=== PATIENT | female | born 1950 | race Caucasian/White ===

== ENCOUNTER → 2017-06-22 09:21 | Outpatient (CLI) | payer BC, SELFPAY ==
--- NOTE | 2017-06-22 09:32 | MRI_ITS ---
STUDY: MRI BRAIN WITH AND WITHOUT CONTRAST REASON FOR EXAM: Female, 66 years old. Paresthesia. Left arm and leg numbness and weakness. Unsteady gait. Loss of strength in left side. Family history of MS. TECHNIQUE: Standardized multiplanar fat and water weighted pulse sequences were obtained. 6 ml of Gadavist contrast material was administered intravenously for the contrast portion of the examination. COMPARISON: 01/01/2016. FINDINGS: Normal size of the ventricles and extra-axial spaces for the patient's age. Left periatrial white matter T2 FLAIR hyperintensity foci are unchanged. Normal bilateral basal ganglia. Normal thalami. There is no extra-axial fluid accumulation. Normal flow voids within the major intracranial circulation suggesting patency by spin echo criteria. Normal venous enhancement. There is no enhancing intra-axial or extra-axial abnormality. Normal sella turcica, pituitary gland, infundibular stalk, optic chiasm and hypothalamus. Normal tectal plate and pineal gland. Normal midbrain, gillian and medulla. Normal cerebellum. Normal basal cisterns. Normal bilateral temporal bones. Normal bilateral internal auditory canals. No demonstrated orbital abnormality, within the constraints of a routine brain study. Normal visualized paranasal sinuses. Normal calvarium and skull base. Normal visualized soft tissue structures. Normal visualized upper cervical spine. MRI/Brain W/WO Contrast IMPRESSION: 1. Left periatrial white matter T2 FLAIR hyperintensity foci are nonenhancing and unchanged. They may be secondary to microvascular disease rather than MS plaque. 2. No interval changes or new findings when compared to 01/01/2016. Electronically Signed: Alf Quevedo MD at 13:42 EDT , Service support ,
--- NOTE | 2017-06-22 09:32 | MRI_ITS ---
STUDY: MRI CERVICAL SPINE WITH AND WITHOUT CONTRAST REASON FOR EXAM: Female, 66 years old. Left sided arm numbness and weakness. Patient has unsteady gait. TECHNIQUE: Standardized fat and water weighted pulse sequences were obtained in the sagittal and axial following I.V. administration of 6 ml of Gadavist contrast material. Sagittal and axial T1 and T2 MR images of the cervical spine were obtained prior to intravenous administration of contrast. COMPARISON: None FINDINGS: Normal foramen magnum and brainstem-cervical cord junction. Normal craniovertebral junction. There are degenerative changes of the anterior atlantoaxial articulation. There is abnormal signal within the odontoid. This may be the result of bone contusion and/or erosive change. This is new since the previous MRI. There is reversal of the normal cervical lordosis. The patient has had discectomy and surgical fusion at C6-7. C2-3: Normal endplates. Normal disc height, signal and morphology. Normal central canal. There is narrowing of bilateral intervertebral neural foramina. There is moderate osteoarthropathy of facet joints and uncovertebral joints. C3-4: There is narrowing of this disc. There is severe bilateral neural foraminal narrowing with potential nerve impingement. There is severe degenerative arthropathy of the left-sided facet joint and moderate degenerative arthropathy of uncovertebral and right-sided facet joint. C4-5: There is narrowing of this disc. There is a disc bulge and osteophyte complex. There is severe right-sided neural foraminal narrowing with potential nerve impingement. There is no significant central acquired canal stenosis. There is moderately severe uncovertebral facet joint arthropathy. C5-6: There is severe narrowing of this disc space with a large endplate osteophytes. There is severe left-sided neural foraminal narrowing with probable nerve impingement. The right neural foramen is mildly narrowed. There is mild central acquired canal stenosis. There is uncovertebral joint appear to be. C6-7: Patient has had discectomy at this level with surgical fusion. There is a posteriorly directed osteophyte causing moderate acquired canal stenosis and potential impingement of the spinal cord at this level. There is severe bilateral neural foraminal narrowing with probable nerve impingement. There is uncovertebral and facet joint arthropathy. C7-T1: There is a disc bulge and osteophyte complex. There is severe bilateral neural foraminal narrowing with potential nerve impingement. There is mild central acquired canal stenosis. There is persistent abnormal signal within the spinal cord at C2-3 and C3, similar to previous study. The spinal cord otherwise has normal morphology and signal characteristics. There is no demonstrated cervical cord syrinx cavity. There is multilevel degenerative disc disease of the upper thoracic spine. There is abnormal signal within the gillian probably related to sequela of microvascular disease. Normal visualized soft tissue structures. MRI/Spine Cervical W/WO Contrast IMPRESSION: 1. Unchanged appearance to abnormal signal within the proximal cervical spinal cord since previous study. 2. Moderately severe multilevel degenerative disc disease and degenerative arthropathy of cervical spine with acquired canal stenosis, neural foraminal narrowing and potential nerve impingement as described. 3. Status post discectomy at C6-7 with surgical fusion. Electronically Signed: Becca Anderson MD at 7:42 EDT , Service support ,
[2017-06-22 11:01] LABS: CREATININE FINGERSTICK 0.9 mg/dL (0.55-1.02); EGFR FINGERSTICK > 60.0000 mL/min (>60)
== END ==
PROVIDERS: Family Provider Internal Medicine; PCP Internal Medicine; Visit Provider Internal Medicine
DX: R20.2 Paresthesia of skin (principal); R27.0 Ataxia, unspecified; R93.7 Abnormal findings on diagnostic imaging of other parts of musculoskeletal system
CPT/HCPCS: 70553; 72156; A9585

== ENCOUNTER → 2018-02-09 08:52 | Outpatient (CLI) | payer BC, SELFPAY ==
--- NOTE | 2018-02-09 09:05 | RAD_ITS ---
STUDY: X-RAY - LUMBAR SPINE REASON FOR EXAM: Female, 67 years old. Pain TECHNIQUE: 5 view(s) of the lumbar spine were obtained. COMPARISON: None FINDINGS: There is no evidence of fracture or dislocation in the lumbar spine. There are moderate multilevel degenerative changes with disc space narrowing and osteophyte formation. There are atherosclerotic ossifications noted in the aorta. RAD/L/S Spine Min 4 Views IMPRESSION: No fracture or dislocation in the lumbar spine. Moderate degenerative changes. Electronically Signed: Alex Yadav, at 16:42 EST Tel , Service support ,
== END ==
PROVIDERS: Family Provider Internal Medicine; PCP Internal Medicine
DX: M54.5 Low back pain (principal)
CPT/HCPCS: 72110

== ENCOUNTER → 2018-05-19 13:39 | Outpatient (CLI) | payer MEDICARE, OTHER, SELFPAY ==
--- NOTE | 2018-05-19 13:44 | CT_ITS ---
STUDY: CT ABDOMEN WITH CONTRAST REASON FOR EXAM: Female, 67 years old. Loss of appetite. Pain while eating. RADIATION DOSAGE (If Supplied By Facility): CTDIvol = ( 10.03 ) mGy, DLP = ( 341.51 ) mGycm TECHNIQUE: Transaxial images were obtained post I.V. administration of 100 IV Isovue 250, and without oral contrast. Sagittal and coronal images were reconstructed. Individualized dose optimization techniques were used for this CT. COMPARISON: Chest second 2016. FINDINGS: Again noted bilateral focal eventration of the hemidiaphragms. Atelectasis/scarring within the lungs. Emphysematous changes. The visualized portions of the heart are within normal limits. There is decreased attenuation of the liver consistent with steatosis. Borderline enlarged liver. Normal gallbladder and extrahepatic biliary system. Normal spleen. Normal pancreas. Normal bilateral adrenal glands. There is mild perinephric fatty stranding noted bilaterally. There is mild left hydronephrosis present. There is no significant hydroureter present. No definite stones identified. Subcentimeter low-attenuation structures within the right kidney too small to characterize by CT criteria however statistically likely represent cysts. Mild gastric wall thickening likely related to underdistention. Limited evaluation of bowel by the lack of oral contrast. No dilated bowel within the visualized abdomen. There is diverticulosis, with thickening of the colon wall, and pericolonic inflammation changes consistent with acute diverticulitis. The appendix is visualized and appears normal. There is diffuse atherosclerotic calcification of the abdominal aorta with elongation and tortuosity, but without a demonstrated aneurysm. Normal inferior vena cava. Normal retroperitoneum. Normal abdominal wall. There are diffuse degenerative changes of the visualized lumbar spine. Extensive degenerative changes at the T12-L1 region. There is vacuum disc phenomenon with gas posterior to the disc space within the region of the canal. Relatively similar to prior CT scan of the chest. CT/Abdomen WITH IV Contrast IMPRESSION: There is moderate left hydronephrosis. There is no significant hydroureter. This may represent a stricture at the left UPJ. Underlying mass cannot be totally excluded however no enhancing lesion is identified. Correlate with prior studies for stability recommended. Hepatic steatosis. Diverticulosis. No CT evidence for diverticulitis within the visualized colon. Other findings as discussed above. Electronically Signed: Brayan Sood, at 7:06 EDT Tel , Service support ,
== END ==
PROVIDERS: Family Provider Internal Medicine; PCP Internal Medicine; Referring Provider Internal Medicine; Visit Provider Internal Medicine
DX: R94.5 Abnormal results of liver function studies (principal)
CPT/HCPCS: 74160; Q9967

== ENCOUNTER → 2018-07-21 12:16 | Outpatient (CLI) | payer MEDICARE, OTHER, SELFPAY ==
--- NOTE | 2018-07-21 12:20 | BI_ITS ---
MAMMOGRAPHY - BILATERAL SCREENING REASON FOR EXAM: Female, 67 years old. Routine annual screening examination. PERTINENT HISTORY: Non-contributory. Remote bilateral stereotactic breast biopsies. TECHNIQUE: Digital bilateral breast darinel (3D mammographic acquisition) in the CC and MLO projections. 2-D mediolateral oblique (MLO) and craniocaudad (CC) views of both breasts were obtained. CAD: Full Field Digital Mammography with Computer Added Detection was performed. COMPARISON: Comparison is made with prior study dated January 07, 2016 and December 17, 2014. FINDINGS: Breast Composition: There are scattered areas of fibroglandular density. There are no dominant masses or suspicious calcifications. A fissure clip marker is once again seen in the medial retroareolar region of the left breast. A tissue clip marker is also seen in the slightly upper medial aspect of the right breast. This is unchanged. No other significant abnormalities are identified. There has been no significant change since the prior study. BI/SCREEN MAMM (CAD) W/DARINEL BILAT IMPRESSION: Stable bilateral screening mammogram. Yearly follow-up mammogram recommended. (A) ASSESSMENT CATEGORY: BIRADS Category 2: Benign. A letter regarding these results will be sent to the patient by the facility within 30 days. Approximately 10% of breast cancers are not detected by mammography. A normal mammogram should not delay biopsy of a clinically suspicious abnormality. [id number] Electronically Signed: Adalberto Dumas, at 13:39 EDT , Service support ,
== END ==
PROVIDERS: Family Provider Internal Medicine; PCP Internal Medicine; Referring Provider Internal Medicine; Visit Provider Internal Medicine
DX: Z12.31 Encounter for screening mammogram for malignant neoplasm of breast (principal)
CPT/HCPCS: 77063; 77067

== ENCOUNTER → 2018-11-28 14:39 | Outpatient (CLI) | payer MEDICARE, OTHER, SELFPAY ==
--- NOTE | 2018-11-28 14:42 | CT_ITS ---
STUDY: LOW DOSE CT LUNG CANCER SCREENING REASON FOR EXAM: Female, 68 years old. 15 pack-year history. RADIATION DOSAGE (If Supplied By Facility): CTDIvol = ( 2.01 ) mGy, DLP = ( 69.47 ) mGycm TECHNIQUE: No contrast was administered. Low dose technique was utilized (average mAS-38 and kVp 120). 1.25 mm axial source images with a slice interval of 1.25-mm were reconstructed in lung windows. 2.5 mm axial source images with a slice interval of 2.5-mm were reconstructed in lung windows. 5.0 mm axial source images with a slice interval of 5.0-mm were reconstructed in soft tissue windows. Nodule measured using lung windows on PACS and/or independent workstation with automated measurement of minimum and maximum diameter. Nodule measurement reported as average diameter rounded to the nearest whole number. Growth is defined as an increase ins size of greater than 1.5 mm. COMPARISON: February 04, 2017. NODULES: Nodule #: 1 Density: Solid Lung location: Left upper lobe: Pleural-based Location in series: Series Number: 2 Image: 45 Size - D1 x D2 mm: 2 x 2 mm: 2 mm average diameter Margin: Smooth Shape: Rounded Calcification: No Fat: No Temporal comparison: Stable Nodule #: 2 Density: Solid Lung location: Left upper lobe: Pleural-based Location in series: Series Number: 2 Image: 48 Size - D1 x D2 mm: 2 x 2 mm: 2 mm average diameter Margin: Smooth Shape: Round Calcification: No Fat: No Temporal comparison: Stable Nodule #: 3 Density: Solid Lung location: Left upper lobe: 0.2 cm from pleura Location in series: Series Number: 2 Image: 55 Size - D1 x D2 mm: 2 x 2 mm: 2 mm average diameter Margin: Smooth Shape: Round Calcification: No Fat: No Temporal comparison: Stable Nodule #: 4 Density: Solid Lung location: Left upper lobe: Pleural based Location in series: Series Number: 2 Image: 62 Size - D1 x D2 mm: 1 x 1 mm: 1 mm average diameter Margin: Smooth Shape: Round Calcification: No Fat: No Temporal comparison: Stable Total lung nodules (excluding granulomas): 4 Emphysema: Mild stable changes. Endobronchial lesion: None Aorta: Atherosclerotic changes without aneurysm. Coronary arteries: Stable coronary artery calcifications. Heart: Normal Pulmonary artery: Normal Mediastinal nodes: None Other chest and abdominal findings: Degenerative changes of the thoracic spine. CT/Low Dose CT Lung Screening IMPRESSION: Lung-RADS category 2 - Continue annual screening with LDCT in 12 months. IMPORTANT NOTES FOR USE: ACR Lung-RADS Version 1.0 Assessment Categories Release Date: June 11, 2013 Category: Coded 0-4 bases on nodule(s) with highest degree of suspicion. Negative screen is defined as categories 1 and 2; a positive screen is defined as categories 3 and 4. Category 3 and 4A nodules that are unchanged on interval CT should be coded as category 2, and individuals returned to screening in 12 months. Category 4X: Category 3 or 4 nodules with additional imaging findings that increase the suspicion of lung cancer, such as spiculation, GGN that doubles in size in 1 year, enlarged lymph notes, etc. Category Modifiers: S (significant finding unrelated to lung cancer) and C (prior history of treated lung cancer) may be added to the 0-4 Lung-RADS Electronically Signed: Pratik Carreno DO at 19:37 EDT Tel [phone], Service support ,
== END ==
PROVIDERS: Family Provider Internal Medicine; PCP Internal Medicine; Referring Provider Internal Medicine; Visit Provider Internal Medicine
DX: Z12.2 Encounter for screening for malignant neoplasm of respiratory organs (principal); M81.0 Age-related osteoporosis without current pathological fracture; Z87.891 Personal history of nicotine dependence
CPT/HCPCS: G0297

== ENCOUNTER 2019-07-24 09:30 | Outpatient (RCR) | payer MEDICARE, OTHER, SELFPAY ==
--- NOTE | 2019-07-05 11:14 | HP.PTEVAL ---
Patient's Visit Information IRINA ROSE is a 68 year old F referred to Physical Therapy by Dr. Zarina Schwab MD with a diagnosis of dizzinesss, giddiness.. Date of Evaluation: 07/05/19 Physical Therapist: Tristian Mckay, JOSET, OCS, CSCS - Visit Plan Frequency: 2x /Week Duration: 4-6 Weeks Plan: 2x.week for 3-6 week for. 1. Balance and gait with foam and VOR and progress to HEP as safety allows. Practice narrow GEOFF. 2. core strength emphasizing hips and abdominals. 3. Progress home VOR(let EG know if HEP is not symptomatic.) Consider Neurocom balance as needed) - Subjective I am dizzy described as wobbly on feet but no spinning, only when on feet. Was sick a month ago and that is when it started. Stomach and pancreas werre all messed up. Now on pills and those are OK. On meclizine for 6 weeks and it helps daily as needed 3x/week. Denies CULP, neck pain, nausea. Just dizzy/wobbly. Has fallen 2x in last month. Both time going down steps and looking down was needed but did not. Has to be careful on steps. Does not need AD. Fatigue makes it worse. Holding cart is fine at grocery store. No previous oroblems with this. Sleep is OK. No pain but then describes sitting too much gives back pain. Not employed. Activities are normal, fairly sedentary. Planting gan took 3 days instead of four hours as she needed to get off feet. Bending to do this made her worse. - Objective Pt uses hands to get out of chair and takes a minute to steady herself then walks safe and secure on firm flat surface but wide GEOFF. Weakness evident in core at hips 3+ and knees 4, and ankles 4+. reflexes 2/3 patella and achilles. Sensation LE WNL to gross light touch. Coordination shows slight deificts in reciprocal tapping and moderate in heel to ndiaye B. Has trouble keeping head moving while VOR walking. - B hallpike mimi and roll test, no nystagmus. Oculomotor:- skew eye deviation, - ocular tilt. Pursuit adn saccades are normal. convergence is normal. no nystagmus with gaze or head shake. 6/10 dizzyness with horiz VOR after 20 seconds sitting descirbed as goofiness. None with vertical VOR. - head thrust. - Balance Scores Functional Gait Assessment Score: 22 % Disability: 26.6700 CATSIB Score (Max score 120 seconds): 110 - Goals Goal 1:: Pt feel 75% better in gait and walk with Narrow GEOFF at normal speed. Goal Time Frame: 4-6 Weeks Goal 2:: Pt ascend and descend stairs reciprocally withotu rail Goal Time Frame: 4-6 Weeks Goal 3:: I approp HEp to minize future problems Goal Time Frame: 4-6 Weeks Goal 4:: DHI <10 Goal Time Frame: 4-6 Weeks - Rehabilitation Potential Physical Therapy Diagnosis: unsteadiness, dizzyness with VOR leading to mobiliity deficits and safety concerns. Rehabilitation Potential: Fair - Anticipated Interventions Patient/Client Instruction: Educate patient on: Condition, Plan of Care For the Purpose of:: To improve muscle performance and motor function, To increase tolerance to activity/condition/position, To improve gait and locomotor functions Therapeutic Exercise to Include: Strength training, Balance training, Gait and locomotor training, Neuromotor development Comment: vestibular ex. For the Purpose of:: To improve muscle performance and motor function, To increase tolerance to activity/condition/position, To improve gait and locomotor functions Thank you for the opportunity to evaluate your patient. For Medicare and Medicare HMO plans, please review the plan of care and approve it. It will need to be FAXED BACK to us at [phone] for Medicare purposes. For Medicare only, by signing this I certify the plan of care. Please let me know if there are questions or concerns regarding this plan of care. Physician Signature: Date:
--- NOTE | 2019-10-16 16:28 | HP.PT.NRP ---
IRINA ROSE was seen in my office for initial evaluation on 07/05/19. The following Plan of Care was established for this patient: Initial Frequency: 2x /Week Initial Duration: 4-6 Weeks Patient/Client Instruction: Educate patient on: Condition, Plan of Care For the Purpose of:: To improve muscle performance and motor function, To increase tolerance to activity/condition/position, To improve gait and locomotor functions Therapeutic Exercise to Include: Strength training, Balance training, Gait and locomotor training, Neuromotor development For the Purpose of:: To improve muscle performance and motor function, To increase tolerance to activity/condition/position, To improve gait and locomotor functions This patient was last seen in our office 07/24/19. Pertinent comments regarding their Physical therapy will appear below: Ptseen 6 visits of POC and cancelled last two visits stating she would reschedule but not doing so. at this point, it has been over two months adn I will discontinue due to nonattendance. At this point I will be discontinuing this patient from physical therapy. I would be happy to see this patient again in the future if found appropriate by the physician. Thank you! Tristian Mckay, DPT, OCS, CSCS
== END 2019-07-24 19:00 | disposition home or self-care (01) ==
LOC: PT 09:30
PROVIDERS: PCP Internal Medicine; Referring Provider Internal Medicine; Visit Provider Internal Medicine
DX: R42 Dizziness and giddiness (principal)
CPT/HCPCS: 97110; 97162

== ENCOUNTER → 2019-08-22 07:42 | Outpatient (CLI) | payer MEDICARE, OTHER, SELFPAY ==
--- NOTE | 2019-08-22 07:49 | RAD_ITS ---
STUDY: X-RAY - LEFT KNEE REASON FOR EXAM: Female, 69 years old. FALL. SWELLING LEFT KNEE TECHNIQUE: 4 view(s) of the knee. COMPARISON: None. FINDINGS: Normal visualized distal femur. Normal visualized proximal tibia and fibula. Normal proximal tibiofibular articulation. Normal medial femorotibial compartment. Normal lateral femorotibial compartment. Normal patellofemoral articulation. The soft tissue structures are unremarkable. RAD/Knee 4 or More Views IMPRESSION: Normal x-ray examination of the knee. Electronically Signed: Adalberto Dumas, at 15:29 EDT , Service support ,
== END ==
PROVIDERS: PCP Internal Medicine; Referring Provider Internal Medicine; Visit Provider Internal Medicine
DX: M25.562 Pain in left knee (principal)
CPT/HCPCS: 73564

== ENCOUNTER → 2019-08-22 13:53 | Outpatient (CLI) | payer MEDICARE, OTHER, SELFPAY ==
--- NOTE | 2019-08-22 13:59 | VDLE_ITS ---
Reason For Study: PAIN RIGHT LEFT CFV is compressible, spontaneous, phasic, GSV is normal. competent and demonstrates normal CFV is compressible, spontaneous, phasic, augmentation. competent, and demonstrates normal Procedure augmentation. Exam performed in department. FV is compressible, spontaneous, phasic, The exam was diagnostic. competent and demonstrates normal A preliminary report was called and/or faxed augmentation. to Dr. Schwab @ 2:40 pm. POP V is compressible, spontaneous, phasic, competent and demonstrates normal augmentation. T/P Trunk is compressible. PTV is compressible. LT PerV is compressible. Interpretation Summary Deep veins of the left lower extremity are patent and compressible segmentally. There is no evidence of left lower extremity deep vein thrombosis. Valvular competence appears intact within the proximal deep venous system on the left . The left great saphenous vein appears patent and compressible segmentally. Ordering Physician: Zarina Schwab Referring Physician: Zarina Schwab Performed By: Silva Jackson RVT, RDCS and Student
[2019-08-22 15:55] LABS: Absolute Lymphocyte Count 2.29 X10^3/uL (0.83-4.51); Basophil# 0.03 X10^3/uL; Basophil% 0.4 % (0-1); Eosinophil# 0.12 X10^3/uL; Eosinophils% 1.7 % (0-5); Hematocrit 37.7 % (37-47); Hemoglobin 12.4 g/dL (12.0-15.0); Lymphocyte # 2.29 X10^3/ul (4.0); Lymphocyte % 32.9 % (19-41); Mean Corp Hgb Conc 32.9 g/dL (32-36); Mean Corpuscular Hgb 35.6 pg (27.0-32.0); Mean Corpuscular Volume 108.3 fL (81-99); Mean Platelet Vol. 9.3 fl (6.2-12.0); Monocyte# 0.55 X10^3/uL; Monocyte% 7.9 % (0-10); NRBC Flagged by Analyzer 0 % (0-5); Neutrophil # 3.95 X10^3/uL (2.7-7.7); Neutrophil % 56.8 % (47-70); Platelet Count 397 K/mm3 (150-450); RBC Distribution Width CV 15.1 % (11.6-14.6); Red Blood Count 3.48 M/mm3 (4.2-5.4)
[2019-08-22 16:16] LABS: Erythrocyte Sedimentation Rate 9 mm/hr (0-30)
[2019-08-22 19:18] LABS: D-Dimer Quantitative (DVT/PE) 2.84 FEU/ug/m (0.27-0.49)
== END ==
PROVIDERS: PCP Internal Medicine; Referring Provider Internal Medicine; Visit Provider Internal Medicine
DX: R60.0 Localized edema (principal); M25.562 Pain in left knee
CPT/HCPCS: 36415; 73564; 85025; 85379; 85652; 86140; 87040; 93971

== ENCOUNTER → 2019-08-24 | Outpatient (CLI) | payer MEDICARE, OTHER, SELFPAY ==
[2019-08-24 08:17] VITALS: BMI 20.8
[2019-08-24 10:28] LABS: Bacteria 0 SEEN /hpf (None Seen); Mucous, Urine 0 SEEN /hpf (<or=2+)
[2019-08-24 10:59] LABS: Color, Urine Yellow (Yellow); Glucose, Dipstick Normal (Normal); Ketone-Dipstick Negative (Negative); Leukocyte Esterase-Dipstick 500 /ul (Negative); Nitrite-Dipstick Negative (Negative); Occult Blood-Urine 25 /ul (Negative); Protein-Dipstick Negative (Negative); Specific Gravity, Urine 1.025 (1.002-1.030); Urine Bilirubin Dipstick Negative (Negative); Urine Clarity Sl. Cloudy (Clear); Urine Urobilinogen Normal (Normal)
[2019-08-24 11:07] LABS: Red Blood Cells-Urine 0-5 SEEN /hpf (0-5); Squamous Epithelial Cells - UA 0-5 SEEN /hpf (5-10); White Blood Cells 25-50 SEEN /hpf (0-5)
[2019-08-24 11:08] LABS: Calcium Oxalate Crystals Ur 2+ /hpf (<or=2+)
== END | disposition home or self-care (01) ==
LOC: LAB.FUTURE 09:47 → LABSPEC 09:49
PROVIDERS: PCP Internal Medicine; Referring Provider Internal Medicine; Visit Provider Internal Medicine
DX: R31.9 Hematuria, unspecified (principal); R50.9 Fever, unspecified
CPT/HCPCS: 81001; 87086; 87088

== ENCOUNTER → 2019-08-30 07:27 | Outpatient (CLI) | payer MEDICARE, OTHER, SELFPAY ==
[2019-08-24 08:17] VITALS: BMI 20.8
--- NOTE | 2019-08-30 07:43 | MRI_ITS ---
STUDY: MRI LEFT KNEE REASON FOR EXAM: Medial pain, instability, injury 2 weeks ago. TECHNIQUE: Standardized fat and water weighted pulse sequences were obtained in all 3 orthogonal planes. COMPARISON: Radiographs 08/22/2019. FINDINGS: Normal medial meniscus. Normal hyaline cartilage of the medial femorotibial compartment. Normal medial femoral condyle and tibial plateau. There is a mild sprain of the medial collateral ligament (T2 coronal image 16). Normal distal semimembranosus, gracilis and semitendinosus tendons. There is a small complex tear of the inferior articular surface of the anterior horn of the lateral meniscus (proton-density sagittal images 30-33). Normal hyaline cartilage of the lateral femorotibial compartment. There is a small subchondral stress fracture of the posterior weightbearing lateral femoral condyle with bone edema (T2 sagittal images 18, 19; T2 coronal images 9, 10). Normal proximal tibiofibular articulation. There is a mild sprain of the proximal fibular collateral ligament (T2 coronal image 10). Normal popliteus tendon. Normal biceps femoris tendon. Normal anterior cruciate ligament (ACL). Normal posterior cruciate ligament (PCL). Normal congruent patellofemoral articulation. There is low-grade chondromalacia patellae (T2 sagittal image 13). Normal medial and lateral patellar retinaculum. Normal quadriceps tendon. Normal patellar tendon. Normal Hoffa''s fat pad. There is a moderate sized joint effusion. There is mild edema in the anterior subcutis adipose space. There is a very small enchondroma in the medial aspect of the distal femoral metaphysis (T2 coronal image 15) measuring 0.25 cm in transverse dimension, and a very small intraosseous lipoma in the lateral femoral condyle (proton-density coronal image 15) measuring 0.3 cm in length. MRI/Lower Ext Joint Only (Routine) IMPRESSION: Small subchondral stress fracture of the lateral femoral condyle. Small lateral meniscal tear. Mild sprains of the medial collateral and fibular collateral ligaments. Low-grade chondromalacia patellae. Joint effusion. Electronically Signed: Desmond Jaimes MD at 9:02 EDT Tel , Service support ,
== END ==
PROVIDERS: PCP Internal Medicine; Referring Provider Orthopaedic Surgery; Visit Provider Orthopaedic Surgery
DX: T14.8XXA Other injury of unspecified body region, initial encounter (principal); X58.XXXA Exposure to other specified factors, initial encounter; Y93.9 Activity, unspecified; Y92.9 Unspecified place or not applicable; Y99.9 Unspecified external cause status
CPT/HCPCS: 73721

== ENCOUNTER → 2019-10-11 09:02 | Outpatient (CLI) | payer MEDICARE, OTHER, SELFPAY ==
[2019-10-11 08:50] VITALS: BMI 20.8
--- NOTE | 2019-10-11 09:03 | RAD_ITS ---
STUDY: X-RAY - LEFT KNEE REASON FOR EXAM: Left knee pain, injury. TECHNIQUE: 4 view(s) of the knee. COMPARISON: Radiographs 08/22/2019. FINDINGS: Normal visualized distal femur. Normal visualized proximal tibia and fibula. Normal proximal tibiofibular articulation. Normal medial femorotibial compartment. Normal lateral femorotibial compartment. Normal patellofemoral articulation. There is a small joint effusion. RAD/Knee 4 or More Views IMPRESSION: Small joint effusion. Otherwise, unremarkable x-ray examination of the left knee. Electronically Signed: Desmond Jaimes MD at 11:26 EDT Tel , Service support ,
== END ==
PROVIDERS: PCP Internal Medicine; Referring Provider Orthopaedic Surgery; Visit Provider Orthopaedic Surgery
DX: T14.8XXA Other injury of unspecified body region, initial encounter (principal); X58.XXXA Exposure to other specified factors, initial encounter; Y93.9 Activity, unspecified; Y92.9 Unspecified place or not applicable; Y99.9 Unspecified external cause status
CPT/HCPCS: 73564

== ENCOUNTER 2019-10-11 09:46 | Outpatient (RCR) | payer MEDICARE, OTHER, SELFPAY ==
[2019-08-24 08:17] VITALS: BMI 20.8
[2019-10-11 08:50] VITALS: BMI 20.8
--- NOTE | 2019-10-11 10:33 | HP.PTEVAL ---
Patient's Visit Information IRINA ROSE is a 69 year old F referred to Physical Therapy by Dr. Jennifer De La O DO with a diagnosis of L knee contusion. Date of Evaluation: 10/11/19 Physical Therapist: Jonatan Harding, PT, ATC - Visit Plan Plan: Skilled PT is not necessary at this time. Pt is discharged. - Subjective Pt reports on August 14, she was carrying a clothes basket up stairs when she tripped and injured her L knee. Pt reports she had xrays taken where it was revealed she fractured her L knee. Pt reports she is doing much better now. Pt reports she isnt really sure why she is here because she is independent and can perform all her IADL's. Pt reports she doesnt feel weak, and thinks her balance is fine. Pt reports she has no functional limitations at this time. No tingling or numbness in L knee. No difficulty with sleep. No difficulty with stair negotiation at this time. Pt reports she is not in any pain on this date. - Pain L knee Pain Intensity (Out of 10): 0 Pain Intensity Range: 0 - Objective Neuro: B LE sensation is WNL to light touch. B achilles reflex= 2/3. Palpation: No pain with palpation. Girth at joint line: B knees are 30.5 cm. MMT: B LE's 5/5 throughout. ROM: R knee 0-2-140, L knee 0-3-137 degrees. Gait: Pt is able to ambulate greater than 1000 feet without difficulty - Goals Goal 1:: N/A - Rehabilitation Potential Physical Therapy Diagnosis: Pt had pain prior to this visit secondary to L knee contusion Rehabilitation Potential: Good - Anticipated Interventions Patient/Client Instruction: Educate patient on: Condition, Plan of Care For the Purpose of:: To reduce risk of recurrence Thank you for the opportunity to evaluate your patient. For Medicare and Medicare HMO plans, please review the plan of care and approve it. It will need to be FAXED BACK to us at [phone] for Medicare purposes. For Medicare only, by signing this I certify the plan of care. Please let me know if there are questions or concerns regarding this plan of care. Physician Signature: Date:
== END 2019-10-11 10:47 | disposition home or self-care (01) ==
LOC: PT 09:46
PROVIDERS: PCP Internal Medicine; Referring Provider Orthopaedic Surgery; Visit Provider Orthopaedic Surgery
DX: S80.02XD Contusion of left knee, subsequent encounter (principal)
CPT/HCPCS: 97161

== ENCOUNTER → 2020-06-16 10:25 | Outpatient (CLI) | payer MEDICARE, SELFPAY ==
--- NOTE | 2020-06-16 10:30 | VDLE_ITS ---
Reason For Study: RLE swelling RIGHT LEFT GSV is normal. CFV is compressible, spontaneous, phasic, CFV is compressible, spontaneous, phasic, competent, and demonstrates normal competent and demonstrates normal augmentation. augmentation. FV is compressible, spontaneous, phasic, competent and demonstrates normal augmentation. POP V is compressible, spontaneous, phasic, competent and demonstrates normal augmentation. RT T/P Trunk, Per V, PTV are noncompressible and dilated with hyperechoic echoes noted in vessel lumen. Procedure This is a venous duplex using B-mode, color flow and spectral Doppler. Exam performed in department. A preliminary report was called and/or faxed to Dr. Schwab @ 11:15 am &will call patient with instructions. VL/Venous Duplex US, Unilateral Interpretation Summary Acute deep vein thrombosis is noted in the right tibio-peroneal trunk. Acute de ep vein thrombosis is noted in the right peroneal vein. Acute deep vein thrombosis is noted in the ri ght posterior tibial vein. The remainder of the right lower extremity deep venous system is patent a nd compressible. Valvular competence appears intact within the proximal deep venous system on th e right . The right great saphenous vein appears patent and compressible segmentally. Ordering Physician: Zarina Schwab Referring Physician: Zarina Schwab Performed By: Silva Jackson, RDCS, RVT
== END ==
PROVIDERS: PCP Internal Medicine; Referring Provider Internal Medicine; Visit Provider Internal Medicine
DX: M79.89 Other specified soft tissue disorders (principal)
CPT/HCPCS: 93971

== ENCOUNTER → 2020-10-23 08:02 | Outpatient (CLI) | payer MEDICARE, SELFPAY ==
--- NOTE | 2020-10-23 08:23 | VDLE_ITS ---
Reason For Study: Leg pain RIGHT LEFT GSV is normal. CFV is compressible, spontaneous, phasic, CFV is compressible, spontaneous, phasic, competent, and demonstrates normal competent and demonstrates normal augmentation. augmentation. FV is compressible, spontaneous, phasic, competent and demonstrates normal augmentation. POP V is compressible, spontaneous, phasic, competent and demonstrates normal augmentation. T/P Trunk is compressible. RT PerV is compressible. PTV is partially compressible with bright intraluminal echoes consistent with Chronic DVT. Procedure This is a venous duplex using B-mode, color flow and spectral Doppler. Exam performed in department. A preliminary report was called and/or faxed to [facility]. VL/Venous Duplex US, Unilateral Interpretation Summary Chronic venous changes are noted in the right posterior tibial vein, which is p artially compressible and demonstrates bright intraluminal echogenicity. The remainder of the right l ower extremity deep venous system is patent and compressible. Valvular competence appears intact wi thin the proximal deep venous system on the right . The right great saphenous vein appears patent and compressible segmentally. Ordering Physician: Swapna London Referring Physician: Zarina Schwab Performed By: Cyndy Carrera RVT
== END ==
PROVIDERS: PCP Internal Medicine; Referring Provider Internal Medicine; Visit Provider Internal Medicine
DX: M79.604 Pain in right leg (principal); M79.89 Other specified soft tissue disorders
CPT/HCPCS: 93971

== ENCOUNTER → 2020-12-17 08:56 | Outpatient (CLI) | payer MEDICARE, SELFPAY ==
--- NOTE | 2020-12-17 09:00 | BD_ITS ---
STUDY: DUAL ENERGY X-RAY ABSORPTIOMETRY / DXA REASON FOR EXAM: Female, 70 years old. [id number]. Patient is postmenopausal. TECHNIQUE: Bone Mineral Density (BMD) measurements of lumbar spine and bilateral hips were obtained. COMPARISON: Comparison is made with prior study dated 02/01/2017. FINDINGS: Lumbar Spine (L1-L4): g/cm2 (1.057) / T-score (0.0) / Z-score (2.2) Findings are suggestive of normal bone density with a low fracture risk. Left Femur Total: g/cm2 (0.702) / T-score (-2.0) / Z-score (-0.4) Left Femoral Neck: g/cm2 (0.623) / T-score (-2.0) / Z-score (-0.2) Right Femur Total: g/cm2 (0.700) / T-score (-2.0) / Z-score (-0.5) Right Femoral Neck: g/cm2 (0.549) / T-score (-2.7) / Z-score (-0.9) The T-Scores on the most recent prior examination were: Lumbar Spine (L1-L4): There has been worsening of bone density since the previous examination. Left Femur Total: which represents a worsening of 8.2%. Right Femur Total: which represents a worsening of 7.5%. BD/Dexa Bone Density Study IMPRESSION: The patient is considered osteoporotic as outlined below according to World Daniel Organization (WHO) criteria with a high fracture risk. There has been worsening of bone density since the previous examination. Reference Information: The T-score is the number of standard deviations above or below the standard which is normal for young adults at their peak bone mineral density. The World Health Organization (WHO) interprets the T-scores as follows: Above -1 Normal bone density Between -1 and -2.5 Osteopenia Equal to / or below -2.5 Osteoporosis As a practical clinical guideline, osteopenia may be graded as follows: Mild -1 through -1.5 Moderate -1.6 through -2.0 Severe -2.1 through -2.4 The Z-score is the number of standard deviations above or below age-matched controls. A Z-score of less than -1.5 would be considered abnormal. References: 1. NIH Osteoporosis and Related Bone Diseases www osteo.org 2. International Society for Clinical Densitometry www iscd.org 3. National Osteoporosis Foundation www nof.org Electronically Signed: Adalberto Dumas MD at 12:27 EDT , Service support ,
== END ==
PROVIDERS: PCP Internal Medicine; Referring Provider Nurse Practitioner; Visit Provider Nurse Practitioner
DX: Z78.0 Asymptomatic menopausal state (principal); M81.0 Age-related osteoporosis without current pathological fracture
CPT/HCPCS: 77080

== ENCOUNTER → 2021-11-20 | Outpatient (CLI) | payer MEDICARE, SELFPAY ==
[2021-11-20 12:31] LABS: Vitamin B12 352 pg/mL (211-911)
[2021-11-20 13:04] LABS: T4 Free Direct 0.87 ng/dL (0.76-1.46)
[2021-11-20 13:14] LABS: Homocysteine 61.3 umol/L (3.2-10.7)
== END | disposition home or self-care (01) ==
LOC: MTLAB 09:10
PROVIDERS: PCP Internal Medicine; Referring Provider Internal Medicine; Visit Provider Internal Medicine
DX: E53.8 Deficiency of other specified B group vitamins (principal); R53.83 Other fatigue
CPT/HCPCS: 36415; 82607; 82746; 83090; 84439

== ENCOUNTER 2021-12-17 13:59 | Observation (INO) | payer MEDICARE, SELFPAY ==
[2021-12-17] VITALS (8 sets, daily range): BP systolic 126–141; BP diastolic 33–86; PULSE 87–97; RESP 16–18; TEMP 36.2–37.4; O2SAT 93–100; BMI 18.4
[2021-12-17 14:42] LABS: Amphetamine Urine VISTA NEGATIVE (<1000 ng/mL); Barbiturate Urine VISTA NEGATIVE (< 200 ng/mL); Benzodiazepine Urine VISTA NEGATIVE (< 200 ng/mL); Cocaine Urine VISTA NEGATIVE (< 300 ng/mL); Ecstacy Urine VISTA NEGATIVE (< 500 ng/mL); Methadone Urine VISTA NEGATIVE (< 300 ng/mL); PCP Urine VISTA NEGATIVE (< 25 ng/mL); THC Urine VISTA NEGATIVE (< 50 ng/mL); Vista UDS pH Range 5
--- NOTE | 2021-12-17 15:31 | EDS_ITS ---
HPI History of Present Illness Chief Complaint: Substance Abuse Informant: patient Onset/Context/Timing Onset: Today Context: Gradual Onset Timing: Continuous Worsened by: Nothing Relieved by: Nothing Associated Symptoms Associated Symptoms: Positive for no; Negative for vomiting*, diarrhea*, fever*, rash*, seizure, tremor, palpatations, change in mental status, trauma, suicidal ideation or homicidal ideation Narrative Narrative: Patient presents for alcohol detox. Patient states that she drinks approximately 2 drinks of vodka per day. Patient states she has been drinking for several years. Patient states her last drink was just prior to arrival. P atient denies any nausea or vomiting. Patient denies any fevers or chills. Patient denies any seizures or tremors. Patient denies any palpitations. Patient denies any suicidal ideations. Patient states she has never been through alcohol detox in the past. 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 CPAP (continuous positive airway pressure) dependence Dyspnea Endocarditis Hyperlipidemia Long-term use of high-risk medication Nicotine dependence in remission Obstructive sleep apnea Smoker Tachycardia Home Medications multivitamin with folic acid 400 mcg tablet 1 tab PO DAILY 10/05/13 [History Last Taken Unknown] solifenacin 10 mg tablet 10 mg PO DAILY 10/05/13 [History Last Taken Unknown] buspirone 5 mg tablet mg PO 08/24/19 [History Last Taken Unknown] [id number] 36,000-114,000-180,000 unit capsule,delay rel ea PO 08/24/19 [History Last Taken Unknown] meclizine 25 mg tablet mg PO 08/24/19 [History Last Taken Unknown] omeprazole 40 mg capsule,delayed release 40 mg PO DAILY gerd 08/24/19 [History Last Taken Unknown] prednisolone acetate 1 % eye drops,suspension ml ophthalmic (eye) 08/24/19 [History Last Taken Unknown] Allergy/AdvReac Type Severity Reaction Status Date / Time No Known Allergies Allergy Verified 12/17/21 14:02 Family History Father CAD (coronary artery disease) Surgical History (Updated 12/17/21 @ 16:16 by Rhea Vinson) History of hysterectomy Hx of tonsillectomy Social History Smoking Status: Current every day smoker tobacco type: cigarettes Tobacco: How many years used: 41 Smokeless tobacco user: other second hand exposure: No alcohol intake: current alcohol intake frequency: holidays/special occasions only Alcohol type: hard liquor substance use type: does not use caffeine: Yes (4+ drinks/day) ROS ROS ED Constitutional Constitutional ED: Denies chills or fever(s) Eyes Eyes: Denies blurry vision or change in vision ENT ENT ED: Denies rhinorrhea or sore throat Cardiovascular Cardiovascular: Denies chest pain or palpitations Respiratory/Chest Respiratory/Chest: Denies cough or dyspnea Gastrointestinal Gastrointestinal: Denies nausea or vomiting Genitourinary Genitourinary ED: Denies dysuria or hematuria Musculoskeletal Musculoskeletal: Denies back pain or neck pain Integumentary Reports abscess; Denies rash Neurologic Neurologic: Denies headache(s) or weakness Allergic/Immunologic Allergic/Immunologic ED: Denies mouth swelling or urticaria EXAM Physical Exam Const Vital Signs: 12/17/21 14:00 12/17/21 14:14 12/17/21 14:58 Temperature 97.2 F L 97.9 F Temperature Source Temporal Temporal Pulse Rate 97 97 97 Respiratory Rate 16 16 16 Blood Pressure 141/33 H 136/84 H Blood Pressure Mean 69 101 Pulse Ox 100 99 98 Oxygen Delivery Method Room Air Room Air 12/17/21 15:00 Temperature Temperature Source Pulse Rate Respiratory Rate 18 Blood Pressure 136/83 H Blood Pressure Mean 100 Pulse Ox Oxygen Delivery Method Room Air Positive well nourished and well developed General Appearance ED: well developed HEENT Reports moist mucous membranes Neck supple and no JVD Resp normal respiratory effort and clear to auscultation bilaterally Cardio regular rate, regular rhythm and no murmurs GI normal to inspection, nondistended, normoactive bowel sounds and non-tender Palpation: soft Extremity normal to inspection General Extremety ED: Negative for edema or tenderness General Extremity: Negative for edema Neuro oriented x3, CN's II-XII intact bilaterally and no sensory deficits noted Sensorium / Orientation: alert Motor Exam: strength 5/5 throughout Psych mental status grossly normal MDM MDM MDM Narrative Medical decision making narrative: Basic labs were obtained. Potassium was slightly low at 2.8. Urine tox screen was negative. Serum alcohol level was less than 3. CBC was within normal limits. Lipase was normal at 130. The area was cleaned with chlorhexidine prep. The area was anesthetized with 1% plain lidocaine locally. A small cruciate incision was made using an 11 blade scalpel. A small amount of purulent drainage was expressed. The wound was left open. Bacitracin dressing was applied. Patient tolerated the procedure well. Patient was given a dose of Keflex here. Case was discussed with the hospitalist. She will admit the patient to the hospital for alcohol detox. Patient understood and was agreeable with the plan. All questions were answered. Lab Data Attestation: I reviewed the patient's lab results. Labs: Laboratory Results - last 24 hr 12/17/21 12/17/21 12/17/21 14:25 14:45 14:45 WBC RBC Hgb Hct MCV MCH MCHC RDW Std Deviation RDW Coeff of Marc Plt Count MPV Immature Gran % (Auto) Neut % (Auto) Lymph % (Auto) [place] % (Auto) Eos % (Auto) Baso % (Auto) Absolute Neuts (auto) Absolute Lymphs (auto) Nucleated RBC % Sodium 139 Potassium 2.8 L Chloride 100 Carbon Dioxide 31.0 Anion Gap 8 BUN 11 Creatinine 0.99 Estim Creat Clear Calc 44.79 Est GFR (MDRD) Af Amer 71 Est GFR (MDRD) Non-Af 59 L BUN/Creatinine Ratio 11.1 Glucose 104 Calcium 9.0 Phosphorus Magnesium Total Bilirubin 0.70 AST 107 H ALT 46 Alkaline Phosphatase 104 Total Protein 7.1 Albumin 3.4 Globulin 3.7 Albumin/Globulin Ratio 0.9 Lipase Urine Opiates Screen NEGATIVE Urine Methadone Screen NEGATIVE Ur Barbiturates Screen NEGATIVE Ur Phencyclidine Scrn NEGATIVE Ur Amphetamines Screen NEGATIVE MDMA (Ecstasy) Screen NEGATIVE U Benzodiazepines Scrn NEGATIVE Urine Cocaine Screen NEGATIVE U Cannabinoids Screen NEGATIVE Ur Drug Screen Comment Ethyl Alcohol < 3.0 12/17/21 12/17/21 12/17/21 14:45 14:45 14:45 WBC 9.0 RBC 3.06 L Hgb 12.2 Hct 34.5 L MCV 112.7 H MCH 39.9 H MCHC 35.4 RDW Std Deviation 62.6 H RDW Coeff of Marc 15.0 H Plt Count 245 MPV 10.2 Immature Gran % (Auto) 0.600 Neut % (Auto) 74.4 H Lymph % (Auto) 17.2 L [place] % (Auto) 6.2 Eos % (Auto) 1.3 Baso % (Auto) 0.3 Absolute Neuts (auto) 6.7 Absolute Lymphs (auto) 1.55 Nucleated RBC % 0 Sodium Potassium Chloride Carbon Dioxide Anion Gap BUN Creatinine Estim Creat Clear Calc Est GFR (MDRD) Af Amer Est GFR (MDRD) Non-Af BUN/Creatinine Ratio Glucose Calcium Phosphorus 4.2 Magnesium 1.2 L Total Bilirubin AST ALT Alkaline Phosphatase Total Protein Albumin Globulin Albumin/Globulin Ratio Lipase 130 Urine Opiates Screen Urine Methadone Screen Ur Barbiturates Screen Ur Phencyclidine Scrn Ur Amphetamines Screen MDMA (Ecstasy) Screen U Benzodiazepines Scrn Urine Cocaine Screen U Cannabinoids Screen Ur Drug Screen Comment Ethyl Alcohol Procedures Other Procedures Procedure(s): The area was cleaned with chlorhexidine prep. The area was anesthetized with 1% plain lidocaine locally. A small cruciate incision was made using an 11 blade scalpel. A minimal amount of purulent drainage was expressed. The wound was left open. Bacitracin dressing was applied. Patient tolerated the procedure well. Discharge Plan Dx/Rx/DC Orders Clinical Impression: Alcohol withdrawal, Abscess of left thigh Disposition Disposition: Acute Care Hospital [facility]
[2021-12-17 15:32] LABS: ALB/GLOB Ratio 0.9 RATIO (0.9-2.4); AST(SGOT) 107 U/L (15-37); Alanine Aminotransfer ALT/SGPT 46 U/L (13-56); Albumin, Serum 3.4 g/dL (3.2-5.0); Alkaline Phosphatase 104 U/L (45-117); Anion Gap 8 (5-15); BUN 11 mg/dL (7-18); BUN/Creat Ratio 11.1 RATIO (10-20); Chloride 100 mmol/L (98-107); Creatinine, Serum 0.99 mg/dL (0.55-1.02); EST Glomerular Filtration Rate 59 mL/min (>60); Est Glom Filt Rate - Afr Amer 71 mL/min (>60); Estimated Creatinine Clearance 44.79 ml/min; Globulin 3.7 g/dL (2.2-4.2); Glucose 104 mg/dL (74-106); Potassium 2.8 mmol/L (3.5-5.1); Protein, Total 7.1 g/dL (6.4-8.2); Sodium Level 139 mmol/L (136-145)
[2021-12-17 15:37] LABS: Absolute Lymphocyte Count 1.55 X10^3/uL (0.83-4.51); Absolute Neutrophil Count 6.7 X10^3/uL (2.0-7.7); Basophil# 0.03 X10^3/uL; Basophil% 0.3 % (0-1); Eosinophil# 0.12 X10^3/uL; Eosinophils% 1.3 % (0-5); Hematocrit 34.5 % (37-47); Hemoglobin 12.2 g/dL (12.0-15.0); Lymphocyte # 1.55 X10^3/ul (0.83-4.51); Lymphocyte % 17.2 % (19-41); Mean Corp Hgb Conc 35.4 g/dL (32-36); Mean Corpuscular Hgb 39.9 pg (27.0-32.0); Mean Corpuscular Volume 112.7 fL (81-99); Mean Platelet Vol. 10.2 fl (6.2-12.0); Monocyte# 0.56 X10^3/uL; Monocyte% 6.2 % (0-10); NRBC Flagged by Analyzer 0 % (0-5); Neutrophil # 6.68 X10^3/uL (2.7-7.7); Neutrophil % 74.4 % (47-70); Platelet Count 245 K/mm3 (150-450); RBC Distribution Width SD 62.6 fl (35.1-43.9); Red Blood Count 3.06 M/mm3 (4.2-5.4)
--- NOTE | 2021-12-17 15:38 | PCM.HP.STD ---
HPI - General General Date of Admission: 12/17/21 Date of Service: 12/17/21 Chief Complaint: EtOH Detoxification request, L upper inner thigh abscess/cellulitis HPI Narrative The patient is a 71 y/o F w/ PMHx: CAD, HLD, Tobacco use, KELSEY, GERD, Anxiety and Depression, EtOH abuse (02/15 vodka 90% proof daily) who presents to the [facility] ED on 12/17/21 with history of ongoing significant alcohol abuse with decreased over the last 24 hours with last drink prior to presentation but her consumption recently is decreased secondary to desire to achieve sobriety with mild nausea and tremors upon initial presentation in addition to an incidental history of recently noticing a left upper inner thigh erythematous region that had a small abscess which did drain some however it still been mildly red and tender and she is unsure exactly when it started but only noticed it on day of presentation. She denies any recent fevers or chills. Work-up in the ED included T99.3, heart rate 87, BP 126/73, respiratory rate 16, 98% on room air, CBC with WC 9.0, hemoglobin 12.2, platelet 245 without marked shift, CMP with potassium 2.8, AST/LT 107/46, lipase 130 otherwise hepatic profile not marked appearing, UDS negative, ethyl alcohol less than 3, I&D performed per ED physician without marked output however enough discharge to obtain wound culture and wound MRSA PCR. In the ED patient was administered Keflex 500 mg p.o. x1. 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 CPAP (continuous positive airway pressure) dependence Endocarditis Hyperlipidemia Nicotine dependence in remission Obstructive sleep apnea Smoker Home Medications multivitamin with folic acid 400 mcg tablet 1 tab PO DAILY SUPPLEMENT 10/05/13 [History Last Taken 12/16/21] solifenacin 10 mg tablet 10 mg PO DAILY BLADDER 10/05/13 [History Last Taken 12/16/21] buspirone 5 mg tablet 5 mg PO DAILY ANXIETY 08/24/19 [History Last Taken Unknown] [id number] 36,000-114,000-180,000 unit capsule,delay rel 1 ea PO DAILY gi HEALTH 08/24/19 [History Last Taken 12/16/21] meclizine 25 mg tablet 25 mg PO DAILY MOTION SICKNESS 08/24/19 [History Last Taken Unknown] omeprazole 40 mg capsule,delayed release 40 mg PO DAILY gerd 08/24/19 [History Last Taken Unknown] Allergy/AdvReac Type Severity Reaction Status Date / Time No Known Allergies Allergy Verified 12/17/21 14:02 Family History (Updated 12/17/21 @ 17:[address] Mariann Chacko MD) Father CAD (coronary artery disease) Mother Liver cancer Surgical History History of hysterectomy Hx of tonsillectomy Social History (Updated 12/17/21 @ 17:[address] Mariann Chacko MD) household members: spouse Smoking Status: Current every day smoker tobacco type: cigarettes Smoking packs per day: 1 Smoking cigarettes per day: 20.0 Tobacco: How many years used: 41 Smokeless tobacco user: other second hand exposure: No alcohol intake: current alcohol intake frequency: 3 or more drinks per day Alcohol type: hard liquor details: Drinks 1/2 of 5th 90% proof vodka daily. substance use type: does not use caffeine: Yes (4+ drinks/day) ROS ROS Narrative Admission Review of Systems: CONSTITUTIONAL: No weight loss, fever, chills, + weakness or fatigue. HEENT: Eyes: No visual loss, blurred vision, double vision or yellow sclerae. Ears, Nose, Throat: No hearing loss, sneezing, congestion, runny nose or sore throat. SKIN: No rash or itching, lesions, wounds. CARDIOVASCULAR: No chest pain, chest pressure or chest discomfort, palpitations, edema, orthopnea, syncopal events. RESPIRATORY: No shortness of breath, cough or sputum, wheezing, hemoptysis. GASTROINTESTINAL: + anorexia, nausea, No vomiting or diarrhea, abdominal pain, melena, BRBPR. GENITOURINARY: No dysuria, frequency, urgency or retention. NEUROLOGICAL: + Tremors, mild tactile disturbances, No headache, dizziness, syncope, paralysis, ataxia, numbness or tingling in the extremities, focal weakness, change in bowel or bladder control, seizure. MUSCULOSKELETAL: + muscle, back pain, joint pain or stiffness. HEMATOLOGIC:+ anemia, bleeding or bruising. LYMPHATICS: No enlarged nodes. No history of splenectomy. PSYCHIATRIC:+ history of depression or anxiety. ENDOCRINOLOGIC: No reports of sweating, cold or heat intolerance. No polyuria or polydipsia. ALLERGIES: No history of asthma, hives, eczema or rhinitis. Vital Signs Vital Signs Vital Signs: 12/17/21 14:00 12/17/21 14:14 12/17/21 14:58 Temperature 97.2 F L 97.9 F Temperature Source Temporal Temporal Pulse Rate 97 97 97 Respiratory Rate 16 16 16 Blood Pressure 141/33 H 136/84 H Blood Pressure Mean 69 101 Pulse Ox 100 99 98 Oxygen Delivery Method Room Air Room Air 12/17/21 15:00 Temperature Temperature Source Pulse Rate Respiratory Rate 18 Blood Pressure 136/83 H Blood Pressure Mean 100 Pulse Ox Oxygen Delivery Method Room Air Weight Weight: 120 lb Body Mass Index (BMI) 20.0 Physical Exam Narrative Physical Examination: General: Awake, alert, oriented x 3 and cooperative, seated upright in the ED bed, restless, mildly tremulous. Skin: Normal color, normal turgor, no icterus, no cyanosis except for occasional staged ecchymoses as well as left upper inner thigh with mild erythematous region and a small firm region, not significantly ballotable with potentially some still residual purulent material, clear region where the abscess had previously spontaneously ruptured. HEENT: AT/NC, EOMI, PERRLA, mildly dry MM, no carotid bruits or JVD noted. Lungs: Diminished, greater bases, appropriate effort, no rales, ronchi or wheezing. Heart: Tachycardic with regular rhythm; no gallop, rub audible. Abdomen: Soft, thin habitus, NTTP, ND, distant normal BS, mild HM. Extremities: No cyanosis, clubbing, or edema, see skin. Neurological: Patient awake, alert, oriented as noted, cognitive function intact; pupils equally reactive to light and accommodation, cranial nerves II-XII grossly normal, moving all 4 extremities, no focal deficits, strength mildly to moderately global decreased, mildly tremulous, complaining of some tactile disturbances Psychiatric: Affect appears restless, mildly anxious, no acute evidence of depressive feelings. Results Lab / Micro Data Result Diagrams: 12/17/21 14:45 12/17/21 14:45 Labs: Laboratory Results - last 24 hr 12/17/21 14:25: Urine Opiates Screen NEGATIVE, Urine Methadone Screen NEGATIVE, Ur Barbiturates Screen NEGATIVE, Ur Phencyclidine Scrn NEGATIVE, Ur Amphetamines Screen NEGATIVE, MDMA (Ecstasy) Screen NEGATIVE, U Benzodiazepines Scrn NEGATIVE, Urine Cocaine Screen NEGATIVE, U Cannabinoids Screen NEGATIVE, Ur Drug Screen Comment 12/17/21 14:45: Sodium 139, Potassium 2.8 L, Chloride 100, Carbon Dioxide 31.0, Anion Gap 8, BUN 11, Creatinine 0.99, Estim Creat Clear Calc 44.79, Est GFR (MDRD) Af Amer 71, Est GFR (MDRD) Non-Af 59 L, BUN/Creatinine Ratio 11.1, Glucose 104, Calcium 9.0, Total Bilirubin 0.70, AST 107 H, ALT 46, Alkaline Phosphatase 104, Total Protein 7.1, Albumin 3.4, Globulin 3.7, Albumin/Globulin Ratio 0.9 Assessment & Plan Assessment/Plan (1) Alcohol withdrawal: (2) Abscess of left thigh: PLAN: Plan The patient is a 71 y/o F w/ PMHx: CAD, HLD, Tobacco use, KELSEY, GERD, Anxiety and Depression, EtOH abuse (02/15 vodka 90% proof daily) who presents to the [facility] ED on 12/17/21 with history of ongoing significant alcohol abuse with decreased over the last 24 hours with last drink prior to presentation but her consumption recently is decreased secondary to desire to achieve sobriety with mild nausea and tremors upon initial presentation in addition to an incidental history of recently noticing a left upper inner thigh erythematous region that had a small abscess which did drain some however it still been mildly red and tender and she is unsure exactly when it started but only noticed it on day of presentation. #1. Acute EtOH Withdrawal: Will admit to [facility], routine labs obtained in the ED upon presentation and pending upon requested evaluation of patient. Given interest in sobriety, will initiate and continue on protocol with taper course of Phenobarbital, scheduled gabapentin for seizure prophylaxis, as needed Catapres, Bentyl, Vistaril, IV fluids, IV antiemetics, Tylenol as needed for pain. Will consult Case management for assistance for transition to next level of rehabilitation care. Mag, phos pending. Maintain on CIWA protocol concurrently. #2. Left Upper Inner Thigh Abscess and Cellulitis: Awaiting ED I+D with planned Wound Cx/Wound MRSA, in the interim will maintain on IV rocephin, plan repeat CBC in AM, continue affected extremity elevation above heart when seated and in bed, monitor erythema outline with VS checks, Wound RN consultation, dressings/wick. #3. Hypokalemia: Admission K+ 2.8, magnesium level requested as noted, supplementation given, repeat level in AM. #4. Elevated BP without hypertensive diagnosis: Patient with minimally elevated BP upon presentation above goal, likely secondary to acute presentation, continue to monitor, as needed IV hydralazine interim. #5. Nonobstructive CAD: Noted in history, will maintain on aspirin, not on statin nor hypertensive regimen as no prior history of hypertension although current presentation with mildly elevated BP above goal however potentially related to acute presentation, add if appropriate. #6. Anxiety and depression: We will continue patient home buspirone regimen. #7. Hyperlipidemia: Not on statin therapy, defer to outpatient #8. Tobacco Abuse: Encouraged cessation, inpatient consultation per RT, NR if desired. #9. GERD: We will continue patient home omeprazole regimen. #10. KELSEY: CPAP nightly. #11. DVT prophylaxis: Given presentation low risk, encourage ambulation. Charges/Coding Visit Charges Inpatient E&M: 52569 Init Hosp L3
[2021-12-17 15:49] LABS: Lipase 130 U/L (73-393)
[2021-12-17] MEDS: Cephalexin 500 MG Capsule PO (15:56)
[2021-12-17] MEDS: Lidocaine 1% (20 ml mdv) 20 ML Vial INFILT (15:56)
[2021-12-17 16:02] LABS: Alcohol, Blood (Medical)-Serum < 3.0 mg/dL
[2021-12-17 16:09] LABS: Magnesium 1.2 mg/dL (1.6-2.6); Phosphorus 4.2 mg/dL (2.5-4.9)
[2021-12-17] MEDS: Ceftriaxone 1 GM/50 ML BAG IV (17:40)
[2021-12-17] MEDS: Phenobarbital 32.4 MG Tablet 97.2 MG PO ×2 (17:40→22:34)
[2021-12-17] MEDS: Creon 12,000 unit DR CapSULE 3 CAP PO (17:40)
[2021-12-17] MEDS: Potassium Chloride Oral Tablet 20 MEQ 40 MEQ PO (18:05)
[2021-12-17] MEDS: Magnesium Sulfate 4gm/100mL 4 GM/100 ML IV.SOLN. IV (18:12)
[2021-12-17] MEDS: Lactated Ringers 1,000 ML 125 ML IV (18:12)
[2021-12-17 18:13] LABS: M R Staph aureus DNA By PCR Negative (Negative); Probe Check PASS; Specimen Processing Control PASS; Staph aureus DNA By PCR NEGATIVE (Negative)
[2021-12-17] MEDS: busPIRone 5 MG Tablet PO (22:34)
[2021-12-17] MEDS: 0.9% Saline Lock 10 ML Syringe IV (22:35)
[2021-12-18] VITALS (11 sets, daily range): BP systolic 122–148; BP diastolic 80–99; PULSE 77–102; RESP 16–18; TEMP 36.2–37.9; O2SAT 93–95
[2021-12-18] MEDS: Phenobarbital 32.4 MG Tablet 97.2 MG PO ×2 (03:00→06:13)
[2021-12-18] MEDS: 0.9% Saline Lock 10 ML Syringe IV (06:11)
[2021-12-18] MEDS: busPIRone 5 MG Tablet PO ×3 (06:13→20:47)
[2021-12-18 07:16] LABS: Absolute Lymphocyte Count 2.03 X10^3/uL (0.83-4.51); Absolute Neutrophil Count 4.8 X10^3/uL (2.0-7.7); Basophil# 0.03 X10^3/uL; Basophil% 0.4 % (0-1); Eosinophils% 2.6 % (0-5); Hematocrit 32.7 % (37-47); Hemoglobin 11.6 g/dL (12.0-15.0); Lymphocyte # 2.03 X10^3/ul (0.83-4.51); Mean Corp Hgb Conc 35.5 g/dL (32-36); Mean Corpuscular Hgb 39.7 pg (27.0-32.0); Mean Platelet Vol. 10.1 fl (6.2-12.0); NRBC Flagged by Analyzer 0 % (0-5); Neutrophil # 4.82 X10^3/uL (2.7-7.7); Neutrophil % 61.6 % (47-70); Platelet Count 217 K/mm3 (150-450); RBC Distribution Width CV 14.7 % (11.6-14.6); RBC Distribution Width SD 61.5 fl (35.1-43.9); Red Blood Count 2.92 M/mm3 (4.2-5.4); White Blood Count 7.8 K/mm3 (4.4-11.0)
[2021-12-18] MEDS: Folic Acid 1 MG Tablet PO (07:43)
[2021-12-18] MEDS: Creon 12,000 unit DR CapSULE 3 CAP PO ×3 (07:43→17:10)
[2021-12-18] MEDS: Thiamine Hydrochloride 100 MG Tablet PO (07:44)
[2021-12-18] MEDS: Multivitamins,Therapeutic Tablet 1 TABLET PO (07:44)
[2021-12-18 07:45] LABS: ALB/GLOB Ratio 0.8 RATIO (0.9-2.4); AST(SGOT) 86 U/L (15-37); Alanine Aminotransfer ALT/SGPT 40 U/L (13-56); Albumin, Serum 2.7 g/dL (3.2-5.0); Alkaline Phosphatase 89 U/L (45-117); Anion Gap 6 (5-15); BUN 8 mg/dL (7-18); BUN/Creat Ratio 9.7 RATIO (10-20); Calcium,Total 8.2 mg/dL (8.5-10.1); Chloride 106 mmol/L (98-107); Creatinine, Serum 0.82 mg/dL (0.55-1.02); EST Glomerular Filtration Rate 73 mL/min (>60); Est Glom Filt Rate - Afr Amer 88 mL/min (>60); Estimated Creatinine Clearance 49.93 ml/min; Globulin 3.2 g/dL (2.2-4.2); Glucose 62 mg/dL (74-106); Magnesium 2.2 mg/dL (1.6-2.6); Potassium 3.4 mmol/L (3.5-5.1); Protein, Total 5.9 g/dL (6.4-8.2); Sodium Level 141 mmol/L (136-145)
--- NOTE | 2021-12-18 07:55 | PN.HOSP_ITS ---
Subjective Subjective Follow-up for chronic alcohol use disorder in the left upper thigh abscess. Patient constantly drinks 2 shots of vodka for long time. She is not having any alcohol withdrawal symptoms. She has left upper thigh abscess status post drain. Objective Data Objective Data Vital Signs: Vital Signs Temp Pulse Resp BP Pulse Ox O2 Del Method 98.8 F 89 18 131/81 H 94 Room Air 12/18/21 06:07 12/18/21 06:07 12/18/21 06:07 12/18/21 06:07 12/18/21 06:07 12/18/21 06:07 Oxygen Delivery Method Room Air Weight: 110 lb 12.8 oz Body Mass Index (BMI) 18.4 Intake & Output: Intake and Output for Last 24 Hours 12/16/21 12/17/21 12/18/21 23:59 23:59 23:59 Intake Total 350 / 350 1400 / 1400 Balance 350 / 350 1400 / 1400 Lab / Micro Data Result Diagrams: 12/18/21 06:25 12/18/21 06:20 Labs: Laboratory Results - last 24 hr 12/17/21 14:25: Urine Opiates Screen NEGATIVE, Urine Methadone Screen NEGATIVE, Ur Barbiturates Screen NEGATIVE, Ur Phencyclidine Scrn NEGATIVE, Ur Amphetamines Screen NEGATIVE, MDMA (Ecstasy) Screen NEGATIVE, U Benzodiazepines Scrn NEGATIVE, Urine Cocaine Screen NEGATIVE, U Cannabinoids Screen NEGATIVE, Ur Drug Screen Comment 12/17/21 14:45: Sodium 139, Potassium 2.8 L, Chloride 100, Carbon Dioxide 31.0, Anion Gap 8, BUN 11, Creatinine 0.99, Estim Creat Clear Calc 44.79, Est GFR (MDRD) Af Amer 71, Est GFR (MDRD) Non-Af 59 L, BUN/Creatinine Ratio 11.1, Glucose 104, Calcium 9.0, Total Bilirubin 0.70, AST 107 H, ALT 46, Alkaline Phosphatase 104, Total Protein 7.1, Albumin 3.4, Globulin 3.7, Albumin/Globulin Ratio 0.9 12/17/21 14:45: Ethyl Alcohol < 3.0 12/17/21 14:45: WBC 9.0, RBC 3.06 L, Hgb 12.2, Hct 34.5 L, MCV 112.7 H, MCH 39.9 H, MCHC 35.4, RDW Std Deviation 62.6 H, RDW Coeff of Marc 15.0 H, Plt Count 245, MPV 10.2, Immature Gran % (Auto) 0.600, Neut % (Auto) 74.4 H, Lymph % (Auto) 17.2 L, Wilkinson % (Auto) 6.2, Eos % (Auto) 1.3, Baso % (Auto) 0.3, Absolute Neuts (auto) 6.7, Absolute Lymphs (auto) 1.55, Nucleated RBC % 0 12/17/21 14:45: Lipase 130 12/17/21 14:45: Phosphorus 4.2, Magnesium 1.2 L 12/17/21 16:19: S.aureus Protein A PCR NEGATIVE, MRSA (PCR) Negative 12/18/21 06:20: Sodium 141, Potassium 3.4 L, Chloride 106, Carbon Dioxide 29.0, Anion Gap 6, BUN 8, Creatinine 0.82, Estim Creat Clear Calc 49.93, Est GFR (MDRD) Af Amer 88, Est GFR (MDRD) Non-Af 73, BUN/Creatinine Ratio 9.7 L, Glucose 62 L, Calcium 8.2 L, Magnesium 2.2, Total Bilirubin 0.40, AST 86 H, ALT 40, Alkaline Phosphatase 89, Total Protein 5.9 L, Albumin 2.7 L, Globulin 3.2, Albumin/Globulin Ratio 0.8 L 12/18/21 06:25: WBC 7.8, RBC 2.92 L, Hgb 11.6 L, Hct 32.7 L, MCV 112.0 H, MCH 39.7 H, MCHC 35.5, RDW Std Deviation 61.5 H, RDW Coeff of Marc 14.7 H, Plt Count 217, MPV 10.1, Immature Gran % (Auto) 0.400, Neut % (Auto) 61.6, Lymph % (Auto) 26.0, Wilkinson % (Auto) 9.0, Eos % (Auto) 2.6, Baso % (Auto) 0.4, Absolute Neuts (auto) 4.8, Absolute Lymphs (auto) 2.03, Nucleated RBC % 0 Physical Exam Narrative Physical exam General: Alert, Oriented x3, Cooperative HEENT: Atraumatic, PERRLA, EOMI, Normocephalic Oral: No Gingival or Mucosal Lesions/ Ulcerations Neck: Supple, No JVD, Negative Carotid Bruits Lungs: Air entry diminished in bilateral lung bases. No crepitation/rhonchi Cardiovascular: Regular rate, Regular Rhythm, Normal S1, Normal S2, No murmurs Abdomen: Bowel Sounds Present, Soft, Non Tender, Non-Distended : No renal angle tenderness. No suprapubic tenderness. Extremities: No edema, Capillary Refill Less than 3 Seconds Skin: Left upper anterior medial thigh abscess status post drain with surrounding cellulitis. Seen and examined in previous of wound nurseCyn Musculoskeletal: No Tenderness to Palpation of Joints or Extremities Neurological: Cranial nerves II-XII grossly intact, DTR 2+/4 and Symmetrical, Neuro grossly intact Psych/Mental Status: Normal Affect, Appropriate. No acute withdrawal alcohol s ymptoms Assessment & Plan Assessment/Plan (1) Alcohol withdrawal: (2) Abscess of left thigh: PLAN: Plan The patient is a 71 y/o F for acute alcohol withdrawal syndrome and left anterior medial thigh abscess with surrounding cellulitis #1. Mild acute withdrawal syndrome with history of chronic alcohol use disorder: Since patient might have alcoholic withdrawal yesterday but it has resolved now. Patient got more drowsy lethargic with phenobarbital therefore discontinued. Endostatin put on CIWA protocol with Ativan as needed per CIWA score. Continue adjunctive medications as needed for control of symptoms. 180 manager access consult for #2. Left superior anterior medial thigh abscess and surrounding contiguous cellulitis: Patient had incision and drainage in ED. Continue ceftriaxone. Preliminary wound culture shows Streptococcus agalactiae 2+. Wound seen and examined in wound dressing changed by wound nurseCyn. Nasal screen MRSA PCR negative. #3. Hypokalemia: Admission K+ 2.8, magnesium level requested as noted, supplementation given, repeat level in AM. #4. Elevated BP without hypertensive diagnosis: Patient with minimally elevated BP upon presentation above goal, likely secondary to acute presentation, continue to monitor, as needed IV hydralazine interim. #5. Nonobstructive CAD: Noted in history, will maintain on aspirin, not on statin nor hypertensive regimen as no prior history of hypertension although current presentation with mildly elevated BP above goal however potentially related to acute presentation, add if appropriate. #6. Anxiety and depression: We will continue patient home buspirone regimen. #7. Hyperlipidemia: Not on statin therapy, defer to outpatient #8. Tobacco Abuse: Encouraged cessation, inpatient consultation per RT, NR if desired. #9. GERD: We will continue patient home omeprazole regimen. #10. KELSEY: CPAP nightly. #11. DVT prophylaxis: Given presentation low risk, encourage ambulation. Microbiology Past 72 Hours 12/17/21 16:19 Aspirate - Leg Gram Stain - Final 12/17/21 16:19 Aspirate - Leg Wound Culture - Preliminary Streptococcus agalactiae (B) Laboratory Results 12/17/21 14:25: Urine Opiates Screen NEGATIVE, Urine Methadone Screen NEGATIVE, Ur Barbiturates Screen NEGATIVE, Ur Phencyclidine Scrn NEGATIVE, Ur Amphetamines Screen NEGATIVE, MDMA (Ecstasy) Screen NEGATIVE, U Benzodiazepines Scrn NEGATIVE, Urine Cocaine Screen NEGATIVE, U Cannabinoids Screen NEGATIVE, Ur Drug Screen Comment 12/17/21 14:45: Sodium 139, Potassium 2.8 L, Chloride 100, Carbon Dioxide 31.0, Anion Gap 8, BUN 11, Creatinine 0.99, Estim Creat Clear Calc 44.79, Est GFR (MDRD) Af Amer 71, Est GFR (MDRD) Non-Af 59 L, BUN/Creatinine Ratio 11.1, Glucose 104, Calcium 9.0, Total Bilirubin 0.70, AST 107 H, ALT 46, Alkaline Phosphatase 104, Total Protein 7.1, Albumin 3.4, Globulin 3.7, Albumin/Globulin Ratio 0.9 12/17/21 14:45: Ethyl Alcohol < 3.0 12/17/21 14:45: WBC 9.0, RBC 3.06 L, Hgb 12.2, Hct 34.5 L, MCV 112.7 H, MCH 39.9 H, MCHC 35.4, RDW Std Deviation 62.6 H, RDW Coeff of Marc 15.0 H, Plt Count 245, MPV 10.2, Immature Gran % (Auto) 0.600, Neut % (Auto) 74.4 H, Lymph % (Auto) 17.2 L, Wilkinson % (Auto) 6.2, Eos % (Auto) 1.3, Baso % (Auto) 0.3, Absolute Neuts (auto) 6.7, Absolute Lymphs (auto) 1.55, Nucleated RBC % 0 12/17/21 14:45: Lipase 130 12/17/21 14:45: Phosphorus 4.2, Magnesium 1.2 L 12/17/21 16:19: S.aureus Protein A PCR NEGATIVE, MRSA (PCR) Negative 12/18/21 06:20: Sodium 141, Potassium 3.4 L, Chloride 106, Carbon Dioxide 29.0, Anion Gap 6, BUN 8, Creatinine 0.82, Estim Creat Clear Calc 49.93, Est GFR (MDRD) Af Amer 88, Est GFR (MDRD) Non-Af 73, BUN/Creatinine Ratio 9.7 L, Glucose 62 L, Calcium 8.2 L, Magnesium 2.2, Total Bilirubin 0.40, AST 86 H, ALT 40, Alkaline Phosphatase 89, Total Protein 5.9 L, Albumin 2.7 L, Globulin 3.2, Albumin/Globulin Ratio 0.8 L 12/18/21 06:25: WBC 7.8, RBC 2.92 L, Hgb 11.6 L, Hct 32.7 L, MCV 112.0 H, MCH 39.7 H, MCHC 35.5, RDW Std Deviation 61.5 H, RDW Coeff of Marc 14.7 H, Plt Count 217, MPV 10.1, Immature Gran % (Auto) 0.400, Neut % (Auto) 61.6, Lymph % (Auto) 26.0, Wilkinson % (Auto) 9.0, Eos % (Auto) 2.6, Baso % (Auto) 0.4, Absolute Neuts (auto) 4.8, Absolute Lymphs (auto) 2.03, Nucleated RBC % 0 Charges/Coding Visit Charges Inpatient E&M: 72323 Subs Hosp L2
--- NOTE | 2021-12-18 08:43 | WOUNDNOTE ---
wound photo: left medial upper thigh
[2021-12-18] MEDS: Ceftriaxone 1 GM/50 ML BAG IV (11:07)
[2021-12-18] MEDS: Pantoprazole Sodium 40 MG Tablet PO (11:11)
[2021-12-18] MEDS: Tolterodine Tartrate 4 MG CAP.SA 10 MG PO (11:11)
--- NOTE | 2021-12-18 11:23 | ADDICTION ---
This technical proposal writer met with PT to conduct ASAM, MSE, AUDIT, DUDIT, DUDIT assessments and to plan for d/c. PT A+Ox4 and participated actively. All assessments completed and placed in PT's chart. PT plans to f/u with outpatient treatment services, however she wanted to do some research on places near where she lives. This worker offered resources based on her requests. PT did not indicate a need for transportation post d/c from [facility].
[2021-12-18 13:57] LABS: Magnesium 1.9 mg/dL (1.6-2.6)
[2021-12-18] MEDS: hydrOXYzine PAM 25 MG Capsule 50 MG PO (20:47)
[2021-12-18] MEDS: Acetaminophen 325 MG Tablet 650 MG PO (20:47)
[2021-12-19 05:30] VITALS: BP 131/85; PULSE 87; RESP 16; TEMP 37.4; O2SAT 93
[2021-12-19] MEDS: busPIRone 5 MG Tablet PO (05:46)
[2021-12-19 05:51] VITALS: BP 131/85; PULSE 87; RESP 16; TEMP 37.4; O2SAT 93
--- NOTE | 2021-12-19 08:23 | DCINST_ITS ---
Discharge Instructions Diet Discharge Diet: No restrictions Dressing / Incision Call your doctor if you observe: Fever of 101 or Higher, Coldness, Increased Pain, Numbness or Tingling, Change in Color, Inability to urinate, Using more than 1 pad per hour, Shortness of breath, Dizziness, Fainting spells, Swelling in the ankles, Chest pain, Prolonged hiccupping, Increased palpitations (irregular heartbeat) and Calf discomfort Follow Up Care Test Results: Test results from this visit will be discussed in further detail at your follow- up appointment, if applicable. Discharge Plan Admission Admit Date/Time: 12/17/21 15:39 Attending Provider: Orlando Quintero Primary Care Provider: Zarina Schwab Consulting Providers: Mariann Chacko Instructions Additional Instructions / Restrictions: Patient has follow-up for 180 for outpatient alcohol rehab Discharge Orders/Prescriptions Prescriptions: New thiamine HCl (vitamin B1) 100 mg Tablet 100 mg PO BREAKFAST Qty: 30 2RF folic acid 1 mg Tablet 1 mg PO BREAKFAST Qty: 30 2RF cephalexin 500 mg tablet 500 mg PO TID Qty: 20 0RF sulfamethoxazole-trimethoprim [Bactrim DS] 800-160 mg tablet 1 tab PO BID Qty: 14 0RF Lactobacillus acidophilus 1 billion cell tablet 25 mmu cells PO BID Qty: 14 0RF Rx Instructions: OVER THE COUNTER Continued buspirone 5 mg tablet 5 mg PO DAILY meclizine 25 mg tablet 25 mg PO DAILY [id number] 36,000-114,000- 180,000 unit capsule,delayed release(DR/EC) 1 ea PO DAILY Label Comments: TAKE 2 CAPSULES BY MOUTH WITH MEALS AND 1 CAP WITH SNACKS omeprazole 40 mg capsule,delayed release(DR/EC) 40 mg PO DAILY Label Comments: take 1 capsule by mouth every morning solifenacin 10 MG tablet 10 mg PO DAILY multivitamin with folic acid 1 TABLET tablet 1 tab PO DAILY Referrals / Follow Up: Zarina Schwab MD [Primary Care Provider] - Within 2 Weeks (FOR Thigh abscess) Disposition Disposition (needs filled in before D/C Order can be placed): Home, Self Care
[2021-12-19 09:00] VITALS: BP 137/77; PULSE 94; RESP 14; TEMP 36.4; O2SAT 100
[2021-12-19] MEDS: Pantoprazole Sodium 40 MG Tablet PO (09:09)
[2021-12-19] MEDS: Multivitamins,Therapeutic Tablet 1 TABLET PO (09:09)
[2021-12-19] MEDS: Thiamine Hydrochloride 100 MG Tablet PO (09:09)
[2021-12-19] MEDS: Creon 12,000 unit DR CapSULE 3 CAP PO ×2 (09:09→12:35)
[2021-12-19] MEDS: Folic Acid 1 MG Tablet PO (09:09)
[2021-12-19] MEDS: Potassium Chloride Oral Tablet 20 MEQ 40 MEQ PO (09:17)
[2021-12-19] MEDS: Tolterodine Tartrate 4 MG CAP.SA PO (09:21)
[2021-12-19] MEDS: Ceftriaxone 1 GM/50 ML BAG IV (09:32)
[2021-12-19] MEDS: 0.9% Saline Lock 10 ML Syringe IV (09:32)
--- NOTE | 2021-12-19 09:40 | PCM.DC.SUM ---
Providers Date of Admission: 12/17/21 Date of Discharge: 12/19/21 Primary Care Physician: Dr. Zarina Schwab MD Consultations 12/17/21 16:44 Consult: Onc/Wound/brand manager Routine Comment: Reason for Consult:: Left thigh abscess Reason For Visit: ETOH DETOX, CELLULITIS/ABSCESS Diagnosis Discharge Diagnosis (1) Alcohol withdrawal: Status: Acute Code(s): F10.939 - Alcohol use, unspecified with withdrawal, unspecified (2) Abscess of left thigh: Status: Acute Code(s): L02.416 - Cutaneous abscess of left lower limb Medications at Discharge Home Medications multivitamin with folic acid 400 mcg tablet 1 tab PO DAILY SUPPLEMENT 10/05/13 solifenacin 10 mg tablet 10 mg PO DAILY BLADDER 10/05/13 buspirone 5 mg tablet 5 mg PO DAILY ANXIETY 08/24/19 [id number] 36,000-114,000-180,000 unit capsule,delay rel 1 ea PO DAILY gi HEALTH 08/24/19 meclizine 25 mg tablet 25 mg PO DAILY MOTION SICKNESS 08/24/19 omeprazole 40 mg capsule,delayed release 40 mg PO DAILY gerd 08/24/19 Lactobacillus acidophilus 1 billion cell tablet 25 mmu cells PO BID #14 tabs 12/19/21 cephalexin 500 mg tablet 500 mg PO TID #20 tabs 12/19/21 folic acid 1 mg tablet 1 mg PO BREAKFAST #30 tabs 12/19/21 sulfamethoxazole 800 mg-trimethoprim 160 mg tablet (Bactrim DS) 1 tab PO BID #14 tabs 12/19/21 thiamine HCl (vitamin B1) 100 mg tablet 100 mg PO BREAKFAST #30 tabs 12/19/21 Hospital Course Summary of Care Provided Hospital Course: The patient is a 71 y/o F for acute alcohol withdrawal syndrome and left anterior medial thigh abscess with surrounding cellulitis #1. Mild acute withdrawal syndrome with history of chronic alcohol use disorder: Since patient might have alcoholic withdrawal yesterday but it has resolved now. Patient got more drowsy lethargic with phenobarbital therefore discontinued. Endostatin put on CIWA protocol with Ativan as needed per CIWA score. Continue adjunctive medications as needed for control of symptoms. 180 incident manager consult for 12/19: Patient does not have acute symptoms of alcohol withdrawal. Patient is being discharged on folic acid and thiamine. Patient was evaluated by 180 incident manager and has resources for outpatient follow-up for alcohol rehab #2. Left superior anterior medial thigh abscess and surrounding contiguous cellulitis: Patient had incision and drainage in ED. Continue ceftriaxone. Preliminary wound culture shows Streptococcus agalactiae 2+. Wound seen and examined in wound dressing changed by wound nurse, Cyn. Nasal screen MRSA PCR negative. 12/19: Wound culture shows Streptococcus agalactiae sensitive to benzylpenicillin. Patient was treated with IV ceftriaxone. Patient has low-grade temperature 99.3 ?F. Patient is discharged on Bactrim DS and Keflex for 7 more days. Advised to follow with PCP. Patient was given dressing changes. #3. Hypokalemia: Admission K+ 2.8, magnesium level requested as noted, supplementation given, repeat level in AM. 12/19: Serum magnesium and phosphorus level normal. Potassium was replaced. #4. Elevated BP without hypertensive diagnosis: Patient with minimally elevated BP upon presentation above goal, likely secondary to acute presentation, continue to monitor, as needed IV hydralazine interim. 12/19: Follow-up with PCP for ABPM or home BP monitoring to either diagnose or rule out hypertension #5. Nonobstructive CAD: Noted in history, will maintain on aspirin, not on statin nor hypertensive regimen as no prior history of hypertension although current presentation with mildly elevated BP above goal however potentially related to acute presentation, add if appropriate. #6. Anxiety and depression: We will continue patient home buspirone regimen. #7. Hyperlipidemia: Not on statin therapy, defer to outpatient #8. Tobacco Abuse: Encouraged cessation, inpatient consultation per RT, NR if desired. #9. GERD: We will continue patient home omeprazole regimen. #10. KELSEY: CPAP nightly. #11. DVT prophylaxis: Given presentation low risk, encourage ambulation. Discharge medication reconciliation done. Discharge follow-up instructions completed. Discharge process discussed with the patient and all questions were answered to patient's satisfaction. Total time spent, exact 35 minutes on discharge meds reconciliation, examination, coordination of care with nurses and ancillary staff, review of imaging and blood test and discussion with the patient on follow-up instructions. Microbiology Past 72 Hours 12/17/21 16:19 Aspirate - Leg Gram Stain - Final 12/17/21 16:19 Aspirate - Leg Wound Culture - Final Streptococcus agalactiae (B) Coag Negative Staph Laboratory Results 12/18/21 13:22: Magnesium 1.9 Physical Exam Narrative Physical exam General: Alert, Oriented x3, Cooperative HEENT: Atraumatic, PERRLA, EOMI, Normocephalic Oral: No Gingival or Mucosal Lesions/ Ulcerations Neck: Supple, No JVD, Negative Carotid Bruits Lungs: Air entry diminished in bilateral lung bases. No crepitation/rhonchi Cardiovascular: Regular rate, Regular Rhythm, Normal S1, Normal S2, No murmurs Abdomen: Bowel Sounds Present, Soft, Non Tender, Non-Distended : No renal angle tenderness. No suprapubic tenderness. Extremities: No edema, Capillary Refill Less than 3 Seconds Skin: Left upper anterior medial thigh abscess status post I and D with surrounding cellulitis. Wick is removed. Musculoskeletal: No Tenderness to Palpation of Joints or Extremities Neurological: Cranial nerves II-XII grossly intact, DTR 2+/4 and Symmetrical, Neuro grossly intact Psych/Mental Status: Normal Affect, Appropriate. No acute withdrawal alcohol symptoms Medical Records Data Medical Nutrition Assessment Dietitian: Malnutrition Criteria Met Start: 12/18/21 11:19 Freq: Status: Active Protocol: Document 12/18/21 11:20 [facility] (Rec: 12/18/21 11:20 [facility] [id number]) Nutrition Malnutrition Evidence of Malnutrition Exists Yes Malnutrition (moderate): Social/Behavioral/ Environmental Evidenced By Weight Loss (Severe),Physical Changes (Moderate) Clinical Problem Chronic Disease or Condition Related Malnutrition Etiology suspected related to etoh detox Signs/Symptoms as evidenced by 7.7% wt loss if within past 6 mo and fat loss in face (buccal, temporal , orbital). BMI <19 Status Active Problem Recommendation Dietitian Recommendations/Changes Will continue regular diet w/ snacks tid Will d/c ensure at medpass and give 8 oz CIB w/ meals instead per pt preference. Weight / BMI Weight Weight: 110 lb 12.8 oz Body Mass Index (BMI) 18.4 ABG / Lab / Microbiology Data Result Diagrams: 12/18/21 06:25 12/18/21 06:20 Laboratory: Laboratory Results - last 24 hr 12/18/21 13:22: Magnesium 1.9 Microbiology: Microbiology 12/17/21 16:19 Aspirate - Leg Gram Stain - Final 11/03/22 16:19 Aspirate - Leg Wound Culture - Final Streptococcus agalactiae (B) Coag Negative Staph D/C Instructions Discharge Diet: No restrictions Call your doctor if you observe: Fever of 101 or Higher, Coldness, Increased Pain, Numbness or Tingling, Change in Color, Inability to urinate, Using more than 1 pad per hour, Shortness of breath, Dizziness, Fainting spells, Swelling in the ankles, Chest pain, Prolonged hiccupping, Increased palpitations (irregular heartbeat) and Calf discomfort Meaningful Use Info Meaningful Use Diagnoses (Choose all that apply): None applicable Discharge Plan Admission Admit Date/Time: 12/17/21 15:39 Attending Provider: Orlando Quintero Primary Care Provider: Zraina Schwab Consulting Providers: Mariann Chacko Instructions Additional Instructions / Restrictions: Patient has follow-up for 180 for outpatient alcohol rehab Discharge Orders/Prescriptions Prescriptions: New thiamine HCl (vitamin B1) 100 mg Tablet 100 mg PO BREAKFAST Qty: 30 2RF folic acid 1 mg Tablet 1 mg PO BREAKFAST Qty: 30 2RF cephalexin 500 mg tablet 500 mg PO TID Qty: 20 0RF sulfamethoxazole-trimethoprim [Bactrim DS] 800-160 mg tablet 1 tab PO BID Qty: 14 0RF Lactobacillus acidophilus 1 billion cell tablet 25 mmu cells PO BID Qty: 14 0RF Rx Instructions: OVER THE COUNTER Continued buspirone 5 mg tablet 5 mg PO DAILY meclizine 25 mg tablet 25 mg PO DAILY [id number] 36,000-114,000- 180,000 unit capsule,delayed release(DR/EC) 1 ea PO DAILY Label Comments: TAKE 2 CAPSULES BY MOUTH WITH MEALS AND 1 CAP WITH SNACKS omeprazole 40 mg capsule,delayed release(DR/EC) 40 mg PO DAILY Label Comments: take 1 capsule by mouth every morning solifenacin 10 MG tablet 10 mg PO DAILY multivitamin with folic acid 1 TABLET tablet 1 tab PO DAILY Referrals / Follow Up: Zarina Schwab MD [Primary Care Provider] - Within 2 Weeks (FOR Thigh abscess) Disposition Disposition (needs filled in before D/C Order can be placed): Home, Self Care Charges/Coding Visit Charges Inpatient E&M: 34162 Disch Hosp
[2021-12-19 11:38] VITALS: O2SAT 99
== END 2021-12-19 14:00 | disposition home or self-care (01) | DRG 603 ==
LOC: ED 15:39 → MS3 12-18 07:11
PROVIDERS: Emergency Medicine; Admitting Provider Family Medicine; Emergency Provider Emergency Medicine; PCP Internal Medicine; Visit Provider Internal Medicine
DX: F10.239 Alcohol dependence with withdrawal, unspecified (principal); L02.416 Cutaneous abscess of left lower limb; E78.5 Hyperlipidemia, unspecified; F17.210 Nicotine dependence, cigarettes, uncomplicated; K21.9 Gastro-esophageal reflux disease without esophagitis; G47.33 Obstructive sleep apnea (adult) (pediatric); E87.6 Hypokalemia; F41.9 Anxiety disorder, unspecified; I25.10 Atherosclerotic heart disease of native coronary artery without angina pectoris; L03.116 Cellulitis of left lower limb; Y90.0 Blood alcohol level of less than 20 mg/100 ml; R03.0 Elevated blood-pressure reading, without diagnosis of hypertension; F32.A Depression, unspecified; Z79.899 Other long term (current) drug therapy
CPT/HCPCS: 10060; 36415; 80053; 80307; 82077; 83690; 83735; 84100; 85025; 87070; 87186; 87205; 87640; 96361; 96365; 96366; 97802; 99218; 99284; 99406; J7120; A4216; G0378

== ENCOUNTER → 2022-01-21 | Outpatient (CLI) | payer MEDICARE, SELFPAY ==
--- NOTE | 2022-01-21 14:27 | BI_ITS ---
MAMMOGRAPHY - BILATERAL SCREENING REASON FOR EXAM: Female, 71 years old. Routine annual screening examination. PERTINENT HISTORY: Non-contributory. History of prior bilateral stereotactic breast biopsy. TECHNIQUE: Digital bilateral breast darinel (3D mammographic acquisition) in the CC and MLO projections. 2-D mediolateral oblique (MLO) and craniocaudad (CC) views of both breasts were obtained. CAD: Full Field Digital Mammography with Computer Added Detection was performed. COMPARISON: Comparison is made with prior study dated 07/21/2018 and 01/07/2016. FINDINGS: Breast Composition: There are scattered areas of fibroglandular density. There are no dominant masses or suspicious calcifications. Patient markers once again seen in the medial retroareolar region of the left breast. A tissue clip marker is also seen in the slightly upper medial aspect of the right breast. No other significant abnormalities are identified. There has been no significant change since the prior study. BI/SCRN MAMM (CAD)W/DARINEL BILAT IMPRESSION: Stable bilateral screening mammogram. Yearly follow-up mammogram recommended. (A) ASSESSMENT CATEGORY: BIRADS Category 2: Benign. A letter regarding these results will be sent to the patient by the facility within 30 days. Approximately 10% of breast cancers are not detected by mammography. A normal mammogram should not delay biopsy of a clinically suspicious abnormality. [id number] Electronically Signed: Adalberto Dumas MD at 15:29 EST ,
== END | disposition home or self-care (01) ==
LOC: OPBD 14:24
PROVIDERS: PCP Internal Medicine; Referring Provider Internal Medicine; Visit Provider Internal Medicine
DX: Z12.31 Encounter for screening mammogram for malignant neoplasm of breast (principal); Z78.0 Asymptomatic menopausal state
CPT/HCPCS: 77063; 77067

== ENCOUNTER 2023-04-22 08:04 | Outpatient (RCR) | payer MEDICARE, SELFPAY ==
--- NOTE | 2023-04-22 09:06 | HP.PTEVAL_ITS ---
Patient's Visit Information Visit Information Visit Information: IRINA ROSE is a 72 year old F referred to Physical Therapy by MYKE Sarah with a diagnosis of BPPV. Date of Evaluation: 04/22/23 Physical Therapist: DANNA Lal Visit Plan Frequency: 2x /Week Duration: 2 Weeks Plan: 2X/ week for 2 weeks for Canalith repositioning (L Hallpike was +), balance, neck ROM with HEP Subjective Subjective: Pt reports that she is dizzy all the time. If she is sitting she is fine. If she stands up she gets dizzy (room spins and lasts about 1 minute). She can not lay flat (she does not know if it stop because she gets up). Rolling to her L is worse. It almost makes her sick. This started about 1 month ago and not getting better. She saw Dr Parson at [facility] and does not have a PCP at this time. She had no balance issues prior to this dizzy spell. Still drives. She is . Pt has had this in the past and some diana in [place] did somethings with her and she got better but he is no longer there. She is leaving for [place] on Tuesday morning Objective Objective: Pt has diminished neck ROM in all directions especially into extension due to a previous neck surgery Pt is unsteady walking back to the treatment room. L Hallpike + for torsional nystagmus that lasted about 40 seconds and treated L EPLY (pt not able to get head into extension due to prior neck surgery) Re did L Hallpike and again had torsional nystagmus for 30 seconds and treated L EPLY (attempted with 2 pillows under shoulders but did not get more extension). Re did L Hallpike and had torsional nystagmus that lasted 20 seconds and treated L EPLY 4th L Hallpike very slow torsional nystagmus lasting about 15 seconds treated with L Eply again Pt stood up and still felt off but felt better overall. Balance/Special Test Scores Dizziness Score: 52 Goals Goal 1:: I HEP Goal Time Frame: 2-4 Weeks Goal 2:: Abolish dizziness with standing and rolling to her L in bed Goal Time Frame: 2-4 Weeks Goal 3:: Be able to walk straight without feeling like she is veering Goal Time Frame: 2-4 Weeks Rehabilitation Potential Rehabilitation Potential: Fair Anticipated Interventions Patient/Client Instruction: Educate patient on: Condition and Plan of Care For the Purpose of:: To improve muscle performance and motor function, To improve ability to perform ADL's, To increase tolerance to activity/condition/position, To improve performance and independence with ADL's, To decrease level of supervision to perform tasks, To improve ability of physical actions for home/community/work/leisure, To improve health of tissue, To decrease soft tissue restriction, To increase flexibility/ROM, To improve balance and To improve safety with gait Therapeutic Exercise to Include: Strength training, Balance training, Postural training, Flexibilty training, Gait and locomotor training, Neuromotor development, Passive ROM and Active ROM For the Purpose of:: To improve muscle performance and motor function, To improve ability to perform ADL's, To increase tolerance to activity/condition/position, To improve performance and independence with ADL's, To decrease level of supervision to perform tasks, To improve ability of physical actions for home/community/work/leisure, To improve gait and locomotor functions, To improve health of tissue, To decrease soft tissue restriction and To increase flexibility/ROM Functional Training to Include: Gait training For the Purpose of:: To improve gait and locomotor functions and To improve safety with gait Manual Therapy Techniques to Include: Mobilization and Passive ROM For the Purpose of:: To increase ROM, To improve nutrient delivery to tissue, To improve muscle performance and motor function, To improve ability to perform ADL's and To increase tolerance to activity/condition/position Text: Thank you for the opportunity to evaluate your patient. For Medicare and Medicare HMO plans, please review the plan of care and approve it. It will need to be FAXED BACK to us at [phone] for Medicare purposes. For Medicare only, by signing this I certify the plan of care. Please let me know if there are questions or concerns regarding this plan of care. Physician Signature: Date:
== END 2023-04-22 19:00 | disposition home or self-care (01) ==
LOC: PT 08:04
PROVIDERS: PCP Internal Medicine; Referring Provider Physician Assistant; Visit Provider Physician Assistant
DX: H81.10 Benign paroxysmal vertigo, unspecified ear (principal)
CPT/HCPCS: 97161

== ENCOUNTER 2024-01-03 20:13 | Inpatient (IN) | payer MEDICARE, SELFPAY ==
[2024-01-03 20:15] VITALS: BP 151/94; PULSE 94; RESP 18; TEMP 36.8; O2SAT 94; BMI 21.2
--- NOTE | 2024-01-03 21:02 | EX.ED.DYSGE1 ---
HPI History of Present Illness Chief Complaint: Abn Labs Informant: patient Narrative Narrative: 73-year-old female history of CAD. Currently that she belongs to a care facility. Reportedly a week ago had left shoulder replacement surgery Hospital in [place]. They checked blood counts on her baby were low they repeated and sent her here due to a low blood count. Patient states she is having black stool. She denies being on iron. No history of GI bleed does not believe she has ever had a blood transfusion. She believes she has had a prior colonoscopy that was okay. Prior similar symptoms: No Recent Illness/Hospitalization: Yes PFSH PFS Medical History BPPV (benign paroxysmal positional vertigo) Smoker CPAP (continuous positive airway pressure) dependence Abscess of left thigh Alcohol abuse with alcohol-induced disorder Hyperlipidemia Atherosclerotic heart disease of [place] coronary artery without angina pectoris Endocarditis Obstructive sleep apnea Nicotine dependence in remission Home Medications ?Medication ?Instructions ?Recorded ?Last Taken ?Type multivitamin with folic acid 400 1 tab PO DAILY SUPPLEMENT 10/05/13 12/16/21 History mcg tablet cholecalciferol (vitamin D3) 50 50 mcg PO DAILY 04/19/23 Unknown History mcg (2,000 unit) capsule meclizine 25 mg tablet 25 mg PO DAILY PRN MOTION SICKNESS 04/19/23 Unknown History acetaminophen 500 mg capsule 1,000 mg PO TID pain 01/03/24 Unknown History aspirin 325 mg capsule 325 mg PO BID 01/03/24 Unknown History buspirone 5 mg tablet 5 mg PO BID anxiety 01/03/24 Unknown History folic acid 1 mg tablet 1 mg PO DAILY 01/03/24 Unknown History magnesium 200 mg tablet 400 mg PO BID 01/03/24 Unknown History tetracycline 500 mg capsule 500 mg PO Q12H uti 01/03/24 Unknown History thiamine HCl (vitamin B1) 100 mg 100 mg PO DAILY 01/03/24 Unknown History tablet Allergy/AdvReac Type Severity Reaction Status Date / Time No Known Allergies Allergy Verified 01/03/24 20:21 Family History Father CAD (coronary artery disease) Mother Liver cancer Surgical History Hx of tonsillectomy History of hysterectomy Social History household members: spouse Smoking Status: Unknown if ever smoked Tobacco: How many years used: 41 Smokeless tobacco user: other second hand exposure: No alcohol intake: current alcohol intake frequency: 3 or more drinks per day Alcohol type: hard liquor details: Drinks 1/2 of 5th 90% proof vodka daily. substance use type: does not use caffeine: Yes (4+ drinks/day) ROS ROS ED ROS Narrative Denies recent illness. Reported black stool. Constitutional Constitutional ED: Denies chills or fever(s) Eyes Eyes: Denies blurry vision ENT ENT ED: Denies ear pain Cardiovascular Cardiovascular: Denies chest pain Respiratory/Chest Respiratory/Chest: Denies cough or dyspnea Gastrointestinal Gastrointestinal: Reports melena; Denies abdominal pain, constipation, diarrhea, nausea or vomiting Genitourinary Genitourinary ED: Denies dysuria or hematuria Musculoskeletal Musculoskeletal: Denies arthralgias Integumentary Denies abscess Neurologic Neurologic: Denies headache(s) Psychiatric Psychiatric: Denies anxiety or depression Endocrine Endocrinology: Denies cold intolerance Hematologic/Lymphatic Hematologic/Lymphatic: Reports none Allergic/Immunologic Allergic/Immunologic ED: Denies mouth swelling, tongue swelling or urticaria EXAM Physical Exam Narrative Exam Narrative: 73-year-old female vital signs are stable afebrile. She does not look septic toxic or in acute distress. H EENT exam unremarkable. Moist with membranes. Neck nontender. Lungs clear to auscultation bilaterally. Heart regular rate and rhythm rate about 90 no murmur. Chest wall ribs nontender. Abdomen soft nontender. No peritoneal signs. Moving all 4 extremities. Left shoulder has an anterior surgical incision is dry and clean it is new. She has normal welt sole layer strength. Normal dorsi plantarflexion. She is awake and alert. Answers questions follows commands. She does know she is at [facility]. Const Vital Signs: 01/03/24 20:15 01/03/24 22:03 01/03/24 22:14 Temperature 98.3 F Temperature Source Oral Pulse Rate 94 88 Respiratory Rate 18 13 Respiratory Pattern Normal Blood Pressure 151/94 H 143/88 H Blood Pressure Mean 113 106 Pulse Ox 94 96 Oxygen Delivery Method Room Air Room Air Positive well nourished and well developed; Negative for obese, cachectic, contractures or unkempt General Appearance ED: well developed and NAD; Negative for unkempt, cachectic, contractures, cyanotic, diaphoretic or pallor Nutritional Appearance: Negative for cachectic or obese HEENT Reports moist mucous membranes Negative for trauma or tenderness Eyes PERRL and EOMs intact bilaterally General Eye ED: Negative for pale conjunctiva or scleral icterus Neck no lymphadenopathy, supple and no JVD General: Negative for tenderness Chest Wall inspection of chest normal and palpation of chest normal Resp normal respiratory effort and clear to auscultation bilaterally Cardio regular rate, regular rhythm, S1 normal heart sound, S2 normal heart sound and no murmurs GI normal to inspection, nondistended, normoactive bowel sounds, non-tender, non-distended and no masses Back/Spine no CVA tenderness Extremity normal to inspection Extremity Narrative: Well-healing left shoulder anterior incision. Dry and clean. No cellulitis. No signs of infection. Limited range of motion to be expected due to recent surgery. General Extremety ED: Negative for edema or tenderness General Extremity: Negative for edema Neuro CN's II-XII intact bilaterally Neuro Narrative: Patient knows her name and where she is currently. She is answering questions and following commands. Sensorium / Orientation: alert Motor Exam: strength 5/5 throughout Psych mental status grossly normal Appearance: Negative for unkempt Mood & Affect: Negative for depressed, anxious or tearful Skin no rashes or lesions noted and no wounds General Skin Exam: Negative for jaundice or pallor Lesions: No lesion noted Rashes: No rashes noted Trauma: Negative for abrasion MDM MDM MDM Narrative Medical decision making narrative: 73-year-old female status post recent left shoulder surgery currently at extended-care facility. With acute anemia. Screening labs type and screen. Repeat exam unchanged at 10:30 PM. Rectal exam there is no stool or blood in her rectal vault. I do not know if this is a chronic anemia. Patient denies ever needing a blood transfusion. There is no obvious signs of acute bleeding. We called the extended-care facility they only have recent hemoglobins because she has not been there that long. I will speak to my hospitalist about admitting her for anemia possible transfusion and possible workup for GI bleed. History & Record Review Discussion w/independent historian: Patient Additional record(s) reviewed:: Prior inpatient record, Prior outpatient record and Prior ED visit Lab Data Attestation: I reviewed the patient's lab results. Lab results narrative: CBC shows a white count 1.6. H&H of 7 and 21.7. MCV is 108 platelet count 722. PT/INR of 14 and 1.1. Electrolytes show sodium 135. Gap 7. Normal BUN of 14 and creatinine 0.5. Liver enzymes normal. Blood type a positive. Most recent hemogram globin we have is from 2 years ago in 2021 and 11.6 much higher than today. Labs: Laboratory Results - last 24 hr 01/03/24 01/03/24 20:25 21:05 WBC 11.6 H RBC 2.01 L Hgb 7.0 L Hct 21.7 L MCV 108.0 H MCH 34.8 H MCHC 32.3 RDW Std Deviation 74.9 H RDW Coeff of Marc 19.0 H Plt Count 722 H MPV 10.5 Immature Gran % (Auto) 0.900 Neut % (Auto) 73.0 H Lymph % (Auto) 16.4 L [place] % (Auto) 8.7 Eos % (Auto) 0.6 Baso % (Auto) 0.4 Absolute Neuts (auto) 8.5 H Absolute Lymphs (auto) 1.90 Nucleated RBC % 0 Differential Comment Platelet Estimate MKD INC Plt Morphology Comment CLUMPED Hypochromasia 2+ Anisocytosis 2+ PT 14.1 INR 1.1 Sodium 135 L Potassium 4.6 Chloride 103 Carbon Dioxide 25.0 Anion Gap 7 BUN 14 Creatinine 0.57 Estim Creat Clear Calc 51.81 Est GFR (MDRD) Af Amer 133 Est GFR (MDRD) Non-Af 110 BUN/Creatinine Ratio 24.4 H Glucose 67 L Calcium 8.6 Total Bilirubin 0.50 AST 22 ALT 7 L Alkaline Phosphatase 156 H Total Protein 6.1 L Albumin 1.9 L Globulin 4.2 Albumin/Globulin Ratio 0.5 L Blood Type A POSITIVE Antibody Screen NEGATIVE Discharge Plan Dx/Rx/DC Orders Clinical Impression: Anemia, History of CAD (coronary artery disease), History of shoulder surgery Disposition Disposition: Acute Care Hospital [facility]
[2024-01-03 21:09] LABS: Absolute Neutrophil Count 8.5 X10^3/uL (2.0-7.7); Basophil# 0.05 X10^3/uL; Basophil% 0.4 % (0-1); Eosinophil# 0.07 X10^3/uL; Eosinophils% 0.6 % (0-5); Hematocrit 21.7 % (37-47); Lymphocyte % 16.4 % (19-41); Mean Corp Hgb Conc 32.3 g/dL (32-36); Mean Corpuscular Hgb 34.8 pg (27.0-32.0); Mean Platelet Vol. 10.5 fl (6.2-12.0); Monocyte# 1.01 X10^3/uL; Monocyte% 8.7 % (0-10); NRBC Flagged by Analyzer 0 % (0-5); Neutrophil # 8.47 X10^3/uL (2.7-7.7); POSITIVE COUNT YES; POSITIVE MORPHOLOGY YES; Platelet Count 722 K/mm3 (150-450); RBC Distribution Width SD 74.9 fl (35.1-43.9); Red Blood Count 2.01 M/mm3 (4.2-5.4); White Blood Count 11.6 K/mm3 (4.4-11.0)
[2024-01-03 21:14] LABS: International Normalized Ratio 1.1; Prothrombin Time (Protime)PT. 14.1 SECONDS (11.7-14.9)
[2024-01-03 21:19] LABS: Differential Indicated SCAN CRITERIA MET
[2024-01-03 21:31] LABS: ALB/GLOB Ratio 0.5 RATIO (0.9-2.4); AST(SGOT) 22 U/L (15-37); Alanine Aminotransfer ALT/SGPT 7 U/L (13-56); Albumin, Serum 1.9 g/dL (3.2-5.0); Alkaline Phosphatase 156 U/L (45-117); Anion Gap 7 (5-15); BUN 14 mg/dL (7-18); BUN/Creat Ratio 24.4 RATIO (10-20); Calcium,Total 8.6 mg/dL (8.5-10.1); Chloride 103 mmol/L (98-107); Creatinine, Serum 0.57 mg/dL (0.55-1.02); EST Glomerular Filtration Rate 110 mL/min (>60); Est Glom Filt Rate - Afr Amer 133 mL/min (>60); Estimated Creatinine Clearance 51.81 ml/min; Globulin 4.2 g/dL (2.2-4.2); Glucose 67 mg/dL (74-106); Potassium 4.6 mmol/L (3.5-5.1); Protein, Total 6.1 g/dL (6.4-8.2); Sodium Level 135 mmol/L (136-145)
--- NOTE | 2024-01-03 21:35 | ED.RN ---
Spoke with daughter Fozia at patients request. Gave an update on patient. Fozia requests to be notified when there is a plan for patients care.
[2024-01-03 21:45] LABS: Platelet Estimate MKD INC (ADEQ); Platelet Morphology CLUMPED
[2024-01-03 21:46] LABS: Anisocytosis 2+; Hypochromasia 2+
[2024-01-03 22:14] VITALS: BP 143/88; PULSE 88; RESP 13; O2SAT 96
--- NOTE | 2024-01-03 23:02 | HP.PCM.HOS_ITS ---
[facility] - General General Date of Admission: 01/03/24 Date of Service: 01/03/24 Chief Complaint: Abnormal Labs with Dark Stools. HPI Narrative IRINA ROSE, is a 73 F with a past medical history of hyperlipidemia, ongoing tobacco abuse, former history of alcohol abuse; with 1/2 fifth of 90 proof vodka daily, history of CAD, history of endocarditis, KELSEY; on CPAP, history of BPPV; on as needed meclizine, overactive bladder; on solifenacin, depression with anxiety; on buspirone, history of hysterectomy, recent admission here from December 18, 2023 to December 20, 2023 for requested treatment of alcohol detoxification and Left thigh abscess with cellulitis and hypokalemia of 2.8 mmol/L present on admission in addition to a very recent admission to a hospital in [place], [place] last week for Left total shoulder replacement; on unopposed dose aspirin twice daily who presents to [facility] ER after the staff at her F noted severe anemia with hemoglobin of 6.8 g/dL at their facility. Ms. Saavedra is not a fully-reliable historian but she does admit to having black stools and she denies being on iron supplementation or related abdominal pain. She denies any known history of GI bleed or similar previous episode and she doubts if she has ever had a blood transfusion in the past. She believes she has had a prior colonoscopy that was unremarkable for acute pathologic changes. She denies associated recent illness, fever, chills, nausea, vomiting, chest pain, shortness of breath, dysuria, headache or focal neurologic deficits. In the ER she was confirmed to have a low hemoglobin of 7 g/dL with MCV of 108.2 fL present on admission with ER physician ordering blood transfusion for suspected GI bleed with melanotic stools suspected to be due to an adverse drug reaction to unopposed full-dose aspirin twice daily after recent Left shoulder replacement with hypoglycemia of 67 mg/dL and severe hypoalbuminemia of 1.9 g/dL present on admission suspicious for severe protein calorie malnutrition and leukocytosis of 11.6 K present on admission with no obvious source of infection and thrombocytosis of 722K present on admission suspected to be due to acute phase reactant and she was then admitted to the PCU for ongoing care for stay that is expected to extend beyond 2 midnights. COUNTS INCLUDE 234 BEDS AT THE [facility] Medical History BPPV (benign paroxysmal positional vertigo) Smoker CPAP (continuous positive airway pressure) dependence Abscess of left thigh Alcohol abuse with alcohol-induced disorder Hyperlipidemia Atherosclerotic heart disease of [place] coronary artery without angina pectoris Endocarditis Obstructive sleep apnea Nicotine dependence in remission Home Medications ?Medication ?Instructions ?Recorded ?Last Taken ?Type cholecalciferol (vitamin D3) 50 50 mcg PO DAILY 04/19/23 Unknown History mcg (2,000 unit) capsule acetaminophen 500 mg capsule 1,000 mg PO TID pain 01/03/24 Unknown History aspirin 325 mg capsule 325 mg PO BID 01/03/24 Unknown History buspirone 5 mg tablet 5 mg PO BID anxiety 01/03/24 Unknown History folic acid 1 mg tablet 1 mg PO DAILY 01/03/24 Unknown History magnesium 200 mg tablet 400 mg PO BID 01/03/24 Unknown History tetracycline 500 mg capsule 500 mg PO Q12H uti 01/03/24 Unknown History thiamine HCl (vitamin B1) 100 mg 100 mg PO DAILY 01/03/24 Unknown History tablet Allergy/AdvReac Type Severity Reaction Status Date / Time No Known Allergies Allergy Verified 01/03/24 20:21 Family History Father CAD (coronary artery disease) Mother Liver cancer Surgical History Hx of tonsillectomy History of hysterectomy Social History household members: spouse Smoking Status: Current every day smoker tobacco type: cigarettes Tobacco: How many years used: 41 Smokeless tobacco user: other second hand exposure: No alcohol intake: current alcohol intake frequency: 3 or more drinks per day Alcohol type: hard liquor details: Drinks 1/2 of 5th 90% proof vodka daily. substance use type: does not use caffeine: Yes (4+ drinks/day) ROS ROS Narrative Review of Systems: Constitutional: Patient denies fever or chills. Eyes: Patient denies changes in vision or discharge from eyes. ENT: Patient denies runny nose, sore throat or ear pain. Resp: Patient denies shortness of breath or cough. CV: Patient denies chest pain, palpitations or heart racing. GI: Patient admits to melanotic stools but she denies abdominal pain, constipation, diarrhea, nausea or vomiting. patient denies dysuria or hematuria. MSK: Patient denies arthralgias or myalgias. Skin: Patient denies rash, abscess or jaundice. Psych: Patient denies symptoms of uncontrolled depression or anxiety. Neuro: Patient denies headache, paresthesias or focal neurologic deficits. Allergy: Patient denies lip swelling, tongue swelling or urticaria. Hematology: Patient admits to melanotic stools. Endocrinology: Patient denies polyuria, polydipsia or polyphagia. 14 point review of systems otherwise negative except for positives noted above in HPI. Vital Signs Vital Signs Vital Signs: 01/03/24 20:15 01/03/24 22:03 01/03/24 22:14 Temperature 98.3 F Temperature Source Oral Pulse Rate 94 88 Respiratory Rate 18 13 Respiratory Pattern Normal Blood Pressure 151/94 H 143/88 H Blood Pressure Mean 113 106 Pulse Ox 94 96 Oxygen Delivery Method Room Air Room Air Weight Weight: 119 lb 7.849 oz Body Mass Index (BMI) 21.2 Results Lab / Micro Data 01/03/24 20:25 01/03/24 20:25 Labs: Laboratory Results - last 24 hr 01/03/24 20:25: WBC 11.6 H, RBC 2.01 L, Hgb 7.0 L, Hct 21.7 L, MCV 108.0 H, MCH 34.8 H, MCHC 32.3, RDW Std Deviation 74.9 H, RDW Coeff of Marc 19.0 H, Plt Count 722 H, MPV 10.5, Immature Gran % (Auto) 0.900, Neut % (Auto) 73.0 H, Lymph % (Auto) 16.4 L, [place] % (Auto) 8.7, Eos % (Auto) 0.6, Baso % (Auto) 0.4, Absolute Neuts (auto) 8.5 H, Absolute Lymphs (auto) 1.90, Nucleated RBC % 0, Differential Comment , Platelet Estimate MKD INC, Plt Morphology Comment CLUMPED, Hypochromasia 2+, Anisocytosis 2+, PT 14.1, INR 1.1, Sodium 135 L, Potassium 4.6, Chloride 103, Carbon Dioxide 25.0, Anion Gap 7, BUN 14, Creatinine 0.57, Estim Creat Clear Calc 51.81, Est GFR (MDRD) Af Amer 133, Est GFR (MDRD) Non-Af 110, BUN/Creatinine Ratio 24.4 H, Glucose 67 L, Calcium 8.6, Total Bilirubin 0.50, AST 22, ALT 7 L, Alkaline Phosphatase 156 H, Total Protein 6.1 L, Albumin 1.9 L, Globulin 4.2, Albumin/Globulin Ratio 0.5 L 01/03/24 21:05: Blood Type A POSITIVE, Antibody Screen NEGATIVE, Crossmatch See Detail Assessment & Plan Assessment/Plan (1) Melena: (2) ABLA (acute blood loss anemia): (3) Adverse drug reaction: QUALIFIERS: Encounter type: initial encounter Qualified Code(s): T50.905A - Adverse effect of unspecified drugs, medicaments and biological substances, initial encounter (4) History of shoulder surgery: (5) Hypoglycemia: (6) Leukocytosis, unspecified: QUALIFIERS: Leukocytosis type: unspecified Qualified Code(s): D 72.829 - Elevated white blood cell count, unspecified (7) Tobacco abuse: (8) History of alcohol abuse: (9) History of CAD (coronary artery disease): (10) BPPV (benign paroxysmal positional vertigo): QUALIFIERS: Laterality: unspecified laterality Qualified Code(s): H81.10 - Benign paroxysmal vertigo, unspecified ear (11) Obstructive sleep apnea: PLAN: Plan 1. Suspected GI bleed with melanotic stools and ABLA with hemoglobin of 7g/dL and MCV of 108.2 fL present on admission - Admit to PCU. Keep NPO and start Protonix 40 mg IV BID. Type & Screen blood and transfuse for hemoglobin <7 g/dL. Check iron studies, B12, Folate and Hemoccult stools to more fully work up potential underlying factors with severe anemia. Finally, we will consult gastroenterology to see this patient on-rounds in the AM for further recommendations regarding endoscopy this admission with help appreciated in advance. 2. Adverse Drug Reaction to unopposed ECASA BID after recent Left Shoulder Replacement last week likely causing #1 - Hold ECASA. 3. Hypoglycemia of 67 mg/dL with severe hypoalbuminemia of 1.9 g/dL present on admission suspicious for severe protein-calorie malnutrition in the setting of known previous EtOH abuse complicating #1 & #2 - Give D5 NS to prevent recurrence. Check HgbA1c. Finally, we will consult clinical dietitian to see this patient on-rounds in the AM for formal malnutrition evaluation with help appreciated in advance. 4. Leukocytosis of 11.6 K present on admission with no obvious source of infection and thrombocytosis of 722K present on admission suspected to be due to acute phase reactant compounding #1 - #3 - Noted. Check UA C&S. Check daily CBC to follow trend. 5. Ongoing Tobacco Abuse adding to the pathologic burden of #1 - #4 - Tobacco Cessation was strongly encouraged with Nicotine patch offered to control cravings. 6. Recent admission here from December 18, 2023 to December 20, 2023 for requested treatment of alcohol detoxification and Left thigh abscess with cellulitis and hypokalemia of 2.8 mmol/L present on admission complicating #1 - #5 - Noted. 7. History of CAD - Stable. 8. History of BPPV; on as needed meclizine - Resume meclizine as previous. 9. Former history of alcohol abuse; with 1/2 fifth of 90 proof vodka daily - Patient vehemently denies current or recent EtOH use. We will watch closely for any potential signs of withdrawal. Check [place] UDS to evaluate for other potential drugs of abuse with relatively poor memory and recall for detailed information. Finally, we will check hepatitis profile with abnormal LFT's. 10. KELSEY; on CPAP - Continue nocturnal CPAP as before. 11. Hyperlipidemia - Restart statin when patient resumes oral intake. 12. History of endocarditis - Noted. 13. Overactive bladder; on solifenacin - Stable. Reinitiate solifenacin once GI workup is completed. 14. Depression with anxiety; on buspirone - Noted. Buspirone to be restarted when she is cleared by GI. 15. History of hysterectomy - Noted for the sake of completeness. 16. DVT prophylaxis - SCD's only in light of #1. Total time: Approximately (but not less than) 75 minutes. Charges/Coding Visit Charges Inpatient E&M: 61217 Init Hosp L3
[2024-01-03 23:20] VITALS: BP 139/87; PULSE 86; RESP 16; TEMP 36.8; O2SAT 97
--- NOTE | 2024-01-03 23:42 | ED.RN ---
Spoke to daughter Fozia over the phone to provide pt update. Questions/concerns answered
[2024-01-03 23:58] VITALS: BMI 16.0
[2024-01-04] VITALS (14 sets, daily range): BP systolic 132–152; BP diastolic 79–105; PULSE 86–101; RESP 15–18; TEMP 36.6–37.7; O2SAT 92–96; BMI 17.2
[2024-01-04] MEDS: Dextrose 5%/0.9% NaCl 1,000 ML 50 ML IV (00:29)
[2024-01-04] MEDS: Pantoprazole Sodium 40 MG in 0.9% Normal Saline (100mL MB+) 100 ML 330 MG IV ×2 (00:29→09:02)
[2024-01-04 00:41] LABS: Ferritin 424 ng/mL (8-252); Iron 20 ug/dL (50-170); Iron Binding Capacity,Total 181 ug/dL (250-450)
[2024-01-04] MEDS: Morphine 2 MG/ML Syringe IV (00:50)
--- NOTE | 2024-01-04 03:36 | CPS ---
Patient refused PAP therapy for night time use
[2024-01-04 05:38] LABS: Bacteria 0 SEEN /hpf (None Seen); Mucous, Urine 0 SEEN /hpf (<or=2+); Red Blood Cells-Urine 0 SEEN /hpf (0-5); Squamous Epithelial Cells - UA 0 SEEN /hpf (5-10)
[2024-01-04 05:43] LABS: Color, Urine Yellow (Yellow); Glucose, Dipstick Normal (Normal); Ketone-Dipstick 50 mg/dl (Negative); Leukocyte Esterase-Dipstick 25 /ul (Negative); Nitrite-Dipstick Negative (Negative); Occult Blood-Urine Negative /ul (Negative); Protein-Dipstick 15 mg/dl (Negative); Urine Bilirubin Dipstick Negative (Negative); Urine Clarity Clear (Clear); Urine Urobilinogen Normal (Normal)
--- NOTE | 2024-01-04 05:55 | EKG12_ITS ---
Test Reason : AM EKG Blood Pressure : */* mmHG Vent. Rate : 95 BPM Atrial Rate : 95 BPM P-R Int : 142 ms QRS Dur : 76 ms QT Int : 364 ms P-R-T Axes : 63 -52 59 degrees QTcB Int : 457 ms Normal sinus rhythm Left axis deviation Abnormal ECG When compared with ECG of 15-Apr-2008 19:21, T wave amplitude has decreased in Anterior leads Confirmed by SHIRLEY CHIN, JERRY ([id number]), legal editor DARVIN GOLDSTEIN ([id number]) on 01/05/2024 6:35:44 AM Referred By: REESE Confirmed By: JERRY WATSON MD
[2024-01-04 05:59] LABS: Amphetamine Urine VISTA NEGATIVE (<1000 ng/mL); Barbiturate Urine VISTA NEGATIVE (< 200 ng/mL); Benzodiazepine Urine VISTA NEGATIVE (< 200 ng/mL); Cocaine Urine VISTA NEGATIVE (< 300 ng/mL); Ecstacy Urine VISTA NEGATIVE (< 500 ng/mL); Methadone Urine VISTA NEGATIVE (< 300 ng/mL); PCP Urine VISTA NEGATIVE (< 25 ng/mL); THC Urine VISTA NEGATIVE (< 50 ng/mL); Vista UDS pH Range 5
[2024-01-04 06:11] LABS: White Blood Cells 0-5 SEEN /hpf (0-5)
[2024-01-04 06:19] LABS: Absolute Lymphocyte Count 1.65 X10^3/uL (0.83-4.51); Absolute Neutrophil Count 7.1 X10^3/uL (2.0-7.7); Basophil# 0.06 X10^3/uL; Basophil% 0.6 % (0-1); Eosinophil# 0.11 X10^3/uL; Eosinophils% 1.1 % (0-5); Hematocrit 20.2 % (37-47); Hemoglobin 6.5 g/dL (12.0-15.0); Lymphocyte # 1.65 X10^3/ul (0.83-4.51); Lymphocyte % 16.3 % (19-41); Mean Corp Hgb Conc 32.2 g/dL (32-36); Mean Corpuscular Hgb 34.6 pg (27.0-32.0); Mean Corpuscular Volume 107.4 fL (81-99); Mean Platelet Vol. 8.8 fl (6.2-12.0); Monocyte# 1.13 X10^3/uL; Monocyte% 11.2 % (0-10); NRBC Flagged by Analyzer 0 % (0-5); Neutrophil # 7.13 X10^3/uL (2.7-7.7); Neutrophil % 70.3 % (47-70); POSITIVE COUNT YES; POSITIVE MORPHOLOGY YES; RBC Distribution Width CV 18.7 % (11.6-14.6); RBC Distribution Width SD 75.1 fl (35.1-43.9); Red Blood Count 1.88 M/mm3 (4.2-5.4); White Blood Count 10.1 K/mm3 (4.4-11.0)
[2024-01-04 06:27] LABS: Differential Indicated SCAN CRITERIA MET; Platelet Count 861 K/mm3 (150-450)
[2024-01-04 06:59] LABS: Alcohol, Blood (Medical)-Serum < 3.0 mg/dL
[2024-01-04 07:13] LABS: ALB/GLOB Ratio 0.5 RATIO (0.9-2.4); AST(SGOT) 19 U/L (15-37); Alanine Aminotransfer ALT/SGPT 7 U/L (13-56); Albumin, Serum 1.8 g/dL (3.2-5.0); Alkaline Phosphatase 143 U/L (45-117); Anion Gap 7 (5-15); Anisocytosis 2+; BUN 13 mg/dL (7-18); BUN/Creat Ratio 22.2 RATIO (10-20); Bilirubin, Direct 0.21 mg/dL (0.00-0.30); Chloride 104 mmol/L (98-107); Creatinine, Serum 0.58 mg/dL (0.55-1.02); EST Glomerular Filtration Rate 107 mL/min (>60); Est Glom Filt Rate - Afr Amer 130 mL/min (>60); Estimated Creatinine Clearance 45.98 ml/min; Globulin 3.9 g/dL (2.2-4.2); Glucose 78 mg/dL (74-106); Magnesium 1.6 mg/dL (1.6-2.6); Phosphorus 3.4 mg/dL (2.5-4.9); Platelet Estimate MKD INC (ADEQ); Potassium 3.8 mmol/L (3.5-5.1); Protein, Total 5.7 g/dL (6.4-8.2); Sodium Level 135 mmol/L (136-145); Stomatocyte 2+
--- NOTE | 2024-01-04 07:30 | PN.HOSP_ITS ---
Reason for Visit Reason for Visit: Diagnoses Acute posthemorrhagic anemia (01/03/24) Elevated white blood cell count, unspecified (01/03/24) Hypoglycemia, unspecified (01/03/24) Alcohol abuse, in remission (01/03/24) Obstructive sleep apnea (adult) (pediatric) (01/03/24) Benign paroxysmal vertigo, unspecified ear (01/03/24) Melena (01/03/24) Adverse effect of unspecified drugs, medicaments and biological substances, initial encounter (01/03/24) Tobacco use (01/03/24) Personal history of other diseases of the circulatory system (01/03/24) Other specified postprocedural states (01/03/24) Objective Data Objective Data Vital Signs: Vital Signs Temp Pulse Resp BP Pulse Ox O2 Del Method 98.0 F 97 18 138/86 H 93 Room Air 01/04/24 04:30 01/04/24 04:30 01/04/24 04:30 01/04/24 04:30 01/04/24 04:30 01/04/24 04:30 Oxygen Delivery Method Room Air Weight: 102 lb 8.239 oz Body Mass Index (BMI) 16.0 Intake & Output: Intake and Output for Last 24 Hours 01/02/24 01/03/24 01/04/24 23:59 23:59 23:59 Intake Total 0 / 0 110 / 110 Output Total 150 / 150 Balance 0 / 0 -40 / -40 Lab / Micro Data 01/04/24 10:46 01/04/24 05:51 Labs: Laboratory Results - last 24 hr 01/03/24 20:25: WBC 11.6 H, RBC 2.01 L, Hgb 7.0 L, Hct 21.7 L, MCV 108.0 H, MCH 34.8 H, MCHC 32.3, RDW Std Deviation 74.9 H, RDW Coeff of Marc 19.0 H, Plt Count 722 H, MPV 10.5, Immature Gran % (Auto) 0.900, Neut % (Auto) 73.0 H, Lymph % (Auto) 16.4 L, [place] % (Auto) 8.7, Eos % (Auto) 0.6, Baso % (Auto) 0.4, Absolute Neuts (auto) 8.5 H, Absolute Lymphs (auto) 1.90, Nucleated RBC % 0, Differential Comment , Platelet Estimate MKD INC, Plt Morphology Comment CLUMPED, Hypochromasia 2+, Anisocytosis 2+, PT 14.1, INR 1.1, Sodium 135 L, Potassium 4.6, Chloride 103, Carbon Dioxide 25.0, Anion Gap 7, BUN 14, Creatinine 0.57, Estim Creat Clear Calc 51.81, Est GFR (MDRD) Af Amer 133, Est GFR (MDRD) Non-Af 110, BUN/Creatinine Ratio 24.4 H, Glucose 67 L, Calcium 8.6, Iron 20 L, TIBC 181 L, Iron Saturation 11.0 L, Ferritin 424 H, Total Bilirubin 0.50, AST 22, ALT 7 L , Alkaline Phosphatase 156 H, Total Protein 6.1 L, Albumin 1.9 L, Globulin 4.2, Albumin/Globulin Ratio 0.5 L, Folate 13.50 01/03/24 21:05: Blood Type A POSITIVE, Antibody Screen NEGATIVE, Crossmatch See Detail 01/04/24 05:30: Urine Color Yellow, Urine Clarity Clear, Urine pH 6.0, Ur Specific [place] 1.020, Urine Protein 15 H, Urine Glucose (UA) Normal, Urine Ketones 50 H, Urine Occult Blood Negative, Urine Nitrite Negative, Urine Bilirubin Negative, Urine Urobilinogen Normal, Ur Leukocyte Esterase 25 H, Urine RBC 0 SEEN, Urine WBC 0-5 SEEN, Ur Squamous Epith Cells 0 SEEN, Urine Bacteria 0 SEEN, Urine Mucus 0 SEEN, Urine Opiates Screen POSITIVE H, Urine Methadone Screen NEGATIVE, Ur Barbiturates Screen NEGATIVE, Ur Phencyclidine Scrn NEGATIVE, Ur Amphetamines Screen NEGATIVE, MDMA (Ecstasy) Screen NEGATIVE, U Benzodiazepines Scrn NEGATIVE, Urine Cocaine Screen NEGATIVE, U Cannabinoids Screen NEGATIVE, Ur Drug Screen Comment 01/04/24 05:51: WBC 10.1, RBC 1.88 L, Hgb 6.5 L, Hct 20.2 L, MCV 107.4 H, MCH 34.6 H, MCHC 32.2, RDW Std Deviation 75.1 H, RDW Coeff of Marc 18.7 H, Plt Count 861 H*, MPV 8.8, Immature Gran % (Auto) 0.500, Neut % (Auto) 70.3 H, Lymph % (Auto) 16.3 L, [place] % (Auto) 11.2 H, Eos % (Auto) 1.1, Baso % (Auto) 0.6, Absolute Neuts (auto) 7.1, Absolute Lymphs (auto) 1.65, Nucleated RBC % 0, Diff Path Review May foll, Platelet Estimate MKD INC, Anisocytosis 2+, Stomatocytes 2+, Sodium 135 L, Potassium 3.8, Chloride 104, Carbon Dioxide 24.0, Anion Gap 7, BUN 13, Creatinine 0.58, Estim Creat Clear Calc 45.98, Est GFR (MDRD) Af Amer 130, Est GFR (MDRD) Non-Af 107, BUN/Creatinine Ratio 22.2 H, Glucose 78, Calcium 8.0 L, Phosphorus 3.4, Magnesium 1.6, Total Bilirubin 0.60, Direct Bilirubin 0.21, AST 19, ALT 7 L, Alkaline Phosphatase 143 H, Total Protein 5.7 L, Albumin 1.8 L, Globulin 3.9, Albumin/Globulin Ratio 0.5 L, TSH 1.540, Ethyl Alcohol < 3.0 Physical Exam Narrative Seen and examined. Patient does not remember the reason for admission but she states he is in the hospital. She has dementia. Admitted for melena and severe anemia. Hemoglobin was 6.5 g%. No abdominal pain. Going for EGD Physical exam General: Alert, Oriented to time, place and person but not to situation, Cooperative HEENT: Atraumatic, PERRLA, EOMI, Normocephalic Oral: Oral mucosa moist. No Gingival or Mucosal Lesions/ Ulcerations Neck: Supple, No JVD, Negative Carotid Bruits Chest wall/Lungs: Air entry diminished in bilateral lung bases. No crepitation/rhonchi Cardiovascular: Regular rate, Regular Rhythm, Normal S1, Normal S2, No M/G/R Abdomen: Bowel Sounds Present, Soft, Non Tender, Non-Distended : No dysuria. No renal angle tenderness. No suprapubic tenderness. Extremities: No edema, Capillary Refill Less than 3 Seconds Skin: No rashes, No breakdown Musculoskeletal: No Tenderness to Palpation of Joints or Extremities Neurological: Cranial nerves II-XII grossly intact, DTR 2+/4. No acute focal neurological deficit. Psych/Mental Status: Flat affect. Amnesia. Dementia Assessment & Plan Assessment/Plan (1) Melena: (2) ABLA (acute blood loss anemia): (3) Hypoglycemia: PLAN: Plan 73-year-old female was admitted with blackish stool and found to have severe anemia from ECF. She had left shoulder replacement outside a week ago. 1. Suspected GI bleed with melanotic stools and ABLA with hemoglobin of 7g/dL and MCV of 108.2 fL present on admission - Admit to PCU. Her hemoglobin further dropped to 6.5 g and had PRBC transfusion which improved to 8.2 g%. Platelet count high, thrombocythemia 722K, 861K. Thrombocytosis is acute probably due to acute blood loss anemia. Was started on pantoprazole 40 IV twice daily, changed to 40 mg daily. GI was consulted and patient had EGD. 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 Biopsied. - No gross lesions in the stomach. - Chronic duodenitis. Biopsied. Recommendation: - Repeat upper endoscopy in 1 year for surveillance. - Use Protonix (pantoprazole) 40 mg PO daily 2. Adverse Drug Reaction to unopposed ECASA BID after recent Left Shoulder Replacement last week - Hold ECASA. 3. Hypoglycemia of 67 mg/dL with severe hypoalbuminemia of 1.9 g/dL present on admission suspicious for severe protein-calorie malnutrition in the setting of known previous EtOH abuse: Give D5 NS to prevent recurrence. Last glucose 78 in [facility] monitor glucose every 4 hours. Hypoglycemia protocol ordered. Nutrition is consulted. Check HgbA1c. 5. Ongoing Tobacco Abuse/cigarette smoke - Tobacco Cessation was strongly encouraged with Nicotine patch offered to control cravings. 6. Recent admission here from December 18, 2023 to December 20, 2023 for requested treatment of alcohol detoxification and Left thigh abscess with cellulitis and hypokalemia of 2.8 mmol/L present on admission. Patient used to drink 1/2 fifth of 90 proof vodka daily but currently denies alcohol use.- 7. Chronic CAD, history of endocarditis, dyslipidemia: No acute issues. Home medications continued 8. KELSEY; on CPAP - Continue nocturnal CPAP as before. 9. Overactive bladder; on solifenacin - Stable. Reinitiate solifenacin once GI workup is completed. 10. Anxiety and depression: On buspirone. DVT prophylaxis - SCD's only. Pharmacological prophylaxis contraindicated Laboratory Results 01/03/24 20:25: WBC 11.6 H, RBC 2.01 L, Hgb 7.0 L, Hct 21.7 L, MCV 108.0 H, MCH 34.8 H, MCHC 32.3, RDW Std Deviation 74.9 H, RDW Coeff of Marc 19.0 H, Plt Count 722 H, MPV 10.5, Immature Gran % (Auto) 0.900, Neut % (Auto) 73.0 H, Lymph % (Auto) 16.4 L, [place] % (Auto) 8.7, Eos % (Auto) 0.6, Baso % (Auto) 0.4, Absolute Neuts (auto) 8.5 H, Absolute Lymphs (auto) 1.90, Nucleated RBC % 0, Differential Comment , Platelet Estimate MKD INC, Plt Morphology Comment CLUMPED, Hypochromasia 2+, Anisocytosis 2+, PT 14.1, INR 1.1, Sodium 135 L, Potassium 4.6, Chloride 103, Carbon Dioxide 25.0, Anion Gap 7, BUN 14, Creatinine 0.57, Estim Creat Clear Calc 51.81, Est GFR (MDRD) Af Amer 133, Est GFR (MDRD) Non-Af 110, BUN/Creatinine Ratio 24.4 H, Glucose 67 L, Hemoglobin A1c Cancelled, Calcium 8.6, Iron 20 L, TIBC 181 L, Iron Saturation 11.0 L, Ferritin 424 H, Total Bilirubin 0.50, AST 22, ALT 7 L, Alkaline Phosphatase 156 H, Total Protein 6.1 L, Albumin 1.9 L, Globulin 4.2, Albumin/Globulin Ratio 0.5 L, Folate 13.50, Miscellaneous Test Pending 01/03/24 21:05: Blood Type A POSITIVE, Antibody Screen NEGATIVE, Crossmatch See Detail 01/04/24 05:30: Urine Color Yellow, Urine Clarity Clear, Urine pH 6.0, Ur Specific [place] 1.020, Urine Protein 15 H, Urine Glucose (UA) Normal, Urine Ketones 50 H, Urine Occult Blood Negative, Urine Nitrite Negative, Urine Bilirubin Negative, Urine Urobilinogen Normal, Ur Leukocyte Esterase 25 H, Urine RBC 0 SEEN, Urine WBC 0-5 SEEN, Ur Squamous Epith Cells 0 SEEN, Urine Bacteria 0 SEEN, Urine Mucus 0 SEEN, Urine Opiates Screen POSITIVE H, Urine Methadone Screen NEGATIVE, Ur Barbiturates Screen NEGATIVE, Ur Phencyclidine Scrn NEGATIVE, Ur Amphetamines Screen NEGATIVE, MDMA (Ecstasy) Screen NEGATIVE, U Benzodiazepines Scrn NEGATIVE, Urine Cocaine Screen NEGATIVE, U Cannabinoids Screen NEGATIVE, Ur Drug Screen Comment 01/04/24 05:51: WBC 10.1, RBC 1.88 L, Hgb 6.5 L, Hct 20.2 L, MCV 107.4 H, MCH 34.6 H, MCHC 32.2, RDW Std Deviation 75.1 H, RDW Coeff of Marc 18.7 H, Plt Count 861 H*, MPV 8.8, Immature Gran % (Auto) 0.500, Neut % (Auto) 70.3 H, Lymph % (Auto) 16.3 L, [place] % (Auto) 11.2 H, Eos % (Auto) 1.1, Baso % (Auto) 0.6, Absolute Neuts (auto) 7.1, Absolute Lymphs (auto) 1.65, Nucleated RBC % 0, Diff Path Review Reviewed, Platelet Estimate MKD INC, Anisocytosis 2+, Stomatocytes 2+, Sodium 135 L, Potassium 3.8, Chloride 104, Carbon Dioxide 24.0, Anion Gap 7, BUN 13, Creatinine 0.58, Estim Creat Clear Calc 45.98, Est GFR (MDRD) Af Amer 130, Est GFR (MDRD) Non-Af 107, BUN/Creatinine Ratio 22.2 H, Glucose 78, Calcium 8.0 L, Phosphorus 3.4, Magnesium 1.6, Total Bilirubin 0.60, Direct Bilirubin 0.21, AST 19, ALT 7 L, Alkaline Phosphatase 143 H, Total Protein 5.7 L, Albumin 1.8 L, Globulin 3.9, Albumin/Globulin Ratio 0.5 L, Vitamin B12 653, TSH 1.540, Ethyl Alcohol < 3.0, Hepatitis A IgM Ab Pending, Hep Bs Antigen Pending, Hep B Core IgM Ab Pending, Hepatitis C Ab (EIA) Pending 01/04/24 10:46: WBC 10.7, RBC 2.47 L, Hgb 8.2 L, Hct 25.0 L, MCV 101.2 H D, MCH 33.2 H, MCHC 32.8, RDW Std Deviation 74.6 H, RDW Coeff of Marc 20.2 H, Plt Count 799 H*, MPV 8.9, Immature Gran % (Auto) 0.800, Neut % (Auto) 73.3 H, Lymph % (Auto) 13.7 L, [place] % (Auto) 10.8 H, Eos % (Auto) 0.7, Baso % (Auto) 0.7, A bsolute Neuts (auto) 7.9 H, Absolute Lymphs (auto) 1.47, Nucleated RBC % 0, Diff Path Review May fco, Platelet Estimate MKD INC, Anisocytosis 1+ Charges/Coding Visit Charges Inpatient E&M: 59639 Subs Hosp L2
[2024-01-04] MEDS: 0.9% Saline Lock 10 ML Syringe IV (08:00)
[2024-01-04 08:41] LABS: Vitamin B12 653 pg/mL (211-911)
[2024-01-04] MEDS: Menthol/Lanolin/Calamine/Znox 113 GM Tube 1 APPLIC TOPICAL ×2 (09:02→21:53)
--- NOTE | 2024-01-04 10:54 | CASEMGMT ---
Discharge Planning Per pts daughter (Fozia), pt will return to [facility] upon discharge. SW updated. Zara Arreola DC Planning Asst.
[2024-01-04 11:09] LABS: Absolute Lymphocyte Count 1.47 X10^3/uL (0.83-4.51); Absolute Neutrophil Count 7.9 X10^3/uL (2.0-7.7); Basophil# 0.07 X10^3/uL; Basophil% 0.7 % (0-1); Eosinophil# 0.07 X10^3/uL; Eosinophils% 0.7 % (0-5); Hemoglobin 8.2 g/dL (12.0-15.0); Lymphocyte # 1.47 X10^3/ul (0.83-4.51); Lymphocyte % 13.7 % (19-41); Mean Corp Hgb Conc 32.8 g/dL (32-36); Mean Corpuscular Hgb 33.2 pg (27.0-32.0); Mean Corpuscular Volume 101.2 fL (81-99); Mean Platelet Vol. 8.9 fl (6.2-12.0); Monocyte# 1.16 X10^3/uL; Monocyte% 10.8 % (0-10); NRBC Flagged by Analyzer 0 % (0-5); Neutrophil # 7.85 X10^3/uL (2.7-7.7); Neutrophil % 73.3 % (47-70); POSITIVE COUNT YES; POSITIVE MORPHOLOGY YES; RBC Distribution Width CV 20.2 % (11.6-14.6); RBC Distribution Width SD 74.6 fl (35.1-43.9); Red Blood Count 2.47 M/mm3 (4.2-5.4); White Blood Count 10.7 K/mm3 (4.4-11.0)
[2024-01-04 11:12] LABS: Differential Indicated SCAN CRITERIA MET; Platelet Count 799 K/mm3 (150-450)
--- NOTE | 2024-01-04 11:17 | CASEMGMT ---
Addendum entered by Zara Arreola 01/04/24 11:45: Pt will need new precert if not discharged on or before 01/04. SW updated. Zara Arreola DC Planning Asst. Original Note: Discharge Planning Updates sent to [facility]. Asked if precert will be needed. Awaiting response. Zara Arreola DC Planning Asst.
--- NOTE | 2024-01-04 11:42 | CON.PCM.GI_ITS ---
HPI Consult Data Date of Consult: 01/04/24 HPI Narrative Reason for Consultation: GI bleed HPI Narrative: IRINA ROSE, is a 73 F with a history of alcohol abuse; with 1/2 fifth of 90 proof vodka daily, history of CAD, history of endocarditis, KELSEY; on CPAP, history of BPPV; on as needed meclizine, overactive bladder; on solifenacin, depression with anxiety; on buspirone, history of hysterectomy, recent admission here from December 18, 2023 to December 20, 2023 for requested treatment of alcohol detoxification and Left thigh abscess with cellulitis and hypokalemia of 2.8 mmol/L present on admission in addition to a very recent admission to a hospital in [place], [place] last week for Left total shoulder replacement. She is also on unopposed dose aspirin twice daily who presents to [facility] ER after the staff at her ECF noted severe anemia with hemoglobin of 6.8 g/dL at their facility. She denies any known history of GI bleed or similar previous episode and she doubts if she has ever had a blood transfusion in the past. She believes she has had a prior colonoscopy that was unremarkable for acute pathologic changes. She denies associated recent illness, fever, chills, nausea, vomiting, chest pain, shortness of breath, dysuria, headache or focal neurologic deficits. In the ER she was confirmed to have a low hemoglobin of 7 g/dL with MCV of 108.2 fL present on admission with ER physician ordering blood transfusion for suspected GI bleed with melanotic stools suspected to be due to an adverse drug reaction to unopposed full-dose aspirin twice daily after recent Left shoulder replacement with hypoglycemia of 67 mg/dL and severe hypoalbuminemia of 1.9 g/dL present on admission suspicious for severe protein calorie malnutrition and leukocytosis of 11.6 K present on admission with no obvious source of infection and thrombocytosis of 722K present on admission suspected to be due to acute phase reactant [facility] Medical History BPPV (benign paroxysmal positional vertigo) Smoker CPAP (continuous positive airway pressure) dependence Abscess of left thigh Alcohol abuse with alcohol-induced disorder Hyperlipidemia Atherosclerotic heart disease of [place] coronary artery without angina pectoris Endocarditis Obstructive sleep apnea Nicotine dependence in remission Home Medications ?Medication ?Instructions ?Recorded ?Last Taken ?Type cholecalciferol (vitamin D3) 50 50 mcg PO DAILY 04/19/23 Unknown History mcg (2,000 unit) capsule acetaminophen 500 mg capsule 1,000 mg PO TID pain 01/03/24 Unknown History aspirin 325 mg capsule 325 mg PO BID 01/03/24 Unknown History buspirone 5 mg tablet 5 mg PO BID anxiety 01/03/24 Unknown History folic acid 1 mg tablet 1 mg PO DAILY 01/03/24 Unknown History magnesium 200 mg tablet 400 mg PO BID 01/03/24 Unknown History tetracycline 500 mg capsule 500 mg PO Q12H uti 01/03/24 Unknown History thiamine HCl (vitamin B1) 100 mg 100 mg PO DAILY 01/03/24 Unknown History tablet Allergy/AdvReac Type Severity Reaction Status Date / Time No Known Allergies Allergy Verified 01/03/24 20:21 Family History Father CAD (coronary artery disease) Mother Liver cancer Surgical History Hx of tonsillectomy History of hysterectomy Social History household members: spouse Smoking Status: Current every day smoker tobacco type: cigarettes Tobacco: How many years used: 41 Smokeless tobacco user: other second hand exposure: No alcohol intake: current alcohol intake frequency: 3 or more drinks per day Alcohol type: hard liquor details: Drinks 1/2 of 5th 90% proof vodka daily. substance use type: does not use caffeine: Yes (4+ drinks/day) ROS ROS Narrative Review of Systems: Constitutional: Patient denies fever or chills. Eyes: Patient denies changes in vision or discharge from eyes. ENT: Patient denies runny nose, sore throat or ear pain. Resp: Patient denies shortness of breath or cough. CV: Patient denies chest pain, palpitations or heart racing. GI: Patient admits to melanotic stools but she denies abdominal pain, constipation, diarrhea, nausea or vomiting. patient denies dysuria or hematuria. MSK: Patient denies arthralgias or myalgias. Skin: Patient denies rash, abscess or jaundice. Psych: Patient denies symptoms of uncontrolled depression or anxiety. Neuro: Patient denies headache, paresthesias or focal neurologic deficits. Allergy: Patient denies lip swelling, tongue swelling or urticaria. Hematology: Patient admits to melanotic stools. Endocrinology: Patient denies polyuria, polydipsia or polyphagia. 14 point review of systems otherwise negative except for positives noted above in HPI. Physical Exam Narrative Physical exam General: Alert, Oriented x3, Cooperative HEENT: Atraumatic, PERRLA, EOMI, Normocephalic Oral: No Gingival or Mucosal Lesions/ Ulcerations Neck: Supple, No JVD, Negative Carotid Bruits Lungs: Air entry diminished in bilateral lung bases. No crepitation/rhonchi Cardiovascular: Regular rate, Regular Rhythm, Normal S1, Normal S2, No murmurs Abdomen: Bowel Sounds Present, Soft, Non Tender, Non-Distended : No renal angle tenderness. No suprapubic tenderness. Extremities: No edema, Capillary Refill Less than 3 Seconds Skin: Left upper anterior medial thigh abscess status post I and D with surrounding cellulitis. Wick is removed. Musculoskeletal: No Tenderness to Palpation of Joints or Extremities Neurological: Cranial nerves II-XII grossly intact, DTR 2+/4 and Symmetrical, Neuro grossly intact Psych/Mental Status: Normal Affect, Appropriate. No acute withdrawal alcohol symptoms Lab / Micro Data 01/04/24 10:46 01/04/24 05:51 Labs: Laboratory Results - last 24 hr 01/03/24 20:25: WBC 11.6 H, RBC 2.01 L, Hgb 7.0 L, Hct 21.7 L, MCV 108.0 H, MCH 34.8 H, MCHC 32.3, RDW Std Deviation 74.9 H, RDW Coeff of Marc 19.0 H, Plt Count 722 H, MPV 10.5, Immature Gran % (Auto) 0.900, Neut % (Auto) 73.0 H, Lymph % (Auto) 16.4 L, [place] % (Auto) 8.7, Eos % (Auto) 0.6, Baso % (Auto) 0.4, Absolute Neuts (auto) 8.5 H, Absolute Lymphs (auto) 1.90, Nucleated RBC % 0, Differential Comment , Platelet Estimate MKD INC, Plt Morphology Comment CLUMPED, Hypochromasia 2+, Anisocytosis 2+, PT 14.1, INR 1.1, Sodium 135 L, Potassium 4.6, Chloride 103, Carbon Dioxide 25.0, Anion Gap 7, BUN 14, Creatinine 0.57, Estim Creat Clear Calc 51.81, Est GFR (MDRD) Af Amer 133, Est GFR (MDRD) Non-Af 110, BUN/Creatinine Ratio 24.4 H, Glucose 67 L, Hemoglobin A1c Cancelled, Calcium 8.6, Iron 20 L, TIBC 181 L, Iron Saturation 11.0 L, Ferritin 424 H, Total Bilirubin 0.50, AST 22, ALT 7 L, Alkaline Phosphatase 156 H, Total Protein 6.1 L, Albumin 1.9 L, Globulin 4.2, Albumin/Globulin Ratio 0.5 L, Folate 13.50 01/03/24 21:05: Blood Type A POSITIVE, Antibody Screen NEGATIVE, Crossmatch See Detail 01/04/24 05:30: Urine Color Yellow, Urine Clarity Clear, Urine pH 6.0, Ur Specific [place] 1.020, Urine Protein 15 H, Urine Glucose (UA) Normal, Urine Ketones 50 H, Urine Occult Blood Negative, Urine Nitrite Negative, Urine Bilirubin Negative, Urine Urobilinogen Normal, Ur Leukocyte Esterase 25 H, Urine RBC 0 SEEN, Urine WBC 0-5 SEEN, Ur Squamous Epith Cells 0 SEEN, Urine Bacteria 0 SEEN, Urine Mucus 0 SEEN, Urine Opiates Screen POSITIVE H, Urine Methadone Screen NEGATIVE, Ur Barbiturates Screen NEGATIVE, Ur Phencyclidine Scrn NEGATIVE, Ur Amphetamines Screen NEGATIVE, MDMA (Ecstasy) Screen NEGATIVE, U Benzodiazepines Scrn NEGATIVE, Urine Cocaine Screen NEGATIVE, U Cannabinoids Screen NEGATIVE, Ur Drug Screen Comment 01/04/24 05:51: WBC 10.1, RBC 1.88 L, Hgb 6.5 L, Hct 20.2 L, MCV 107.4 H, MCH 34.6 H, MCHC 32.2, RDW Std Deviation 75.1 H, RDW Coeff of Marc 18.7 H, Plt Count 861 H*, MPV 8.8, Immature Gran % (Auto) 0.500, Neut % (Auto) 70.3 H, Lymph % (Auto) 16.3 L, [place] % (Auto) 11.2 H, Eos % (Auto) 1.1, Baso % (Auto) 0.6, Absolute Neuts (auto) 7.1, Absolute Lymphs (auto) 1.65, Nucleated RBC % 0, Diff Path Review June foll, Platelet Estimate MKD INC, Anisocytosis 2+, Stomatocytes 2+, Sodium 135 L, Potassium 3.8, Chloride 104, Carbon Dioxide 24.0, Anion Gap 7, BUN 13, Creatinine 0.58, Estim Creat Clear Calc 45.98, Est GFR (MDRD) Af Amer 130, Est GFR (MDRD) Non-Af 107, BUN/Creatinine Ratio 22.2 H, Glucose 78, Calcium 8.0 L, Phosphorus 3.4, Magnesium 1.6, Total Bilirubin 0.60, Direct Bilirubin 0.21, AST 19, ALT 7 L, Alkaline Phosphatase 143 H, Total Protein 5.7 L, Albumin 1.8 L, Globulin 3.9, Albumin/Globulin Ratio 0.5 L, Vitamin B12 653, TSH 1.540, Ethyl Alcohol < 3.0 01/04/24 10:46: WBC 10.7, RBC 2.47 L, Hgb 8.2 L, Hct 25.0 L, MCV 101.2 H D, MCH 33.2 H, MCHC 32.8, RDW Std Deviation 74.6 H, RDW Coeff of Marc 20.2 H, Plt Count 799 H*, MPV 8.9, Immature Gran % (Auto) 0.800, Neut % (Auto) 73.3 H, Lymph % (Auto) 13.7 L, [place] % (Auto) 10.8 H, Eos % (Auto) 0.7, Baso % (Auto) 0.7, A bsolute Neuts (auto) 7.9 H, Absolute Lymphs (auto) 1.47, Nucleated RBC % 0 Assessment & Plan Assessment/Plan (1) Melena: (2) ABLA (acute blood loss anemia): (3) Adverse drug reaction: QUALIFIERS: Encounter type: initial encounter Qualified Code(s): T50.905A - Adverse effect of unspecified drugs, medicaments and biological substances, initial encounter (4) History of shoulder surgery: (5) Hypoglycemia: (6) Leukocytosis, unspecified: QUALIFIERS: Leukocytosis type: unspecified Qualified Code(s): D 72.829 - Elevated white blood cell count, unspecified (7) Tobacco abuse: (8) History of alcohol abuse: (9) History of CAD (coronary artery disease): (10) BPPV (benign paroxysmal positional vertigo): QUALIFIERS: Laterality: unspecified laterality Qualified Code(s): H81.10 - Benign paroxysmal vertigo, unspecified ear (11) Obstructive sleep apnea: PLAN: Plan 73yo with h/o alcohol abuse with melanotic stools and ABLA with hemoglobin of 7g/dL and MCV of 108.2 fL present on admission. Keep NPO and start Protonix 40 mg IV BID. Type & Screen blood and transfuse for hemoglobin <7 g/dL. She will need to undergo an upper endoscopy. She was explained alternatives, risk and benefits include not withstanding bleeding, infection, sepsis, perforation, need emergent urgent . She will have an ASA of 3. Charges/Coding Visit Charges Inpatient E&M: 43402 Init Hosp L3
--- NOTE | 2024-01-04 11:43 | PCM.PRE.AN2 ---
ASA Classification* ASA Classification ASA Classification: 3 Assessment & Plan Anesthesia* Anesthesia Assessment Anesthesia Assessment: Discussed sedation and/or anesthesia options, risks, benefits, and alternatives with patient/parents/legal guardian/POA. Questions invited. The patient/parents/legal guardian/POA seems to understand and agrees to proceed with anesthesia plan. Reviewed the physical assessment, medical history, allergy history and patient home medications list prior to surgery/procedure/anesthetic and documented any changes. Performed airway and anesthesia risk assessments. Anesthesia Type Anesthesia Type: MAC Anesthesia Focused Assessment* Temperature: 98.4 F Pulse Rate: 91 Blood Pressure: 138/85 Respiratory Rate: 18 Pulse Ox: 92 Airway Assessment Mouth opens: >3 cm Mallampati Score: II Focused Labs Anesthesia Preop lab: CBC WBC 10.7 K/mm3 (4.4-11.0) 01/04/24 10:46 RBC 2.47 M/mm3 (4.2-5.4) L 01/04/24 10:46 Hgb 8.2 g/dL (12.0-15.0) L 01/04/24 10:46 Hct 25.0 % (37-47) L 01/04/24 10:46 Plt Count 799 K/mm3 (150-450) H* 01/04/24 10:46 CHEMISTRY Potassium 3.8 mmol/L (3.5-5.1) 01/04/24 05:51 Sodium 135 mmol/L (136-145) L 01/04/24 05:51 Magnesium 1.6 mg/dL (1.6-2.6) 01/04/24 05:51 Phosphorus 3.4 mg/dL (2.5-4.9) 01/04/24 05:51 BUN 13 mg/dL (7-18) 01/04/24 05:51 Creatinine 0.58 mg/dL (0.55-1.02) 01/04/24 05:51 Glucose 78 mg/dL (74-106) 01/04/24 05:51 TSH 1.540 uIU/mL (0.358-3.740) 01/04/24 05:51 COAG PT 14.1 SECONDS (11.7-14.9) 01/03/24 20:25 Pre-Assessment Diagnosis/Proposed Procedure Planned Operative Procedure(s): EGD Anesthesia History 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 When Was Last Pacemaker Check QUESTION #4 FULL TEXT: You/Your Family Experience fever (hyperthermia) with Anesthesia Last Oral Intake Last Oral intake: Last Oral Intake NPO since 00:00 01/04/24 09:07 Meds taken in AM with sips of No 01/04/24 09:07 water? Meds patient instructed to take am of surgery PONV PONV - relay dispatcher: PONV - relay dispatcher Female HX of Motion Sickness HX of N/V After Surgery Non-Smoker Duration of Surgery greater than 60 minutes Number of Risk Factors PONV Score Height & Weight Height & Weight: Anesthesia: Height & Weight Height 5 ft 7 in 01/04/24 10:30 Weight: 49.895 kg 01/04/24 10:30 Body Mass Index (BMI) 17.2 01/04/24 09:07 Respiratory Assessment Respiratory Assessment - relay dispatcher: Respiratory Tract Infection Hx - relay dispatcher Hx Respiratory Tract Infection No 01/04/24 09:06 STOP Sleep Apnea STOP Sleep Apnea - relay dispatcher: STOP Sleep Apnea - relay dispatcher Hx Hypertension No 01/03/24 23:58 Hx Sleep Apnea No 01/03/24 23:58 CPAP Yes: NOT CURRENTLY USING 12/17/21 16:12 BIPAP No 12/17/21 16:12 Do you snore loudly (louder No 01/03/24 23:58 than talking or can be heard Do you often feel tired/ No 01/03/24 23:58 fatigued/ sleepy during daytime? Has anyone observed you stop No 01/03/24 23:58 breathing during sleep? STOP Results Negative 01/03/24 23:58 QUESTION #5 FULL TEXT : Do you snore loudly (louder than talking or can be heard through closed doors)? Tobacco Use History Tobacco Use History - relay dispatcher: Tobacco Use History - relay dispatcher Tobacco Use Smoking Status Current every day smoker 01/04/24 08:13 Hx Tobacco Use Yes 01/03/24 23:58 Years Smoking 0.5 01/03/24 23:58 Packs Smoked per Day Smoking Cessation Date was within the last 15 years Hx Smoking Cessation Date Hx Smoking Cessation Counseling Hematologic Medial History Hematologic Hx - relay dispatcher: Hematologic Medical Hx - stationary engineer Hx of Blood Transfusion No 01/03/24 23:58 Hx of Transfusion in last 3 No 01/03/24 23:58 Months Date of Last Transfusion (if within last 3 months) Ever experience any problems No 01/03/24 23:58 with transfusion(s)? Specify any problems Hx of Preganancy in last 3 No 01/03/24 23:58 Months Nurse Filling Out Transfusion [id number] 01/03/24 23:58 & Questions: Date: 01/04/24 01/03/24 23:58 Time: 00:00 01/03/24 23:58 Patient unable to answer at this time (ie. confused, unrespo /Reproduction History /Reproductive History - relay dispatcher: /Reproductive Hx- relay dispatcher Hx Now No 01/04/24 09:06 Gestational Age (in weeks): EDC: Hx Hx Para Hx Section SAB Active Medications Active Medications: Current Medications Generic Name Dose Route Start Last Admin Trade Name Freq PRN Reason Stop Dose Admin Calamine/Phenol 1 applic 01/04/24 10:00 01/04/24 09:02 Menthol/Lanolin/Calamine/Znox 113 Gm Tube TOPICAL 1 applic BID YULISA Administration Protocol Hydralazine HCl 5 mg 01/03/24 23:58 Hydralazine 20 Mg/Ml Vial IV Q8H PRN PRN SBP GREATER THAN 160 Protocol Pantoprazole Sodium 40 mg/ 110 mls @ 330 mls/hr 01/03/24 23:58 01/04/24 09:23 Sodium Chloride IV Infused Q12 YULISA Infusion Dextrose/Sodium Chloride 1,000 mls @ 50 mls/hr 01/03/24 23:58 01/04/24 00:29 Dextrose 5%/0.9% Nacl IV 01/04/24 19:57 50 mls/hr .Q20H YULISA Administration Protocol Sodium Chloride 500 mls @ 15 mls/hr 01/04/24 00:03 IV .[id number] PRN Saline Flush Sodium Chloride 500 mls @ 15 mls/hr 01/04/24 00:03 IV .[id number] PRN Additional IVPB Infusion Morphine Sulfate 2 mg 01/03/24 23:58 01/04/24 00:50 Morphine 2 Mg/Ml Syringe IV 2 mg Q4H PRN PRN Administration Pain Score 6-10 Nicotine 14 mg 01/04/24 10:00 01/04/24 09:03 Nicotine 14 Mg Patch TD Not Given DAILY YULISA Nutritional Formula (Lactose Free) 120 ml 01/04/24 08:00 01/04/24 10:50 Ensure Plus High Protein 120 Ml Liquid PO Not Given TIDCM YULISA Ondansetron HCl 4 mg 01/03/24 23:58 Ondansetron 4 Mg/2 Ml Vial IV Q6H PRN PRN NAUSEA/VOMITING Sodium Chloride 10 - 40 ml 01/04/24 00:03 01/04/24 08:00 0.9% Saline Lock 10 Ml Syringe IV 10 ml UD PRN Administration SALINE FLUSH PFSH Medical History BPPV (benign paroxysmal positional vertigo) Smoker CPAP (continuous positive airway pressure) dependence Abscess of left thigh Alcohol abuse with alcohol-induced disorder Hyperlipidemia Atherosclerotic heart disease of [place] coronary artery without angina pectoris Endocarditis Obstructive sleep apnea Nicotine dependence in remission Home Medications ?Medication ?Instructions ?Recorded ?Last Taken ?Type cholecalciferol (vitamin D3) 50 50 mcg PO DAILY 04/19/23 Unknown History mcg (2,000 unit) capsule acetaminophen 500 mg capsule 1,000 mg PO TID pain 01/03/24 Unknown History aspirin 325 mg capsule 325 mg PO BID 01/03/24 Unknown History buspirone 5 mg tablet 5 mg PO BID anxiety 01/03/24 Unknown History folic acid 1 mg tablet 1 mg PO DAILY 01/03/24 Unknown History magnesium 200 mg tablet 400 mg PO BID 01/03/24 Unknown History tetracycline 500 mg capsule 500 mg PO Q12H uti 01/03/24 Unknown History thiamine HCl (vitamin B1) 100 mg 100 mg PO DAILY 01/03/24 Unknown History tablet Allergy/AdvReac Type Severity Reaction Status Date / Time No Known Allergies Allergy Verified 01/03/24 20:21 Family History Father CAD (coronary artery disease) Mother Liver cancer Surgical History Hx of tonsillectomy History of hysterectomy Social History household members: spouse Smoking Status: Current every day smoker tobacco type: cigarettes Tobacco: How many years used: 41 Smokeless tobacco user: other second hand exposure: No alcohol intake: current alcohol intake frequency: 3 or more drinks per day Alcohol type: hard liquor details: Drinks 1/2 of 5th 90% proof vodka daily. substance use type: does not use caffeine: Yes (4+ drinks/day) Review of Systems (Anesthesia) ROS Narrative System reviewed and no additional complaints, except as documented.
[2024-01-04 12:02] LABS: Platelet Estimate MKD INC (ADEQ)
[2024-01-04 12:04] LABS: Anisocytosis 1+
--- NOTE | 2024-01-04 12:52 | OP.EGD_ITS ---
Patient Name: Basilia Enrique Procedure Date: 01/04/2024 12:19 PM Date of : 1950 Age: 73 Procedure: Upper GI endoscopy Indications: Acute post hemorrhagic anemia Providers: Jacoby Hicks DO Medicines: Monitored Anesthesia Care Patient Profile: This is a 73 year old female. Refer to note in patient chart for documentation of history and physical. Patient has symptoms of acute right upper quadrant abdominal pain and acute dyspepsia. Complications: No immediate complications. Procedure: Pre-Anesthesia Assessment: - Prior to the procedure, a History and Physical was performed, and patient medications and allergies were reviewed. The patient is competent. The risks and benefits of the procedure and the sedation options and risks were discussed with the patient. All questions were answered and informed consent was obtained. Patient identification and proposed procedure were verified by the physician in the pre-procedure area. Mental Status Examination: alert and oriented. Airway Examination: normal oropharyngeal airway and neck mobility. Respiratory Examination: clear to auscultation. CV Examination: normal. Prophylactic Antibiotics: The patient does not require prophylactic antibiotics. Prior Anticoagulants: The patient has taken no anticoagulant or antiplatelet agents except for NSAID medication. ASA Grade Assessment: III - A patient with severe systemic disease. After reviewing the risks and benefits, the patient was deemed in satisfactory condition to undergo the procedure. The anesthesia plan was to use monitored anesthesia care (MAC). Immediately prior to administration of medications, the patient was re-assessed for adequacy to receive sedatives. The heart rate, respiratory rate, oxygen saturations, blood pressure, adequacy of pulmonary ventilation, and response to care were monitored throughout the procedure. The physical status of the patient was re-assessed after the procedure. After obtaining informed consent, the endoscope was passed under direct vision. Throughout the procedure, the patient's blood pressure, pulse, and oxygen saturations were monitored continuously. The Endoscope was introduced through the mouth, and advanced to the second part of duodenum. The upper GI endoscopy was accomplished without difficulty. The patient tolerated the procedure well. 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 The maximum longitudinal extent of these mucosal changes was 4 cm in length. Mucosa was biopsied with a cold forceps for histology in a targeted manner at intervals of 1 cm in the lower third of the esophagus. One specimen bottle was sent to pathology. Verification of patient identification for the specimen was done. Estimated blood loss was minimal. No gross lesions were noted in the stomach. Localized mild inflammation characterized by congestion (edema), erythema and granularity was found in the duodenal bulb. Biopsies were taken with a cold forceps for histology. Verification of patient identification for the specimen was done. Estimated blood loss was minimal. 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 Biopsied. - No gross lesions in the stomach. - Chronic duodenitis. Biopsied. Recommendation: - [facility]. - Clear liquid diet. - Continue present medications. - Await pathology results. - Repeat upper endoscopy in 1 year for surveillance. - Use Protonix (pantoprazole) 40 mg PO daily. Procedure Code(s): --- Professional --- 27662, Esophagogastroduodenoscopy, flexible, transoral; with biopsy, single or multiple CPT copyright 2021 [employer]. All rights reserved. The codes documented in this report are preliminary and upon block cableman review may be revised to meet current compliance requirements. Jacoby Hicks DO 01/04/2024 12:52:07 PM This report has been signed electronically. Number of Addenda: 0 Note Initiated On: 01/04/2024 12:19 PM
--- NOTE | 2024-01-04 12:52 | OP.CCLET_ITS ---
01/04/2024 Zarina Schwab Re : Upper GI endoscopy procedure for Basilia Tuckerr Josselin This procedure was performed on Thursday, January 04, 2024. 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 Biopsied. - No gross lesions in the stomach. - Chronic duodenitis. Biopsied. Recommendations : - [facility] care. - Clear liquid diet. - Continue present medications. - Await pathology results. - Repeat upper endoscopy in 1 year for surveillance. - Use Protonix (pantoprazole) 40 mg PO daily. My findings are described in the full procedure note, which is enclosed. If I can be of further assistance, please feel free to contact me at . Sincerely, Jacoby Hicks, 01/04/2024 12:52:07 PM This report has been signed electronically.
--- NOTE | 2024-01-04 12:54 | PCM.POST.ANE ---
Anesthesia: Postop Eval I Current Vital Signs Temperature: 99.9 F Pulse Rate: 99 Blood Pressure: 138/92 Respiratory Rate: 18 Pulse Ox: 96 Oxygen Delivery Method: Room Air Assessment Airway patent: Yes Spontaneous unlabored respirations: Yes Mental status: Awake and Calm nausea: No Vomiting: No Anesthesia Complication: No Fluid Hydration Crystalloid volume administer (ml): 30 Total IV fluid infused: 30 Progress Note Anesthesia document: Postop Eval 1 completed: Yes
--- NOTE | 2024-01-04 13:42 | PCM.POSTANE2 ---
Anesthesia Postop Eval I Sum Postop Eval Completion status Anesthesia document: Postop Eval 1 completed: Yes Anesthesia Postop Eval I Summary Anesthesia Postop Eval I Summary: Anesthesia Postop Eval I: Assessment Summary Airway patent Yes 01/04/24 12:55 [email or web address] Spontaneous unlabored Yes 01/04/24 12:55 [email or web address] respirations Mental status Awake,Calm 01/04/24 12:55 [email or web address] nausea No 01/04/24 12:55 [email or web address] Vomiting No 01/04/24 12:55 [email or web address] Anesthesia Postop Eval I: Fluid Summary Crystalloid volume administer 30 01/04/24 12:55 [email or web address] (ml) Colloids volume administered ( ml) Blood Product volume administered (ml) Total IV fluid infused 30 01/04/24 12:55 [email or web address] Anesthesia Postop Eval I: Summary Notes Anesthesia Complication No 01/04/24 12:55 [email or web address] Anesthesia Complication Comment: Post-operative progress note Anesthesia: Postop Eval II Evaluation Mental status: Awake Pain Level: 0 nausea: No Vomiting: No
[2024-01-04 14:20] LABS: Pathologist Review Reviewed
[2024-01-04] MEDS: Ensure Clear 120 ML Liquid PO (17:02)
[2024-01-04] MEDS: Magnesium Chloride 64 MG Delay Rel.Tablet 128 MG PO (17:02)
[2024-01-04 17:22] LABS: Bedside Glucose 116 mg/dL (74-106)
[2024-01-04] MEDS: Bisacodyl 5 MG Tablet 20 MG PO (17:59)
[2024-01-04] MEDS: Polyethylene Glycol 3350 BOWEL PREP 1 BOTTLE PO (20:10)
[2024-01-04] MEDS: busPIRone 5 MG Tablet PO (21:53)
[2024-01-04 22:19] LABS: Bedside Glucose 102 mg/dL (74-106)
[2024-01-05] VITALS (12 sets, daily range): BP systolic 106–158; BP diastolic 70–94; PULSE 79–108; RESP 14–18; TEMP 36.1–37.5; O2SAT 91–100; BMI 17.2; BMI 16.8
--- NOTE | 2024-01-05 | IMM_PTH ---
PATHOLOGY RESULTS PATIENT: IRINA ROSE LOC: [facility] U#:[id number] AGE/SX: 73/F ROOM: [facility] RE01/03/[address]: Dr. Anjali Herrera MD : 1950 BED: 1 DIS: 01/09/2024 SPEC #: [id number] RECD: 01/06/24 11:21 STATUS: LIZ REQ #: [id number] JANEY: 01/05/24 00:[address]: Jacoby Hicks DEPT: IMMUNOHISTOCHEMISTRY RECD BY: Rancho Simon ENTERED: 01/06/24 11:22 SP TYPE: IMMUNO OTHR DR: MD Dr. Zarina Redding MD Dr. David de Lorenzo, DO Dr. Prakash Chand, MD Dr. Robert Leininger, MD Dr. Robert Siska, MD Tissues: Esophagus, NOS Procedures: P53 (initial) KI-67 (add) PHYSICIAN & [address] [address] SPECIMEN INFORMATION: Tissue Source: B- Distal esophagus biopsy Clinical Info: Melena, acute blood loss anemia, adverse drug reaction, history of shoulder surgery, hypoglycemia, leukocytosis, unspecified, tobacco abuse, history of alcohol abuse, history of coronary artery disease, benign paroxysmal positional vertigo, obstructive sleep apnea Specimen Number: [id number] CPT code: 44121,84772 METHODOLOGY: Deparaffinized sections of prefer/formalin-fixed tissue or PAP/DQ stained slides are incubated with monoclonal/polyclonal antibodies/oligonucleotide probes. Localization is made via biotin free immunoperoxidase method. Appropriate controls are performed and reacted as expected. Results on target cell population are indicated in the following table: RESULTS: ANTIBODY / CLONE RESULT Block B P53 (DO-7) positive, indeterminate type Ki-67 (30-9) positive, moderate These tests were developed and their performance characteristics determined by [facility]. They may not have been cleared or approved by the U.S. Food and Drug Administration. The FDA has determined that such clearance or approval is not necessary. The above immunohistochemical/dualISH markers are ordered and reviewed by the Pathologist. INTERPRETATION: B. Distal esophagus, biopsy: Low grade dysplasia cannot be ruled out. 01/10/2024
--- NOTE | 2024-01-05 | ESO_PTH ---
PATHOLOGY RESULTS PATIENT: IRINA ROSE LOC: [facility] U#:[id number] AGE/SX: 73/F ROOM: [facility] RE01/03/[address]: Dr. Anjali Herrera MD : 1950 BED: 1 DIS: 01/09/2024 SPEC #: [id number] RECD: 01/05/24 10:06 STATUS: LIZ OLIVER #: [id number] JANEY: 01/05/24 00:[address]: Orlando Quintero DEPT: SURGICAL PATHOLOGY RECD BY: Joseph Otto ENTERED: 01/05/24 10:07 SP TYPE: ROE [place] DR: MD Dr. Jacob Pruett DO Tissues: Duodenum, NOS Esophagus, NOS Procedures: Special Stain Group I Surgery Specimen Level IV Alcian Blue/PAS (control) HEADER OPERATION: EGD with biopsy PRE-OP DIAGNOSIS: Melena, acute blood loss anemia, adverse drug reaction, history of shoulder surgery, hypoglycemia, leukocytosis, unspecified, tobacco abuse, history of alcohol abuse, history of coronary artery disease, benign paroxysmal positional vertigo, obstructive sleep apnea TISSUE SUBMITTED: A- Duodenal bulb biopsy, B- Distal esophagus biopsy MICROSCOPIC DIAGNOSIS A. Duodenal bulb, biopsy: Fragments of duodenal mucosa with mild Leida's gland hyperplasia. B. Distal esophagus, biopsy: Fragments of gastroesophageal mucosa with focal intestinal metaplasia (goblet cell metaplasia), consistent with Flowers's esophagus. Chronic inflammation. Indefinite for low grade dysplasia. See comment. 01/06/2024 COMMENT B. Alcian blue/PAS stain with matched control is used in the evaluation of the specimen. Immunohistochemistry ([id number]) for P53 and Ki-67 will be performed and results will be reported separately. An indeterminate p53 staining pattern is noted in area of intestinal metaplasia. Clinical correlation is suggested. Case has been reviewed in consultation with Dr. Beatty who concurs with the above diagnosis. IDC:[id number] MICROSCOPIC DESCRIPTION Slides are reviewed. GROSS DESCRIPTION A. Received in fixative is one container labeled with the patient's name and designated Duodenum bulb biopsy. The specimen consists of two irregular fragments of light bustamante soft tissue that in aggregate measure 0.8 x 0.3 x 0.1 cm. The specimen is totally submitted in one cassette. B. Received in fixative is one container labeled with the patient's name and designated Distal esophagus biopsy. The specimen consists of multiple irregular fragments of light bustamante soft tissue that in aggregate measure 1.0 x 0.3 x 0.1 cm. The specimen is totally submitted in one cassette. SJ.mr 01/05/2024 TC:5 CPT:63371z1,25468
[2024-01-05 02:40] LABS: Bedside Glucose 94 mg/dL (74-106)
[2024-01-05 06:10] LABS: HEPATITIS B SURFACE AG Negative (Negative); Hep C Antibodies Non Reactive (Non Reactive); Hepatitis A IgM Antibody Negative (Negative); Hepatitis B Core AB IgM Negative (Negative)
[2024-01-05 06:15] LABS: Absolute Lymphocyte Count 1.69 X10^3/uL (0.83-4.51); Absolute Neutrophil Count 8.7 X10^3/uL (2.0-7.7); Basophil# 0.06 X10^3/uL; Basophil% 0.5 % (0-1); Eosinophil# 0.07 X10^3/uL; Eosinophils% 0.6 % (0-5); Hematocrit 25.1 % (37-47); Lymphocyte # 1.69 X10^3/ul (0.83-4.51); Lymphocyte % 14.3 % (19-41); Mean Corp Hgb Conc 31.9 g/dL (32-36); Mean Corpuscular Hgb 32.9 pg (27.0-32.0); Mean Corpuscular Volume 103.3 fL (81-99); Mean Platelet Vol. 9.3 fl (6.2-12.0); Monocyte# 1.16 X10^3/uL; Monocyte% 9.8 % (0-10); NRBC Flagged by Analyzer 0 % (0-5); Neutrophil # 8.71 X10^3/uL (2.7-7.7); POSITIVE MORPHOLOGY YES; Platelet Count 664 K/mm3 (150-450); RBC Distribution Width CV 20.9 % (11.6-14.6); RBC Distribution Width SD 78.7 fl (35.1-43.9); Red Blood Count 2.43 M/mm3 (4.2-5.4); White Blood Count 11.8 K/mm3 (4.4-11.0)
[2024-01-05 06:48] LABS: Magnesium 1.8 mg/dL (1.6-2.6); Phosphorus 3.2 mg/dL (2.5-4.9)
[2024-01-05 06:52] LABS: AST(SGOT) 23 U/L (15-37); Alanine Aminotransfer ALT/SGPT 8 U/L (13-56); Anion Gap 8 (5-15); BUN 11 mg/dL (7-18); BUN/Creat Ratio 16.8 RATIO (10-20); Calcium,Total 8.3 mg/dL (8.5-10.1); Chloride 106 mmol/L (98-107); Creatinine, Serum 0.65 mg/dL (0.55-1.02); EST Glomerular Filtration Rate 94 mL/min (>60); Est Glom Filt Rate - Afr Amer 114 mL/min (>60); Estimated Creatinine Clearance 49.33 ml/min; Glucose 92 mg/dL (74-106); Potassium 3.9 mmol/L (3.5-5.1); Sodium Level 138 mmol/L (136-145)
[2024-01-05 07:12] LABS: Bedside Glucose 97 mg/dL (74-106)
[2024-01-05 07:20] LABS: Differential Indicated SCAN CRITERIA MET
[2024-01-05 08:01] LABS: International Normalized Ratio 1.1; Prothrombin Time (Protime)PT. 14.3 SECONDS (11.7-14.9)
[2024-01-05 08:02] LABS: Partial Thromboplast Time 32.3 Seconds (24.1-36.2)
[2024-01-05 09:00] LABS: Ovalocyte 1+; Polychromasia 1+
[2024-01-05 09:01] LABS: Tear Drop Cell 1+
--- NOTE | 2024-01-05 09:35 | PCM.DC.SUM ---
Providers Date of Admission: 01/03/24 Primary Care Physician: Dr. Zarina Schwab MD Consultations 01/03/24 23:58 Consult: Gastroenterology Routine Consulting Provider: [facility] Reason for Consult: Melanotic stools requiring transfusion. EMERGENT Consult: No MD Notified: Yes Date Notified: 01/03/24 Time Notified: 06:26 Method of Notification: Text Reason For Visit: MELANOTIC STOOLS WITH SEVERE ANEMIA REQUIRING Diagnosis Discharge Diagnosis (1) Melena: Status: Acute Code(s): K92.1 - Melena (2) ABLA (acute blood loss anemia): Status: Acute Code(s): D62 - Acute posthemorrhagic anemia (3) Hypoglycemia: Status: Acute Code(s): E16.2 - Hypoglycemia, unspecified Plan 73-year-old female was admitted with blackish stool and found to have severe anemia from ECF. She had left shoulder replacement outside a week ago. 1. Suspected GI bleed with melanotic stools and ABLA with hemoglobin of 7g/dL and MCV of 108.2 fL present on admission - Admit to PCU. Her hemoglobin further dropped to 6.5 g and had PRBC transfusion which improved to 8.2 g%. Platelet count high, thrombocythemia 722K, 861K. Thrombocytosis is acute probably due to acute blood loss anemia. Was started on pantoprazole 40 IV twice daily, changed to 40 mg daily. GI was consulted and patient had EGD. 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 Biopsied. - No gross lesions in the stomach. - Chronic duodenitis. Biopsied. Recommendation: - Repeat upper endoscopy in 1 year for surveillance. - Use Protonix (pantoprazole) 40 mg PO daily 2. Adverse Drug Reaction to unopposed ECASA BID after recent Left Shoulder Replacement last week - Hold ECASA. 3. Hypoglycemia of 67 mg/dL with severe hypoalbuminemia of 1.9 g/dL present on admission suspicious for severe protein-calorie malnutrition in the setting of known previous EtOH abuse: Give D5 NS to prevent recurrence. Last glucose 78 in [facility] monitor glucose every 4 hours. Hypoglycemia protocol ordered. Nutrition is consulted. Check HgbA1c. 5. Ongoing Tobacco Abuse/cigarette smoke - Tobacco Cessation was strongly encouraged with Nicotine patch offered to control cravings. 6. Recent admission here from December 18, 2023 to December 20, 2023 for requested treatment of alcohol detoxification and Left thigh abscess with cellulitis and hypokalemia of 2.8 mmol/L present on admission. Patient used to drink 1/2 fifth of 90 proof vodka daily but currently denies alcohol use.- 7. Chronic CAD, history of endocarditis, dyslipidemia: No acute issues. Home medications continued 8. KELSEY; on CPAP - Continue nocturnal CPAP as before. 9. Overactive bladder; on solifenacin - Stable. Reinitiate solifenacin once GI workup is completed. 10. Anxiety and depression: On buspirone. DVT prophylaxis - SCD's only. Pharmacological prophylaxis contraindicated Laboratory Results 01/03/24 20:25: WBC 11.6 H, RBC 2.01 L, Hgb 7.0 L, Hct 21.7 L, MCV 108.0 H, MCH 34.8 H, MCHC 32.3, RDW Std Deviation 74.9 H, RDW Coeff of Marc 19.0 H, Plt Count 722 H, MPV 10.5, Immature Gran % (Auto) 0.900, Neut % (Auto) 73.0 H, Lymph % (Auto) 16.4 L, [place] % (Auto) 8.7, Eos % (Auto) 0.6, Baso % (Auto) 0.4, Absolute Neuts (auto) 8.5 H, Absolute Lymphs (auto) 1.90, Nucleated RBC % 0, Differential Comment , Platelet Estimate MKD INC, Plt Morphology Comment CLUMPED, Hypochromasia 2+, Anisocytosis 2+, PT 14.1, INR 1.1, Sodium 135 L, Potassium 4.6, Chloride 103, Carbon Dioxide 25.0, Anion Gap 7, BUN 14, Creatinine 0.57, Estim Creat Clear Calc 51.81, Est GFR (MDRD) Af Amer 133, Est GFR (MDRD) Non-Af 110, BUN/Creatinine Ratio 24.4 H, Glucose 67 L, Hemoglobin A1c Cancelled, Calcium 8.6, Iron 20 L, TIBC 181 L, Iron Saturation 11.0 L, Ferritin 424 H, Total Bilirubin 0.50, AST 22, ALT 7 L, Alkaline Phosphatase 156 H, Total Protein 6.1 L, Albumin 1.9 L, Globulin 4.2, Albumin/Globulin Ratio 0.5 L, Folate 13.50, Miscellaneous Test Pending 01/03/24 21:05: Blood Type A POSITIVE, Antibody Screen NEGATIVE, Crossmatch See Detail 01/04/24 05:30: Urine Color Yellow, Urine Clarity Clear, Urine pH 6.0, Ur Specific [place] 1.020, Urine Protein 15 H, Urine Glucose (UA) Normal, Urine Ketones 50 H, Urine Occult Blood Negative, Urine Nitrite Negative, Urine Bilirubin Negative, Urine Urobilinogen Normal, Ur Leukocyte Esterase 25 H, Urine RBC 0 SEEN, Urine WBC 0-5 SEEN, Ur Squamous Epith Cells 0 SEEN, Urine Bacteria 0 SEEN, Urine Mucus 0 SEEN, Urine Opiates Screen POSITIVE H, Urine Methadone Screen NEGATIVE, Ur Barbiturates Screen NEGATIVE, Ur Phencyclidine Scrn NEGATIVE, Ur Amphetamines Screen NEGATIVE, MDMA (Ecstasy) Screen NEGATIVE, U Benzodiazepines Scrn NEGATIVE, Urine Cocaine Screen NEGATIVE, U Cannabinoids Screen NEGATIVE, Ur Drug Screen Comment 01/04/24 05:51: WBC 10.1, RBC 1.88 L, Hgb 6.5 L, Hct 20.2 L, MCV 107.4 H, MCH 34.6 H, MCHC 32.2, RDW Std Deviation 75.1 H, RDW Coeff of Marc 18.7 H, Plt Count 861 H*, MPV 8.8, Immature Gran % (Auto) 0.500, Neut % (Auto) 70.3 H, Lymph % (Auto) 16.3 L, [place] % (Auto) 11.2 H, Eos % (Auto) 1.1, Baso % (Auto) 0.6, Absolute Neuts (auto) 7.1, Absolute Lymphs (auto) 1.65, Nucleated RBC % 0, Diff Path Review Reviewed, Platelet Estimate MKD INC, Anisocytosis 2+, Stomatocytes 2+, Sodium 135 L, Potassium 3.8, Chloride 104, Carbon Dioxide 24.0, Anion Gap 7, BUN 13, Creatinine 0.58, Estim Creat Clear Calc 45.98, Est GFR (MDRD) Af Amer 130, Est GFR (MDRD) Non-Af 107, BUN/Creatinine Ratio 22.2 H, Glucose 78, Calcium 8.0 L, Phosphorus 3.4, Magnesium 1.6, Total Bilirubin 0.60, Direct Bilirubin 0.21, AST 19, ALT 7 L, Alkaline Phosphatase 143 H, Total Protein 5.7 L, Albumin 1.8 L, Globulin 3.9, Albumin/Globulin Ratio 0.5 L, Vitamin B12 653, TSH 1.540, Ethyl Alcohol < 3.0, Hepatitis A IgM Ab Pending, Hep Bs Antigen Pending, Hep B Core IgM Ab Pending, Hepatitis C Ab (EIA) Pending 01/04/24 10:46: WBC 10.7, RBC 2.47 L, Hgb 8.2 L, Hct 25.0 L, MCV 101.2 H D, MCH 33.2 H, MCHC 32.8, RDW Std Deviation 74.6 H, RDW Coeff of Marc 20.2 H, Plt Count 799 H*, MPV 8.9, Immature Gran % (Auto) 0.800, Neut % (Auto) 73.3 H, Lymph % (Auto) 13.7 L, [place] % (Auto) 10.8 H, Eos % (Auto) 0.7, Baso % (Auto) 0.7, Absolute Neuts (auto) 7.9 H, Absolute Lymphs (auto) 1.47, Nucleated RBC % 0, Diff Path Review June foll, Platelet Estimate MKD INC, Anisocytosis 1+ Medications at Discharge Home Medications cholecalciferol (vitamin D3) 50 mcg (2,000 unit) capsule 50 mcg PO DAILY 04/19/23 acetaminophen 500 mg capsule 1,000 mg PO TID pain 01/03/24 aspirin 325 mg capsule 325 mg PO BID 01/03/24 buspirone 5 mg tablet 5 mg PO BID anxiety 01/03/24 folic acid 1 mg tablet 1 mg PO DAILY 01/03/24 magnesium 200 mg tablet 400 mg PO BID 01/03/24 tetracycline 500 mg capsule 500 mg PO Q12H uti 01/03/24 thiamine HCl (vitamin B1) 100 mg tablet 100 mg PO DAILY 01/03/24 Medical Records Data Medical Nutrition Assessment Dietitian: Malnutrition Criteria Met Start: 01/04/24 14:53 Freq: Status: Active Protocol: Document 01/04/24 14:53 SB (Rec: 01/04/24 14:53 SB [id number]) Nutrition Malnutrition Evidence of Malnutrition Exists Yes Malnutrition (severe): Acute Illness/Injury Evidenced By Suboptimal Energy Intake ( Severe),Weight Loss (Severe), Physical Changes (Severe) Clinical Problem Acute Disease or Injury Related Malnutrition Etiology severe related to inadequate oral intake Signs/Symptoms as evidenced by PO meeting <50 % of estimated nutrition needs x 1 week, 8% unintentional weight loss x 1 month, and severe muscle wasting clavicle , temples, and shoulders areas . Status Active Problem Recommendation Dietitian Recommendations/Changes Recommend advanced diet as tolerated to liberal regular diet d/t signs and symptoms of malnutrition. Pt refuses ONS at this time. As diet as advanced, will order chocolate fortified pudding TID with meals. Will monitor weight, as available. Reviewed and approved by Meredith Cadet, PATRICK, LD. Weight / BMI Weight Weight: 107 lb 5.842 oz Body Mass Index (BMI) 16.8 ABG / Lab / Microbiology Data 01/05/24 05:13 01/05/24 05:13 Laboratory: Laboratory Results - last 24 hr 01/03/24 21:05: Crossmatch See Detail 01/04/24 05:51: Diff Path Review Reviewed, Hepatitis A IgM Ab Negative, Hep Bs Antigen Negative, Hep B Core IgM Ab Negative, Hepatitis C Ab (EIA) Non Reactive, Hep C Ab Comment Comment 01/04/24 10:46: WBC 10.7, RBC 2.47 L, Hgb 8.2 L, Hct 25.0 L, MCV 101.2 H D, MCH 33.2 H, MCHC 32.8, RDW Std Deviation 74.6 H, RDW Coeff of Marc 20.2 H, Plt Count 799 H*, MPV 8.9, Immature Gran % (Auto) 0.800, Neut % (Auto) 73.3 H, Lymph % (Auto) 13.7 L, [place] % (Auto) 10.8 H, Eos % (Auto) 0.7, Baso % (Auto) 0.7, Absolute Neuts (auto) 7.9 H, Absolute Lymphs (auto) 1.47, Nucleated RBC % 0, Diff Path Review May fco, Platelet Estimate MKD INC, Anisocytosis 1+ 01/04/24 17:01: POC Glucose 116 H 01/04/24 22:00: POC Glucose 102 01/05/24 02:22: POC Glucose 94 01/05/24 05:13: WBC 11.8 H, RBC 2.43 L, Hgb 8.0 L, Hct 25.1 L, MCV 103.3 H, MCH 32.9 H, MCHC 31.9 L, RDW Std Deviation 78.7 H, RDW Coeff of Marc 20.9 H, Plt Count 664 H, MPV 9.3, Immature Gran % (Auto) 0.800, Neut % (Auto) 74.0 H, Lymph % (Auto) 14.3 L, [place] % (Auto) 9.8, Eos % (Auto) 0.6, Baso % (Auto) 0.5, Absolute Neuts (auto) 8.7 H, Absolute Lymphs (auto) 1.69, Nucleated RBC % 0, Polychromasia 1+, Tear Drop Cells 1+, Ovalocytes 1+, PT 14.3, INR 1.1, APTT 32.3, Sodium 138, Potassium 3.9, Chloride 106, Carbon Dioxide 24.0, Anion Gap 8, BUN 11, Creatinine 0.65, Estim Creat Clear Calc 49.33, Est GFR (MDRD) Af Amer 114, Est GFR (MDRD) Non-Af 94, BUN/Creatinine Ratio 16.8, Glucose 92, Calcium 8.3 L, Phosphorus 3.2, Magnesium 1.8, AST 23, ALT 8 L 01/05/24 06:50: POC Glucose 97 Meaningful Use Info Ischemic Stroke Statin Dosing Therapy Reference: STATIN DOSE THERAPY REFERENCE: * Patients > 75 years receive moderate or high dose statin therapy. * Patients 75 years or YOUNGER should receive HIGH intensity statin dose unless contraindicated. You will be required to document reason for non-treatment if statin daily dose does not meet guidelines. HIGH DOSE STATIN THERAPY DAILY Atorvastatin > than or = to 40 mg Rosuvastatin > than or = to 20 mg Amlodipine + Atorvastatin > than or = to 2.5/40 mg Ezetimibe + Simvastatin 10/80 mg Simvastatin 80mg Discharge Plan Admission Admit Date/Time: 01/03/24 23:26 Attending Provider: Orlando Quintero Primary Care Provider: Zarina Schwab Consulting Providers: Jacob Santana Discharge Orders/Prescriptions Prescriptions: No Action cholecalciferol (vitamin D3) 50 mcg (2,000 unit) capsule 50 mcg PO DAILY Patient Comments: give one time a day every tuesday for abnormal vitd levels for 16 weeks. End 04/23/2024 aspirin 325 mg capsule 325 mg PO BID buspirone 5 mg tablet 5 mg PO BID Patient Comments: for 14 days, end 01/05/2024 folic acid 1 mg tablet 1 mg PO DAILY magnesium 200 mg tablet 400 mg PO BID tetracycline 500 mg capsule 500 mg PO Q12H Rx Instructions: for 7 days, end 01/04/2024 thiamine HCl (vitamin B1) 100 mg tablet 100 mg PO DAILY acetaminophen 500 mg capsule 1,000 mg PO TID Referrals / Follow Up: Zarina Schwab MD [Primary Care Provider] -
[2024-01-05] MEDS: Menthol/Lanolin/Calamine/Znox 113 GM Tube 1 APPLIC TOPICAL ×2 (09:39→21:37)
[2024-01-05 10:00] LABS: Bedside Glucose 94 mg/dL (74-106)
[2024-01-05 11:21] LABS: Hemoglobin A1c 4.9 % (3.8-5.6)
--- NOTE | 2024-01-05 13:15 | COLBX_PTH ---
PATHOLOGY RESULTS PATIENT: IRINA ROSE LOC: PCU U#:[id number] AGE/SX: 73/F ROOM: [facility] RE01/03/[address]: Dr. Anjali Herrera MD : 1950 BED: 1 DIS: 01/09/2024 SPEC #: [id number] RECD: 01/05/24 18:10 STATUS: LIZ KOOSamantha #: [id number] JANEY: 01/05/24 13:[address]: Orlando Quintero DEPT: SURGICAL PATHOLOGY RECD BY: Shannan Torres ENTERED: 01/06/24 10:12 SP TYPE: COLON BX OTHR DR: MD Dr. Zarina Redding MD Dr. David de Lorenzo, DO Dr. Robert Leininger, MD Dr. Robert Siska, MD Tissues: Sigmoid colon biopsy Procedures: Surgery Specimen Level IV HEADER OPERATION: Colonoscopy, polypectomy, hemostasis clip PRE-OP DIAGNOSIS: Melena, acute blood loss anemia TISSUE SUBMITTED: Sigmoid polyp MICROSCOPIC DIAGNOSIS Sigmoid polyp, biopsy: Fragments of tubular adenoma. AM 01/09/2024 MICROSCOPIC DESCRIPTION Slides are reviewed. GROSS DESCRIPTION Received in fixative is one container labeled with the patient's name and designated Sigmoid polyp. The specimen consists of multiple irregular fragments of light bustamante soft tissue that in aggregate measure 0.5 x 0.3 x 0.1 cm. The specimen is totally submitted in one cassette. 01/06/2024 TC:5 CPT:79155
[2024-01-05 13:47] LABS: Bedside Glucose 88 mg/dL (74-106)
--- NOTE | 2024-01-05 14:32 | PRE.ANES_ITS ---
ASA Classification* ASA Classification ASA Classification: 3 Assessment & Plan Anesthesia* Anesthesia Assessment Anesthesia Assessment: Discussed sedation and/or anesthesia options, risks, benefits, and alternatives with patient/parents/legal guardian/POA. Questions invited. The patient/parents/legal guardian/POA seems to understand and agrees to proceed with anesthesia plan. Reviewed the physical assessment, medical history, allergy history and patient home medications list prior to surgery/procedure/anesthetic and documented any changes. Performed airway and anesthesia risk assessments. Anesthesia Type Anesthesia Type: MAC History Source History Obtained from:: Patient and Chart Anesthesia Focused Assessment* Temperature: 98.0 F Pulse Rate: 108 Blood Pressure: 147/82 Respiratory Rate: 18 Pulse Ox: 91 Oxygen Delivery Method: Room Air Airway Assessment Mouth opens: >3 cm Mallampati Score: III Teeth Condition: Intact Neck Range of motion (ROM): Limited ROM Focused Labs Anesthesia Preop lab: CBC WBC 11.8 K/mm3 (4.4-11.0) H 01/05/24 05:13 RBC 2.43 M/mm3 (4.2-5.4) L 01/05/24 05:13 Hgb 8.0 g/dL (12.0-15.0) L 01/05/24 05:13 Hct 25.1 % (37-47) L 01/05/24 05:13 Plt Count 664 K/mm3 (150-450) H 01/05/24 05:13 CHEMISTRY Potassium 3.9 mmol/L (3.5-5.1) 01/05/24 05:13 Sodium 138 mmol/L (136-145) 01/05/24 05:13 Magnesium 1.8 mg/dL (1.6-2.6) 01/05/24 05:13 Phosphorus 3.2 mg/dL (2.5-4.9) 01/05/24 05:13 BUN 11 mg/dL (7-18) 01/05/24 05:13 Creatinine 0.65 mg/dL (0.55-1.02) 01/05/24 05:13 Glucose 92 mg/dL (74-106) 01/05/24 05:13 POC Glucose 88 mg/dL (74-106) 01/05/24 13:29 TSH 1.540 uIU/mL (0.358-3.740) 01/04/24 05:51 COAG PT 14.3 SECONDS (11.7-14.9) 01/05/24 05:13 Pre-Assessment Diagnosis/Proposed Procedure Planned Operative Procedure(s): Colonoscopy Anesthesia History Anesthesia History - fundraising assistant: Anesthesia History - fundraising assistant Hx Hospitalization Any Problems With Anesthesia No 01/05/24 04:06 Cholinesterase deficiency No 01/05/24 04:06 You/Your Family Experience No 01/05/24 04:06 fever (hyperthermia) with Relationship Recent Exposure to Contagious No 01/05/24 04:06 Disease Does patient have nerve No 01/05/24 04:06 stimulator Patient instructed to have No 01/05/24 04:06 device shut off --Does patient have Pacemaker No 01/05/24 11:39 or ICD? When Was Last Pacemaker Check QUESTION #4 FULL TEXT: You/Your Family Experience fever (hyperthermia) with Anesthesia Last Oral Intake Last Oral intake: Last Oral Intake NPO since 02:00 01/05/24 11:39 Meds taken in AM with sips of No 01/05/24 11:39 water? Meds patient instructed to take am of surgery Any additional information?: Yes PONV PONV - fundraising assistant: PONV - fundraising assistant Female HX of Motion Sickness HX of N/V After Surgery Non-Smoker Duration of Surgery greater than 60 minutes Number of Risk Factors PONV Score Height & Weight Height & Weight: Anesthesia: Height & Weight Height 5 ft 7 in 01/05/24 11:39 Weight: 48.7 kg 01/05/24 11:39 Body Mass Index (BMI) 16.8 01/05/24 11:39 Respiratory Assessment Respiratory Assessment - fundraising assistant: Respiratory Tract Infection Hx - fundraising assistant Hx Respiratory Tract Infection No 01/05/24 04:06 STOP Sleep Apnea STOP Sleep Apnea - fundraising assistant: STOP Sleep Apnea - fundraising assistant Hx Hypertension No 01/05/24 13:41 Hx Sleep Apnea No 01/04/24 13:00 CPAP Yes: NOT CURRENTLY USING 12/17/21 16:12 BIPAP No 12/17/21 16:12 Do you snore loudly (louder No 01/03/24 23:58 than talking or can be heard Do you often feel tired/ No 01/03/24 23:58 fatigued/ sleepy during daytime? Has anyone observed you stop No 01/03/24 23:58 breathing during sleep? STOP Results Negative 01/03/24 23:58 QUESTION #5 FULL TEXT : Do you snore loudly (louder than talking or can be heard through closed doors)? Tobacco Use History Tobacco Use History - fundraising assistant: Tobacco Use History - fundraising assistant Tobacco Use Smoking Status Current every day smoker 01/04/24 08:13 Hx Tobacco Use Yes 01/03/24 23:58 Years Smoking 0.5 01/03/24 23:58 Packs Smoked per Day Smoking Cessation Date was within the last 15 years Hx Smoking Cessation Date Hx Smoking Cessation Counseling Hematologic Medial History Hematologic Hx - fundraising assistant: Hematologic Medical Hx - auto painter Hx of Blood Transfusion No 01/03/24 23:58 Hx of Transfusion in last 3 No 01/03/24 23:58 Months Date of Last Transfusion (if within last 3 months) Ever experience any problems No 01/03/24 23:58 with transfusion(s)? Specify any problems Hx of Preganancy in last 3 No 01/03/24 23:58 Months Nurse Filling Out Transfusion [id number] 01/03/24 23:58 & Questions: Date: 01/04/24 01/03/24 23:58 Time: 00:00 01/03/24 23:58 Patient unable to answer at this time (ie. confused, unrespo /Reproduction History /Reproductive History - fundraising assistant: /Reproductive Hx- fundraising assistant Hx Now No 01/05/24 04:06 Gestational Age (in weeks): EDC: Hx Hx Para Hx Section SAB Active Medications Active Medications: Current Medications Generic Name Dose Route Start Last Admin Trade Name Freq PRN Reason Stop Dose Admin Buspirone HCl 5 mg 01/04/24 22:00 01/05/24 10:22 Buspirone 5 Mg Tablet PO Not Given BID [facility] Calamine/Phenol 1 applic 01/04/24 10:00 01/05/24 09:39 Menthol/Lanolin/Calamine/Znox 113 Gm Tube TOPICAL 1 applic BID [facility] Administration Protocol Cholecalciferol 50 mcg 01/05/24 10:00 01/05/24 10:22 Cholecalciferol (Vit D3) 25 Mcg Tablet (1,000 Units) PO Not Given DAILY [facility] Folic Acid 1 mg 01/05/24 08:00 01/05/24 10:22 Folic Acid 1 Mg Tablet PO Not Given DAILYCM [facility] Glucagon 1 mg 01/04/24 16:15 Glucagon 1 Mg/Ml Syringe IM X1 PRN Hypoglycemia Protocol Hydralazine HCl 5 mg 01/03/24 23:58 Hydralazine 20 Mg/Ml Vial IV Q8H PRN PRN SBP GREATER THAN 160 Protocol Sodium Chloride 500 mls @ 15 mls/hr 01/04/24 00:03 IV .[id number] PRN Saline Flush Sodium Chloride 500 mls @ 15 mls/hr 01/04/24 00:03 IV .[id number] PRN Additional IVPB Infusion Dextrose 250 mls @ 0 mls/hr 01/04/24 16:15 Dextrose 10%-Water IV .Q0M PRN HYPOGLYCEMIA Protocol As Directed Insulin Human Lispro 0 unit 01/04/24 18:00 01/05/24 13:47 Insulin Lispro 100 Unit/Ml Insuln.Pen SC Not Given Q4 [facility] Protocol Magnesium Chloride 128 mg 01/04/24 17:00 01/05/24 10:22 Magnesium Chloride 64 Mg Delay Rel.Tablet PO Not Given BIDCM [facility] Morphine Sulfate 2 mg 01/03/24 23:58 01/04/24 00:50 Morphine 2 Mg/Ml Syringe IV 2 mg Q4H PRN PRN Administration Pain Score 6-10 Nicotine 14 mg 01/04/24 10:00 01/05/24 09:40 Nicotine 14 Mg Patch TD Not Given DAILY [facility] Nutritional Formula (Lactose Free) 120 ml 01/04/24 18:00 01/05/24 13:47 Ensure Clear 120 Ml Liquid PO Not Given 4X/DAY [facility] Ondansetron HCl 4 mg 01/03/24 23:58 Ondansetron 4 Mg/2 Ml Vial IV Q6H PRN PRN NAUSEA/VOMITING Pantoprazole Sodium 40 mg 01/05/24 10:00 Pantoprazole Sodium 40 Mg Tablet PO DAILY [facility] Sodium Chloride 10 - 40 ml 01/04/24 00:03 01/04/24 08:00 0.9% Saline Lock 10 Ml Syringe IV 10 ml UD PRN Administration SALINE FLUSH Thiamine HCl 100 mg 01/05/24 08:00 01/05/24 10:22 Thiamine Hydrochloride 100 Mg Tablet PO Not Given DAILYCM [facility] PFSH Medical History BPPV (benign paroxysmal positional vertigo) Smoker CPAP (continuous positive airway pressure) dependence Abscess of left thigh Alcohol abuse with alcohol-induced disorder Hyperlipidemia Atherosclerotic heart disease of [place] coronary artery without angina pectoris Endocarditis Obstructive sleep apnea Nicotine dependence in remission Home Medications ?Medication ?Instructions ?Recorded ?Last Taken ?Type cholecalciferol (vitamin D3) 50 50 mcg PO DAILY 04/19/23 Unknown History mcg (2,000 unit) capsule acetaminophen 500 mg capsule 1,000 mg PO TID pain 01/03/24 Unknown History aspirin 325 mg capsule 325 mg PO BID 01/03/24 Unknown History buspirone 5 mg tablet 5 mg PO BID anxiety 01/03/24 Unknown History folic acid 1 mg tablet 1 mg PO DAILY 01/03/24 Unknown History magnesium 200 mg tablet 400 mg PO BID 01/03/24 Unknown History tetracycline 500 mg capsule 500 mg PO Q12H uti 01/03/24 Unknown History thiamine HCl (vitamin B1) 100 mg 100 mg PO DAILY 01/03/24 Unknown History tablet Allergy/AdvReac Type Severity Reaction Status Date / Time No Known Allergies Allergy Verified 01/03/24 20:21 Family History Father CAD (coronary artery disease) Mother Liver cancer Surgical History Hx of tonsillectomy History of hysterectomy Social History household members: spouse Smoking Status: Current every day smoker tobacco type: cigarettes Tobacco: How many years used: 41 Smokeless tobacco user: other second hand exposure: No alcohol intake: current alcohol intake frequency: 3 or more drinks per day Alcohol type: hard liquor details: Drinks 1/2 of 5th 90% proof vodka daily. substance use type: does not use caffeine: Yes (4+ drinks/day) Review of Systems (Anesthesia) ROS Narrative System reviewed and no additional complaints, except as documented.
--- NOTE | 2024-01-05 15:25 | PCM.POST.ANE ---
Anesthesia: Postop Eval I Current Vital Signs Temperature: 97.6 F Pulse Rate: 97 Blood Pressure: 135/92 Respiratory Rate: 14 Pulse Ox: 100 Oxygen Delivery Method: Room Air Assessment Airway patent: Yes Spontaneous unlabored respirations: Yes Mental status: Awake and Calm nausea: No Vomiting: No Anesthesia Complication: No Fluid Hydration Crystalloid volume administer (ml): 60 Total IV fluid infused: 60 Progress Note Anesthesia document: Postop Eval 1 completed: Yes
--- NOTE | 2024-01-05 16:13 | CASEMGMT ---
Discharge Planning Updates sent to Pasquale Cool. Requested that precert be submitted (current one has ). Zara Arreola DC Planning Asst.
[2024-01-05] MEDS: Pantoprazole Sodium 40 MG Tablet PO (17:22)
[2024-01-05] MEDS: Magnesium Chloride 64 MG Delay Rel.Tablet 128 MG PO (17:22)
[2024-01-05 17:26] LABS: CPK Total, Creatine Kinase 62 U/L (26-192)
--- NOTE | 2024-01-05 17:30 | RAD_ITS ---
EXAM: XR LEFT HUMERUS, 2 OR MORE VIEWS CLINICAL INDICATION: cellulits to left elbow TECHNIQUE: Frontal and lateral views of the left humerus. COMPARISON: 2 views of the left shoulder, CT of the left upper extremity to January 05, 2024 2 evaluate potential elbow cellulitis or abscess. It did not include most of the humerus. FINDINGS: BONES/JOINTS: There is a left shoulder prosthesis and acute-appearing complex fracture around the prosthesis components in the humerus, with 2 triangular prominent displaced fracture fragments proximal to an intact component of humeral shaft of roughly 10.3 cm in length around the intramedullary prosthesis component. The prosthesis components appear well aligned. Intact acromioclavicular joint. Intact scapula and included portions of the left ribs. No sclerotic or destructive changes observed. SOFT TISSUES: Soft tissue swelling of the upper arm and axillary region. No radiopaque foreign body. RAD/Humerus min 2 Views IMPRESSION: Complex and comminuted acute humeral fractures around the proximal intramedullary component of the left humerus prosthesis. Electronically Signed: Marli Ma MD at 2:09 EST ,
--- NOTE | 2024-01-05 17:30 | RAD_ITS ---
EXAM: XR LEFT SHOULDER COMPLETE, 4 VIEWS CLINICAL INDICATION: shoulder with humerus TECHNIQUE: 4views of the left shoulder. COMPARISON: No relevant prior studies available. FINDINGS: BONES/JOINTS: Complex and comminuted distracted major fracture fragments around the proximal 5.7 cm at the humeral prosthesis. The humeral shaft with intramedullary component appears intact. Also displaced large fracture fragment or chronic ossification of 3.2 cm just lateral to the prosthesis articulation with the glenoid component of prosthesis. SOFT TISSUES: Soft tissue swelling. RAD/Shoulder min 2 Views IMPRESSION: Complex, distracted, comminuted acute fracture fragments involving the left shoulder-proximal humerus. Electronically Signed: Marli Ma MD at 2:11 EST ,
--- NOTE | 2024-01-05 17:32 | PCM.PN.HOSP ---
Reason for Visit Reason for Visit: Diagnoses Acute posthemorrhagic anemia (01/03/24) Elevated white blood cell count, unspecified (01/03/24) Hypoglycemia, unspecified (01/03/24) Alcohol abuse, in remission (01/03/24) Obstructive sleep apnea (adult) (pediatric) (01/03/24) Benign paroxysmal vertigo, unspecified ear (01/03/24) Melena (01/03/24) Adverse effect of unspecified drugs, medicaments and biological substances, initial encounter (01/03/24) Tobacco use (01/03/24) Personal history of other diseases of the circulatory system (01/03/24) Other specified postprocedural states (01/03/24) Objective Data Objective Data Vital Signs: Vital Signs Temp Pulse Resp BP Pulse Ox O2 Del Method O2 Flow Rate 97.8 F 79 18 140/73 H 94 Room Air 2 01/05/24 15:59 01/05/24 15:59 01/05/24 15:59 01/05/24 15:59 01/05/24 15:59 01/05/24 15:59 01/05/24 14:40 Oxygen Flow Rate (L/min) 2 Oxygen Delivery Method Room Air Weight: 107 lb 5.842 oz Body Mass Index (BMI) 16.8 Intake & Output: Intake and Output for Last 24 Hours 01/03/24 01/04/24 01/05/24 23:59 23:59 23:59 Intake Total 0 / 0 2080 / 2580 500 / 500 Output Total 250 / 250 Balance 0 / 0 1830 / 2330 500 / 500 Medical Nutrition Assessment Dietitian: Malnutrition Criteria Met Start: 01/04/24 14:53 Freq: Status: Active Protocol: Document 01/04/24 14:53 SB (Rec: 01/04/24 14:53 SB [id number]) Nutrition Malnutrition Evidence of Malnutrition Exists Yes Malnutrition (severe): Acute Illness/Injury Evidenced By Suboptimal Energy Intake ( Severe),Weight Loss (Severe), Physical Changes (Severe) Clinical Problem Acute Disease or Injury Related Malnutrition Etiology severe related to inadequate oral intake Signs/Symptoms as evidenced by PO meeting <50 % of estimated nutrition needs x 1 week, 8% unintentional weight loss x 1 month, and severe muscle wasting clavicle , temples, and shoulders areas . Status Active Problem Recommendation Dietitian Recommendations/Changes Recommend advanced diet as tolerated to liberal regular diet d/t signs and symptoms of malnutrition. Pt refuses ONS at this time. As diet as advanced, will order chocolate fortified pudding TID with meals. Will monitor weight, as available. Reviewed and approved by Meredith Cadet RDN, LD. Lab / Micro Data 01/05/24 05:13 01/05/24 05:13 Labs: Laboratory Results - last 24 hr 01/04/24 05:51: Hepatitis A IgM Ab Negative, Hep Bs Antigen Negative, Hep B Core IgM Ab Negative, Hepatitis C Ab (EIA) Non Reactive, Hep C Ab Comment Comment 01/04/24 22:00: POC Glucose 102 01/05/24 02:22: POC Glucose 94 01/05/24 05:13: WBC 11.8 H, RBC 2.43 L, Hgb 8.0 L, Hct 25.1 L, MCV 103.3 H, MCH 32.9 H, MCHC 31.9 L, RDW Std Deviation 78.7 H, RDW Coeff of Marc 20.9 H, Plt Count 664 H, MPV 9.3, Immature Gran % (Auto) 0.800, Neut % (Auto) 74.0 H, Lymph % (Auto) 14.3 L, [place] % (Auto) 9.8, Eos % (Auto) 0.6, Baso % (Auto) 0.5, Absolute Neuts (auto) 8.7 H, Absolute Lymphs (auto) 1.69, Nucleated RBC % 0, Polychromasia 1+, Tear Drop Cells 1+, Ovalocytes 1+, PT 14.3, INR 1.1, APTT 32.3, Sodium 138, Potassium 3.9, Chloride 106, Carbon Dioxide 24.0, Anion Gap 8, BUN 11, Creatinine 0.65, Estim Creat Clear Calc 49.33, Est GFR (MDRD) Af Amer 114, Est GFR (MDRD) Non-Af 94, BUN/Creatinine Ratio 16.8, Glucose 92, Hemoglobin A1c 4.9, Calcium 8.3 L, Phosphorus 3.2, Magnesium 1.8, AST 23, ALT 8 L 01/05/24 06:50: POC Glucose 97 01/05/24 09:39: POC Glucose 94 01/05/24 13:29: POC Glucose 88 01/05/24 16:55: Total Creatine Kinase 62, C-React Prot Ext Range 76.40 H Physical Exam Narrative Seen and examined. Discussed with the daughter she mentioned that she has left elbow ulcer. Recently she had left shoulder replacement about a week ago in [place]. Patient does not remember the reason for admission but she states he is in the hospital. She has dementia. Admitted for melena and severe anemia. Hemoglobin was 6.5 g% improved to 8.0%. No abdominal pain. Going for colonoscopy today Physical exam General: Alert, Oriented to time, place and person but not to situation, Cooperative HEENT: Atraumatic, PERRLA, EOMI, Normocephalic Oral: Oral mucosa moist. No Gingival or Mucosal Lesions/ Ulcerations Neck: Supple, No JVD, Negative Carotid Bruits Chest wall/Lungs: Air entry diminished in bilateral lung bases. No crepitation/rhonchi Cardiovascular: Regular rate, Regular Rhythm, Normal S1, Normal S2, No M/G/R Abdomen: Bowel Sounds Present, Soft, Non Tender, Non-Distended : No dysuria. No renal angle tenderness. No suprapubic tenderness. Extremities: No edema, Capillary Refill Less than 3 Seconds Skin: Chronic ulcer over left elbow point, all chronic process. Bone palpable but covered with thick tendon. Mild surrounding cellulitis Musculoskeletal: No Tenderness to Palpation of Joints or Extremities Neurological: Cranial nerves II-XII grossly intact, DTR 2+/4. No acute focal neurological deficit. Psych/Mental Status: Flat affect. Amnesia. Dementia Assessment & Plan Assessment/Plan (1) Melena: (2) ABLA (acute blood loss anemia): (3) Hypoglycemia: PLAN: Plan 73-year-old female was admitted with blackish stool and found to have severe anemia from [facility]. She had left shoulder replacement outside a week ago. 1. Suspected GI bleed with melanotic stools and ABLA with hemoglobin of 7g/dL and MCV of 108.2 fL present on admission possible due to aspirin- Admit to PCU. Her hemoglobin further dropped to 6.5 g and had PRBC transfusion which improved to 8.2 g%. Platelet count high, thrombocythemia 722K, 861K. Thrombocytosis is acute probably due to acute blood loss anemia. Was started on pantoprazole 40 IV twice daily, changed to 40 mg daily. GI was consulted and patient had EGD. 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 Biopsied. - No gross lesions in the stomach. - Chronic duodenitis. Biopsied. Recommendation: - Repeat upper endoscopy in 1 year for surveillance. - Use Protonix (pantoprazole) 40 mg PO daily 01/04: Hemoglobin similar to yesterday 8.0. Thrombocytosis improving. Patient had colonoscopy. Report pending. Continue holding aspirin. 2. Left shoulder replacement about a week ago in [place] and chronic left elbow ulcer present on admission with surrounding cellulitis: Patient is started on IV vancomycin and ceftriaxone. Discussed with orthopedic surgeon Dr. Guan. CT of left upper extremity, elbow ordered. Left shoulder x-ray ordered. Wound nurse and plastic surgery consult. ID consult. No significant collection, try to aspirate but empty aspirate. Discussed with the daughter in detail. Patient has mild leukocytosis. 3. Hypoglycemia of 67 mg/dL with severe hypoalbuminemia of 1.9 g/dL present on admission suspicious for severe protein-calorie malnutrition in the setting of known previous EtOH abuse: Give D5 NS to prevent recurrence. Last glucose 78 in [facility] monitor glucose every 4 hours. Hypoglycemia protocol ordered. Nutrition is consulted. 01/04: A1c 4.9%. Glucose 92. Hypoglycemia resolved. 5. Ongoing Tobacco Abuse/cigarette smoke - Tobacco Cessation was strongly encouraged with Nicotine patch offered to control cravings. 6. Recent admission here from December 18, 2023 to December 20, 2023 for requested treatment of alcohol detoxification and Left thigh abscess with cellulitis and hypokalemia of 2.8 mmol/L present on admission. Patient used to drink 1/2 fifth of 90 proof vodka daily but currently denies alcohol use.- 7. Chronic CAD, history of endocarditis, dyslipidemia: No acute issues. Home medications continued 8. KELSEY; on CPAP - Continue nocturnal CPAP as before. 9. Overactive bladder; on solifenacin - Stable. Reinitiate solifenacin once GI workup is completed. 10. Anxiety and depression: On buspirone. DVT prophylaxis - SCD's only. Pharmacological prophylaxis contraindicated Laboratory Results 01/03/24 20:25: WBC 11.6 H, RBC 2.01 L, Hgb 7.0 L, Hct 21.7 L, MCV 108.0 H, MCH 34.8 H, MCHC 32.3, RDW Std Deviation 74.9 H, RDW Coeff of Marc 19.0 H, Plt Count 722 H, MPV 10.5, Immature Gran % (Auto) 0.900, Neut % (Auto) 73.0 H, Lymph % (Auto) 16.4 L, [place] % (Auto) 8.7, Eos % (Auto) 0.6, Baso % (Auto) 0.4, Absolute Neuts (auto) 8.5 H, Absolute Lymphs (auto) 1.90, Nucleated RBC % 0, Differential Comment , Platelet Estimate MKD INC, Plt Morphology Comment CLUMPED, Hypochromasia 2+, Anisocytosis 2+, PT 14.1, INR 1.1, Sodium 135 L, Potassium 4.6, Chloride 103, Carbon Dioxide 25.0, Anion Gap 7, BUN 14, Creatinine 0.57, Estim Creat Clear Calc 51.81, Est GFR (MDRD) Af Amer 133, Est GFR (MDRD) Non-Af 110, BUN/Creatinine Ratio 24.4 H, Glucose 67 L, Hemoglobin A1c Cancelled, Calcium 8.6, Iron 20 L, TIBC 181 L, Iron Saturation 11.0 L, Ferritin 424 H, Total Bilirubin 0.50, AST 22, ALT 7 L, Alkaline Phosphatase 156 H, Total Protein 6.1 L, Albumin 1.9 L, Globulin 4.2, Albumin/Globulin Ratio 0.5 L, Folate 13.50, Miscellaneous Test Pending 01/03/24 21:05: Blood Type A POSITIVE, Antibody Screen NEGATIVE, Crossmatch See Detail 01/04/24 05:30: Urine Color Yellow, Urine Clarity Clear, Urine pH 6.0, Ur Specific [place] 1.020, Urine Protein 15 H, Urine Glucose (UA) Normal, Urine Ketones 50 H, Urine Occult Blood Negative, Urine Nitrite Negative, Urine Bilirubin Negative, Urine Urobilinogen Normal, Ur Leukocyte Esterase 25 H, Urine RBC 0 SEEN, Urine WBC 0-5 SEEN, Ur Squamous Epith Cells 0 SEEN, Urine Bacteria 0 SEEN, Urine Mucus 0 SEEN, Urine Opiates Screen POSITIVE H, Urine Methadone Screen NEGATIVE, Ur Barbiturates Screen NEGATIVE, Ur Phencyclidine Scrn NEGATIVE, Ur Amphetamines Screen NEGATIVE, MDMA (Ecstasy) Screen NEGATIVE, U Benzodiazepines Scrn NEGATIVE, Urine Cocaine Screen NEGATIVE, U Cannabinoids Screen NEGATIVE, Ur Drug Screen Comment 01/04/24 05:51: WBC 10.1, RBC 1.88 L, Hgb 6.5 L, Hct 20.2 L, MCV 107.4 H, MCH 34.6 H, MCHC 32.2, RDW Std Deviation 75.1 H, RDW Coeff of Marc 18.7 H, Plt Count 861 H*, MPV 8.8, Immature Gran % (Auto) 0.500, Neut % (Auto) 70.3 H, Lymph % (Auto) 16.3 L, [place] % (Auto) 11.2 H, Eos % (Auto) 1.1, Baso % (Auto) 0.6, Absolute Neuts (auto) 7.1, Absolute Lymphs (auto) 1.65, Nucleated RBC % 0, Diff Path Review Reviewed, Platelet Estimate MKD INC, Anisocytosis 2+, Stomatocytes 2+, Sodium 135 L, Potassium 3.8, Chloride 104, Carbon Dioxide 24.0, Anion Gap 7, BUN 13, Creatinine 0.58, Estim Creat Clear Calc 45.98, Est GFR (MDRD) Af Amer 130, Est GFR (MDRD) Non-Af 107, BUN/Creatinine Ratio 22.2 H, Glucose 78, Calcium 8.0 L, Phosphorus 3.4, Magnesium 1.6, Total Bilirubin 0.60, Direct Bilirubin 0.21, AST 19, ALT 7 L, Alkaline Phosphatase 143 H, Total Protein 5.7 L, Albumin 1.8 L, Globulin 3.9, Albumin/Globulin Ratio 0.5 L, Vitamin B12 653, TSH 1.540, Ethyl Alcohol < 3.0, Hepatitis A IgM Ab Pending, Hep Bs Antigen Pending, Hep B Core IgM Ab Pending, Hepatitis C Ab (EIA) Pending 01/04/24 10:46: WBC 10.7, RBC 2.47 L, Hgb 8.2 L, Hct 25.0 L, MCV 101.2 H D, MCH 33.2 H, MCHC 32.8, RDW Std Deviation 74.6 H, RDW Coeff of Marc 20.2 H, Plt Count 799 H*, MPV 8.9, Immature Gran % (Auto) 0.800, Neut % (Auto) 73.3 H, Lymph % (Auto) 13.7 L, [place] % (Auto) 10.8 H, Eos % (Auto) 0.7, Baso % (Auto) 0.7, Absolute Neuts (auto) 7.9 H, Absolute Lymphs (auto) 1.47, Nucleated RBC % 0, Diff Path Review June foll, Platelet Estimate MKD INC, Anisocytosis 1+ Charges/Coding Addendum Addendum: Total time of the visit including total time spent in counseling or coordination of care, (more than 50% of the total time, spent in obtaining medical information from nurses and other ancillary care providers ,explaining to the patient about labs, imaging, diagnosis and management of active complex medical conditions), management of GI bleed, management of left elbow cellulitis with ulcer, discussion with multiple consultants including plastic surgery, orthopedic surgeon and ID, clinical update given to patient's daughter review of labs and imaging is 35 minutes. Visit Charges Inpatient E&M: 06901 Subs Hosp L3
[2024-01-05 17:42] LABS: Bedside Glucose 89 mg/dL (74-106)
[2024-01-05 17:51] LABS: Erythrocyte Sedimentation Rate 44 mm/hr (0-30)
--- NOTE | 2024-01-05 17:55 | CT_ITS ---
EXAM: CT LEFT UPPER EXTREMITY WITH INTRAVENOUS CONTRAST CLINICAL INDICATION: abscess, elblow osteomyelitis TECHNIQUE: Helically acquired images were obtained of the left upper extremity with intravenous contrast. 2-D reformats were performed by the technologist. This CT exam was performed using one or more of the following dose reduction techniques: automated exposure control, adjustment of the mA and/or kV according to patient size, and/or use of iterative reconstruction technique. RADIATION DOSE: CTDIvol = 24.58 mGy, DLP = 542.17 mGy-cmContrast: 100ML ISOVUE 370 COMPARISON: No pleural effusion or lesion is estimated to FINDINGS: BONES/JOINTS: Unremarkable. No acute fracture. No subluxation. Normal alignment. Preservation of the joint space. No sclerotic or destructive changes. SOFT TISSUES: There is soft tissue swelling at the distal upper arm, elbow and forearm. The fat planes of the elbow appear intact. No visible bone destruction or joint effusion. The major vessels appear patent. No significant fascial thickening or enhancement in the distal upper arm. Slight edema overlying some of the medial-posterior forearm fascia. No soft tissue gas bubbles. CT/Extremity Upper WITH Contrast IMPRESSION: Soft tissue swelling and soft tissue stranding, predominantly superficial. No evidence of compartment syndrome or significant fasciitis. No discrete abscess or joint effusion. Electronically Signed: Marli Ma MD at 20:13 EST Reading Location ID and State: [facility] / [place] Tel , Service support ,
[2024-01-05] MEDS: Vancomycin HCl 750 MG in 0.9% Normal Saline (250mL Bag) 250 ML 250 MG IV (18:07)
[2024-01-05] MEDS: Ceftriaxone 1 GM/50 ML BAG IV (18:07)
[2024-01-05] MEDS: 0.9% Saline Lock 10 ML Syringe IV (18:07)
--- NOTE | 2024-01-05 18:30 | PCM.RX.CS ---
Consult Antibiotic Management Pharmacy has been consulted to manage selected antibiotic: Vancomycin Type of Intervention Type of Consult: New start Suspected Infection Suspected Infection: Skin/Soft tissue Prior Doses of Antibiotics Prior Doses of Antibiotics Received/Current Regimen: Vancomycin 750 mg IV x 1 given 01/05/24 @ 1807 Labs Labs: Sodium 138 mmol/L (136-145) 01/05/24 05:13 Potassium 3.9 mmol/L (3.5-5.1) 01/05/24 05:13 Chloride 106 mmol/L (98-107) 01/05/24 05:13 Carbon Dioxide 24.0 mmol/L (21.0-32.0) 01/05/24 05:13 Anion Gap 8 (5-15) 01/05/24 05:13 BUN 11 mg/dL (7-18) 01/05/24 05:13 Creatinine 0.65 mg/dL (0.55-1.02) 01/05/24 05:13 Est GFR (MDRD) Af Amer 114 mL/min (>60) 01/05/24 05:13 Est GFR (MDRD) Non-Af 94 mL/min (>60) 01/05/24 05:13 BUN/Creatinine Ratio 16.8 RATIO (10-20) 01/05/24 05:13 Glucose 92 mg/dL (74-106) 01/05/24 05:13 Dosing Weight Weight used for dosin lb 5.842 oz Estimated Creatinine Clearance Estimated Creatinine Clearance: ~49.3 Goal Trough Goal Trough: 15-20 mcg/mL Pharmacy Plan for Drug Dosing Pharmacy Plan for Drug Dosing: Vancomycin 750 mg IV x 1 per protocol, followed by 1000 mg Q24H. Pharmacy Service will continue to monitor and adjust dosing as required. Follow-Up Labs Follow-Up Labs: Trough: Vancomycin Date/Time Labs Ordered Labs to be done on [date and time ordered]: 01/07/24 @ 2022
[2024-01-05] MEDS: busPIRone 5 MG Tablet PO (21:34)
[2024-01-06 04:00] VITALS: BP 146/80; PULSE 85; RESP 18; TEMP 36.9; O2SAT 96
[2024-01-06 04:09] VITALS: BMI 17.9
[2024-01-06 07:24] VITALS: O2SAT 96
--- NOTE | 2024-01-06 07:39 | CON.PCM.SX_ITS ---
Assessment & Plan Assessment/Plan (1) Bursitis: PLAN: Wound is small and would benefit from enzymatic debridement with collagenase daily (discussed with the wound care nursing and ordered) Plastics will follow along as needed to assist orthopedics if reconstruction is required, but will defer definitive treatment for the bursitis to the orthopedic surgery consultation (Dr. Guan, who recommended the imaging). HPI Consult Data Date of Consult: 01/06/24 HPI Narrative HPI Narrative: IRINA ROSE is a delightful 73-year-old female with history of coronary artery disease who had a left shoulder replacement in an [facility] approximately 2 weeks ago and was admitted to a rehab facility postoperatively. She reportedly had low hemoglobin and black stool and was admitted to our hospital on 03 January 2020 for (3 days ago) for anemia workup. Plastic surgery being consulted for a left elbow wound that has been present reportedly since around the time of the surgery 2 weeks ago. Patient reports sharp severe pain in the left elbow soft tissue, not in the joint, that is improved by rest and elevation. She has never had a problem or wound in the elbow before and does not think she is putting any pressure on it. She has been placed by internal medicine on broad-spectrum antibiotics (vancomycin and ceftriaxone for potential cellulitis around this wound). They have consulted orthopedics who has recommended CT scan and x-ray, which demonstrated some soft tissue swelling but no abscess in this location or any problems with the bones or joints. Patient is currently stable with stable vital signs and is afebrile. White blood cell count 12,000 and hemoglobin 8 PFSH Medical History BPPV (benign paroxysmal positional vertigo) Smoker CPAP (continuous positive airway pressure) dependence Abscess of left thigh Alcohol abuse with alcohol-induced disorder Hyperlipidemia Atherosclerotic heart disease of [place] coronary artery without angina pectoris Endocarditis Obstructive sleep apnea Nicotine dependence in remission Home Medications ?Medication ?Instructions ?Recorded ?Last Taken ?Type cholecalciferol (vitamin D3) 50 50 mcg PO DAILY 04/19/23 Unknown History mcg (2,000 unit) capsule acetaminophen 500 mg capsule 1,000 mg PO TID pain 01/03/24 Unknown History aspirin 325 mg capsule 325 mg PO BID 01/03/24 Unknown History buspirone 5 mg tablet 5 mg PO BID anxiety 01/03/24 Unknown History folic acid 1 mg tablet 1 mg PO DAILY 01/03/24 Unknown History magnesium 200 mg tablet 400 mg PO BID 01/03/24 Unknown History tetracycline 500 mg capsule 500 mg PO Q12H uti 01/03/24 Unknown History thiamine HCl (vitamin B1) 100 mg 100 mg PO DAILY 01/03/24 Unknown History tablet Allergy/AdvReac Type Severity Reaction Status Date / Time No Known Allergies Allergy Verified 01/03/24 20:21 Family History Father CAD (coronary artery disease) Mother Liver cancer Surgical History Hx of tonsillectomy History of hysterectomy Social History household members: spouse Smoking Status: Current every day smoker tobacco type: cigarettes Tobacco: How many years used: 41 Smokeless tobacco user: other second hand exposure: No alcohol intake: current alcohol intake frequency: 3 or more drinks per day Alcohol type: hard liquor details: Drinks 1/2 of 5th 90% proof vodka daily. substance use type: does not use caffeine: Yes (4+ drinks/day) Physical Exam Narrative Left upper extremity Left elbow with a small 2 x 2 cm yellow ulcer with fibrinous exudate at the base, through the skin but not through the subcutaneous tissue and overlying an inflamed bursa that is tender to palpation. Consistent with superficial bursitis. No pain or swelling in the joint of the elbow. Range of motion of the elbow is limited secondarily to the pain of the soft tissue on the dorsal elbow. No drainage and no signs of abscess Medical Records Data Medical Nutrition Assessment Dietitian: Malnutrition Criteria Met Start: 01/04/24 14:53 Freq: Status: Active Protocol: Document 01/04/24 14:53 SB (Rec: 01/04/24 14:53 SB [id number]) Nutrition Malnutrition Evidence of Malnutrition Exists Yes Malnutrition (severe): Acute Illness/Injury Evidenced By Suboptimal Energy Intake ( Severe),Weight Loss (Severe), Physical Changes (Severe) Clinical Problem Acute Disease or Injury Related Malnutrition Etiology severe related to inadequate oral intake Signs/Symptoms as evidenced by PO meeting <50 % of estimated nutrition needs x 1 week, 8% unintentional weight loss x 1 month, and severe muscle wasting clavicle , temples, and shoulders areas . Status Active Problem Recommendation Dietitian Recommendations/Changes Recommend advanced diet as tolerated to liberal regular diet d/t signs and symptoms of malnutrition. Pt refuses ONS at this time. As diet as advanced, will order chocolate fortified pudding TID with meals. Will monitor weight, as available. Reviewed and approved by Meredith Cadet RDN, MEL. Lab / Micro Data 01/05/24 05:13 01/05/24 05:13 Labs: Laboratory Results - last 24 hr 01/03/24 20:25: Miscellaneous Test 01/05/24 05:13: Polychromasia 1+, Tear Drop Cells 1+, Ovalocytes 1+, PT 14.3, INR 1.1, APTT 32.3, Hemoglobin A1c 4.9 01/05/24 09:39: POC Glucose 94 01/05/24 13:29: POC Glucose 88 01/05/24 16:55: ESR 44 H, Total Creatine Kinase 62, C-React Prot Ext Range 76.40 H 01/05/24 17:21: POC Glucose 89 Imaging Radiology Impression Humerus X-Ray 01/05/24 17:30 IMPRESSION: Complex and comminuted acute humeral fractures around the proximal intramedullary component of the left humerus prosthesis. Electronically Signed: Marli Ma MD at 2:09 EST , ADDENDUM: 01/06/24 0235 IMPRESSION: Complex and comminuted acute humeral fractures around the proximal intramedullary component of the left humerus prosthesis. N.B. : GIBRAN JENKINS RN, confirmed on 01/06/2024 02:28:59 (ET) that the healthcare facility has received the radiology report. Electronically Signed: Marli Ma MD at 2:09 EST , Shoulder X-Ray 01/05/24 17:30 IMPRESSION: Complex, distracted, comminuted acute fracture fragments involving the left shoulder-proximal humerus. Electronically Signed: Marli Ma MD at 2:11 EST , Upper Extremity CT 01/05/24 17:55 IMPRESSION: Soft tissue swelling and soft tissue stranding, predominantly superficial. No evidence of compartment syndrome or significant fasciitis. No discrete abscess or joint effusion. Electronically Signed: Marli Ma MD at 20:13 EST , Charges/Coding Multi Select Codes Visit Charges Office Visit/Consults: 70919 IP Consult L3
[2024-01-06 08:27] VITALS: BP 135/91; PULSE 85; RESP 16; TEMP 36.7; O2SAT 92
[2024-01-06] MEDS: Thiamine Hydrochloride 100 MG Tablet PO (08:29)
[2024-01-06] MEDS: Cholecalciferol (VIT D3) 25 MCG TABLET (1,000 UNITS) 50 MCG PO (08:29)
[2024-01-06] MEDS: busPIRone 5 MG Tablet PO ×2 (08:30→21:06)
[2024-01-06] MEDS: Magnesium Chloride 64 MG Delay Rel.Tablet 128 MG PO ×2 (08:30→16:55)
[2024-01-06] MEDS: Folic Acid 1 MG Tablet PO (08:30)
[2024-01-06] MEDS: Menthol/Lanolin/Calamine/Znox 113 GM Tube 1 APPLIC TOPICAL ×2 (08:33→21:31)
[2024-01-06 08:38] LABS: Pathologist Review Reviewed
[2024-01-06] MEDS: Sodium Ferric Gluconat/Sucrose 250 MG in 0.9% Normal Saline (250mL Bag) 250 ML 135 MG IV (08:46)
[2024-01-06] MEDS: Pantoprazole Sodium 40 MG Tablet PO (08:50)
[2024-01-06] MEDS: 0.9% Saline Lock 10 ML Syringe IV ×2 (08:51→21:06)
--- NOTE | 2024-01-06 09:35 | CASEMGMT ---
[facility] able to accept pt back. Precert is pending at this time. Pt can discharge when precert is obtained. Green Sheet on chart to facilitate weekend discharge. Plan: Return to [facility], pending precert. HECTOR Gorman
[2024-01-06] MEDS: Ceftriaxone 1 GM/50 ML BAG IV (11:26)
[2024-01-06] MEDS: Collagenase 30gm Tube 1 APPLIC TOPICAL (11:27)
[2024-01-06] MEDS: Vancomycin IV 1,000 MG/200 ML BAG 200 MG IV (12:38)
--- NOTE | 2024-01-06 12:42 | CONS.ORTHO ---
Documented by User: MYKE Donis 01/06/24 12:46 HPI Consult Data Date of Consult: 01/06/24 HPI Narrative HPI Narrative: IRINA ROSE, is a 73 F who presents with history of coronary artery disease who had a left shoulder replacement in an [facility] hospital approximately 2 weeks ago and was admitted to a rehab facility postoperatively. She reportedly had low hemoglobin and black stool and was admitted to our hospital on 03 January 2020 for (3 days ago) for anemia workup. Plastic surgery being consulted for a left elbow wound that has been present reportedly since around the time of the surgery 2 weeks ago. Patient reports sharp severe pain in the left elbow soft tissue, not in the joint, that is improved by rest and elevation. She has never had a problem or wound in the elbow before and does not think she is putting any pressure on it. She has been placed by internal medicine on broad-spectrum antibiotics (vancomycin and ceftriaxone for potential cellulitis around this wound). They have consulted orthopedics who has recommended CT scan and x-ray, which demonstrated some soft tissue swelling but no abscess in this location or any problems with the bones or joints. Patient was a poor historian and relied on her son to help answer questions. [facility] Medical History BPPV (benign paroxysmal positional vertigo) Smoker CPAP (continuous positive airway pressure) dependence Abscess of left thigh Alcohol abuse with alcohol-induced disorder Hyperlipidemia Atherosclerotic heart disease of [place] coronary artery without angina pectoris Endocarditis Obstructive sleep apnea Nicotine dependence in remission Home Medications ?Medication ?Instructions ?Recorded ?Last Taken ?Type cholecalciferol (vitamin D3) 50 50 mcg PO DAILY 04/19/23 Unknown History mcg (2,000 unit) capsule acetaminophen 500 mg capsule 1,000 mg PO TID pain 01/03/24 Unknown History aspirin 325 mg capsule 325 mg PO BID 01/03/24 Unknown History buspirone 5 mg tablet 5 mg PO BID anxiety 01/03/24 Unknown History folic acid 1 mg tablet 1 mg PO DAILY 01/03/24 Unknown History magnesium 200 mg tablet 400 mg PO BID 01/03/24 Unknown History tetracycline 500 mg capsule 500 mg PO Q12H uti 01/03/24 Unknown History thiamine HCl (vitamin B1) 100 mg 100 mg PO DAILY 01/03/24 Unknown History tablet Allergy/AdvReac Type Severity Reaction Status Date / Time No Known Allergies Allergy Verified 01/03/24 20:21 Family History Father CAD (coronary artery disease) Mother Liver cancer Surgical History Hx of tonsillectomy History of hysterectomy Social History household members: spouse Smoking Status: Current every day smoker tobacco type: cigarettes Tobacco: How many years used: 41 Smokeless tobacco user: other second hand exposure: No alcohol intake: current alcohol intake frequency: 3 or more drinks per day Alcohol type: hard liquor details: Drinks 1/2 of 5th 90% proof vodka daily. substance use type: does not use caffeine: Yes (4+ drinks/day) Vital Signs Vital Signs Vital Signs: 01/05/24 14:21 01/05/24 14:40 01/05/24 15:20 Temperature 98.0 F 97.7 F L Temperature Source Temporal Pulse Rate 108 H 108 H 93 Pulse Strength Respiratory Rate 18 18 16 Respiratory Effort Respiratory Depth Respiratory Pattern Normal Blood Pressure 147/82 H 147/82 H 135/92 H Blood Pressure Mean 103 106 Blood Pressure Source Monitor Monitor Blood Pressure Position Semi-Fowlers Semi-Fowlers Blood Pressure Location Right Arm Left Forearm Baseline BP 144/88 Pulse Ox 91 91 99 Oxygen Delivery Method Room Air Room Air Room Air Oxygen Flow Rate (L/min) 2 01/05/24 15:25 01/05/24 15:27 01/05/24 15:30 Temperature 97.6 F L Temperature Source Pulse Rate 93 97 88 Pulse Strength Respiratory Rate 16 14 18 Respiratory Effort Respiratory Depth Respiratory Pattern Blood Pressure 132/94 H 135/92 H 136/88 H Blood Pressure Mean 106 104 Blood Pressure Source Monitor Monitor Blood Pressure Position Semi-Fowlers Semi-Fowlers Blood Pressure Location Left Forearm Left Forearm Baseline BP 144/88 144/88 Pulse Ox 98 100 97 Oxygen Delivery Method Room Air Room Air Room Air Oxygen Flow Rate (L/min) 01/05/24 15:35 01/05/24 15:59 01/05/24 22:00 Temperature 98.0 F 97.8 F 99.5 F H Temperature Source Temporal Oral Temporal Pulse Rate 85 79 94 Pulse Strength Respiratory Rate 16 18 18 Respiratory Effort Respiratory Depth Respiratory Pattern Blood Pressure 130/81 H 140/73 H 106/70 Blood Pressure Mean 97 95 82 Blood Pressure Source Monitor Blood Pressure Position Semi-Fowlers Blood Pressure Location Left Forearm Baseline BP 144/88 Pulse Ox 96 94 93 Oxygen Delivery Method Room Air Room Air Room Air Oxygen Flow Rate (L/min) 01/05/24 22:00 01/05/24 22:00 01/05/24 22:00 Temperature 99.5 F H Temperature Source Temporal Pulse Rate 94 Pulse Strength Normal (2+) Respiratory Rate 18 Respiratory Effort Normal Respiratory Depth Normal Respiratory Pattern Normal Blood Pressure 106/70 Blood Pressure Mean 82 Blood Pressure Source Monitor Blood Pressure Position Semi-Fowlers Blood Pressure Location Right Arm Baseline BP Pulse Ox 93 Oxygen Delivery Method Room Air Room Air Oxygen Flow Rate (L/min) 01/06/24 04:00 01/06/24 07:24 01/06/24 08:27 Temperature 98.4 F 98.0 F Temperature Source Temporal Oral Pulse Rate 85 85 Pulse Strength Respiratory Rate 18 16 Respiratory Effort Respiratory Depth Respiratory Pattern Blood Pressure 146/80 H 135/91 H Blood Pressure Mean 102 105 Blood Pressure Source Monitor Monitor Blood Pressure Position Semi-Fowlers Semi-Fowlers Blood Pressure Location Right Arm Left Arm Baseline BP Pulse Ox 96 96 92 Oxygen Delivery Method Room Air Room Air Room Air Oxygen Flow Rate (L/min) Weight Weight: 114 lb 6.719 oz Body Mass Index (BMI) 17.9 Medical Records Data Medical Nutrition Assessment Dietitian: Malnutrition Criteria Met Start: 01/04/24 14:53 Freq: Status: Active Protocol: Document 01/04/24 14:53 SB (Rec: 01/04/24 14:53 SB [id number]) Nutrition Malnutrition Evidence of Malnutrition Exists Yes Malnutrition (severe): Acute Illness/Injury Evidenced By Suboptimal Energy Intake ( Severe),Weight Loss (Severe), Physical Changes (Severe) Clinical Problem Acute Disease or Injury Related Malnutrition Etiology severe related to inadequate oral intake Signs/Symptoms as evidenced by PO meeting <50 % of estimated nutrition needs x 1 week, 8% unintentional weight loss x 1 month, and severe muscle wasting clavicle , temples, and shoulders areas . Status Active Problem Recommendation Dietitian Recommendations/Changes Recommend advanced diet as tolerated to liberal regular diet d/t signs and symptoms of malnutrition. Pt refuses ONS at this time. As diet as advanced, will order chocolate fortified pudding TID with meals. Will monitor weight, as available. Reviewed and approved by Meredith Cdaet RDN, MEL. Lab / Micro Data 01/05/24 05:13 01/05/24 05:13 Labs: Laboratory Results - last 24 hr 01/03/24 20:25: Miscellaneous Test 01/04/24 10:46: Diff Path Review Reviewed 01/05/24 13:29: POC Glucose 88 01/05/24 16:55: ESR 44 H, Total Creatine Kinase 62, C-React Prot Ext Range 76.40 H 01/05/24 17:21: POC Glucose 89 Imaging Radiology Impression Humerus X-Ray 01/05/24 17:30 IMPRESSION: Complex and comminuted acute humeral fractures around the proximal intramedullary component of the left humerus prosthesis. Electronically Signed: Marli Ma MD at 2:09 EST Reading Location ID and State: [facility] / [place] Tel , Service support , ADDENDUM: 01/06/24 0235 IMPRESSION: Complex and comminuted acute humeral fractures around the proximal intramedullary component of the left humerus prosthesis. N.B. : GIBRAN JENKINS RN, confirmed on 01/06/2024 02:28:59 (ET) that the healthcare facility has received the radiology report. Electronically Signed: Marli Ma MD at 2:09 EST Reading Location ID and State: [facility] / [place] Tel , Service support , Shoulder X-Ray 01/05/24 17:30 IMPRESSION: Complex, distracted, comminuted acute fracture fragments involving the left shoulder-proximal humerus. Electronically Signed: Marli Ma MD at 2:11 EST Reading Location ID and State: [facility] / [place] Tel , Service support , Upper Extremity CT 01/05/24 17:55 IMPRESSION: Soft tissue swelling and soft tissue stranding, predominantly superficial. No evidence of compartment syndrome or significant fasciitis. No discrete abscess or joint effusion. Electronically Signed: Marli Ma MD at 20:13 EST , Assessment & Plan Assessment/Plan (1) Status post shoulder replacement: QUALIFIERS: Laterality: left Qualified Code(s): Z96.612 - Presence of left artificial shoulder joint Documented by User: Dr. Edilberto Woo MD 01/06/24 15:37 HPI Consult Data Date of Consult: 01/06/24 HPI Narrative HPI Narrative: IRINA ROSE, is a 73 F who presents with history of coronary artery disease who had a left shoulder replacement in an [facility] approximately 2 weeks ago and was admitted to a rehab facility postoperatively. She reportedly had low hemoglobin and black stool and was admitted to our hospital on 03 January 2020 for (3 days ago) for anemia workup. Plastic surgery being consulted for a left elbow wound that has been present reportedly since around the time of the surgery 2 weeks ago. Patient reports sharp severe pain in the left elbow soft tissue, not in the joint, that is improved by rest and elevation. She has never had a problem or wound in the elbow before and does not think she is putting any pressure on it. She has been placed by internal medicine on broad-spectrum antibiotics (vancomycin and ceftriaxone for potential cellulitis around this wound). They have consulted orthopedics who has recommended CT scan and x-ray, which demonstrated some soft tissue swelling but no abscess in this location or any problems with the bones or joints. Patient was a poor historian and relied on her son to help answer questions. She denies any new falls or any new injuries around the left upper extremity. She is due to follow-up with her surgeon hopefully next week. She denies any new injury that led to the wound on the left elbow. It appears that the wound was from the time of the injury last week when she caused a humerus fracture. [facility] Medical History BPPV (benign paroxysmal positional vertigo) Smoker CPAP (continuous positive airway pressure) dependence Abscess of left thigh Alcohol abuse with alcohol-induced disorder Hyperlipidemia Atherosclerotic heart disease of [place] coronary artery without angina pectoris Endocarditis Obstructive sleep apnea Nicotine dependence in remission Home Medications ?Medication ?Instructions ?Recorded ?Last Taken ?Type cholecalciferol (vitamin D3) 50 50 mcg PO DAILY 04/19/23 Unknown History mcg (2,000 unit) capsule acetaminophen 500 mg capsule 1,000 mg PO TID pain 01/03/24 Unknown History aspirin 325 mg capsule 325 mg PO BID 01/03/24 Unknown History buspirone 5 mg tablet 5 mg PO BID anxiety 01/03/24 Unknown History folic acid 1 mg tablet 1 mg PO DAILY 01/03/24 Unknown History magnesium 200 mg tablet 400 mg PO BID 01/03/24 Unknown History tetracycline 500 mg capsule 500 mg PO Q12H uti 01/03/24 Unknown History thiamine HCl (vitamin B1) 100 mg 100 mg PO DAILY 01/03/24 Unknown History tablet Allergy/AdvReac Type Severity Reaction Status Date / Time No Known Allergies Allergy Verified 01/03/24 20:21 Family History Father CAD (coronary artery disease) Mother Liver cancer Surgical History Hx of tonsillectomy History of hysterectomy Social History household members: spouse Smoking Status: Current every day smoker tobacco type: cigarettes Tobacco: How many years used: 41 Smokeless tobacco user: other second hand exposure: No alcohol intake: current alcohol intake frequency: 3 or more drinks per day Alcohol type: hard liquor details: Drinks 1/2 of 5th 90% proof vodka daily. substance use type: does not use caffeine: Yes (4+ drinks/day) Physical Exam Narrative Examination left shoulder shows incision clean and dry with Dermabond on it. No obvious discharge. Left elbow olecranon process shows a small subcentimeter wound with scanty serous discharge. No obvious swelling or fluctuation. Range of motion of the forearm rotation wrist and elbow movement is without significant pain. Distal neurovascular exam is intact. Lab / Micro Data 01/05/24 05:13 01/05/24 05:13 Assessment & Plan Assessment/Plan (1) Status post shoulder replacement: QUALIFIERS: Laterality: left Qualified Code(s): Z96.612 - Presence of left artificial shoulder joint PLAN: Plan Obtain x-rays of the left shoulder with humerus. Patient has reverse total shoulder replacement. Stem has good fit in the humeral shaft. Proximal humerus appears to have multiple comminuted fragments somewhat splayed. No imaging available prior to surgery. Discussed x-rays with Dr. oHng who agrees with findings, and we would defer to her surgeon. Difficult to know if this was the initial reduction after the surgery. Discussed that she should keep of close follow-up with her shoulder surgeon for repeat imaging for comparison to immediate postop x-rays. No urgent intervention needed for the shoulder at this time. Regarding her left olecranon wound, there is no obvious soft tissue collection seen on the CT scan. Recommend continued wound care. May follow-up with wound care nursing or plastic surgery as needed. No orthopedic follow-up needed here in [place], as patient will follow-up with her orthopedic surgeon who did her shoulder surgery. Charges/Coding Visit Charges Inpatient E&M: 72305 Init Hosp L3
--- NOTE | 2024-01-06 12:50 | VDUE_ITS ---
Reason For Study: Left arm pain, S/P left shoulder replacement Left Proximal Left jugular vein is spontaneous, widely patent, phasic, with no intraluminal echogenicity noted. Left subclavian vein is spontaneous, widely patent, phasic, with no intraluminal echogenicity noted. Left Arm Left axillary vein is spontaneous, patent, phasic, competent, compressible and demonstrates augmentation. Left brachial vein is compressible. Left cephalic vein is compressible. Left basilic vein is compressible. Left Lower Arm Left radial vein is compressible. Left ulnar vein is compressible. Patient Safety Preliminary report given to Lizbeth DIEGO. Technically difficult, patient unable to move arm. VL/Venous Duplex US, Unilateral Interpretation Summary Deep veins of the left upper extremity are patent and compressible segmentally. There is no evidence of deep vein thrombosis. The superficial veins of the left upper extremity, the basilic and cephalic vein, are patent and compressible. There is no evidence of left upper extremity superficial thrombophlebitis involving the veins imaged. Ordering Physician: Orlando Quintero Referring Physician: Zarina Schwab M.D. Performed By: Cyndy Carrera RVT ???
--- NOTE | 2024-01-06 12:58 | PCM.CONS.GEN ---
Assessment & Plan Assessment/Plan (1) Bursitis: PLAN: Redness improved, L elbow still with diffuse swelling. Cont empiric vanc/ceftriaxone. Will follow, thank you (2) History of shoulder surgery: HPI Consult Data Date of Consult: 01/06/24 HPI Narrative Reason for Consultation: L elbow cellulitis HPI Narrative: IRINA ROSE, is a 73 F with L shoulder replacement about a week ago in [place], admitted from [facility] with anemia, weakness, dark stool. Seen by GI. Also with acute worsening L elbow wound with mild soreness, diffuse redness and swelling. No fever. Arm much less red today on vanc/ceftriaxone. Seen by ortho. Full ROS performed and neg except as noted above. REPLACED BY [facility] Medical History BPPV (benign paroxysmal positional vertigo) Smoker CPAP (continuous positive airway pressure) dependence Abscess of left thigh Alcohol abuse with alcohol-induced disorder Hyperlipidemia Atherosclerotic heart disease of [place] coronary artery without angina pectoris Endocarditis Obstructive sleep apnea Nicotine dependence in remission Home Medications ?Medication ?Instructions ?Recorded ?Last Taken ?Type cholecalciferol (vitamin D3) 50 50 mcg PO DAILY 04/19/23 Unknown History mcg (2,000 unit) capsule acetaminophen 500 mg capsule 1,000 mg PO TID pain 01/03/24 Unknown History aspirin 325 mg capsule 325 mg PO BID 01/03/24 Unknown History buspirone 5 mg tablet 5 mg PO BID anxiety 01/03/24 Unknown History folic acid 1 mg tablet 1 mg PO DAILY 01/03/24 Unknown History magnesium 200 mg tablet 400 mg PO BID 01/03/24 Unknown History tetracycline 500 mg capsule 500 mg PO Q12H uti 01/03/24 Unknown History thiamine HCl (vitamin B1) 100 mg 100 mg PO DAILY 01/03/24 Unknown History tablet Allergy/AdvReac Type Severity Reaction Status Date / Time No Known Allergies Allergy Verified 01/03/24 20:21 Family History Father CAD (coronary artery disease) Mother Liver cancer Surgical History Hx of tonsillectomy History of hysterectomy Social History household members: spouse Smoking Status: Current every day smoker tobacco type: cigarettes Tobacco: How many years used: 41 Smokeless tobacco user: other second hand exposure: No alcohol intake: current alcohol intake frequency: 3 or more drinks per day Alcohol type: hard liquor details: Drinks 1/2 of 5th 90% proof vodka daily. substance use type: does not use caffeine: Yes (4+ drinks/day) Physical Exam Const alert and no apparent distress General Appearance: cooperative HEENT normocephalic and head/scalp atraumatic Eyes PERRL and EOMs intact bilaterally Neck supple and No nodes Resp normal air movement and clear to auscultation bilaterally Cardio regular rate and regular rhythm GI soft to palpation, non-tender and non-distended Extremity Extremity Narrative: LUE General Extremity: edema Skin Skin Narrative: Improved LUE redness Neuro CN's II-XII intact bilaterally Medical Records Data Medical Nutrition Assessment Dietitian: Malnutrition Criteria Met Start: 01/04/24 14:53 Freq: Status: Active Protocol: Document 01/04/24 14:53 SB (Rec: 01/04/24 14:53 SB [id number]) Nutrition Malnutrition Evidence of Malnutrition Exists Yes Malnutrition (severe): Acute Illness/Injury Evidenced By Suboptimal Energy Intake ( Severe),Weight Loss (Severe), Physical Changes (Severe) Clinical Problem Acute Disease or Injury Related Malnutrition Etiology severe related to inadequate oral intake Signs/Symptoms as evidenced by PO meeting <50 % of estimated nutrition needs x 1 week, 8% unintentional weight loss x 1 month, and severe muscle wasting clavicle , temples, and shoulders areas . Status Active Problem Recommendation Dietitian Recommendations/Changes Recommend advanced diet as tolerated to liberal regular diet d/t signs and symptoms of malnutrition. Pt refuses ONS at this time. As diet as advanced, will order chocolate fortified pudding TID with meals. Will monitor weight, as available. Reviewed and approved by Meredith Cadet RDN, MEL. Lab / Micro Data Attestation: I reviewed the patient's lab results. 01/05/24 05:13 01/05/24 05:13 Labs: Laboratory Results - last 24 hr 01/03/24 20:25: Miscellaneous Test 01/04/24 10:46: Diff Path Review Reviewed 01/05/24 13:29: POC Glucose 88 01/05/24 16:55: ESR 44 H, Total Creatine Kinase 62, C-React Prot Ext Range 76.40 H 01/05/24 17:21: POC Glucose 89 Imaging Radiology Impression Humerus X-Ray 01/05/24 17:30 IMPRESSION: Complex and comminuted acute humeral fractures around the proximal intramedullary component of the left humerus prosthesis. Electronically Signed: Marli Ma MD at 2:09 EST Reading Location ID and State: [employer] / [place] Tel , Service support , ADDENDUM: 01/06/24 0235 IMPRESSION: Complex and comminuted acute humeral fractures around the proximal intramedullary component of the left humerus prosthesis. N.B. : GIBRAN JENKINS RN, confirmed on 01/06/2024 02:28:59 (ET) that the healthcare facility has received the radiology report. Electronically Signed: Marli Ma MD at 2:09 EST Reading Location ID and State: [employer] / [place] Tel , Service support , Shoulder X-Ray 01/05/24 17:30 IMPRESSION: Complex, distracted, comminuted acute fracture fragments involving the left shoulder-proximal humerus. Electronically Signed: Marli Ma MD at 2:11 EST Reading Location ID and State: [employer] / [place] Tel , Service support , Upper Extremity CT 01/05/24 17:55 IMPRESSION: Soft tissue swelling and soft tissue stranding, predominantly superficial. No evidence of compartment syndrome or significant fasciitis. No discrete abscess or joint effusion. Electronically Signed: Marli Ma MD at 20:13 EST Reading Location ID and State: [employer] / [place] Tel , Service support ,
--- NOTE | 2024-01-06 14:38 | PCM.PN.HOSP ---
Reason for Visit Reason for Visit: Diagnoses Acute posthemorrhagic anemia (01/03/24) Elevated white blood cell count, unspecified (01/03/24) Hypoglycemia, unspecified (01/03/24) Alcohol abuse, in remission (01/03/24) Obstructive sleep apnea (adult) (pediatric) (01/03/24) Benign paroxysmal vertigo, unspecified ear (01/03/24) Melena (01/03/24) Bursopathy, unspecified (01/03/24) Adverse effect of unspecified drugs, medicaments and biological substances, initial encounter (01/03/24) Tobacco use (01/03/24) Personal history of other diseases of the circulatory system (01/03/24) Other specified postprocedural states (01/03/24) Objective Data Objective Data Vital Signs: Vital Signs Temp Pulse Resp BP Pulse Ox O2 Del Method O2 Flow Rate 98.0 F 85 16 135/91 H 92 Room Air 2 01/06/24 08:27 01/06/24 08:27 01/06/24 08:27 01/06/24 08:27 01/06/24 08:27 01/06/24 08:30 01/05/24 14:40 Oxygen Flow Rate (L/min) 2 Oxygen Delivery Method Room Air Weight: 114 lb 6.719 oz Body Mass Index (BMI) 17.9 Intake & Output: Intake and Output for Last 24 Hours 01/04/24 01/05/24 01/06/24 23:59 23:59 23:59 Intake Total 2080 / 2580 1055 / 1295 560 / 560 Output Total 250 / 250 Balance 1830 / 2330 1055 / 1295 560 / 560 Medical Nutrition Assessment Dietitian: Malnutrition Criteria Met Start: 01/04/24 14:53 Freq: Status: Active Protocol: Document 01/04/24 14:53 SB (Rec: 01/04/24 14:53 SB [id number]) Nutrition Malnutrition Evidence of Malnutrition Exists Yes Malnutrition (severe): Acute Illness/Injury Evidenced By Suboptimal Energy Intake ( Severe),Weight Loss (Severe), Physical Changes (Severe) Clinical Problem Acute Disease or Injury Related Malnutrition Etiology severe related to inadequate oral intake Signs/Symptoms as evidenced by PO meeting <50 % of estimated nutrition needs x 1 week, 8% unintentional weight loss x 1 month, and severe muscle wasting clavicle , temples, and shoulders areas . Status Active Problem Recommendation Dietitian Recommendations/Changes Recommend advanced diet as tolerated to liberal regular diet d/t signs and symptoms of malnutrition. Pt refuses ONS at this time. As diet as advanced, will order chocolate fortified pudding TID with meals. Will monitor weight, as available. Reviewed and approved by Meredith Cadet, PATRICK, MEL. Lab / Micro Data 01/05/24 05:13 01/05/24 05:13 Labs: Laboratory Results - last 24 hr 01/03/24 20:25: Miscellaneous Test 01/04/24 10:46: Diff Path Review Reviewed 01/05/24 16:55: ESR 44 H, Total Creatine Kinase 62, C-React Prot Ext Range 76.40 H 01/05/24 17:21: POC Glucose 89 Radiography Diagnostic Testing: Radiology Impression Humerus X-Ray 01/05/24 17:30 IMPRESSION: Complex and comminuted acute humeral fractures around the proximal intramedullary component of the left humerus prosthesis. Electronically Signed: Marli Ma MD at 2:09 EST , ADDENDUM: 01/06/24 0235 IMPRESSION: Complex and comminuted acute humeral fractures around the proximal intramedullary component of the left humerus prosthesis. N.B. : GIBRAN JENKINS RN, confirmed on 01/06/2024 02:28:59 (ET) that the healthcare facility has received the radiology report. Electronically Signed: Marli Ma MD at 2:09 EST , Shoulder X-Ray 01/05/24 17:30 IMPRESSION: Complex, distracted, comminuted acute fracture fragments involving the left shoulder-proximal humerus. Electronically Signed: Marli Ma MD at 2:11 EST , Upper Extremity CT 01/05/24 17:55 IMPRESSION: Soft tissue swelling and soft tissue stranding, predominantly superficial. No evidence of compartment syndrome or significant fasciitis. No discrete abscess or joint effusion. Electronically Signed: Marli Ma MD at 20:13 EST Reading Location ID and State: [facility] / [place] Tel , Service support , Physical Exam Narrative Seen and examined. Discussed with the patient's son in the room today. Discussed the findings of the CT scan, shoulder x-ray, recommendation of plastic surgery, orthopedic surgery and ID. On Vanco and ceftriaxone. No fever. Redness is better. No melena or hematochezia or hematemesis. No abdominal pain Physical exam General: Alert, Oriented to time, place and person but not to situation, Cooperative HEENT: Atraumatic, PERRLA, EOMI, Normocephalic Oral: Oral mucosa moist. No Gingival or Mucosal Lesions/ Ulcerations Neck: Supple, No JVD, Negative Carotid Bruits Chest wall/Lungs: Air entry diminished in bilateral lung bases. No crepitation/rhonchi Cardiovascular: Regular rate, Regular Rhythm, Normal S1, Normal S2, No M/G/R Abdomen: Bowel Sounds Present, Soft, Non Tender, Non-Distended : No dysuria. No renal angle tenderness. No suprapubic tenderness. Extremities: No edema, Capillary Refill Less than 3 Seconds Skin: Chronic ulcer over left elbow point,. Bone palpable but covered with thick tendon or scab. Mild surrounding cellulitis but no active discharge Musculoskeletal: Induration and thickening of medial aspect of left arm to elbow. ROM restricted at left shoulder and elbow. No Tenderness to Palpation of Joints or Extremities Neurological: Cranial nerves II-XII grossly intact, DTR 2+/4. No acute focal neurological deficit. Psych/Mental Status: Flat affect. Amnesia. Dementia Assessment & Plan Assessment/Plan (1) Melena: (2) ABLA (acute blood loss anemia): (3) Hypoglycemia: PLAN: Plan 73-year-old female was admitted with blackish stool and found to have severe anemia from ECF. She had left shoulder replacement outside a week ago. 1. Suspected GI bleed with melanotic stools and ABLA with hemoglobin of 7g/dL and MCV of 108.2 fL present on admission possible due to aspirin- Admit to PCU. Her hemoglobin further dropped to 6.5 g and had PRBC transfusion which improved to 8.2 g%. Platelet count high, thrombocythemia 722K, 861K. Thrombocytosis is acute probably due to acute blood loss anemia. Was started on pantoprazole 40 IV twice daily, changed to 40 mg daily. GI was consulted and patient had EGD. 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 Biopsied. - No gross lesions in the stomach. - Chronic duodenitis. Biopsied. Recommendation: - Repeat upper endoscopy in 1 year for surveillance. - Use Protonix (pantoprazole) 40 mg PO daily 01/04: Hemoglobin similar to yesterday 8.0. Thrombocytosis improving. Patient had colonoscopy. Report pending. Continue holding aspirin. 2. Left shoulder replacement about a week ago in [place] and chronic left elbow ulcer present on admission with surrounding left arm cellulitis: Patient is started on IV vancomycin and ceftriaxone. Discussed with orthopedic surgeon Dr. Guan. CT of left upper extremity, elbow ordered. Left shoulder x-ray ordered. Wound nurse and plastic surgery consult. ID consult. No significant collection, try to aspirate but empty aspirate. Discussed with the daughter in detail. Patient has mild leukocytosis. 01/05: Wound culture growing strep agalactiae 2+, [employer].. Possible skin contamination. Pansensitive to ampicillin ceftriaxone and vancomycin. Patient was evaluated by orthopedic surgeon, plastic surgery and ID. CT of left upper extremity reviewed and no collection or abscess. Soft tissue swelling predominantly superficial consistent with cellulitis but no evidence of significant fasciitis or compartment syndrome or joint effusion. Plastic surgery recommended dressing with collagenase daily and follow-up with the wound clinic. No evidence of bursitis or osteomyelitis. Venous duplex of LUE negative for acute DVT. For now continue vancomycin and ceftriaxone. Discussed the above findings with the patient's son present in the room. 3. Hypoglycemia of 67 mg/dL with severe hypoalbuminemia of 1.9 g/dL present on admission suspicious for severe protein-calorie malnutrition in the setting of known previous EtOH abuse: Give D5 NS to prevent recurrence. Last glucose 78 in BMP monitor glucose every 4 hours. Hypoglycemia protocol ordered. Nutrition is consulted. 01/04: A1c 4.9%. Glucose 92. Hypoglycemia resolved. 5. Ongoing Tobacco Abuse/cigarette smoke - Tobacco Cessation was strongly encouraged with Nicotine patch offered to control cravings. 6. Recent admission here from December 18, 2023 to December 20, 2023 for requested treatment of alcohol detoxification and Left thigh abscess with cellulitis and hypokalemia of 2.8 mmol/L present on admission. Patient used to drink 1/2 fifth of 90 proof vodka daily but currently denies alcohol use.- 7. Chronic CAD, history of endocarditis, dyslipidemia: No acute issues. Home medications continued 8. KELSEY; on CPAP - Continue nocturnal CPAP as before. 9. Overactive bladder; on solifenacin - Stable. Reinitiate solifenacin once GI workup is completed. 10. Anxiety and depression: On buspirone. DVT prophylaxis - SCD's only. Pharmacological prophylaxis contraindicated Clinical Impression(s) from Imaging Studies Humerus X-Ray 01/05/24 17:30 IMPRESSION: Complex and comminuted acute humeral fractures around the proximal intramedullary component of the left humerus prosthesis. Electronically Signed: Marli Ma MD at 2:09 EST , ADDENDUM: 01/06/24 0235 IMPRESSION: Complex and comminuted acute humeral fractures around the proximal intramedullary component of the left humerus prosthesis. N.B. : GIBRAN JENKINS RN, confirmed on 01/06/2024 02:28:59 (ET) that the healthcare facility has received the radiology report. Electronically Signed: Marli Ma MD at 2:09 EST , Shoulder X-Ray 01/05/24 17:30 IMPRESSION: Complex, distracted, comminuted acute fracture fragments involving the left shoulder-proximal humerus. Electronically Signed: Marli Ma MD at 2:11 EST Reading Location ID and State: [id number] / [place] Tel , Service support , Upper Extremity CT 01/05/24 17:55 IMPRESSION: Soft tissue swelling and soft tissue stranding, predominantly superficial. No evidence of compartment syndrome or significant fasciitis. No discrete abscess or joint effusion. Electronically Signed: Marli Ma MD at 20:13 EST , Laboratory Results 01/03/24 20:25: WBC 11.6 H, RBC 2.01 L, Hgb 7.0 L, Hct 21.7 L, MCV 108.0 H, MCH 34.8 H, MCHC 32.3, RDW Std Deviation 74.9 H, RDW Coeff of Marc 19.0 H, Plt Count 722 H, MPV 10.5, Immature Gran % (Auto) 0.900, Neut % (Auto) 73.0 H, Lymph % (Auto) 16.4 L, [place] % (Auto) 8.7, Eos % (Auto) 0.6, Baso % (Auto) 0.4, Absolute Neuts (auto) 8.5 H, Absolute Lymphs (auto) 1.90, Nucleated RBC % 0, Differential Comment , Platelet Estimate MKD INC, Plt Morphology Comment CLUMPED, Hypochromasia 2+, Anisocytosis 2+, PT 14.1, INR 1.1, Sodium 135 L, Potassium 4.6, Chloride 103, Carbon Dioxide 25.0, Anion Gap 7, BUN 14, Creatinine 0.57, Estim Creat Clear Calc 51.81, Est GFR (MDRD) Af Amer 133, Est GFR (MDRD) Non-Af 110, BUN/Creatinine Ratio 24.4 H, Glucose 67 L, Hemoglobin A1c Cancelled, Calcium 8.6, Iron 20 L, TIBC 181 L, Iron Saturation 11.0 L, Ferritin 424 H, Total Bilirubin 0.50, AST 22, ALT 7 L, Alkaline Phosphatase 156 H, Total Protein 6.1 L, Albumin 1.9 L, Globulin 4.2, Albumin/Globulin Ratio 0.5 L, Folate 13.50, Miscellaneous Test Pending 01/03/24 21:05: Blood Type A POSITIVE, Antibody Screen NEGATIVE, Crossmatch See Detail 01/04/24 05:30: Urine Color Yellow, Urine Clarity Clear, Urine pH 6.0, Ur Specific [place] 1.020, Urine Protein 15 H, Urine Glucose (UA) Normal, Urine Ketones 50 H, Urine Occult Blood Negative, Urine Nitrite Negative, Urine Bilirubin Negative, Urine Urobilinogen Normal, Ur Leukocyte Esterase 25 H, Urine RBC 0 SEEN, Urine WBC 0-5 SEEN, Ur Squamous Epith Cells 0 SEEN, Urine Bacteria 0 SEEN, Urine Mucus 0 SEEN, Urine Opiates Screen POSITIVE H, Urine Methadone Screen NEGATIVE, Ur Barbiturates Screen NEGATIVE, Ur Phencyclidine Scrn NEGATIVE, Ur Amphetamines Screen NEGATIVE, MDMA (Ecstasy) Screen NEGATIVE, U Benzodiazepines Scrn NEGATIVE, Urine Cocaine Screen NEGATIVE, U Cannabinoids Screen NEGATIVE, Ur Drug Screen Comment 01/04/24 05:51: WBC 10.1, RBC 1.88 L, Hgb 6.5 L, Hct 20.2 L, MCV 107.4 H, MCH 34.6 H, MCHC 32.2, RDW Std Deviation 75.1 H, RDW Coeff of Marc 18.7 H, Plt Count 861 H*, MPV 8.8, Immature Gran % (Auto) 0.500, Neut % (Auto) 70.3 H, Lymph % (Auto) 16.3 L, [place] % (Auto) 11.2 H, Eos % (Auto) 1.1, Baso % (Auto) 0.6, Absolute Neuts (auto) 7.1, Absolute Lymphs (auto) 1.65, Nucleated RBC % 0, Diff Path Review Reviewed, Platelet Estimate MKD INC, Anisocytosis 2+, Stomatocytes 2+, Sodium 135 L, Potassium 3.8, Chloride 104, Carbon Dioxide 24.0, Anion Gap 7, BUN 13, Creatinine 0.58, Estim Creat Clear Calc 45.98, Est GFR (MDRD) Af Amer 130, Est GFR (MDRD) Non-Af 107, BUN/Creatinine Ratio 22.2 H, Glucose 78, Calcium 8.0 L, Phosphorus 3.4, Magnesium 1.6, Total Bilirubin 0.60, Direct Bilirubin 0.21, AST 19, ALT 7 L, Alkaline Phosphatase 143 H, Total Protein 5.7 L, Albumin 1.8 L, Globulin 3.9, Albumin/Globulin Ratio 0.5 L, Vitamin B12 653, TSH 1.540, Ethyl Alcohol < 3.0, Hepatitis A IgM Ab Pending, Hep Bs Antigen Pending, Hep B Core IgM Ab Pending, Hepatitis C Ab (EIA) Pending 01/04/24 10:46: WBC 10.7, RBC 2.47 L, Hgb 8.2 L, Hct 25.0 L, MCV 101.2 H D, MCH 33.2 H, MCHC 32.8, RDW Std Deviation 74.6 H, RDW Coeff of Marc 20.2 H, Plt Count 799 H*, MPV 8.9, Immature Gran % (Auto) 0.800, Neut % (Auto) 73.3 H, Lymph % (Auto) 13.7 L, [place] % (Auto) 10.8 H, Eos % (Auto) 0.7, Baso % (Auto) 0.7, Absolute Neuts (auto) 7.9 H, Absolute Lymphs (auto) 1.47, Nucleated RBC % 0, Diff Path Review May fco, Platelet Estimate MKD INC, Anisocytosis 1+
[2024-01-06 15:00] VITALS: BP 123/75; PULSE 97; RESP 18; TEMP 36.8; O2SAT 93
[2024-01-06] MEDS: Acetaminophen 325 MG Tablet 650 MG PO ×2 (15:04→21:06)
[2024-01-06 15:36] LABS: Absolute Lymphocyte Count 0.75 X10^3/uL (0.83-4.51); Absolute Neutrophil Count 8.3 X10^3/uL (2.0-7.7); Basophil# 0.06 X10^3/uL; Basophil% 0.6 % (0-1); Eosinophil# 0.14 X10^3/uL; Eosinophils% 1.4 % (0-5); Hematocrit 26.7 % (37-47); Hemoglobin 8.7 g/dL (12.0-15.0); Lymphocyte # 0.75 X10^3/ul (0.83-4.51); Lymphocyte % 7.3 % (19-41); Mean Corp Hgb Conc 32.6 g/dL (32-36); Mean Corpuscular Hgb 33.9 pg (27.0-32.0); Mean Corpuscular Volume 103.9 fL (81-99); Mean Platelet Vol. 8.7 fl (6.2-12.0); Monocyte# 0.84 X10^3/uL; Monocyte% 8.2 % (0-10); NRBC Flagged by Analyzer 0 % (0-5); Neutrophil # 8.32 X10^3/uL (2.7-7.7); Neutrophil % 81.3 % (47-70); POSITIVE MORPHOLOGY YES; Platelet Count 676 K/mm3 (150-450); RBC Distribution Width CV 19.9 % (11.6-14.6); RBC Distribution Width SD 75.9 fl (35.1-43.9); Red Blood Count 2.57 M/mm3 (4.2-5.4); White Blood Count 10.2 K/mm3 (4.4-11.0)
[2024-01-06 15:47] LABS: Differential Indicated SCAN CRITERIA MET
[2024-01-06 16:07] LABS: Anion Gap 7 (5-15); BUN 8 mg/dL (7-18); BUN/Creat Ratio 9.4 RATIO (10-20); Calcium,Total 8.3 mg/dL (8.5-10.1); Chloride 105 mmol/L (98-107); Creatinine, Serum 0.85 mg/dL (0.55-1.02); EST Glomerular Filtration Rate 70 mL/min (>60); Est Glom Filt Rate - Afr Amer 85 mL/min (>60); Glucose 147 mg/dL (74-106); Sodium Level 136 mmol/L (136-145)
[2024-01-06 16:45] LABS: Anisocytosis 1+; Macrocytosis 1+; Platelet Estimate MOD INC (ADEQ); Red Cell Morphology N CHROM NORMAL (NORM C&C)
--- NOTE | 2024-01-06 17:02 | PCM.POSTANE2 ---
Anesthesia Postop Eval I Sum Postop Eval Completion status Anesthesia document: Postop Eval 1 completed: Yes Anesthesia Postop Eval I Summary Anesthesia Postop Eval I Summary: Anesthesia Postop Eval I: Assessment Summary Airway patent Yes 01/05/24 15:27 [email or web address] Spontaneous unlabored Yes 01/05/24 15:27 [email or web address] respirations Mental status Awake,Calm 01/05/24 15:27 [email or web address] nausea No 01/05/24 15:27 [email or web address] Vomiting No 01/05/24 15:27 [email or web address] Anesthesia Postop Eval I: Fluid Summary Crystalloid volume administer 60 01/05/24 15:27 [email or web address] (ml) Colloids volume administered ( ml) Blood Product volume administered (ml) Total IV fluid infused 60 01/05/24 15:27 [email or web address] Anesthesia Postop Eval I: Summary Notes Anesthesia Complication No 01/05/24 15:27 [email or web address] Anesthesia Complication Comment: Post-operative progress note Anesthesia: Postop Eval II Evaluation Mental status: Awake and Calm Pain Level: 0 nausea: No Vomiting: No Complications Anesthesia Complication: No
--- NOTE | 2024-01-06 17:04 | ANES.CONFIRM ---
Anesthesia: Confirm Documents Multiple Procedures on Account (2) Confirmed Documents: Yes
[2024-01-06 21:03] VITALS: BP 115/82; PULSE 88; RESP 18; TEMP 36.8; O2SAT 95
[2024-01-07 00:15] LABS: M R Staph aureus DNA By PCR Negative (Negative); Probe Check PASS; Specimen Processing Control PASS; Staph aureus DNA By PCR NEGATIVE (Negative)
[2024-01-07] MEDS: Acetaminophen 325 MG Tablet 650 MG PO (03:52)
[2024-01-07 04:00] VITALS: BP 129/70; PULSE 88; RESP 16; TEMP 36.9; O2SAT 94
[2024-01-07 05:46] LABS: Absolute Lymphocyte Count 0.59 X10^3/uL (0.83-4.51); Absolute Neutrophil Count 6.3 X10^3/uL (2.0-7.7); Basophil# 0.06 X10^3/uL; Basophil% 0.7 % (0-1); Eosinophils% 2.4 % (0-5); Hematocrit 24.3 % (37-47); Hemoglobin 7.7 g/dL (12.0-15.0); Lymphocyte # 0.59 X10^3/ul (0.83-4.51); Mean Corp Hgb Conc 31.7 g/dL (32-36); Mean Corpuscular Volume 104.3 fL (81-99); Monocyte# 1.13 X10^3/uL; Monocyte% 13.5 % (0-10); NRBC Flagged by Analyzer 0 % (0-5); Neutrophil # 6.31 X10^3/uL (2.7-7.7); Neutrophil % 75.2 % (47-70); POSITIVE DIFFERENTIAL YES; POSITIVE MORPHOLOGY YES; Platelet Count 648 K/mm3 (150-450); RBC Distribution Width CV 19.9 % (11.6-14.6); RBC Distribution Width SD 74.8 fl (35.1-43.9); Red Blood Count 2.33 M/mm3 (4.2-5.4); White Blood Count 8.4 K/mm3 (4.4-11.0)
[2024-01-07 05:52] LABS: Differential Indicated SCAN CRITERIA MET
[2024-01-07 06:02] LABS: Anion Gap 6 (5-15); BUN 6 mg/dL (7-18); BUN/Creat Ratio 8.6 RATIO (10-20); Calcium,Total 8.3 mg/dL (8.5-10.1); Chloride 107 mmol/L (98-107); EST Glomerular Filtration Rate 87 mL/min (>60); Est Glom Filt Rate - Afr Amer 106 mL/min (>60); Estimated Creatinine Clearance 51.31 ml/min; Glucose 80 mg/dL (74-106); Potassium 3.7 mmol/L (3.5-5.1); Sodium Level 139 mmol/L (136-145)
[2024-01-07 06:23] LABS: Anisocytosis 1+; Differential Comment SCANNED; Platelet Estimate SLT INC (ADEQ); Polychromasia 1+
[2024-01-07 06:53] VITALS: BMI 17.5
[2024-01-07 09:53] VITALS: BP 105/66; PULSE 92; RESP 16; TEMP 36.7; O2SAT 98
[2024-01-07] MEDS: Magnesium Chloride 64 MG Delay Rel.Tablet 128 MG PO ×2 (09:55→17:46)
[2024-01-07] MEDS: Thiamine Hydrochloride 100 MG Tablet PO (09:55)
[2024-01-07] MEDS: busPIRone 5 MG Tablet PO ×2 (09:55→22:00)
[2024-01-07] MEDS: Folic Acid 1 MG Tablet PO (09:55)
[2024-01-07] MEDS: Cholecalciferol (VIT D3) 25 MCG TABLET (1,000 UNITS) 50 MCG PO (09:56)
[2024-01-07] MEDS: Pantoprazole Sodium 40 MG Tablet PO (09:56)
[2024-01-07] MEDS: Menthol/Lanolin/Calamine/Znox 113 GM Tube 1 APPLIC TOPICAL ×2 (09:57→22:01)
[2024-01-07] MEDS: Collagenase 30gm Tube 1 APPLIC TOPICAL (09:57)
[2024-01-07] MEDS: Ceftriaxone 1 GM/50 ML BAG IV (10:04)
[2024-01-07] MEDS: 0.9% Saline Lock 10 ML Syringe IV ×2 (10:04→22:35)
[2024-01-07 10:13] VITALS: O2SAT 98
[2024-01-07 12:05] LABS: Vancomycin, Trough Level 9.8 ug/mL (5.0-15.0)
--- NOTE | 2024-01-07 12:24 | PHA.PHARE_ITS ---
Consult Antibiotic Management Pharmacy has been consulted to manage selected antibiotic: Vancomycin Type of Intervention Type of Consult: Follow-up Labs Labs: Sodium 139 mmol/L (136-145) 01/07/24 04:25 Potassium 3.7 mmol/L (3.5-5.1) 01/07/24 04:25 Chloride 107 mmol/L (98-107) 01/07/24 04:25 Carbon Dioxide 26.0 mmol/L (21.0-32.0) 01/07/24 04:25 Anion Gap 6 (5-15) 01/07/24 04:25 BUN 6 mg/dL (7-18) L 01/07/24 04:25 Creatinine 0.70 mg/dL (0.55-1.02) 01/07/24 04:25 Est GFR (MDRD) Af Amer 106 mL/min (>60) 01/07/24 04:25 Est GFR (MDRD) Non-Af 87 mL/min (>60) 01/07/24 04:25 BUN/Creatinine Ratio 8.6 RATIO (10-20) L 01/07/24 04:25 Glucose 80 mg/dL (74-106) 01/07/24 04:25 Vancomycin Trough 9.8 ug/mL (5.0-15.0) 01/07/24 11:20 Pharmacy Plan for Drug Dosing Pharmacy Plan for Drug Dosing: VANCOMYCIN LEVEL RECEIVED Current Vancomycin Dose: 1000MG Q24H Number of Doses Received: 2 Vancomycin Level: 9.8 mg/dL Hours Since Last Dose: 23 Renal Function: Scr 0.7 mg/dL, CrCl 51 mL/min Renal Function Trend: stable Lab/Micro: none Vancomycin Plan/Comments: 23 hour trough is subtherapeutic at 9.8mg/dL (goal 15- 20). Will increase dose to 1750mg Q24 and get a trough prior to 3rd dose of new regimen. Pending Level: 01/09/24 @ 1200 Pharmacy Service will continue to monitor and adjust dosing as required.
[2024-01-07] MEDS: Vancomycin HCl 1,750 MG in 0.9% Normal Saline (500mL Bag) 500 ML 250 MG IV (12:54)
--- NOTE | 2024-01-07 14:28 | PCM.PN.HOSP ---
Reason for Visit Reason for Visit: Diagnoses Acute posthemorrhagic anemia (01/03/24) Elevated white blood cell count, unspecified (01/03/24) Hypoglycemia, unspecified (01/03/24) Alcohol abuse, in remission (01/03/24) Obstructive sleep apnea (adult) (pediatric) (01/03/24) Benign paroxysmal vertigo, unspecified ear (01/03/24) Melena (01/03/24) Bursopathy, unspecified (01/03/24) Adverse effect of unspecified drugs, medicaments and biological substances, initial encounter (01/03/24) Tobacco use (01/03/24) Personal history of other diseases of the circulatory system (01/03/24) Presence of left artificial shoulder joint (01/03/24) Other specified postprocedural states (01/03/24) Objective Data Objective Data Vital Signs: Vital Signs Temp Pulse Resp BP Pulse Ox O2 Del Method O2 Flow Rate 98.0 F 92 16 105/66 98 Room Air 2 01/07/24 09:53 01/07/24 09:53 01/07/24 09:53 01/07/24 09:53 01/07/24 10:13 01/07/24 14:00 01/05/24 14:40 Oxygen Flow Rate (L/min) 2 Oxygen Delivery Method Room Air Weight: 112 lb 3.445 oz Body Mass Index (BMI) 17.5 Intake & Output: Intake and Output for Last 24 Hours 01/05/24 01/06/24 01/07/24 23:59 23:59 23:59 Intake Total 1055 / 1295 1540 / 1540 590 / 590 Balance 1055 / 1295 1540 / 1540 590 / 590 Medical Nutrition Assessment Dietitian: Malnutrition Criteria Met Start: 01/04/24 14:53 Freq: Status: Active Protocol: Document 01/04/24 14:53 SB (Rec: 01/04/24 14:53 SB [id number]) Nutrition Malnutrition Evidence of Malnutrition Exists Yes Malnutrition (severe): Acute Illness/Injury Evidenced By Suboptimal Energy Intake ( Severe),Weight Loss (Severe), Physical Changes (Severe) Clinical Problem Acute Disease or Injury Related Malnutrition Etiology severe related to inadequate oral intake Signs/Symptoms as evidenced by PO meeting <50 % of estimated nutrition needs x 1 week, 8% unintentional weight loss x 1 month, and severe muscle wasting clavicle , temples, and shoulders areas . Status Active Problem Recommendation Dietitian Recommendations/Changes Recommend advanced diet as tolerated to liberal regular diet d/t signs and symptoms of malnutrition. Pt refuses ONS at this time. As diet as advanced, will order chocolate fortified pudding TID with meals. Will monitor weight, as available. Reviewed and approved by Meredith Cadet RDN, MEL. Lab / Micro Data 01/07/24 04:25 01/07/24 04:25 Labs: Laboratory Results - last 24 hr 01/03/24 21:05: Crossmatch See Detail 01/06/24 11:10: S.aureus Protein A PCR NEGATIVE, MRSA (PCR) Negative 01/06/24 15:25: WBC 10.2, RBC 2.57 L, Hgb 8.7 L, Hct 26.7 L, MCV 103.9 H, MCH 33.9 H, MCHC 32.6, RDW Std Deviation 75.9 H, RDW Coeff of Marc 19.9 H, Plt Count 676 H, MPV 8.7, Immature Gran % (Auto) 1.200 H, Neut % (Auto) 81.3 H, Lymph % (Auto) 7.3 L, [place] % (Auto) 8.2, Eos % (Auto) 1.4, Baso % (Auto) 0.6, Absolute Neuts (auto) 8.3 H, Absolute Lymphs (auto) 0.75 L, Nucleated RBC % 0, Platelet Estimate MOD INC, RBC Morphology N CHROM, Anisocytosis 1+, Macrocytosis 1+, Sodium 136, Potassium 4.0, Chloride 105, Carbon Dioxide 24.0, Anion Gap 7, BUN 8, Creatinine 0.85, Estim Creat Clear Calc 48.30, Est GFR (MDRD) Af Amer 85, Est GFR (MDRD) Non-Af 70, BUN/Creatinine Ratio 9.4 L, Glucose 147 H, Calcium 8.3 L 01/07/24 04:25: WBC 8.4, RBC 2.33 L, Hgb 7.7 L, Hct 24.3 L, MCV 104.3 H, MCH 33.0 H, MCHC 31.7 L, RDW Std Deviation 74.8 H, RDW Coeff of Marc 19.9 H, Plt Count 648 H, MPV 9.0, Immature Gran % (Auto) 1.200 H, Neut % (Auto) 75.2 H, Lymph % (Auto) 7.0 L, [place] % (Auto) 13.5 H, Eos % (Auto) 2.4, Baso % (Auto) 0.7, Absolute Neuts (auto) 6.3, Absolute Lymphs (auto) 0.59 L, Nucleated RBC % 0, Differential Comment SCANNED, Platelet Estimate SLT INC, Polychromasia 1+, Anisocytosis 1+, Sodium 139, Potassium 3.7, Chloride 107, Carbon Dioxide 26.0, Anion Gap 6, BUN 6 L, Creatinine 0.70, Estim Creat Clear Calc 51.31, Est GFR (MDRD) Af Amer 106, Est GFR (MDRD) Non-Af 87, BUN/Creatinine Ratio 8.6 L, Glucose 80, Calcium 8.3 L 01/07/24 11:20: Vancomycin Trough 9.8 Radiography Diagnostic Testing: Radiology Impression Venous Doppler Study 01/06/24 12:50 Interpretation Summary Deep veins of the left upper extremity are patent and compressible segmentally. There is no evidence of deep vein thrombosis. The superficial veins of the left upper extremity, the basilic and cephalic vein, are patent and compressible. There is no evidence of left upper extremity superficial thrombophlebitis involving the veins imaged. Ordering Physician: Orlando Quintero Referring Physician: Zarina Schwab M.D. Performed By: Cyndy Carrera RVT ??? Physical Exam Narrative Seen and examined. Discussed with the patient's son and daughter in the room today. Patient is doing well. No acute complaint. No fever. Redness is better. No melena or hematochezia or hematemesis. No abdominal pain Physical exam General: Alert, Oriented to time, place and person but not to situation, Cooperative HEENT: Atraumatic, PERRLA, EOMI, Normocephalic Oral: Oral mucosa moist. No Gingival or Mucosal Lesions/ Ulcerations Neck: Supple, No JVD, Negative Carotid Bruits Chest wall/Lungs: Air entry diminished in bilateral lung bases. No crepitation/rhonchi Cardiovascular: Regular rate, Regular Rhythm, Normal S1, Normal S2, No M/G/R Abdomen: Bowel Sounds Present, Soft, Non Tender, Non-Distended : No dysuria. No renal angle tenderness. No suprapubic tenderness. Extremities: No edema, Capillary Refill Less than 3 Seconds Skin: Chronic ulcer over left elbow point, healing covered with a dressing. Mild surrounding cellulitis but no active discharge improving Musculoskeletal: Induration and thickening of medial aspect of left arm to elbow, improving. ROM restricted at left shoulder and elbow. No Tenderness to Palpation of Joints or Extremities Neurological: Cranial nerves II-XII grossly intact, DTR 2+/4. No acute focal neurological deficit. Psych/Mental Status: Flat affect. Amnesia. Dementia Assessment & Plan Assessment/Plan (1) Melena: (2) ABLA (acute blood loss anemia): (3) Hypoglycemia: PLAN: Plan 73-year-old female was admitted with blackish stool and found to have severe anemia from ECF. She had left shoulder replacement outside a week ago. 1. Suspected GI bleed with melanotic stools and ABLA with hemoglobin of 7g/dL and MCV of 108.2 fL present on admission possible due to aspirin- Admit to PCU. Her hemoglobin further dropped to 6.5 g and had PRBC transfusion which improved to 8.2 g%. Platelet count high, thrombocythemia 722K, 861K. Thrombocytosis is acute probably due to acute blood loss anemia. Was started on pantoprazole 40 IV twice daily, changed to 40 mg daily. GI was consulted and patient had EGD. 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 Biopsied. - No gross lesions in the stomach. - Chronic duodenitis. Biopsied. Recommendation: - Repeat upper endoscopy in 1 year for surveillance. - Use Protonix (pantoprazole) 40 mg PO daily 01/04: Hemoglobin similar to yesterday 8.0. Thrombocytosis improving. Patient had colonoscopy. Report pending. Continue holding aspirin. 01/06: H&H 7.7/24.3%. Macrocytic but RDW elevated. Iron study shows low serum iron, TIBC, iron saturation 11% but ferritin elevated 424. IV iron ordered 2. Left shoulder replacement about a week ago in [place] and chronic left elbow ulcer present on admission with surrounding left arm cellulitis: Patient is started on IV vancomycin and ceftriaxone. Discussed with orthopedic surgeon Dr. Guan. CT of left upper extremity, elbow ordered. Left shoulder x-ray ordered. Wound nurse and plastic surgery consult. ID consult. No significant collection, try to aspirate but empty aspirate. Discussed with the daughter in detail. Patient has mild leukocytosis. 01/05: Wound culture growing strep agalactiae 2+, [employer].. Possible skin contamination. Pansensitive to ampicillin ceftriaxone and vancomycin. Patient was evaluated by orthopedic surgeon, plastic surgery and ID. CT of left upper extremity reviewed and no collection or abscess. Soft tissue swelling predominantly superficial consistent with cellulitis but no evidence of significant fasciitis or compartment syndrome or joint effusion. Plastic surgery recommended dressing with collagenase daily and follow-up with the wound clinic. No evidence of bursitis or osteomyelitis. Venous duplex of LUE negative for acute DVT. For now continue vancomycin and ceftriaxone. Discussed the above findings with the patient's son present in the room. 01/06: Cellulitis is better. Venous duplex negative for acute DVT. Vancomycin changed to doxycycline. Continue IV ceftriaxone 3. Hypoglycemia of 67 mg/dL with severe hypoalbuminemia of 1.9 g/dL present on admission suspicious for severe protein-calorie malnutrition in the setting of known previous EtOH abuse: Give D5 NS to prevent recurrence. Last glucose 78 in [facility] monitor glucose every 4 hours. Hypoglycemia protocol ordered. Nutrition is consulted. 01/04: A1c 4.9%. Glucose 92. Hypoglycemia resolved. 5. Ongoing Tobacco Abuse/cigarette smoke - Tobacco Cessation was strongly encouraged with Nicotine patch offered to control cravings. 6. Recent admission here from December 18, 2023 to December 20, 2023 for requested treatment of alcohol detoxification and Left thigh abscess with cellulitis and hypokalemia of 2.8 mmol/L present on admission. Patient used to drink 1/2 fifth of 90 proof vodka daily but currently denies alcohol use.- 7. Chronic CAD, history of endocarditis, dyslipidemia: No acute issues. Home medications continued 8. KELSEY; on CPAP - Continue nocturnal CPAP as before. 9. Overactive bladder; on solifenacin - Stable. Reinitiate solifenacin once GI workup is completed. 10. Anxiety and depression: On buspirone. DVT prophylaxis - SCD's only. Pharmacological prophylaxis contraindicated Pre-CERT is pending. Might get discharged to [facility] on Tuesday Clinical Impression(s) from Imaging Studies Humerus X-Ray 01/05/24 17:30 IMPRESSION: Complex and comminuted acute humeral fractures around the proximal intramedullary component of the left humerus prosthesis. Electronically Signed: Marli Ma MD at 2:09 EST , ADDENDUM: 01/06/24 0235 IMPRESSION: Complex and comminuted acute humeral fractures around the proximal intramedullary component of the left humerus prosthesis. N.B. : GIBRAN JENKINS RN, confirmed on 01/06/2024 02:28:59 (ET) that the healthcare facility has received the radiology report. Electronically Signed: Marli Ma MD at 2:09 EST , Shoulder X-Ray 01/05/24 17:30 IMPRESSION: Complex, distracted, comminuted acute fracture fragments involving the left shoulder-proximal humerus. Electronically Signed: Marli Ma MD at 2:11 EST Reading Location ID and State: [email or web address] / [place] Tel , Service support , Upper Extremity CT 01/05/24 17:55 IMPRESSION: Soft tissue swelling and soft tissue stranding, predominantly superficial. No evidence of compartment syndrome or significant fasciitis. No discrete abscess or joint effusion. Electronically Signed: Marli Ma MD at 20:13 EST Reading Location ID and State: [email or web address] / [place] Tel , Service support , Laboratory Results 01/03/24 20:25: WBC 11.6 H, RBC 2.01 L, Hgb 7.0 L, Hct 21.7 L, MCV 108.0 H, MCH 34.8 H, MCHC 32.3, RDW Std Deviation 74.9 H, RDW Coeff of Marc 19.0 H, Plt Count 722 H, MPV 10.5, Immature Gran % (Auto) 0.900, Neut % (Auto) 73.0 H, Lymph % (Auto) 16.4 L, [place] % (Auto) 8.7, Eos % (Auto) 0.6, Baso % (Auto) 0.4, Absolute Neuts (auto) 8.5 H, Absolute Lymphs (auto) 1.90, Nucleated RBC % 0, Differential Comment , Platelet Estimate MKD INC, Plt Morphology Comment CLUMPED, Hypochromasia 2+, Anisocytosis 2+, PT 14.1, INR 1.1, Sodium 135 L, Potassium 4.6, Chloride 103, Carbon Dioxide 25.0, Anion Gap 7, BUN 14, Creatinine 0.57, Estim Creat Clear Calc 51.81, Est GFR (MDRD) Af Amer 133, Est GFR (MDRD) Non-Af 110, BUN/Creatinine Ratio 24.4 H, Glucose 67 L, Hemoglobin A1c Cancelled, Calcium 8.6, Iron 20 L, TIBC 181 L, Iron Saturation 11.0 L, Ferritin 424 H, Total Bilirubin 0.50, AST 22, ALT 7 L, Alkaline Phosphatase 156 H, Total Protein 6.1 L, Albumin 1.9 L, Globulin 4.2, Albumin/Globulin Ratio 0.5 L, Folate 13.50, Miscellaneous Test Pending 01/03/24 21:05: Blood Type A POSITIVE, Antibody Screen NEGATIVE, Crossmatch See Detail 01/04/24 05:30: Urine Color Yellow, Urine Clarity Clear, Urine pH 6.0, Ur Specific Bode 1.020, Urine Protein 15 H, Urine Glucose (UA) Normal, Urine Ketones 50 H, Urine Occult Blood Negative, Urine Nitrite Negative, Urine Bilirubin Negative, Urine Urobilinogen Normal, Ur Leukocyte Esterase 25 H, Urine RBC 0 SEEN, Urine WBC 0-5 SEEN, Ur Squamous Epith Cells 0 SEEN, Urine Bacteria 0 SEEN, Urine Mucus 0 SEEN, Urine Opiates Screen POSITIVE H, Urine Methadone Screen NEGATIVE, Ur Barbiturates Screen NEGATIVE, Ur Phencyclidine Scrn NEGATIVE, Ur Amphetamines Screen NEGATIVE, MDMA (Ecstasy) Screen NEGATIVE, U Benzodiazepines Scrn NEGATIVE, Urine Cocaine Screen NEGATIVE, U Cannabinoids Screen NEGATIVE, Ur Drug Screen Comment 01/04/24 05:51: WBC 10.1, RBC 1.88 L, Hgb 6.5 L, Hct 20.2 L, MCV 107.4 H, MCH 34.6 H, MCHC 32.2, RDW Std Deviation 75.1 H, RDW Coeff of Marc 18.7 H, Plt Count 861 H*, MPV 8.8, Immature Gran % (Auto) 0.500, Neut % (Auto) 70.3 H, Lymph % (Auto) 16.3 L, [place] % (Auto) 11.2 H, Eos % (Auto) 1.1, Baso % (Auto) 0.6, Absolute Neuts (auto) 7.1, Absolute Lymphs (auto) 1.65, Nucleated RBC % 0, Diff Path Review Reviewed, Platelet Estimate MKD INC, Anisocytosis 2+, Stomatocytes 2+, Sodium 135 L, Potassium 3.8, Chloride 104, Carbon Dioxide 24.0, Anion Gap 7, BUN 13, Creatinine 0.58, Estim Creat Clear Calc 45.98, Est GFR (MDRD) Af Amer 130, Est GFR (MDRD) Non-Af 107, BUN/Creatinine Ratio 22.2 H, Glucose 78, Calcium 8.0 L, Phosphorus 3.4, Magnesium 1.6, Total Bilirubin 0.60, Direct Bilirubin 0.21, AST 19, ALT 7 L, Alkaline Phosphatase 143 H, Total Protein 5.7 L, Albumin 1.8 L, Globulin 3.9, Albumin/Globulin Ratio 0.5 L, Vitamin B12 653, TSH 1.540, Ethyl Alcohol < 3.0, Hepatitis A IgM Ab Pending, Hep Bs Antigen Pending, Hep B Core IgM Ab Pending, Hepatitis C Ab (EIA) Pending 01/04/24 10:46: WBC 10.7, RBC 2.47 L, Hgb 8.2 L, Hct 25.0 L, MCV 101.2 H D, MCH 33.2 H, MCHC 32.8, RDW Std Deviation 74.6 H, RDW Coeff of Marc 20.2 H, Plt Count 799 H*, MPV 8.9, Immature Gran % (Auto) 0.800, Neut % (Auto) 73.3 H, Lymph % (Auto) 13.7 L, [place] % (Auto) 10.8 H, Eos % (Auto) 0.7, Baso % (Auto) 0.7, Absolute Neuts (auto) 7.9 H, Absolute Lymphs (auto) 1.47, Nucleated RBC % 0, Diff Path Review May fco, Platelet Estimate MKD INC, Anisocytosis 1+ Charges/Coding Visit Charges Inpatient E&M: 06417 Subs Hosp L2
[2024-01-07 14:36] VITALS: BP 132/79; PULSE 94; RESP 12; TEMP 36.8; O2SAT 97
[2024-01-07] MEDS: Sodium Ferric Gluconat/Sucrose 250 MG in 0.9% Normal Saline (250mL Bag) 250 ML 135 MG IV (15:20)
[2024-01-07] MEDS: Doxycycline 100 MG CAPSULE PO (22:04)
[2024-01-07 22:27] VITALS: BP 141/100; PULSE 93; RESP 20; TEMP 36.7; O2SAT 93
[2024-01-08 05:05] VITALS: BP 140/81; PULSE 85; RESP 18; TEMP 36.8; O2SAT 92
[2024-01-08] MEDS: Acetaminophen 325 MG Tablet 650 MG PO (05:10)
[2024-01-08] MEDS: Collagenase 30gm Tube 1 APPLIC TOPICAL (05:11)
[2024-01-08 05:19] VITALS: BMI 18.8
[2024-01-08 06:16] LABS: Absolute Lymphocyte Count 1.14 X10^3/uL (0.83-4.51); Basophil# 0.08 X10^3/uL; Basophil% 1.1 % (0-1); Eosinophil# 0.27 X10^3/uL; Eosinophils% 3.6 % (0-5); Hematocrit 24.2 % (37-47); Lymphocyte # 1.14 X10^3/ul (0.83-4.51); Lymphocyte % 15.3 % (19-41); Mean Corp Hgb Conc 33.1 g/dL (32-36); Mean Corpuscular Hgb 34.2 pg (27.0-32.0); Mean Corpuscular Volume 103.4 fL (81-99); Mean Platelet Vol. 9.4 fl (6.2-12.0); Monocyte# 0.88 X10^3/uL; Monocyte% 11.8 % (0-10); NRBC Flagged by Analyzer 0 % (0-5); Neutrophil # 5.02 X10^3/uL (2.7-7.7); Neutrophil % 67.3 % (47-70); POSITIVE MORPHOLOGY YES; Platelet Count 646 K/mm3 (150-450); RBC Distribution Width CV 19.4 % (11.6-14.6); RBC Distribution Width SD 73.2 fl (35.1-43.9); Red Blood Count 2.34 M/mm3 (4.2-5.4); White Blood Count 7.5 K/mm3 (4.4-11.0)
[2024-01-08 06:21] LABS: Differential Indicated SCAN CRITERIA MET
[2024-01-08 06:54] LABS: Anisocytosis 1+; Platelet Estimate MOD INC (ADEQ)
--- NOTE | 2024-01-08 08:05 | PN.HOSP_ITS ---
Reason for Visit Reason for Visit: Diagnoses Acute posthemorrhagic anemia (01/03/24) Elevated white blood cell count, unspecified (01/03/24) Hypoglycemia, unspecified (01/03/24) Alcohol abuse, in remission (01/03/24) Obstructive sleep apnea (adult) (pediatric) (01/03/24) Benign paroxysmal vertigo, unspecified ear (01/03/24) Melena (01/03/24) Bursopathy, unspecified (01/03/24) Adverse effect of unspecified drugs, medicaments and biological substances, initial encounter (01/03/24) Tobacco use (01/03/24) Personal history of other diseases of the circulatory system (01/03/24) Presence of left artificial shoulder joint (01/03/24) Other specified postprocedural states (01/03/24) Objective Data Objective Data Vital Signs: Vital Signs Temp Pulse Resp BP Pulse Ox O2 Del Method O2 Flow Rate 98.2 F 85 18 140/81 H 92 Room Air 2 01/08/24 05:05 01/08/24 05:05 01/08/24 05:05 01/08/24 05:05 01/08/24 05:05 01/08/24 05:05 01/05/24 14:40 Oxygen Flow Rate (L/min) 2 Oxygen Delivery Method Room Air Weight: 120 lb 2.431 oz Body Mass Index (BMI) 18.8 Intake & Output: Intake and Output for Last 24 Hours 01/06/24 01/07/24 01/08/24 23:59 23:59 23:59 Intake Total 1540 / 1540 1553.33 / 1553.33 30 / 30 Output Total 400 / 400 Balance 1540 / 1540 1553.33 / 1553.33 -370 / -370 Medical Nutrition Assessment Dietitian: Malnutrition Criteria Met Start: 01/04/24 14:53 Freq: Status: Active Protocol: Document 01/04/24 14:53 SB (Rec: 01/04/24 14:53 SB [id number]) Nutrition Malnutrition Evidence of Malnutrition Exists Yes Malnutrition (severe): Acute Illness/Injury Evidenced By Suboptimal Energy Intake ( Severe),Weight Loss (Severe), Physical Changes (Severe) Clinical Problem Acute Disease or Injury Related Malnutrition Etiology severe related to inadequate oral intake Signs/Symptoms as evidenced by PO meeting <50 % of estimated nutrition needs x 1 week, 8% unintentional weight loss x 1 month, and severe muscle wasting clavicle , temples, and shoulders areas . Status Active Problem Recommendation Dietitian Recommendations/Changes Recommend advanced diet as tolerated to liberal regular diet d/t signs and symptoms of malnutrition. Pt refuses ONS at this time. As diet as advanced, will order chocolate fortified pudding TID with meals. Will monitor weight, as available. Reviewed and approved by Meredith Cadet RDN, MEL. Lab / Micro Data 01/08/24 05:08 01/07/24 04:25 Labs: Laboratory Results - last 24 hr 01/03/24 21:05: Crossmatch See Detail 01/07/24 11:20: Vancomycin Trough 9.8 01/08/24 05:08: WBC 7.5, RBC 2.34 L, Hgb 8.0 L, Hct 24.2 L, MCV 103.4 H, MCH 34.2 H, MCHC 33.1, RDW Std Deviation 73.2 H, RDW Coeff of Marc 19.4 H, Plt Count 646 H, MPV 9.4, Immature Gran % (Auto) 0.900, Neut % (Auto) 67.3, Lymph % (Auto) 15.3 L, [place] % (Auto) 11.8 H, Eos % (Auto) 3.6, Baso % (Auto) 1.1 H, Absolute Neuts (auto) 5.0, Absolute Lymphs (auto) 1.14, Nucleated RBC % 0, Platelet Estimate MOD INC, Anisocytosis 1+ Physical Exam Narrative Seen and examined. Patient is doing well. No acute complaint. No fever. Redness is better. No melena or hematochezia or hematemesis. No abdominal pain. Waiting for pre- CERT. Physical exam General: Alert, Oriented to time, place and person but not to situation, Cooperative HEENT: Atraumatic, PERRLA, EOMI, Normocephalic Oral: Oral mucosa moist. No Gingival or Mucosal Lesions/ Ulcerations Neck: Supple, No JVD, Negative Carotid Bruits Chest wall/Lungs: Air entry diminished in bilateral lung bases. No crepitation/rhonchi Cardiovascular: Regular rate, Regular Rhythm, Normal S1, Normal S2, No M/G/R Abdomen: Bowel Sounds Present, Soft, Non Tender, Non-Distended : No dysuria. No renal angle tenderness. No suprapubic tenderness. Extremities: No edema, Capillary Refill Less than 3 Seconds Skin: Chronic ulcer over left elbow point, healing covered with a dressing. Mild surrounding cellulitis but no active discharge improving Musculoskeletal: Induration and thickening of medial aspect of left arm to elbow, improving. ROM restricted at left shoulder and elbow. No Tenderness to Palpation of Joints or Extremities Neurological: Cranial nerves II-XII grossly intact, DTR 2+/4. No acute focal neurological deficit. Psych/Mental Status: Flat affect. Amnesia. Dementia Assessment & Plan Assessment/Plan (1) Melena: (2) ABLA (acute blood loss anemia): (3) Hypoglycemia: PLAN: Plan 73-year-old female was admitted with blackish stool and found to have severe anemia from ECF. She had left shoulder replacement outside a week ago. 1. Suspected GI bleed with melanotic stools and ABLA with hemoglobin of 7g/dL and MCV of 108.2 fL present on admission possible due to aspirin- Admit to PCU. Her hemoglobin further dropped to 6.5 g and had PRBC transfusion which improved to 8.2 g%. Platelet count high, thrombocythemia 722K, 861K. Thrombocytosis is acute probably due to acute blood loss anemia. Was started on pantoprazole 40 IV twice daily, changed to 40 mg daily. GI was consulted and patient had EGD. 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 Biopsied. - No gross lesions in the stomach. - Chronic duodenitis. Biopsied. Recommendation: - Repeat upper endoscopy in 1 year for surveillance. - Use Protonix (pantoprazole) 40 mg PO daily 01/04: Hemoglobin similar to yesterday 8.0. Thrombocytosis improving. Patient had colonoscopy. Report pending. Continue holding aspirin. 01/06: H&H 7.7/24.3%. Macrocytic but RDW elevated. Iron study shows low serum iron, TIBC, iron saturation 11% but ferritin elevated 424. IV iron ordered 01/07: H&H 8.0/24.2%. Platelet count 646,000. Improving. 2. Left shoulder replacement about a week ago in [place] and chronic left elbow ulcer present on admission with surrounding left arm cellulitis: Patient is started on IV vancomycin and ceftriaxone. Discussed with orthopedic surgeon Dr. Guan. CT of left upper extremity, elbow ordered. Left shoulder x-ray ordered. Wound nurse and plastic surgery consult. ID consult. No significant collection, try to aspirate but empty aspirate. Discussed with the daughter in detail. Patient has mild leukocytosis. 01/05: Wound culture growing strep agalactiae 2+, [employer].. Possible skin contamination. Pansensitive to ampicillin ceftriaxone and vancomycin. Patient was evaluated by orthopedic surgeon, plastic surgery and ID. CT of left upper extremity reviewed and no collection or abscess. Soft tissue swelling predominantly superficial consistent with cellulitis but no evidence of significant fasciitis or compartment syndrome or joint effusion. Plastic surgery recommended dressing with collagenase daily and follow-up with the wound clinic. No evidence of bursitis or osteomyelitis. Venous duplex of LUE negative for acute DVT. For now continue vancomycin and ceftriaxone. Discussed the above findings with the patient's son present in the room. 01/06: Cellulitis is better. Venous duplex negative for acute DVT. Vancomycin changed to doxycycline. Continue IV ceftriaxone 01/07: Continue antibiotic as mentioned above. ID follow-up tomorrow AM possible discharge to [facility], pre-CERT pending 3. Hypoglycemia of 67 mg/dL with severe hypoalbuminemia of 1.9 g/dL present on admission suspicious for severe protein-calorie malnutrition in the setting of known previous EtOH abuse: Give D5 NS to prevent recurrence. Last glucose 78 in BMP monitor glucose every 4 hours. Hypoglycemia protocol ordered. Nutrition is consulted. 01/04: A1c 4.9%. Glucose 92. Hypoglycemia resolved. 5. Ongoing Tobacco Abuse/cigarette smoke - Tobacco Cessation was strongly encouraged with Nicotine patch offered to control cravings. 6. Recent admission here from December 18, 2023 to December 20, 2023 for requested treatment of alcohol detoxification and Left thigh abscess with cellulitis and hypokalemia of 2.8 mmol/L present on admission. Patient used to drink 1/2 fifth of 90 proof vodka daily but currently denies alcohol use.- 7. Chronic CAD, history of endocarditis, dyslipidemia: No acute issues. Home medications continued 8. KELSEY; on CPAP - Continue nocturnal CPAP as before. 9. Overactive bladder; on solifenacin - Stable. Reinitiate solifenacin once GI workup is completed. 10. Anxiety and depression: On buspirone. DVT prophylaxis - SCD's only. Pharmacological prophylaxis contraindicated Pre-CERT is pending. Might get discharged to [facility] on Tuesday Clinical Impression(s) from Imaging Studies Humerus X-Ray 01/05/24 17:30 IMPRESSION: Complex and comminuted acute humeral fractures around the proximal intramedullary component of the left humerus prosthesis. Electronically Signed: Marli Ma MD at 2:09 EST , ADDENDUM: 01/06/24 0235 IMPRESSION: Complex and comminuted acute humeral fractures around the proximal intramedullary component of the left humerus prosthesis. N.B. : GIBRAN JENKINS RN, confirmed on 01/06/2024 02:28:59 (ET) that the healthcare facility has received the radiology report. Electronically Signed: Marli Ma MD at 2:09 EST Reading Location ID and State: [employer] / [place] Tel , Service support , Shoulder X-Ray 01/05/24 17:30 IMPRESSION: Complex, distracted, comminuted acute fracture fragments involving the left shoulder-proximal humerus. Electronically Signed: Marli Ma MD at 2:11 EST Reading Location ID and State: [employer] / [place] Tel , Service support , Upper Extremity CT 01/05/24 17:55 IMPRESSION: Soft tissue swelling and soft tissue stranding, predominantly superficial. No evidence of compartment syndrome or significant fasciitis. No discrete abscess or joint effusion. Electronically Signed: Marli Ma MD at 20:13 EST Reading Location ID and State: [employer] / [place] Tel , Service support , Laboratory Results 01/03/24 20:25: WBC 11.6 H, RBC 2.01 L, Hgb 7.0 L, Hct 21.7 L, MCV 108.0 H, MCH 34.8 H, MCHC 32.3, RDW Std Deviation 74.9 H, RDW Coeff of Marc 19.0 H, Plt Count 722 H, MPV 10.5, Immature Gran % (Auto) 0.900, Neut % (Auto) 73.0 H, Lymph % (Auto) 16.4 L, [place] % (Auto) 8.7, Eos % (Auto) 0.6, Baso % (Auto) 0.4, Absolute Neuts (auto) 8.5 H, Absolute Lymphs (auto) 1.90, Nucleated RBC % 0, Differential Comment , Platelet Estimate MKD INC, Plt Morphology Comment CLUMPED, Hypochromasia 2+, Anisocytosis 2+, PT 14.1, INR 1.1, Sodium 135 L, Potassium 4.6, Chloride 103, Carbon Dioxide 25.0, Anion Gap 7, BUN 14, Creatinine 0.57, Estim Creat Clear Calc 51.81, Est GFR (MDRD) Af Amer 133, Est GFR (MDRD) Non-Af 110, BUN/Creatinine Ratio 24.4 H, Glucose 67 L, Hemoglobin A1c Cancelled, Calcium 8.6, Iron 20 L, TIBC 181 L, Iron Saturation 11.0 L, Ferritin 424 H, Total Bilirubin 0.50, AST 22, ALT 7 L, Alkaline Phosphatase 156 H, Total Protein 6.1 L, Albumin 1.9 L, Globulin 4.2, Albumin/Globulin Ratio 0.5 L, Folate 13.50, Miscellaneous Test Pending 01/03/24 21:05: Blood Type A POSITIVE, Antibody Screen NEGATIVE, Crossmatch See Detail 01/04/24 05:30: Urine Color Yellow, Urine Clarity Clear, Urine pH 6.0, Ur Specific [place] 1.020, Urine Protein 15 H, Urine Glucose (UA) Normal, Urine Ketones 50 H, Urine Occult Blood Negative, Urine Nitrite Negative, Urine Bilirubin Negative, Urine Urobilinogen Normal, Ur Leukocyte Esterase 25 H, Urine RBC 0 SEEN, Urine WBC 0-5 SEEN, Ur Squamous Epith Cells 0 SEEN, Urine Bacteria 0 SEEN, Urine Mucus 0 SEEN, Urine Opiates Screen POSITIVE H, Urine Methadone Screen NEGATIVE, Ur Barbiturates Screen NEGATIVE, Ur Phencyclidine Scrn NEGATIVE, Ur Amphetamines Screen NEGATIVE, MDMA (Ecstasy) Screen NEGATIVE, U Benzodiazepines Scrn NEGATIVE, Urine Cocaine Screen NEGATIVE, U Cannabinoids Screen NEGATIVE, Ur Drug Screen Comment 01/04/24 05:51: WBC 10.1, RBC 1.88 L, Hgb 6.5 L, Hct 20.2 L, MCV 107.4 H, MCH 34.6 H, MCHC 32.2, RDW Std Deviation 75.1 H, RDW Coeff of Marc 18.7 H, Plt Count 861 H*, MPV 8.8, Immature Gran % (Auto) 0.500, Neut % (Auto) 70.3 H, Lymph % (Auto) 16.3 L, [place] % (Auto) 11.2 H, Eos % (Auto) 1.1, Baso % (Auto) 0.6, Absolute Neuts (auto) 7.1, Absolute Lymphs (auto) 1.65, Nucleated RBC % 0, Diff Path Review Reviewed, Platelet Estimate MKD INC, Anisocytosis 2+, Stomatocytes 2+, Sodium 135 L, Potassium 3.8, Chloride 104, Carbon Dioxide 24.0, Anion Gap 7, BUN 13, Creatinine 0.58, Estim Creat Clear Calc 45.98, Est GFR (MDRD) Af Amer 130, Est GFR (MDRD) Non-Af 107, BUN/Creatinine Ratio 22.2 H, Glucose 78, Calcium 8.0 L, Phosphorus 3.4, Magnesium 1.6, Total Bilirubin 0.60, Direct Bilirubin 0.21, AST 19, ALT 7 L, Alkaline Phosphatase 143 H, Total Protein 5.7 L, Albumin 1.8 L, Globulin 3.9, Albumin/Globulin Ratio 0.5 L, Vitamin B12 653, TSH 1.540, Ethyl Alcohol < 3.0, Hepatitis A IgM Ab Pending, Hep Bs Antigen Pending, Hep B Core IgM Ab Pending, Hepatitis C Ab (EIA) Pending 01/04/24 10:46: WBC 10.7, RBC 2.47 L, Hgb 8.2 L, Hct 25.0 L, MCV 101.2 H D, MCH 33.2 H, MCHC 32.8, RDW Std Deviation 74.6 H, RDW Coeff of Marc 20.2 H, Plt Count 799 H*, MPV 8.9, Immature Gran % (Auto) 0.800, Neut % (Auto) 73.3 H, Lymph % (Auto) 13.7 L, [place] % (Auto) 10.8 H, Eos % (Auto) 0.7, Baso % (Auto) 0.7, A bsolute Neuts (auto) 7.9 H, Absolute Lymphs (auto) 1.47, Nucleated RBC % 0, Diff Path Review May fco, Platelet Estimate MKD INC, Anisocytosis 1+ Charges/Coding Visit Charges Inpatient E&M: 71299 Subs Hosp L2
[2024-01-08 08:07] VITALS: BP 132/70; PULSE 80; RESP 11; TEMP 36.7; O2SAT 92
[2024-01-08] MEDS: Cholecalciferol (VIT D3) 25 MCG TABLET (1,000 UNITS) 50 MCG PO (08:09)
[2024-01-08] MEDS: busPIRone 5 MG Tablet PO ×2 (08:09→20:24)
[2024-01-08] MEDS: Magnesium Chloride 64 MG Delay Rel.Tablet 128 MG PO (08:09)
[2024-01-08] MEDS: Doxycycline 100 MG CAPSULE PO ×2 (08:10→20:24)
[2024-01-08] MEDS: Ceftriaxone 1 GM/50 ML BAG IV (08:10)
[2024-01-08] MEDS: Thiamine Hydrochloride 100 MG Tablet PO (08:10)
[2024-01-08] MEDS: Pantoprazole Sodium 40 MG Tablet PO (08:10)
[2024-01-08] MEDS: Folic Acid 1 MG Tablet PO (08:11)
[2024-01-08] MEDS: 0.9% Saline Lock 10 ML Syringe IV (08:11)
[2024-01-08] MEDS: Menthol/Lanolin/Calamine/Znox 113 GM Tube 1 APPLIC TOPICAL (08:12)
[2024-01-08 14:00] VITALS: BP 117/78; PULSE 86; RESP 12; TEMP 36.7; O2SAT 96
[2024-01-08 21:30] VITALS: BP 116/78; PULSE 84; RESP 18; TEMP 36.8; O2SAT 95
[2024-01-09 03:30] VITALS: BP 139/82; PULSE 88; RESP 18; TEMP 36.8; O2SAT 94
[2024-01-09 06:28] LABS: Absolute Lymphocyte Count 1.57 X10^3/uL (0.83-4.51); Absolute Neutrophil Count 5.6 X10^3/uL (2.0-7.7); Basophil# 0.08 X10^3/uL; Basophil% 0.9 % (0-1); Eosinophil# 0.26 X10^3/uL; Eosinophils% 3.1 % (0-5); Hematocrit 24.7 % (37-47); Lymphocyte # 1.57 X10^3/ul (0.83-4.51); Lymphocyte % 18.5 % (19-41); Mean Corp Hgb Conc 32.4 g/dL (32-36); Mean Corpuscular Hgb 33.8 pg (27.0-32.0); Mean Corpuscular Volume 104.2 fL (81-99); Mean Platelet Vol. 8.9 fl (6.2-12.0); Monocyte# 0.85 X10^3/uL; NRBC Flagged by Analyzer 0 % (0-5); Neutrophil # 5.64 X10^3/uL (2.7-7.7); Neutrophil % 66.6 % (47-70); POSITIVE MORPHOLOGY YES; Platelet Count 590 K/mm3 (150-450); RBC Distribution Width CV 19.5 % (11.6-14.6); RBC Distribution Width SD 73.4 fl (35.1-43.9); Red Blood Count 2.37 M/mm3 (4.2-5.4); White Blood Count 8.5 K/mm3 (4.4-11.0)
[2024-01-09 06:32] LABS: Differential Indicated SCAN CRITERIA MET
[2024-01-09 07:00] LABS: Anion Gap 6 (5-15); BUN 8 mg/dL (7-18); BUN/Creat Ratio 13.8 RATIO (10-20); Calcium,Total 8.3 mg/dL (8.5-10.1); Chloride 109 mmol/L (98-107); Creatinine, Serum 0.58 mg/dL (0.55-1.02); EST Glomerular Filtration Rate 108 mL/min (>60); Est Glom Filt Rate - Afr Amer 131 mL/min (>60); Estimated Creatinine Clearance 53.88 ml/min; Glucose 67 mg/dL (74-106); Potassium 3.6 mmol/L (3.5-5.1); Sodium Level 139 mmol/L (136-145)
[2024-01-09 08:01] LABS: Anisocytosis 1+
--- NOTE | 2024-01-09 08:31 | EX.PCM.PN.GI ---
Subjective Subjective Patient has not had any more signs of GI bleeding and is back on blood thinners. Objective Data Objective Data Vital Signs: Vital Signs Temp Pulse Resp BP Pulse Ox O2 Del Method O2 Flow Rate 98.1 F 83 17 141/78 H 98 Room Air 2 01/09/24 15:29 01/09/24 15:29 01/09/24 15:29 01/09/24 15:29 01/09/24 15:29 01/09/24 15:30 01/05/24 14:40 Oxygen Flow Rate (L/min) 2 Oxygen Delivery Method Room Air Weight: 120 lb 2.431 oz Body Mass Index (BMI) 18.8 Intake & Output: Intake and Output for Last 24 Hours 01/07/24 01/08/24 01/09/24 23:59 23:59 23:59 Intake Total 1553.33 / 1553.33 530 / 530 300 / 300 Output Total 400 / 400 Balance 1553.33 / 1553.33 130 / 130 300 / 300 Lab / Micro Data 01/09/24 05:51 01/09/24 05:51 Labs: Laboratory Results - last 24 hr 01/09/24 05:51: WBC 8.5, RBC 2.37 L, Hgb 8.0 L, Hct 24.7 L, MCV 104.2 H, MCH 33.8 H, MCHC 32.4, RDW Std Deviation 73.4 H, RDW Coeff of Marc 19.5 H, Plt Count 590 H, MPV 8.9, Immature Gran % (Auto) 0.900, Neut % (Auto) 66.6, Lymph % (Auto) 18.5 L, [place] % (Auto) 10.0, Eos % (Auto) 3.1, Baso % (Auto) 0.9, Absolute Neuts (auto) 5.6, Absolute Lymphs (auto) 1.57, Nucleated RBC % 0, Anisocytosis 1+, Sodium 139, Potassium 3.6, Chloride 109 H, Carbon Dioxide 24.0, Anion Gap 6, BUN 8, Creatinine 0.58, Estim Creat Clear Calc 53.88, Est GFR (MDRD) Af Amer 131, Est GFR (MDRD) Non-Af 108, BUN/Creatinine Ratio 13.8, Glucose 67 L, Calcium 8.3 L Micro: Microbiology 01/08/24 09:25 Stool Stool Occult Blood (CHRISTINA) - Final Physical Exam Const alert, oriented x3 and no apparent distress General Appearance: cooperative, comfortable and well kempt Orientation / Consciousness: awake Exam Limitations: no limitations HEENT normocephalic, head/scalp atraumatic, hearing grossly normal bilaterally, moist oral mucous membranes and oropharynx normal Neck no lymphadenopathy and supple Resp normal respiratory effort, no retractions, no use of accessory muscles and clear to auscultation bilaterally Cardio regular rate, regular rhythm, S1 normal heart sound, S2 normal heart sound and no murmurs Extremity Extremity Narrative: LUE in a sling. Skin no rashes or lesions noted and no wounds Neuro CN's II-XII intact bilaterally Sensorium / Orientation: awake and alert Speech: speech normal Psych affect normal Assessment & Plan Assessment/Plan (1) Melena: (2) ABLA (acute blood loss anemia): (3) Hypoglycemia: PLAN: Plan 73-year-old female was admitted with blackish stool and found to have severe anemia from ECF. She had left shoulder replacement outside a week ago. Suspected GI bleed with melanotic stools and ABLA with hemoglobin of 7g/dL and MCV of 108.2 fL present on admission possible due to aspirin- Admit to PCU. Her hemoglobin further dropped to 6.5 g and had PRBC transfusion which improved to 8.2 g%. Platelet count high, thrombocythemia 722K, 861K. Thrombocytosis is acute probably due to acute blood loss anemia. Was started on pantoprazole 40 IV twice daily, changed to 40 mg daily. GI was consulted and patient had EGD. 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 Biopsied. - No gross lesions in the stomach. - Chronic duodenitis. Biopsied. Recommendation: - Repeat upper endoscopy in 1 year for surveillance. - Use Protonix (pantoprazole) 40 mg PO daily Charges/Coding Visit Charges Inpatient E&M: 62575 Subs Hosp L2
[2024-01-09 08:58] VITALS: BP 149/81; PULSE 84; RESP 17; TEMP 36.7; O2SAT 96
[2024-01-09] MEDS: busPIRone 5 MG Tablet PO (09:04)
[2024-01-09] MEDS: Doxycycline 100 MG CAPSULE PO (09:05)
[2024-01-09] MEDS: Thiamine Hydrochloride 100 MG Tablet PO (09:05)
[2024-01-09] MEDS: Pantoprazole Sodium 40 MG Tablet PO (09:05)
[2024-01-09] MEDS: Folic Acid 1 MG Tablet PO (09:05)
[2024-01-09] MEDS: Cholecalciferol (VIT D3) 25 MCG TABLET (1,000 UNITS) 50 MCG PO (09:05)
[2024-01-09] MEDS: Magnesium Chloride 64 MG Delay Rel.Tablet 128 MG PO (09:06)
[2024-01-09] MEDS: Menthol/Lanolin/Calamine/Znox 113 GM Tube 1 APPLIC TOPICAL (09:07)
[2024-01-09] MEDS: Ceftriaxone 1 GM/50 ML BAG IV (09:09)
--- NOTE | 2024-01-09 10:04 | CASEMGMT ---
[facility]. Tracy TALLEY
--- NOTE | 2024-01-09 13:49 | PCM.PN.ID ---
Physical Exam Narrative L elbow still sore and swollen, no fever Const alert and no apparent distress General Appearance: cooperative Resp normal air movement and clear to auscultation bilaterally Cardio regular rate and regular rhythm GI soft to palpation, non-tender and non-distended Extremity Extremity Narrative: LUE General Extremity: edema Skin Skin Narrative: no redness ID ID: Route of nutrition/ use of supplements: [] Nutritional Intake: [] IV Site: [] Yoon Catheter: [] Assessment & Plan Assessment/Plan (1) Bursitis: PLAN: Redness improved, L elbow still with diffuse swelling. On empiric vanc/ceftriaxone. Ok for discharge with one more week po doxy 100mg bid and keflex 500mg tid. 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
--- NOTE | 2024-01-09 14:00 | WOUNDNOTE ---
Will leave dressing to the left elbow in place. patient is being discharged to the [place] today.
--- NOTE | 2024-01-09 14:34 | TREXTCAR_ITS ---
Diet Diet Order/Speech Therapy: 01/05/24 16:51 Diet: Regular - General Routine Orders/Code Status Enema Type: Fleetz Enema Frequency: Daily PRN Suppository Type: Dulcolax 10mg Suppository Frequency: Daily PRN DC O2, CPAP, BIPAP needs Additional Home O2 Discharge instructions: No Wound(s) Left Shoulder: Wound Type: Surgical Incision left elbow: Wound Type: Pressure Injury Dressing Change: santyl with dry dressing Therapies Weight Bearing: Weight bearing as tolerated Physical Therapy: Eval and Treat Occupational Therapy: Eval and Treat Problem/Diagnosis (1) Bursitis: Status: Acute Code(s): M71.9 - Bursopathy, unspecified Comment: Left elbow (2) History of shoulder surgery: Status: Acute Code(s): Z98.890 - Other specified postprocedural states Allergies/Procedures Done in Hospital Allergies No Known Allergies Allergy (Verified 01/03/24 20:21) Procedures: None Type of Care/Length of Stay Estimated LOS: Convalescent Care Less Than 30 days Type of Care Needed: Skilled Rehab Potential: Good Prognosis: Good Additional Orders/Day of Discharge Day of Discharge: 01/09/24 Dietary and Speech Recommendations Dietitian Recommendations/Changes: Recommend advanced diet as tolerated to liberal regular diet d/t signs and symptoms of malnutrition. Pt refuses ONS at this time. As diet as advanced, will order chocolate fortified pudding TID with meals. Will monitor weight, as available. Reviewed and approved by Meredith Cadte RDN, LD. Discharge Plan Admission Admit Date/Time: 01/03/24 23:26 Primary Reason for Your Visit: acute GI bleed Attending Provider: Anjali Herrera Primary Care Provider: Zarina Schwab Consulting Providers: Jacob Santana; Rosales Fabian; Rosales Huerta; Edilberto Woo; Orlando Quintero Instructions Patient Instructions: GI Bleeding Causes and Tests, ED Upper GI Bleeding (Stable) Discharge Orders/Prescriptions Prescriptions: New doxycycline hyclate 100 mg capsule 100 mg PO BID Qty: 14 0RF cephalexin 500 mg capsule 500 mg PO TID Qty: 20 0RF pantoprazole 40 mg Tablet,Delayed Release (Dr/Ec) 40 mg PO DAILY Qty: 30 2RF Continued cholecalciferol (vitamin D3) 50 mcg (2,000 unit) capsule 50 mcg PO DAILY Patient Comments: give one time a day every tuesday for abnormal vitd levels for 16 weeks. End 04/23/2024 buspirone 5 mg tablet 5 mg PO BID Patient Comments: for 14 days, end 01/05/2024 folic acid 1 mg tablet 1 mg PO DAILY magnesium 200 mg tablet 400 mg PO BID thiamine HCl (vitamin B1) 100 mg tablet 100 mg PO DAILY acetaminophen 500 mg capsule 1,000 mg PO TID Discontinued aspirin 325 mg capsule 325 mg PO BID tetracycline 500 mg capsule 500 mg PO Q12H Rx Instructions: for 7 days, end 01/04/2024 Referrals / Follow Up: Zarina Schwab MD [Primary Care Provider] - Within 1 Week Disposition Disposition (needs filled in before D/C Order can be placed): [facility]
--- NOTE | 2024-01-09 14:40 | PCM.DC.SUM ---
Providers Date of Admission: 01/03/24 Date of Discharge: 01/09/24 Primary Care Physician: Dr. Zarina Schwab MD Consultations 01/03/24 23:58 Consult: Gastroenterology Routine Consulting Provider: [facility] Reason for Consult: Melanotic stools requiring transfusion. EMERGENT Consult: No MD Notified: Yes Date Notified: 01/03/24 Time Notified: 06:26 Method of Notification: Text 01/05/24 16:20 Consult: Infectious Disease Routine Consulting Provider: Rosales Fabian Reason for Consult: LEFT elbow cellulitis, possible osteomyelitis EMERGENT Consult: No MD Notified: Yes Date Notified: 01/05/24 Time Notified: 16:21 Method of Notification: ED Physician Initiated 01/05/24 16:28 Consult: Plastic Surgery Routine Consulting Provider: Rosales Huerta Reason for Consult: left elbow cellulitis with skin defect EMERGENT Consult: No MD Notified: Yes Date Notified: 01/05/24 Time Notified: 16:28 Method of Notification: Text 01/05/24 16:37 Consult: Onc/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/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 repairer Routine Comment: Reason for Consult:: left elbow ulcer 01/06/24 02:48 Consult: Orthopedics Routine Consulting Provider: Edilberto Woo Reason for Consult: humerus and shoulder fx EMERGENT Consult: No MD Notified: Yes Date Notified: 01/06/24 Time Notified: 07:23 Method of Notification: Text Reason For Visit: MELANOTIC STOOLS WITH SEVERE ANEMIA REQUIRING Diagnosis Discharge Diagnosis (1) Bursitis: Status: Acute Code(s): M71.9 - Bursopathy, unspecified (2) History of shoulder surgery: Status: Acute Code(s): Z98.890 - Other specified postprocedural states Medications at Discharge Home Medications cholecalciferol (vitamin D3) 50 mcg (2,000 unit) capsule 50 mcg PO DAILY 04/19/23 acetaminophen 500 mg capsule 1,000 mg PO TID pain 01/03/24 buspirone 5 mg tablet 5 mg PO BID anxiety 01/03/24 folic acid 1 mg tablet 1 mg PO DAILY 01/03/24 magnesium 200 mg tablet 400 mg PO BID 01/03/24 thiamine HCl (vitamin B1) 100 mg tablet 100 mg PO DAILY 01/03/24 cephalexin 500 mg capsule 500 mg PO TID #20 caps 11/25/24 doxycycline hyclate 100 mg capsule 100 mg PO BID #14 caps 01/09/24 pantoprazole 40 mg tablet,delayed release 40 mg PO DAILY #30 tabs 01/09/24 Hospital Course Procedures EGD Summary of Care Provided Minutes Spent on Discharge: 55 Hospital Course: Patient is a 73-year-old female with an extensive past medical history as outlined was admitted with a complaint of dark stools. She had recently been admitted from January 13 December 20, 2023 at our facility for acute alcohol detox and also had a left thigh abscess at that time with cellulitis and hypokalemia. She had also been recently admitted at a hospital in [place] for left shoulder replacement and placed on aspirin twice daily. She was brought in from extended-care facility on account of complaints of severe anemia. Hemoglobin in the facility was 6.8. She does admit to having dark stools. In the ED hemoglobin was 7. She was admitted and managed for acute GI bleed with acute anemia. Started on IV pantoprazole. 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 There was also chronic duodenitis. Patient was switched to p.o. pantoprazole 40 mg daily. Her aspirin was discontinued due to acute on chronic anemia. Orthopedic surgery was also consulted due to left elbow swelling, pain and redness from the surgery. She was diagnosed with bursitis and wound care was also consulted. She had enzymatic debridement with collagenase daily as recommended by orthopedic surgery. ID was also consulted and she was placed on IV vancomycin and ceftriaxone for the bursitis. Patient was eventually transition to p.o. doxycycline and Keflex for 1 more week. It was decided skilled with a facility level 25 2023. She is follow-up with her primary care doctor, gastroenterology as well as ID and orthopedic surgery. Patient seen and examined prior to discharge. She had no complaints. was by her bedside. Review of systems otherwise negative. Labs and vitals reviewed. Home medication reviewed and reconciled. Physical Exam Const alert, oriented x3 and no apparent distress General Appearance: cooperative, comfortable and well kempt Orientation / Consciousness: awake Exam Limitations: no limitations HEENT normocephalic, head/scalp atraumatic, hearing grossly normal bilaterally, moist oral mucous membranes and oropharynx normal Neck no lymphadenopathy and supple Resp normal respiratory effort, no retractions, no use of accessory muscles and clear to auscultation bilaterally Cardio regular rate, regular rhythm, S1 normal heart sound, S2 normal heart sound and no murmurs Extremity Extremity Narrative: LUE in a sling. Skin no rashes or lesions noted and no wounds Neuro CN's II-XII intact bilaterally Sensorium / Orientation: awake and alert Speech: speech normal Psych affect normal Medical Records Data Medical Nutrition Assessment Dietitian: Malnutrition Criteria Met Start: 01/04/24 14:53 Freq: Status: Active Protocol: Document 01/04/24 14:53 SB (Rec: 01/04/24 14:53 SB [id number]) Nutrition Malnutrition Evidence of Malnutrition Exists Yes Malnutrition (severe): Acute Illness/Injury Evidenced By Suboptimal Energy Intake ( Severe),Weight Loss (Severe), Physical Changes (Severe) Clinical Problem Acute Disease or Injury Related Malnutrition Etiology severe related to inadequate oral intake Signs/Symptoms as evidenced by PO meeting <50 % of estimated nutrition needs x 1 week, 8% unintentional weight loss x 1 month, and severe muscle wasting clavicle , temples, and shoulders areas . Status Active Problem Recommendation Dietitian Recommendations/Changes Recommend advanced diet as tolerated to liberal regular diet d/t signs and symptoms of malnutrition. Pt refuses ONS at this time. As diet as advanced, will order chocolate fortified pudding TID with meals. Will monitor weight, as available. Reviewed and approved by Meredith Cadet RDN, LD. Weight / BMI Weight Weight: 120 lb 2.431 oz Body Mass Index (BMI) 18.8 ABG / Lab / Microbiology Data 01/09/24 05:51 01/09/24 05:51 Laboratory: Laboratory Results - last 24 hr 01/09/24 05:51: WBC 8.5, RBC 2.37 L, Hgb 8.0 L, Hct 24.7 L, MCV 104.2 H, MCH 33.8 H, MCHC 32.4, RDW Std Deviation 73.4 H, RDW Coeff of Marc 19.5 H, Plt Count 590 H, MPV 8.9, Immature Gran % (Auto) 0.900, Neut % (Auto) 66.6, Lymph % (Auto) 18.5 L, Gaines % (Auto) 10.0, Eos % (Auto) 3.1, Baso % (Auto) 0.9, Absolute Neuts (auto) 5.6, Absolute Lymphs (auto) 1.57, Nucleated RBC % 0, Anisocytosis 1+, Sodium 139, Potassium 3.6, Chloride 109 H, Carbon Dioxide 24.0, Anion Gap 6, BUN 8, Creatinine 0.58, Estim Creat Clear Calc 53.88, Est GFR (MDRD) Af Amer 131, Est GFR (MDRD) Non-Af 108, BUN/Creatinine Ratio 13.8, Glucose 67 L, Calcium 8.3 L Microbiology: Microbiology 01/08/24 09:25 Stool Stool Occult Blood (CHRISTINA) - Final D/C Instructions Discharge Diet: Low fat / Low cholesterol Discharge Activity: Return to Normal Activity Weight Bearing Status: Weight bearing as tolerated Call your doctor if you observe: Fever of 101 or Higher, Shortness of breath, Dizziness, Swelling in the ankles, Chest pain and Uncontrolled pain DC O2, CPAP, BIPAP Needs Additional Home O2 Discharge instructions: No DC home with Oxygen: No Meaningful Use Info Meaningful Use Meaningful Use Diagnoses (Choose all that apply): None applicable Ischemic Stroke Statin Dosing Therapy Reference: STATIN DOSE THERAPY REFERENCE: * Patients > 75 years receive moderate or high dose statin therapy. * Patients 75 years or YOUNGER should receive HIGH intensity statin dose unless contraindicated. You will be required to document reason for non-treatment if statin daily dose does not meet guidelines. HIGH DOSE STATIN THERAPY DAILY Atorvastatin > than or = to 40 mg Rosuvastatin > than or = to 20 mg Amlodipine + Atorvastatin > than or = to 2.5/40 mg Ezetimibe + Simvastatin 10/80 mg Simvastatin 80mg Discharge Plan Admission Admit Date/Time: 01/03/24 23:26 Primary Reason for Your Visit: acute GI bleed Attending Provider: Anjali Herrera Primary Care Provider: Zarina Schwab Consulting Providers: Jacob Santana; Rosales Fabian; Rosales Huerta; Edilberto Woo; Orlando Quintero Instructions Patient Instructions: GI Bleeding Causes and Tests, ED Upper GI Bleeding (Stable) Discharge Orders/Prescriptions Prescriptions: New doxycycline hyclate 100 mg capsule 100 mg PO BID Qty: 14 0RF cephalexin 500 mg capsule 500 mg PO TID Qty: 20 0RF pantoprazole 40 mg Tablet,Delayed Release (Dr/Ec) 40 mg PO DAILY Qty: 30 2RF Continued cholecalciferol (vitamin D3) 50 mcg (2,000 unit) capsule 50 mcg PO DAILY Patient Comments: give one time a day every tuesday for abnormal vitd levels for 16 weeks. End 04/23/2024 buspirone 5 mg tablet 5 mg PO BID Patient Comments: for 14 days, end 01/05/2024 folic acid 1 mg tablet 1 mg PO DAILY magnesium 200 mg tablet 400 mg PO BID thiamine HCl (vitamin B1) 100 mg tablet 100 mg PO DAILY acetaminophen 500 mg capsule 1,000 mg PO TID Discontinued aspirin 325 mg capsule 325 mg PO BID tetracycline 500 mg capsule 500 mg PO Q12H Rx Instructions: for 7 days, end 01/04/2024 Referrals / Follow Up: Zarina Schwab MD [Primary Care Provider] - Within 1 Week Edilberto Woo MD [Med Staff - Active Staff] - Within 2 Weeks Disposition Disposition (needs filled in before D/C Order can be placed): [facility] Charges/Coding Visit Charges Inpatient E&M: 67030 Disch Hosp >30min
--- NOTE | 2024-01-09 15:03 | CASEMGMT ---
Patient is ready for discharge back to [facility]. Plan: d/c back to [facility] under skilled level of care. Physicians will transport patient via cot due to patient's Dementia, forgetfulness, and elopement risk. Tracy Carnes SALES OPERATIONS ANALYST MAYANK
--- NOTE | 2024-01-09 15:12 | CASEMGMT ---
Discharge Planning Discharge orders, signed med list, and transport time sent to via [facility]. Physicians will transport patient by cot at 4:30p. Nursing, SW, and patients updated. Zara Arreola DC Planning Asst.
[2024-01-09 15:29] VITALS: BP 141/78; PULSE 83; RESP 17; TEMP 36.7; O2SAT 98
--- NOTE | 2024-01-09 15:55 | NURSING ---
Report called to Pasquale Marcelo.
--- NOTE | 2024-01-09 18:36 | OP.COLON_ITS ---
Patient Name: Basilia Enrique Procedure Date: 01/05/2024 2:21 PM Date of : 1950 Age: 73 Procedure: Colonoscopy Indications: Hematochezia, Melena, Gastrointestinal occult blood loss, Gastrointestinal bleeding Providers: Jacoby Hicks DO Medicines: Monitored Anesthesia Care Patient Profile: This is a 73 year old female. Refer to note in patient chart for documentation of history and physical. Last Colonoscopy: none. The patient's first colonoscopy is today. Complications: No immediate complications. Procedure: Pre-Anesthesia Assessment: - Prior to the procedure, a History and Physical was performed, and patient medications and allergies were reviewed. The patient is competent. The risks and benefits of the procedure and the sedation options and risks were discussed with the patient. All questions were answered and informed consent was obtained. Patient identification and proposed procedure were verified by the physician. Mental Status Examination: normal. Respiratory Examination: clear to auscultation. Prophylactic Antibiotics: The patient does not require prophylactic antibiotics. Prior Anticoagulants: The patient has taken no anticoagulant or antiplatelet agents except for NSAID medication. ASA Grade Assessment: II - A patient with mild systemic disease. After reviewing the risks and benefits, the patient was deemed in satisfactory condition to undergo the procedure. The anesthesia plan was to use monitored anesthesia care (MAC). Immediately prior to administration of medications, the patient was re-assessed for adequacy to receive sedatives. The heart rate, respiratory rate, oxygen saturations, blood pressure, adequacy of pulmonary ventilation, and response to care were monitored throughout the procedure. The physical status of the patient was re-assessed after the procedure. After I obtained informed consent, the scope was passed under direct vision. Throughout the procedure, the patient's blood pressure, pulse, and oxygen saturations were monitored continuously. The pediatric colonoscope was introduced through the anus and advanced to the cecum, identified by appendiceal orifice and ileocecal valve. The colonoscopy was performed without difficulty. The patient tolerated the procedure well. The quality of the bowel preparation was fair. The terminal ileum, ileocecal valve, appendiceal orifice, and rectum were photographed. Scope In: 2:50:13 PM Scope Withdrawal Time 0 hours 10 minutes 7 seconds Scope Out: 3:11:44 PM Total Procedure Duration Time 0 hours 21 minutes 31 seconds Findings: The perianal and digital rectal examinations were normal. Multiple small and large-mouthed diverticula were found in the recto-sigmoid colon, sigmoid colon and descending colon. A 12 mm polyp was found in the sigmoid colon. The polyp was sessile. The polyp was removed with a hot snare. Resection and retrieval were complete. Verification of patient identification for the specimen was done. Estimated blood loss was minimal. To close a defect after polypectomy, one hemostatic clip was successfully placed. Clip administrative supervisor: [employer]. There was no bleeding at the end of the procedure. Stool was found in the recto-sigmoid colon, in the sigmoid colon and in the transverse colon. The terminal ileum appeared normal. Impression: - Preparation of the colon was fair. - Diverticulosis in the recto-sigmoid colon, in the sigmoid colon and in the descending colon. - One 12 mm polyp in the sigmoid colon, removed with a hot snare. Resected and retrieved. - Stool in the recto-sigmoid colon, in the sigmoid colon and in the transverse colon. - The examined portion of the ileum was normal. Recommendation: - [facility]. - Resume previous diet. - Continue present medications. - Await pathology results. - Repeat colonoscopy in 3 years for surveillance. Procedure Code(s): --- Professional --- 12010, Colonoscopy, flexible; with removal of tumor(s), polyp(s), or other lesion(s) by snare technique CPT copyright 2021 [employer]. All rights reserved. The codes documented in this report are preliminary and upon tubing mill setter review may be revised to meet current compliance requirements. Jacoby Hicks DO 01/09/2024 6:36:14 PM This report has been signed electronically. Number of Addenda: 0 Note Initiated On: 01/05/2024 2:21 PM
--- NOTE | 2024-01-09 18:36 | OP.CCLET_ITS ---
01/09/2024 Zarina Schwab Re : Colonoscopy procedure for Basilia Enrique Dear Josselin This procedure was performed on December. My impressions and recommendations are as follows: Impressions : - Preparation of the colon was fair. - Diverticulosis in the recto-sigmoid colon, in the sigmoid colon and in the descending colon. - One 12 mm polyp in the sigmoid colon, removed with a hot snare. Resected and retrieved. - Stool in the recto-sigmoid colon, in the sigmoid colon and in the transverse colon. - The examined portion of the ileum was normal. Recommendations : - Return [facility] to [facility] for [facility]. - Resume previous diet. - Continue present medications. - Await pathology results. - Repeat colonoscopy in 3 years for surveillance. My findings are described in the full procedure note, which is enclosed. If I can be of further assistance, please feel free to contact me at . Sincerely, Jacoby Hicks, 01/09/2024 6:36:14 PM This report has been signed electronically.
== END 2024-01-09 17:41 | disposition skilled nursing facility (03) | DRG 377 ==
LOC: ED 22:47 → PCU 23:26
PROVIDERS: Anesthesiology; Internal Medicine; Internal Medicine Gastroenterology; Internal Medicine Infectious Disease; Admitting Provider Internal Medicine; Emergency Provider Emergency Medicine; PCP Internal Medicine; Visit Provider Student in an Organized Health Care Education/Training Program
PROC: 0DJ08ZZ Inspection of Upper Intestinal Tract, Via Natural or Artificial Opening Endoscopic (ICD-10-PCS; CPT 43235; principal; 2024-01-04 11:55)
PROC: 0DJD8ZZ Inspection of Lower Intestinal Tract, Via Natural or Artificial Opening Endoscopic (ICD-10-PCS; CPT 45378; principal; 2024-01-05 13:10)
DX: K92.1 Melena (principal); E43 Unspecified severe protein-calorie malnutrition; D68.32 Hemorrhagic disorder due to extrinsic circulating anticoagulants; D62 Acute posthemorrhagic anemia; Z68.1 Body mass index [BMI] 19.9 or less, adult; L03.114 Cellulitis of left upper limb; E88.09 Other disorders of plasma-protein metabolism, not elsewhere classified; F32.A Depression, unspecified; F10.11 Alcohol abuse, in remission; L98.491 Non-pressure chronic ulcer of skin of other sites limited to breakdown of skin; K29.80 Duodenitis without bleeding; K57.30 Diverticulosis of large intestine without perforation or abscess without bleeding; E78.5 Hyperlipidemia, unspecified; G47.33 Obstructive sleep apnea (adult) (pediatric); I25.10 Atherosclerotic heart disease of native coronary artery without angina pectoris; F41.9 Anxiety disorder, unspecified; E16.2 Hypoglycemia, unspecified; K22.70 Barrett's esophagus without dysplasia; K63.5 Polyp of colon; F17.210 Nicotine dependence, cigarettes, uncomplicated; H81.10 Benign paroxysmal vertigo, unspecified ear; D75.839 Thrombocytosis, unspecified; M70.32 Other bursitis of elbow, left elbow; S42.352D Displaced comminuted fracture of shaft of humerus, left arm, subsequent encounter for fracture with routine healing; T39.015A Adverse effect of aspirin, initial encounter; N32.81 Overactive bladder; Z79.2 Long term (current) use of antibiotics; Z79.82 Long term (current) use of aspirin; Z79.899 Other long term (current) drug therapy; Z96.612 Presence of left artificial shoulder joint
CPT/HCPCS: 36415; 73030; 73060; 73201; 80048; 80053; 80074; 80076; 80202; 80307; 81001; 82077; 82274; 82550; 82607; 82728; 82746; 82962; 83036; 83540; 83550; 83735; 84100; 84443; 84450; 84460; 85025; 85610; 85652; 85730; 86140; 86850; 86900; 86901; 86920; 86922; 87640; 88305; 88312; 88341; 88342; 93005; 93971; 94668; 97110; 97116; 97162; 97166; 97530; 97535; 97802; 99285; 99406; J7040; J7050; P9016; Q9967; A4216; J2405; J2916

== ENCOUNTER 2024-01-23 09:34 | Inpatient (IN) | payer MEDICARE, SELFPAY ==
[2024-01-23] VITALS (7 sets, daily range): BP systolic 101–149; BP diastolic 67–104; PULSE 84–110; RESP 18–110; TEMP 36.2–37.6; O2SAT 93–98; BMI 17.2; BMI 16.5
--- NOTE | 2024-01-23 09:40 | EKG12_ITS ---
Test Reason : FALL Blood Pressure : */* mmHG Vent. Rate : 106 BPM Atrial Rate : 106 BPM P-R Int : 150 ms QRS Dur : 68 ms QT Int : 344 ms P-R-T Axes : 66 -55 55 degrees QTcB Int : 456 ms Sinus tachycardia Left axis deviation Abnormal ECG Confirmed by SHIRLEY CHIN, JERRY ([id number]), fan mail editor DARVIN GOLDSTEIN ([id number]) on 01/24/2024 8:14:32 AM Referred By: Confirmed By: JERRY WATSON MD
--- NOTE | 2024-01-23 09:41 | EX.ED.DYSGE1 ---
HPI History of Present Illness Chief Complaint: Weakness Informant: patient, spouse/S.O. and EMS Narrative Narrative: 73-year-old female brought in by and EMS for generalized weakness. This morning she had nausea and vomiting. She is less than 1 week at home from snf where she was for rehab. She had a fall and broke her left proximal humerus about a month ago and had a shoulder replacement, and postoperatively she had upper GI bleed and acute blood loss anemia, was admitted to the hospital, transfused, scoped, and sent to rehab. states she was an alcoholic and has not had any alcohol since her surgery, and had several falls while she was in rehab that were minor, probably because she was confused and in withdrawal. That is doing better now. However since getting her home, she has been extremely weak and he has not been able to help get her around, and then with vomiting this morning, he knew that she was getting worse and not better. The only complaints that she has right now is soreness in her left shoulder which is not new. Some of this area is red, states she has been picking at this area a lot. [facility] Medical History Bursitis History of alcohol abuse Tobacco abuse Leukocytosis, unspecified Hypoglycemia Adverse drug reaction Melena History of CAD (coronary artery disease) Anemia BPPV (benign paroxysmal positional vertigo) Smoker CPAP (continuous positive airway pressure) dependence Abscess of left thigh Alcohol abuse with alcohol-induced disorder Hyperlipidemia Atherosclerotic heart disease of [place] coronary artery without angina pectoris Endocarditis Obstructive sleep apnea Nicotine dependence in remission Home Medications ?Medication ?Instructions ?Recorded ?Last Taken ?Type cholecalciferol (vitamin D3) 50 50 mcg PO DAILY 04/19/23 01/23/24 History mcg (2,000 unit) capsule acetaminophen 500 mg capsule 1,000 mg PO TID pain 01/03/24 01/20/24 History buspirone 5 mg tablet 5 mg PO BID anxiety 01/03/24 01/23/24 History folic acid 1 mg tablet 1 mg PO DAILY 01/03/24 01/23/24 History magnesium 200 mg tablet 400 mg PO BID 01/03/24 01/23/24 History thiamine HCl (vitamin B1) 100 mg 100 mg PO DAILY 01/03/24 01/23/24 History tablet cephalexin 500 mg capsule 500 mg PO TID #20 caps 01/09/24 01/23/24 Rx doxycycline hyclate 100 mg capsule 100 mg PO BID #14 caps 01/09/24 01/23/24 Rx pantoprazole 40 mg tablet,delayed 40 mg PO DAILY #30 tabs 01/09/24 01/22/24 Rx release levothyroxine 25 mcg capsule 25 mcg PO DAILY 01/23/24 01/23/24 History melatonin 3 mg capsule 3 mg PO QHS 01/23/24 01/22/24 History Allergy/AdvReac Type Severity Reaction Status Date / Time No Known Allergies Allergy Verified 01/03/24 20:21 Family History Father CAD (coronary artery disease) Mother Liver cancer Surgical History Hx of tonsillectomy History of hysterectomy Social History household members: spouse Smoking Status: Current every day smoker tobacco type: cigarettes Tobacco: How many years used: 41 Smokeless tobacco user: other second hand exposure: No alcohol intake: current alcohol intake frequency: 3 or more drinks per day Alcohol type: hard liquor details: Drinks 1/2 of 5th 90% proof vodka daily. substance use type: does not use caffeine: Yes (4+ drinks/day) ROS ROS ED Constitutional Constitutional ED: Reports anorexia and weakness; Denies chills or fever(s) Eyes Eyes: Denies change in vision or diplopia ENT ENT ED: Denies rhinorrhea or sore throat Cardiovascular Cardiovascular: Denies chest pain or palpitations Respiratory/Chest Respiratory/Chest: Denies cough or dyspnea Gastrointestinal Gastrointestinal: Reports nausea, vomiting and other Details: Denies melena or bright red blood per rectum ; Denies abdominal pain, diarrhea or hematemesis Genitourinary Genitourinary ED: Denies dysuria or hematuria Musculoskeletal Musculoskeletal: Reports other Details: Left shoulder pain ; Denies back pain or neck pain Integumentary Reports other Details: Redness left shoulder/arm ; Denies abscess or rash Neurologic Neurologic: Denies headache(s), paresthesias or weakness EXAM Physical Exam Const Vital Signs: 01/23/24 09:35 01/23/24 10:41 01/23/24 11:00 Temperature 97.1 F L 98.7 F 98.7 F Temperature Source Oral Oral Oral Pulse Rate 84 105 H 110 H Respiratory Rate 110 H 18 18 Blood Pressure 143/85 H 149/93 H 149/86 H Blood Pressure Mean 104 111 107 Pulse Ox 94 95 98 Oxygen Delivery Method Room Air Room Air Room Air Positive well nourished and well developed General Appearance ED: well developed and NAD HEENT Reports moist mucous membranes normocephalic and atraumatic Eyes PERRL and EOMs intact bilaterally Neck full ROM and supple Resp normal respiratory effort and clear to auscultation bilaterally Cardio regular rate, regular rhythm and no murmurs Rate: tachycardic GI non-tender and non-distended Auscultation: normoactive bowel sounds Palpation: soft Back/Spine no CVA tenderness General Back: other FROM Extremity Extremity Narrative: Left anterior proximal upper arm surgical incision without dehiscence, there is some scabbing, there is erythema at the caudal third emanating more distally and medially, with some mild induration and all of this is tender. There is no abscess or discharge expressible from the incision. Limited range of motion due to pain. Neurovascular intact distally. All other extremity exam is normal. General Extremety ED: Yes tenderness; Negative for edema or pulses abnormal General Extremity: Negative for edema or pulses abnormal Neuro oriented x3, CN's II-XII intact bilaterally and no sensory deficits noted Neuro Narrative: Keenly alert and conversive, answers questions appropriately Sensorium / Orientation: awake and alert Motor Exam: general weakness Psych mental status grossly normal Skin no rashes or lesions noted and no wounds MDM MDM MDM Narrative Medical decision making narrative: Sent a Hemoccult although her stool did not appear to be melanotic or bloody, it is positive but her hemoglobin is 9.0 which is higher than it had been couple weeks ago. Also she does not have an elevated BUN to suggest an acute upper GI bleed. When I initially saw the patient she stated that only her left shoulder was a little sore and she had no other complaints. Then she told nursing that she was in a 10/10 pain all over including her neck. When I went to ask her about this she states sometimes I lie and although EMS reported the patient had had no falls since her shoulder fracture, apparently she had an unwitnessed fall this morning so we sent her for a head CT as well as a neck CT, I reviewed these images and report which I agree with, they are negative for anything acute. Additionally 1 view chest x-ray is negative for pneumonia and 2 view left humerus x-ray shows persistent transverse humeral shaft fracture, no other acute abnormalities noted on my interpretation both of these. Radiology interpretations are reviewed. Family notes gradually worsening mental status changes especially since she stopped drinking and had all of this occur. They states she has an appointment with neurology scheduled for February at [facility]. Discussed with hospitalist for admission, she will likely need placement again. It is possible that her left arm issues are from a nonunion, and also there is a possibility of cellulitis coming from the surgical incision. It is unclear if this erythema is inflammation from the fracture or infection, is unsure how long it has looked this red. Will cover with [facility]. Lab Data Attestation: I reviewed the patient's lab results. Labs: Laboratory Results - last 24 hr 01/23/24 10:38 WBC 9.1 RBC 2.74 L Hgb 9.0 L Hct 27.8 L MCV 101.5 H MCH 32.8 H MCHC 32.4 RDW Std Deviation 65.5 H RDW Coeff of Marc 17.6 H Plt Count 534 H MPV 9.2 Immature Gran % (Auto) 0.500 Neut % (Auto) 78.5 H Lymph % (Auto) 9.2 L Bent % (Auto) 10.8 H Eos % (Auto) 0.2 Baso % (Auto) 0.8 Absolute Neuts (auto) 7.2 Absolute Lymphs (auto) 0.84 Nucleated RBC % 0 Anisocytosis 2+ PT 14.2 INR 1.1 Sodium 134 L Potassium 4.1 Chloride 100 Carbon Dioxide 28.0 Anion Gap 6 BUN 13 Creatinine 0.79 Estim Creat Clear Calc 49.33 Est GFR (MDRD) Af Amer 92 Est GFR (MDRD) Non-Af 76 BUN/Creatinine Ratio 16.5 Glucose 100 Calcium 8.9 Total Bilirubin 0.50 AST 21 ALT 9 L Alkaline Phosphatase 159 H Troponin I High Sens 4 Total Protein 6.6 Albumin 2.4 L Globulin 4.2 Albumin/Globulin Ratio 0.6 L Blood Type A POSITIVE Antibody Screen NEGATIVE Radiography Diagnostic Testing: Clinical Impression(s) from Imaging Studies Humerus X-Ray 01/23/24 09:44 IMPRESSION: Stable nonhealed transverse fracture of the proximal left humeral shaft. The patient is status post left shoulder replacement. Electronically Signed: Adalberto Dumas MD at 11:26 EST , Brain CT 01/23/24 11:08 IMPRESSION: Chronic involutional changes of the brain. Electronically Signed: Adalberto Dumas MD at 11:28 EST , Cervical Spine CT 01/23/24 11:08 IMPRESSION: Multilevel degenerative changes, as described above. Electronically Signed: Adalberto Dumas MD at 11:31 EST , Chest X-Ray 01/23/24 11:10 IMPRESSION: Hyperinflation. Status post left shoulder replacement with stable transverse fracture through the proximal shaft of the left humerus. Electronically Signed: Adalberto Dumas MD at 11:25 EST , Rhythm Strip Rhythm Strip: Sinus Tach Rate: 110 Ectopy: None EKG Initial EKG: Attestation: I personally reviewed and interpreted this EKG as follows: Interpretation: No Acute Injury Pattern, Sinus Tachycardia and LAFB Prior EKG tracings: available for review Prior: Unchanged Management Discussion w/another healthcare provider: Hospitalist Discharge Plan Dx/Rx/DC Orders Clinical Impression: Debility, Occult GI bleeding, Arm pain, left, Encephalopathy, Former consumption of alcohol, Cellulitis of left upper arm Disposition Disposition: Acute Care [facility]
--- NOTE | 2024-01-23 09:44 | RAD_ITS ---
STUDY: X-RAY - LEFT HUMERUS REASON FOR EXAM: Female, 73 years old. Pain TECHNIQUE: 2 view(s) of the humerus. COMPARISON: Comparison is made with prior study of January 05, 2024. FINDINGS: Left shoulder replacement with stable transverse fracture through the proximal shaft of the left humerus. The fracture is not healed. There is no demonstrated soft tissue abnormality. RAD/Humerus min 2 Views IMPRESSION: Stable nonhealed transverse fracture of the proximal left humeral shaft. The patient is status post left shoulder replacement. Electronically Signed: Adalberto Dumas MD at 11:26 EST ,
[2024-01-23] MEDS: Ondansetron 4 MG/2 ML Vial IV (10:42)
[2024-01-23] MEDS: 0.9% Normal Saline (500mL Bag) 500 ML 999 ML IV (10:43)
[2024-01-23 10:57] LABS: Absolute Lymphocyte Count 0.84 X10^3/uL (0.83-4.51); Absolute Neutrophil Count 7.2 X10^3/uL (2.0-7.7); Basophil# 0.07 X10^3/uL; Basophil% 0.8 % (0-1); Eosinophil# 0.02 X10^3/uL; Eosinophils% 0.2 % (0-5); Hematocrit 27.8 % (37-47); Lymphocyte # 0.84 X10^3/ul (0.83-4.51); Lymphocyte % 9.2 % (19-41); Mean Corp Hgb Conc 32.4 g/dL (32-36); Mean Corpuscular Hgb 32.8 pg (27.0-32.0); Mean Corpuscular Volume 101.5 fL (81-99); Mean Platelet Vol. 9.2 fl (6.2-12.0); Monocyte# 0.99 X10^3/uL; Monocyte% 10.8 % (0-10); NRBC Flagged by Analyzer 0 % (0-5); Neutrophil # 7.16 X10^3/uL (2.7-7.7); Neutrophil % 78.5 % (47-70); POSITIVE MORPHOLOGY YES; Platelet Count 534 K/mm3 (150-450); RBC Distribution Width CV 17.6 % (11.6-14.6); RBC Distribution Width SD 65.5 fl (35.1-43.9); Red Blood Count 2.74 M/mm3 (4.2-5.4); White Blood Count 9.1 K/mm3 (4.4-11.0)
[2024-01-23 10:59] LABS: Differential Indicated SCAN CRITERIA MET
[2024-01-23] MEDS: oxyCODONE 5 MG Tablet PO (11:02)
--- NOTE | 2024-01-23 11:08 | CT_ITS ---
STUDY: CT BRAIN WITHOUT CONTRAST REASON FOR EXAM: Female, 73 years old. Weakness. Vomiting. RADIATION DOSAGE (If Supplied By Facility): CTDIvol = ( 44.99 ) mGy, DLP = ( 812.98 ) mGycm TECHNIQUE: Transaxial CT imaging of the brain was performed without administration of intravenous contrast material. Individualized dose optimization techniques were used for this CT. COMPARISON: No relevant priors. FINDINGS: Normal soft tissue structures. Normal calvarium. There is mild cerebral atrophy with widening of the extra-axial spaces and ventricular dilatation. There are areas of decreased attenuation within the white matter tracts of the supratentorial brain, consistent with microvascular disease changes. Normal basal ganglia and thalami. Normal brainstem. Normal cerebellum. There is no intracranial hemorrhage. There are no findings of an acute ischemic infarction. Atherosclerotic plaque formation of the cavernous portions of the internal carotid arteries bilaterally. Normal visualized paranasal sinuses. CT/Brain/Head without Contrast IMPRESSION: Chronic involutional changes of the brain. Electronically Signed: Adalberto Dumas MD at 11:28 EST ,
--- NOTE | 2024-01-23 11:08 | CT_ITS ---
STUDY: CT CERVICAL SPINE WITHOUT CONTRAST REASON FOR EXAM: Female, 73 years old. Fall, neck trauma RADIATION DOSAGE (If Supplied By Facility): CTDIvol = ( 19.45 ) mGy, DLP = ( 365.56 ) mGycm TECHNIQUE: High resolution transaxial imaging was performed without contrast material. Sagittal and coronal images were reconstructed. Individualized dose optimization techniques were used for this CT. COMPARISON: None FINDINGS: Normal craniovertebral junction. There are degenerative changes of the anterior atlantoaxial articulation. Normal odontoid process. There is straightening of the normal cervical lordosis. Normal vertebral bodies and posterior osseous elements. C2-3: Facet joint osteoarthritis and hypertrophy. Mild degree of bilateral neural foraminal stenosis with worse on the left side. C3-4: Facet joint osteoarthritis and hypertrophy. Uncovertebral arthrosis. Posterior spondylosis. Bilateral neural foraminal stenosis. C4-5: Moderate degree of disc space narrowing. Marked degree of facet joint osteoarthritis and hypertrophy on the right side causing a marked degree of right neural foraminal stenosis. C5-6: Marked degree of disc space narrowing. Anterior spondylosis and fusion. Bilateral neural foraminal stenosis. Mild degree of central canal stenosis due to posterior spondylosis. C6-7: Status post anterior fusion. Right neural foramina stenosis and central canal stenosis. C7-T1: Normal endplates. Normal disc height and morphology. Normal central canal and intervertebral neuroforamina. CT/Spine Cervical without Contras IMPRESSION: Multilevel degenerative changes, as described above. Electronically Signed: Adalberto Dumas MD at 11:31 EST ,
--- NOTE | 2024-01-23 11:10 | RAD_ITS ---
STUDY: X-RAY CHEST REASON FOR EXAM: Female, 73 years old. Weakness TECHNIQUE: Single AP portable view of the chest. COMPARISON: None. FINDINGS: EKG electrodes are seen. There is hyperinflation of the lungs consistent with chronic obstructive lung disease (COPD). There is no demonstrated pleural abnormality. Normal size heart. Normal mediastinum and lyn. Normal visualized pulmonary arteries. There is atherosclerotic calcification of the aortic arch with tortuosity. There are diffuse degenerative changes of the visualized thoracic spine. Status post left reverse shoulder replacement. Stable transverse fracture of the proximal left humerus. There is no demonstrated abnormality of the visualized soft tissue structures of the upper abdomen. RAD/Chest 1 View (Portable) IMPRESSION: Hyperinflation. Status post left shoulder replacement with stable transverse fracture through the proximal shaft of the left humerus. Electronically Signed: Adalberto Dumas MD at 11:25 EST ,
[2024-01-23 11:12] LABS: International Normalized Ratio 1.1; Prothrombin Time (Protime)PT. 14.2 SECONDS (11.7-14.9)
[2024-01-23 11:24] LABS: Anisocytosis 2+
[2024-01-23 11:29] LABS: ALB/GLOB Ratio 0.6 RATIO (0.9-2.4); AST(SGOT) 21 U/L (15-37); Alanine Aminotransfer ALT/SGPT 9 U/L (13-56); Albumin, Serum 2.4 g/dL (3.2-5.0); Alkaline Phosphatase 159 U/L (45-117); Anion Gap 6 (5-15); BUN 13 mg/dL (7-18); BUN/Creat Ratio 16.5 RATIO (10-20); Calcium,Total 8.9 mg/dL (8.5-10.1); Chloride 100 mmol/L (98-107); Creatinine, Serum 0.79 mg/dL (0.55-1.02); EST Glomerular Filtration Rate 76 mL/min (>60); Est Glom Filt Rate - Afr Amer 92 mL/min (>60); Estimated Creatinine Clearance 49.33 ml/min; Globulin 4.2 g/dL (2.2-4.2); Glucose 100 mg/dL (74-106); Potassium 4.1 mmol/L (3.5-5.1); Protein, Total 6.6 g/dL (6.4-8.2); Sodium Level 134 mmol/L (136-145); Troponin-I HS 4 pg/mL (3.0-54.0)
[2024-01-23] MEDS: Cefazolin 1 GM/50 ML BAG IV (12:09)
[2024-01-23 12:18] LABS: Alcohol, Blood (Medical)-Serum < 3.0 mg/dL
[2024-01-23] MEDS: Acetaminophen 500 MG Tablet 1000 MG PO ×2 (13:33→21:49)
--- NOTE | 2024-01-23 15:21 | CASEMGMT ---
Social Work- met with pt spouse and pt daughter in law, Julissa, to discuss pt preferences at discharge. Pt spouse reports that pt was at [facility] for 30 days prior to being discharged Tuesday. Pt spouse reports that he took her home, as pt was requesting to go home and pt spouse felt guilt about not trying to care for her. Pt spouse and daughter in law both state that pt needs assistance with eating- both remembering to eat and actually eating at times. It is also reported that pt is incontinent at times, makes poor safety choices, and recently fell and laid on the floor for six hours prior to allowing family to assist her up. Pt family feels that she is a skilled level of care and cannot manage independently or even with minimal assistance. Pt family reports that they were considering an AL, but feel she needs a higher level of care after attempting to care for her this weekend. Pt family would like referral to geriatric PCP and Alzheimer information for family education. Pt family reports that she has a neurologist appointment in February for formal diagnosis of dementia. Family is seeking dementia care unit at SNF. Pt is requesting referral to [facility]. [facility] notified of request. HECTOR Dykes
--- NOTE | 2024-01-23 17:08 | HP.PCM.HOS_ITS ---
HPI - General General Date of Admission: 01/23/24 Date of Service: 01/23/24 Chief Complaint: debility. HPI Narrative IRINA ROSE, is a 73 F who presents with weakness. Pt was just recently discharged from rehab last week and discharged to home. Patient was doing fairly well but has been progressively weaker since being home. She is gone to the point where she is not able to care for self and the family has not been able to adequately help her. Patient was found down for period of time and sent her to the emergency room. Her preliminary workup in the emergency room was unremarkable. But given the the social situation, the hospitalist service was contacted for admission [facility] Medical History Bursitis History of alcohol abuse Tobacco abuse Leukocytosis, unspecified Hypoglycemia Adverse drug reaction Melena History of CAD (coronary artery disease) Anemia BPPV (benign paroxysmal positional vertigo) Smoker CPAP (continuous positive airway pressure) dependence Abscess of left thigh Alcohol abuse with alcohol-induced disorder Hyperlipidemia Atherosclerotic heart disease of [place] coronary artery without angina pectoris Endocarditis Obstructive sleep apnea Nicotine dependence in remission Home Medications ?Medication ?Instructions ?Recorded ?Last Taken ?Type cholecalciferol (vitamin D3) 50 50 mcg PO DAILY 04/19/23 01/23/24 History mcg (2,000 unit) capsule acetaminophen 500 mg capsule 1,000 mg PO TID pain 01/03/24 01/20/24 History buspirone 5 mg tablet 5 mg PO BID anxiety 01/03/24 01/23/24 History folic acid 1 mg tablet 1 mg PO DAILY 01/03/24 01/23/24 History magnesium 200 mg tablet 400 mg PO BID 01/03/24 01/23/24 History thiamine HCl (vitamin B1) 100 mg 100 mg PO DAILY 01/03/24 01/23/24 History tablet cephalexin 500 mg capsule 500 mg PO TID #20 caps 01/09/24 01/23/24 Rx doxycycline hyclate 100 mg capsule 100 mg PO BID #14 caps 01/09/24 01/23/24 Rx pantoprazole 40 mg tablet,delayed 40 mg PO DAILY #30 tabs 01/09/24 01/22/24 Rx release levothyroxine 25 mcg capsule 25 mcg PO DAILY 01/23/24 01/23/24 History melatonin 3 mg capsule 3 mg PO QHS 01/23/24 01/22/24 History Allergy/AdvReac Type Severity Reaction Status Date / Time No Known Allergies Allergy Verified 01/03/24 20:21 Family History Father CAD (coronary artery disease) Mother Liver cancer Surgical History Status post shoulder replacement History of shoulder surgery Hx of tonsillectomy History of hysterectomy Social History household members: spouse Smoking Status: Current every day smoker tobacco type: cigarettes Tobacco: How many years used: 41 Smokeless tobacco user: other second hand exposure: No alcohol intake: current alcohol intake frequency: 3 or more drinks per day Alcohol type: hard liquor details: Drinks 1/2 of 5th 90% proof vodka daily. substance use type: does not use caffeine: Yes (4+ drinks/day) ROS ROS Narrative Some urinary frequency and incontinence. No fever or chills. All review of systems were negative except as mentioned above in the history of present illness and the other review of systems. Vital Signs Vital Signs Vital Signs: 01/23/24 09:35 01/23/24 10:41 01/23/24 11:00 Temperature 36.2 C L 37.1 C 37.1 C Temperature Source Oral Oral Oral Pulse Rate 84 105 H 110 H Respiratory Rate 110 H 18 18 Respiratory Effort Blood Pressure 143/85 H 149/93 H 149/86 H Blood Pressure Mean 104 111 107 Blood Pressure Source Blood Pressure Position Blood Pressure Location Pulse Ox 94 95 98 Oxygen Delivery Method Room Air Room Air Room Air 01/23/24 12:00 01/23/24 12:15 01/23/24 13:16 Temperature 37.1 C 37.3 C H 37.4 C H Temperature Source Oral Oral Pulse Rate 101 H 104 H 87 Respiratory Rate 18 19 H 18 Respiratory Effort Blood Pressure 140/97 H 146/91 H 138/104 H Blood Pressure Mean 111 109 115 Blood Pressure Source Monitor Blood Pressure Position Semi-Fowlers Blood Pressure Location Right Arm Pulse Ox 98 94 Oxygen Delivery Method Room Air Room Air 01/23/24 13:23 Temperature Temperature Source Pulse Rate Respiratory Rate Respiratory Effort Normal Blood Pressure Blood Pressure Mean Blood Pressure Source Blood Pressure Position Blood Pressure Location Pulse Ox Oxygen Delivery Method Room Air Weight Weight: 46.584 kg Body Mass Index (BMI) 16.5 Physical Exam Const alert and no apparent distress HEENT normocephalic and head/scalp atraumatic Resp normal respiratory effort, no retractions, no use of accessory muscles and clear to auscultation bilaterally Cardio regular rate, regular rhythm, S1 normal heart sound and S2 normal heart sound GI normal to inspection, nondistended, normoactive bowel sounds, soft to palpation, non-tender and non-distended Extremity normal to inspection and full ROM Neuro oriented x3, CN's II-XII intact bilaterally, moves all extremities and no focal motor deficits Sensorium / Orientation: awake and alert Psych affect normal Results Lab / Micro Data Attestation: I reviewed the patient's lab results. 01/23/24 10:38 01/23/24 10:38 Labs: Laboratory Results - last 24 hr 01/23/24 10:38: WBC 9.1, RBC 2.74 L, Hgb 9.0 L, Hct 27.8 L, MCV 101.5 H, MCH 32.8 H, MCHC 32.4, RDW Std Deviation 65.5 H, RDW Coeff of Marc 17.6 H, Plt Count 534 H, MPV 9.2, Immature Gran % (Auto) 0.500, Neut % (Auto) 78.5 H, Lymph % (Auto) 9.2 L, Divide % (Auto) 10.8 H, Eos % (Auto) 0.2, Baso % (Auto) 0.8, Absolute Neuts (auto) 7.2, Absolute Lymphs (auto) 0.84, Nucleated RBC % 0, Anisocytosis 2+, PT 14.2, INR 1.1, Sodium 134 L, Potassium 4.1, Chloride 100, Carbon Dioxide 28.0, Anion Gap 6, BUN 13, Creatinine 0.79, Estim Creat Clear Calc 49.33, Est GFR (MDRD) Af Amer 92, Est GFR (MDRD) Non-Af 76, BUN/Creatinine Ratio 16.5, Glucose 100, Calcium 8.9, Total Bilirubin 0.50, AST 21, ALT 9 L, A lkaline Phosphatase 159 H, Troponin I High Sens 4, Total Protein 6.6, Albumin 2.4 L, Globulin 4.2, Albumin/Globulin Ratio 0.6 L, Ethyl Alcohol < 3.0, Blood Type A POSITIVE, Antibody Screen NEGATIVE Micro: Microbiology 01/23/24 09:54 Stool Stool Occult Blood (CHRISTINA) - Final Occult Blood Positive Rhythm Strip Rhythm Strip: Sinus Tach Rate: 110 Ectopy: None Imaging Radiology Impression Humerus X-Ray 01/23/24 09:44 IMPRESSION: Stable nonhealed transverse fracture of the proximal left humeral shaft. The patient is status post left shoulder replacement. Electronically Signed: Adalberto Dumas MD at 11:26 EST , Brain CT 01/23/24 11:08 IMPRESSION: Chronic involutional changes of the brain. Electronically Signed: Adalberto Dumas MD at 11:28 EST , Cervical Spine CT 01/23/24 11:08 IMPRESSION: Multilevel degenerative changes, as described above. Electronically Signed: Adalberto Dumas MD at 11:31 EST , Chest X-Ray 01/23/24 11:10 IMPRESSION: Hyperinflation. Status post left shoulder replacement with stable transverse fracture through the proximal shaft of the left humerus. Electronically Signed: Adalberto Dumas MD at 11:25 EST , Assessment & Plan Assessment/Plan (1) Debility: PLAN: Progressive despite recent humerus fracture PT OT Suspect pt may need SNF again. (2) Left arm cellulitis: PLAN: Add unasyn Check CT arm PLAN: Plan Left humerus fracture * subsequent visit. * poor healing * follow up with ortho as outpt * [facility] LIANG Chronic malnutrition * nutrition consult * Supplements. Encephalopathy * metabolic * suspect underlying dementia * Reviewed imaging with pt's and DIL about atrophy * pt was to follow up with neurology for evaluation VTE prophylaxis: Enoxaparin. Charges/Coding Visit Charges Inpatient E&M: 43433 Init Hosp L3
--- NOTE | 2024-01-23 17:12 | CT_ITS ---
STUDY: CT SCAN UPPER EXTREMITY LEFT REASON FOR EXAM: Female, 73 years old. Left arm erythema RADIATION DOSAGE (If Supplied By Facility): CTDIvol = ( 24.58 ) mGy, DLP = ( 671.23 ) mGy. Individualized dose optimization techniques were used for this CT.? TECHNIQUE: Multiple axial tomographic images of the left upper extremity were obtained without intravenous contrast administration. Coronal and sagittal reconstruction was obtained as well. COMPARISON: Comparison is made with prior study January 05, 2024. FINDINGS: The patient is status post left reverse shoulder replacement. Postoperative changes are seen. Nonhealed transverse fracture of the proximal left humeral shaft with evidence of a bony fragments. Soft tissue swelling. CT/Extremity Upper without Contra IMPRESSION: Status post left shoulder replacement. Nonhealed fracture through the proximal shaft of the left humerus. Soft tissue swelling. Electronically Signed: Adalberto Dumas MD at 10:09 EST ,
[2024-01-23] MEDS: Ampicillin/Sulbactam 3 GM in 0.9% Normal Saline (100mL MB+) 100 ML IV ×2 (18:23→23:31)
[2024-01-23] MEDS: Magnesium Chloride 64 MG Delay Rel.Tablet 128 MG PO (21:49)
[2024-01-23] MEDS: MELATONIN 3 MG TABLET PO (21:49)
[2024-01-24 02:12] VITALS: BP 92/61; PULSE 102; RESP 18; TEMP 37.2; O2SAT 94
[2024-01-24] MEDS: Acetaminophen 500 MG Tablet 1000 MG PO ×3 (06:36→20:52)
[2024-01-24] MEDS: Ampicillin/Sulbactam 3 GM in 0.9% Normal Saline (100mL MB+) 100 ML IV ×4 (06:36→23:24)
[2024-01-24] MEDS: Levothyroxine 25 MCG TABLET PO (06:36)
[2024-01-24 08:37] VITALS: BP 98/63; PULSE 101; RESP 18; TEMP 36.8; O2SAT 98
[2024-01-24] MEDS: Thiamine Hydrochloride 100 MG Tablet PO (08:41)
[2024-01-24] MEDS: Folic Acid 1 MG Tablet PO (08:41)
[2024-01-24] MEDS: Pantoprazole Sodium 40 MG Tablet PO (08:41)
[2024-01-24] MEDS: Magnesium Chloride 64 MG Delay Rel.Tablet 128 MG PO ×2 (08:41→20:52)
[2024-01-24] MEDS: Cholecalciferol (VIT D3) 25 MCG TABLET (1,000 UNITS) 50 MCG PO (08:42)
--- NOTE | 2024-01-24 08:45 | PN.HOSP_ITS ---
Reason for Visit Reason for Visit: Diagnoses Cellulitis of left upper limb (01/23/24) Other malaise (01/23/24) Subjective Subjective No new events. Urine had not been collected and pt required being straight cathed today. Objective Data Objective Data Vital Signs: Vital Signs Temp Pulse Resp BP Pulse Ox O2 Del Method 36.8 C 101 H 18 98/63 98 Room Air 01/24/24 08:37 01/24/24 08:37 01/24/24 08:37 01/24/24 08:37 01/24/24 08:37 01/24/24 08:38 Oxygen Delivery Method Room Air Weight: 46.584 kg Body Mass Index (BMI) 16.5 Intake & Output: Intake and Output for Last 24 Hours 01/22/24 01/23/24 01/24/24 23:59 23:59 23:59 Intake Total 902 / 902 724 / 724 Output Total 0 / 0 0 / 0 Balance 902 / 902 724 / 724 Lab / Micro Data 01/23/24 10:38 01/23/24 10:38 Labs: Laboratory Results - last 24 hr 01/23/24 10:38: WBC 9.1, RBC 2.74 L, Hgb 9.0 L, Hct 27.8 L, MCV 101.5 H, MCH 32.8 H, MCHC 32.4, RDW Std Deviation 65.5 H, RDW Coeff of Marc 17.6 H, Plt Count 534 H, MPV 9.2, Immature Gran % (Auto) 0.500, Neut % (Auto) 78.5 H, Lymph % (Auto) 9.2 L, Mcculloch % (Auto) 10.8 H, Eos % (Auto) 0.2, Baso % (Auto) 0.8, Absolute Neuts (auto) 7.2, Absolute Lymphs (auto) 0.84, Nucleated RBC % 0, Anisocytosis 2+, PT 14.2, INR 1.1, Sodium 134 L, Potassium 4.1, Chloride 100, Carbon Dioxide 28.0, Anion Gap 6, BUN 13, Creatinine 0.79, Estim Creat Clear Calc 49.33, Est GFR (MDRD) Af Amer 92, Est GFR (MDRD) Non-Af 76, BUN/Creatinine Ratio 16.5, Glucose 100, Calcium 8.9, Total Bilirubin 0.50, AST 21, ALT 9 L, A lkaline Phosphatase 159 H, Troponin I High Sens 4, Total Protein 6.6, Albumin 2.4 L, Globulin 4.2, Albumin/Globulin Ratio 0.6 L, Ethyl Alcohol < 3.0, Blood Type A POSITIVE, Antibody Screen NEGATIVE Micro: Microbiology 01/23/24 09:54 Stool Stool Occult Blood (CHRISTINA) - Final Occult Blood Positive Radiography Diagnostic Testing: Radiology Impression Humerus X-Ray 01/23/24 09:44 IMPRESSION: Stable nonhealed transverse fracture of the proximal left humeral shaft. The patient is status post left shoulder replacement. Electronically Signed: Adalberto Dumas MD at 11:26 EST , Brain CT 01/23/24 11:08 IMPRESSION: Chronic involutional changes of the brain. Electronically Signed: Adalberto Dumas MD at 11:28 EST , Cervical Spine CT 01/23/24 11:08 IMPRESSION: Multilevel degenerative changes, as described above. Electronically Signed: Adalberto Dumas MD at 11:31 EST , Chest X-Ray 01/23/24 11:10 IMPRESSION: Hyperinflation. Status post left shoulder replacement with stable transverse fracture through the proximal shaft of the left humerus. Electronically Signed: Adalberto Dumas MD at 11:25 EST , Rhythm Strip Rhythm Strip: Sinus Tach Rate: 110 Ectopy: None Physical Exam Const alert and no apparent distress HEENT head/scalp atraumatic and moist oral mucous membranes Resp normal respiratory effort and no retractions GI normal to inspection, nondistended, normoactive bowel sounds and soft to palpation Neuro Sensorium / Orientation: awake and alert Assessment & Plan Assessment/Plan (1) Debility: PLAN: Progressive despite recent humerus fracture PT OT Suspect pt may need SNF again. check UA. (2) Left arm cellulitis: PLAN: Continue unasyn Check CT showed swelling, no over cellulitis. PLAN: Plan Left humerus fracture * subsequent visit. * poor healing * follow up with ortho as outpt * NWB LUE * check 25-OH d level. Chronic malnutrition * nutrition consult * Supplements. Encephalopathy * metabolic * suspect underlying dementia * Reviewed imaging with pt's and DIL about atrophy * pt was to follow up with neurology for evaluation VTE prophylaxis: Enoxaparin. Charges/Coding Visit Charges Inpatient E&M: 29400 Subs Hosp L2
--- NOTE | 2024-01-24 09:08 | CASEMGMT ---
Addendum entered by Zara Arreola 01/24/24 16:04: [facility] declined referral. SW updated. Zara Arreola DC Planning Asst. Original Note: Discharge Planning Referral sent via [facility] to [facility]. Zara Arreola DC Planning Asst.
--- NOTE | 2024-01-24 11:13 | CASEMGMT ---
Social Work- SW met with pt, pt spouse, and pt [id number], Julissa, to update that referral to [facility] was completed. A list of SNF providers including quality and resource use data and consistent with the patient?s preferred geographic region, medical needs, and insurance network were provided from the [facility] Guide. SW circled facilities with dementia units per request of family. SW provided rack card for SNF navigation/ratings. SW provided printed resources including support groups on dementia/Alzheimer per request of family. SW will continue to follow. HECTOR Dykes
[2024-01-24 14:33] VITALS: BP 110/64; PULSE 100; RESP 18; TEMP 36.9; O2SAT 94
--- NOTE | 2024-01-24 14:45 | CASEMGMT ---
Social Work- SW called pt spouse and left a voicemail regarding declination from [facility]. SW called pt [id number] Julissa and spoke on declination. Julissa reports that she will be touring [place] tomorrow and will call to see if admissions can eval pt today. Julissa was also going to call [facility] and discuss memory care unit. Julissa will call SW and collaborate on family preference. SW remains available to follow.HECTOR Dykes
--- NOTE | 2024-01-24 15:00 | CASEMGMT ---
Social Work- Julissa called to advise that [facility] will assess pt at 10:00 on 01/25/2024. HECTOR Dykes
[2024-01-24 15:46] LABS: Color, Urine Yellow (Yellow); Glucose, Dipstick Normal (Normal); Ketone-Dipstick Negative (Negative); Leukocyte Esterase-Dipstick Negative /ul (Negative); Mucous, Urine 0 SEEN /hpf (<or=2+); Nitrite-Dipstick Negative (Negative); Occult Blood-Urine Negative /ul (Negative); Protein-Dipstick 30 mg/dl (Negative); Red Blood Cells-Urine 0 SEEN /hpf (0-5); Specific Gravity, Urine 1.025 (1.002-1.030); Urine Bilirubin Dipstick Negative (Negative); Urine Clarity Clear (Clear); Urine Urobilinogen Normal (Normal)
[2024-01-24] MEDS: 0.9% Normal Saline (1000mL) 1,000 ML 150 ML IV (16:03)
[2024-01-24 16:12] LABS: Bacteria 2+ /hpf (None Seen); Renal Epithelial Cells 0-5 SEEN /hpf (0-5); Squamous Epithelial Cells - UA 5-10 SEEN /hpf (5-10); White Blood Cells 0-5 SEEN /hpf (0-5)
[2024-01-24 16:46] LABS: Vitamin D,25 Hydroxy 26.3 ng/mL
[2024-01-24 20:44] VITALS: BP 96/56; PULSE 99; RESP 18; TEMP 36.8; O2SAT 94
[2024-01-24] MEDS: MELATONIN 3 MG TABLET PO (20:52)
[2024-01-25 05:01] VITALS: BP 111/66; PULSE 87; RESP 18; TEMP 36.8; O2SAT 95
[2024-01-25] MEDS: Ampicillin/Sulbactam 3 GM in 0.9% Normal Saline (100mL MB+) 100 ML IV ×4 (05:06→23:16)
[2024-01-25] MEDS: Levothyroxine 25 MCG TABLET PO (05:06)
[2024-01-25] MEDS: Acetaminophen 500 MG Tablet 1000 MG PO ×3 (05:06→19:58)
--- NOTE | 2024-01-25 07:26 | PN.HOSP_ITS ---
Reason for Visit Reason for Visit: Diagnoses Cellulitis of left upper limb (01/23/24) Other malaise (01/23/24) Subjective Subjective Feeling well. Does not want to go to SNF. Objective Data Objective Data Vital Signs: Vital Signs Temp Pulse Resp BP Pulse Ox O2 Del Method 36.8 C 87 18 111/66 95 Room Air 01/25/24 05:01 01/25/24 05:01 01/25/24 05:01 01/25/24 05:01 01/25/24 05:01 01/25/24 05:01 Oxygen Delivery Method Room Air Weight: 46.6 kg Body Mass Index (BMI) 16.5 Intake & Output: Intake and Output for Last 24 Hours 01/23/24 01/24/24 01/25/24 23:59 23:59 23:59 Intake Total 902 / 902 1410.5 / 1810.5 924 / 924 Output Total 0 / 0 100 / 200 100 / 100 Balance 902 / 902 1310.5 / 1610.5 824 / 824 Medical Nutrition Assessment Dietitian: Malnutrition Criteria Met Start: 01/24/24 15:38 Freq: Status: Active Protocol: Document 01/24/24 15:38 RMA (Rec: 01/24/24 15:38 RMA [id number]) Nutrition Malnutrition Evidence of Malnutrition Exists Yes Malnutrition (severe): Chronic Evidenced By Suboptimal Energy Intake ( Severe),Weight Loss (Severe), Physical Changes (Severe) Clinical Problem Chronic Disease or Condition Related Malnutrition Etiology Severe protein-calorie malnutrition in the context of chronic disease/debility related to inadequate oral/ energy intake likely due to dementia/weakness Signs/Symptoms as evidenced by ~13% unintentional weight loss x past 8-10 months , ~7% unintentional weight loss x past 1 month, overall poor PO meeting less than 50% estimated nutrition needs, physical signs of muscle wasting and fat depletion in the clavicle, orbitals, temporal region, arms and legs and BMI 16.6/Underweight. Status Active Problem Recommendation Dietitian Recommendations/Changes Continue liberalized regular diet. Continue 120mL ensure plus HP 3 times per day w/ medpass. Will add 240 mL ensure clear w / breakfast for tolerance. Will add magic cup BID w/ lunch and dinner tray. May need to consider enteral nutrition support to prevent further energy/protein depletion. Lab / Micro Data 01/23/24 10:38 01/23/24 10:38 Labs: Laboratory Results - last 24 hr 01/23/24 10:38: Vitamin D 25-Hydroxy 26.3 01/23/24 15:00: Urine Color Cancelled, Urine Clarity Cancelled, Urine pH Cancelled, Ur Specific Edmonson Cancelled, U Specif Grav (Refrac) Cancelled, Urine Protein Cancelled, Urine Glucose (UA) Cancelled, Urine Ketones Cancelled, Urine Occult Blood Cancelled, Urine Nitrite Cancelled, Urine Bilirubin Cancelled, Urine Urobilinogen Cancelled, Ur Leukocyte Esterase Cancelled, Urine RBC Cancelled, Urine WBC Cancelled, Ur Squamous Epith Cells Cancelled, Ur Transition Epith Cell Cancelled, Ur Renal Epithelial Cell Cancelled, Calcium Oxalate Crystal Cancelled, Uric Acid Crystals Cancelled, Triple Phos Crystals Cancelled, Other Crystals Cancelled, Amorphous Sediment Cancelled, Urine Bacteria Cancelled, Hyaline Casts Cancelled, Fine Granular Casts Cancelled, Coarse Granular Casts Cancelled, Waxy Casts Cancelled, RBC Casts Cancelled, WBC Casts Cancelled, Urine Mucus Cancelled, Urine Trichomonas Cancelled, Urine Yeast Cancelled 01/24/24 15:00: Urine Color Yellow, Urine Clarity Clear, Urine pH 5.0, Ur Specific Edmonson 1.025, Urine Protein 30 H, Urine Glucose (UA) Normal, Urine Ketones Negative, Urine Occult Blood Negative, Urine Nitrite Negative, Urine Bilirubin Negative, Urine Urobilinogen Normal, Ur Leukocyte Esterase Negative, Urine RBC 0 SEEN, Urine WBC 0-5 SEEN, Ur Squamous Epith Cells 5-10 SEEN, Ur Renal Epithelial Cell 0-5 SEEN, Urine Bacteria 2+, Urine Mucus 0 SEEN Micro: Microbiology 01/23/24 09:54 Stool Stool Occult Blood (CHRISTINA) - Final Occult Blood Positive Radiography Diagnostic Testing: Radiology Impression Upper Extremity CT 01/23/24 17:12 IMPRESSION: Status post left shoulder replacement. Nonhealed fracture through the proximal shaft of the left humerus. Soft tissue swelling. Electronically Signed: Adalberto Dumas MD at 10:09 EST , Rhythm Strip Rhythm Strip: Sinus Tach Rate: 110 Ectopy: None Physical Exam Const alert and no apparent distress HEENT head/scalp atraumatic and moist oral mucous membranes Resp normal respiratory effort and no retractions Psych Mood & Affect: anxious Assessment & Plan Assessment/Plan (1) Debility: PLAN: Progressive despite recent humerus fracture PT OT Suspect pt may need SNF again. UA negative for infection but SG was high indicating dehydration. Pt received 1 liter of IVF. (2) Left arm cellulitis: PLAN: Continue unasyn. 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 Check CT showed swelling, no over cellulitis. PLAN: Plan Left humerus fracture * subsequent visit. * poor healing * follow up with ortho as outpt * NWB LUE * check 25-OH d level. Chronic malnutrition * nutrition consult * Supplements. Encephalopathy * metabolic * suspect underlying dementia * Reviewed imaging with pt's and DIL about atrophy * pt with baseline cognitive impairment. Unclear etiology, but concerning, at least in part, due to prior alcohol abuse. Unclear extent. Pt previously scheduled to see neurology as outpt for evaluation. VTE prophylaxis: Enoxaparin. DW pt's . Charges/Coding Visit Charges Inpatient E&M: 37383 Subs Hosp L2
[2024-01-25 09:06] VITALS: BP 118/56; PULSE 91; RESP 18; TEMP 36.7; O2SAT 96
[2024-01-25] MEDS: Folic Acid 1 MG Tablet PO (09:09)
[2024-01-25] MEDS: Pantoprazole Sodium 40 MG Tablet PO (09:09)
[2024-01-25] MEDS: Thiamine Hydrochloride 100 MG Tablet PO (09:09)
[2024-01-25] MEDS: Cholecalciferol (VIT D3) 25 MCG TABLET (1,000 UNITS) 50 MCG PO (09:09)
[2024-01-25] MEDS: Magnesium Chloride 64 MG Delay Rel.Tablet 128 MG PO ×2 (09:09→19:58)
[2024-01-25] MEDS: 0.9% Saline Lock 10 ML Syringe IV ×2 (09:13→17:20)
--- NOTE | 2024-01-25 12:44 | WOUNDNOTE ---
wound photo: left elbow
[2024-01-25 14:13] VITALS: BP 115/70; PULSE 89; RESP 18; TEMP 37; O2SAT 95
--- NOTE | 2024-01-25 15:06 | CASEMGMT ---
Social Work- JEANNIE faxed requested clinical documentation to [facility]. [id number], Julissa, updated via telephone. Julissa expressed concerns regarding a bed for pt. Julissa asked about hospital bed coverage. SW checked on coverage; bed would not be covered. JEANNIE followed up with pt spouse whom was at the hospital and sought out SW to discuss d/c plans. Pt spouse will updated Julissa on bed. JEANNIE advised both daughter in law and spouse to plan on d/c tomorrow, as they are still awaiting official approval from [facility], who is reviewing [facility] documentation SW faxed. JEANNIE received call from [facility] stating that wound documentation needs different verbiage for pt acceptance. JEANNIE notified Cyn, wound nurse who stated that she would call [facility] at [facility]. JEANNIE remains available to follow. HECTOR Dykes
[2024-01-25 19:56] VITALS: BP 144/68; PULSE 82; RESP 18; TEMP 36.7; O2SAT 96
[2024-01-25] MEDS: MELATONIN 3 MG TABLET PO (19:58)
[2024-01-26 02:50] VITALS: BP 114/63; PULSE 75; RESP 18; TEMP 36.6; O2SAT 96
[2024-01-26] MEDS: Ampicillin/Sulbactam 3 GM in 0.9% Normal Saline (100mL MB+) 100 ML IV ×2 (05:19→12:09)
[2024-01-26] MEDS: Acetaminophen 500 MG Tablet 1000 MG PO ×2 (05:21→14:48)
[2024-01-26] MEDS: Levothyroxine 25 MCG TABLET PO (05:21)
--- NOTE | 2024-01-26 07:42 | PN.HOSP_ITS ---
Reason for Visit Reason for Visit: Diagnoses Cellulitis of left upper limb (01/23/24) Other malaise (01/23/24) Subjective Subjective Feeling well. No new events. Objective Data Objective Data Vital Signs: Vital Signs Temp Pulse Resp BP Pulse Ox O2 Del Method 36.6 C 75 18 114/63 96 Room Air 01/26/24 02:50 01/26/24 02:50 01/26/24 02:50 01/26/24 02:50 01/26/24 02:50 01/26/24 02:50 Oxygen Delivery Method Room Air Weight: 46.6 kg Body Mass Index (BMI) 16.5 Intake & Output: Intake and Output for Last 24 Hours 01/24/24 01/25/24 01/26/24 23:59 23:59 23:59 Intake Total 1410.5 / 1810.5 1925.5 / 1925.5 624 / 624 Output Total 100 / 200 100 / 100 Balance 1310.5 / 1610.5 1825.5 / 1825.5 624 / 624 Medical Nutrition Assessment Dietitian: Malnutrition Criteria Met Start: 01/24/24 15:38 Freq: Status: Active Protocol: Document 01/24/24 15:38 RMA (Rec: 01/24/24 15:38 RMA [id number]) Nutrition Malnutrition Evidence of Malnutrition Exists Yes Malnutrition (severe): Chronic Evidenced By Suboptimal Energy Intake ( Severe),Weight Loss (Severe), Physical Changes (Severe) Clinical Problem Chronic Disease or Condition Related Malnutrition Etiology Severe protein-calorie malnutrition in the context of chronic disease/debility related to inadequate oral/ energy intake likely due to dementia/weakness Signs/Symptoms as evidenced by ~13% unintentional weight loss x past 8-10 months , ~7% unintentional weight loss x past 1 month, overall poor PO meeting less than 50% estimated nutrition needs, physical signs of muscle wasting and fat depletion in the clavicle, orbitals, temporal region, arms and legs and BMI 16.6/Underweight. Status Active Problem Recommendation Dietitian Recommendations/Changes Continue liberalized regular diet. Continue 120mL ensure plus HP 3 times per day w/ medpass. Will add 240 mL ensure clear w / breakfast for tolerance. Will add magic cup BID w/ lunch and dinner tray. May need to consider enteral nutrition support to prevent further energy/protein depletion. Lab / Micro Data 01/23/24 10:38 01/23/24 10:38 Micro: Microbiology 01/24/24 15:00 Urine, Clean Catch Urine Culture - Preliminary Culture exhibits no growth. 01/23/24 09:54 Stool Stool Occult Blood (CHRISTINA) - Final Occult Blood Positive Rhythm Strip Rhythm Strip: Sinus Tach Rate: 110 Ectopy: None Physical Exam Const alert and no apparent distress Constitutional Narrative: non toxic. afebrile. HEENT head/scalp atraumatic and moist oral mucous membranes Extremity Extremity Narrative: L shoulder with anterior swelling w reduced erythema. Assessment & Plan Assessment/Plan (1) Debility: PLAN: Progressive despite recent humerus fracture PT OT Suspect pt may need SNF again. UA negative for infection but SG was high indicating dehydration. Pt received 1 liter of IVF. (2) Left arm cellulitis: PLAN: Continue unasyn. 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 Check CT showed swelling, no over cellulitis. PLAN: Plan Left humerus fracture * subsequent visit. * poor healing * follow up with ortho as outpt * NWB LUE * 25-OH d 26.3. Will replace. Chronic malnutrition * nutrition consult * Supplements. Encephalopathy * metabolic * suspect underlying dementia * Reviewed imaging with pt's and DIL about atrophy * pt with baseline cognitive impairment. Unclear etiology, but concerning, at least in part, due to prior alcohol abuse. Unclear extent. Pt previously scheduled to see neurology as outpt for evaluation. VTE prophylaxis: Enoxaparin. DW family at bedside. DC to [facility] today.
[2024-01-26] MEDS: Thiamine Hydrochloride 100 MG Tablet PO (08:36)
[2024-01-26] MEDS: Magnesium Chloride 64 MG Delay Rel.Tablet 128 MG PO (08:36)
[2024-01-26] MEDS: Folic Acid 1 MG Tablet PO (08:36)
[2024-01-26] MEDS: Ensure Plus High Protein 120 ML LIQUID PO (08:36)
[2024-01-26] MEDS: Pantoprazole Sodium 40 MG Tablet PO (08:36)
[2024-01-26 08:43] VITALS: BP 141/78; PULSE 89; RESP 16; TEMP 36.6; O2SAT 94
--- NOTE | 2024-01-26 09:47 | CASEMGMT ---
Addendum entered by Wanda Link 01/26/24 10:26: Social Work- SW spoke with Davis at [facility] who reports pt spouse must set up bed; delivery can be anytime. Davis reports that the would like the referral for PT/OT to go to [facility]. Pt & pt spouse reported that they were fine with whoever [facility] uses. RNCM advised. Physician advised that Davis received paperwork and can d/c at any time. JEANNIE remains available to follow. HECTOR Dykes Original Note: Social Work- SW received paperwork from [facility] to be completed. SW collaborated with physician to complete and faxed over. SW called Davis at [facility] to confirm receipt and discuss discharge plans. SW met with pt and spouse to discuss discharge.Pt spouse questioned securing a hospital bed. SW encouraged pt spouse to call [facility] or collaborate with [facility]. JEANNIE did attempt to call Davis at [facility] and left a voicemail. JEANNIE remains available to follow. Plan: JENNIFER Kimball LSW
--- NOTE | 2024-01-26 10:12 | CASEMGMT ---
Addendum entered by Arlene Herman 01/26/24 11:31: Received tc from Bettina at [facility], they can accept pt for services on Tuesday. BRANDIE STEIN into pt room, pt and son aware. Answered questions regarding HHC. Pt and son deny further needs. Addendum entered by Arlene Herman 01/26/24 11:06: BRANDIE STEIN made aware from that [facility] uses [facility] or [facility]. BRANDIE STEIN into pt room, pt son present, pt and son made aware that [facility] uses [facility] or [facility] but they are able to chose any agency. Pt and son deny need for a list of agencies that was offered. They would like to try [facility] first, then [facility]. TC to Bettina at [facility], referral made, will await determination of acceptance. Original Note: BRANDIE STEIN Readmission Note Previous Admission: 01/03/24-01/09/24 Diagnosis: melanotic stools with severe anemia DC Disposition: [facility] Current Admission: Admitted 01/23/24 Current Diagnosis: Debility Pt readmitted after being dc'd from [facility] for 2 days per pt request. Pt family unable to care for pt at home. Plan for [facility] today and HHC. JEANNIE inquired if HHC will be set up by [facility], otherwise BRANDIE STEIN will set up. DC Plan: [facility] with [facility] for PT and OT.
--- NOTE | 2024-01-26 10:25 | TREXTCAR_ITS ---
Diet Diet Order/Speech Therapy: 01/23/24 13:09 Diet: Regular - General Food consistency:: Regular Liquid Consistency:: Regular/Thin Type of Dietary Supplement:: Magic Cup w/ L & D Diet Comments: 240mL ensure clear w/ breakfast Routine Orders/Code Status Code Status: Full Code DC O2, CPAP, BIPAP needs Additional Home O2 Discharge instructions: No Wound(s) left shoulder: Wound Type: Surgical Incision left elbow: Wound Type: nonhealing wound Dressing Change: foam dressing Therapies Weight Bearing: Non weight bearing Extremity Affected:: Left Upper Physical Therapy: Eval and Treat Occupational Therapy: Eval and Treat Problem/Diagnosis (1) Debility: Status: Acute Code(s): R53.81 - Other malaise Plan: Progressive despite recent humerus fracture PT OT Suspect pt may need SNF again. UA negative for infection but SG was high indicating dehydration. Pt received 1 liter of IVF. (2) Left arm cellulitis: Status: Acute Code(s): L03.114 - Cellulitis of left upper limb Plan: Continue unasyn. 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 Check CT showed swelling, no over cellulitis. Plan Left humerus fracture * subsequent visit. * poor healing * follow up with ortho as outpt * NWB LUE * 25-OH d 26.3. Will replace. Chronic malnutrition * nutrition consult * Supplements. Encephalopathy * metabolic * suspect underlying dementia * Reviewed imaging with pt's and DIL about atrophy * pt with baseline cognitive impairment. Unclear etiology, but concerning, at least in part, due to prior alcohol abuse. Unclear extent. Pt previously scheduled to see neurology as outpt for evaluation. VTE prophylaxis: Enoxaparin. DW family at bedside. DC to [facility] today. Allergies/Procedures Done in Hospital Allergies No Known Allergies Allergy (Verified 01/03/24 20:21) Type of Care/Length of Stay Estimated LOS: Convalescent Care Less Than 30 days Type of Care Needed: Skilled Rehab Potential: Good Prognosis: Good Additional Orders/Day of Discharge Day of Discharge: 01/26/24 Dietary and Speech Recommendations Dietitian Recommendations/Changes: Continue liberalized regular diet. Continue 120mL ensure plus HP 3 times per day w/ medpass. Will add 240 mL ensure clear w/ breakfast for tolerance. Will add magic cup BID w/ lunch and dinner tray. May need to consider enteral nutrition support to prevent further energy/protein depletion. Discharge Plan Admission Admit Date/Time: 01/23/24 17:14 Primary Reason for Your Visit: debility Attending Provider: Tristian Burks Primary Care Provider: Care Physician,No Primary Discharge Orders/Prescriptions Prescriptions: New ergocalciferol (vitamin D2) [Vitamin D2] 1,250 mcg (50,000 unit) Capsule 1,250 mcg PO Q7D Qty: 0 0RF Ensure Plus High Protein 0.08 gram-1.5 kcal/mL Liquid 120 ml PO TIDCM Qty: 0 0RF amoxicillin-pot clavulanate 875-125 mg tablet 1 tab PO Q12H Qty: 10 0RF Continued cholecalciferol (vitamin D3) 50 mcg (2,000 unit) capsule 50 mcg PO DAILY Patient Comments: give one time a day every tuesday for abnormal vitd levels for 16 weeks. End 04/23/2024 levothyroxine 25 mcg capsule 25 mcg PO DAILY melatonin 3 mg capsule 3 mg PO QHS buspirone 5 mg tablet 5 mg PO BID Patient Comments: for 14 days, end 01/05/2024 folic acid 1 mg tablet 1 mg PO DAILY magnesium 200 mg tablet 400 mg PO BID thiamine HCl (vitamin B1) 100 mg tablet 100 mg PO DAILY acetaminophen 500 mg capsule 1,000 mg PO TID pantoprazole 40 mg Tablet,Delayed Release (Dr/Ec) 40 mg PO DAILY Qty: 30 2RF Discontinued doxycycline hyclate 100 mg capsule 100 mg PO BID Qty: 14 0RF cephalexin 500 mg capsule 500 mg PO TID Qty: 20 0RF Referrals / Follow Up: Zarina Schwab MD [Med Staff - Rn Maternal Child] - Care Physician,No Primary [Primary Care Provider] - Disposition Disposition (needs filled in before D/C Order can be placed): [facility] Facility
--- NOTE | 2024-01-26 10:32 | DS.PCM_ITS ---
Providers Date of Admission: 01/23/24 Primary Care Physician: No Primary Care Phys Consultations 01/25/24 10:41 Consult: Onc/Wound/photolithographer Routine Comment: Reason for Consult:: chronic wound left elbow- sloughing Comments:: recommendations for wound care Reason For Visit: DEBILITY Diagnosis Discharge Diagnosis (1) Debility: Status: Acute Code(s): R53.81 - Other malaise Plan: Progressive despite recent humerus fracture PT OT Suspect pt may need SNF again. UA negative for infection but SG was high indicating dehydration. Pt received 1 liter of IVF. (2) Left arm cellulitis: Status: Acute Code(s): L03.114 - Cellulitis of left upper limb Plan: Continue unasyn. 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 Check CT showed swelling, no over cellulitis. Plan Left humerus fracture * subsequent visit. * poor healing * follow up with ortho as outpt * NWB LUE * 25-OH d 26.3. Will replace. Chronic malnutrition * nutrition consult * Supplements. Encephalopathy * metabolic * suspect underlying dementia * Reviewed imaging with pt's and DIL about atrophy * pt with baseline cognitive impairment. Unclear etiology, but concerning, at least in part, due to prior alcohol abuse. Unclear extent. Pt previously scheduled to see neurology as outpt for evaluation. VTE prophylaxis: Enoxaparin. DW family at bedside. DC to [facility] today. Medications at Discharge Home Medications cholecalciferol (vitamin D3) 50 mcg (2,000 unit) capsule 50 mcg PO DAILY 04/19/23 acetaminophen 500 mg capsule 1,000 mg PO TID pain 01/03/24 buspirone 5 mg tablet 5 mg PO BID anxiety 01/03/24 folic acid 1 mg tablet 1 mg PO DAILY 01/03/24 magnesium 200 mg tablet 400 mg PO BID 01/03/24 thiamine HCl (vitamin B1) 100 mg tablet 100 mg PO DAILY 01/03/24 pantoprazole 40 mg tablet,delayed release 40 mg PO DAILY #30 tabs 01/09/24 levothyroxine 25 mcg capsule 25 mcg PO DAILY 01/23/24 melatonin 3 mg capsule 3 mg PO QHS 01/23/24 amoxicillin 875 mg-potassium clavulanate 125 mg tablet 1 tab PO Q12H #10 tabs 01/26/24 ergocalciferol (vitamin D2) 1,250 mcg (50,000 unit) capsule (Vitamin D2) 1,250 mcg PO Q7D #0 caps 01/26/24 food supplemt, lactose-reduced 0.08 gram-1.5 kcal/mL oral liquid (Ensure Plus High Protein) 120 ml PO TIDCM #0 mL 01/26/24 Hospital Course Operations None Procedures None Summary of Care Provided Minutes Spent on Discharge: 32 Hospital Course: Patient admitted for weakness from home. Patient had just had a long stay at halfway facility after a left humerus fracture. Present did presents with weakness. Was found that she was dehydrated. There is question whether she had left upper extremity cellulitis. Patient did have a CAT scan of her arm given her recent surgery and just showed edema no overt cellulitis. Patient was treated empirically with ampicillin/sulbactam. Will continue to treat her with amoxicillin/clavulanic acid to complete a 7-day course of antibiotics. Unfortunate patient has exhausted her paid days at a halfway facility so patient will be going to [facility] as self-pay. I did check a 25-hydroxy vitamin D level that was low and so patient will be on a week course of ergocalciferol. Medical Records Data Medical Nutrition Assessment Dietitian: Malnutrition Criteria Met Start: 01/24/24 15:38 Freq: Status: Active Protocol: Document 01/24/24 15:38 RMA (Rec: 01/24/24 15:38 RMA [id number]) Nutrition Malnutrition Evidence of Malnutrition Exists Yes Malnutrition (severe): Chronic Evidenced By Suboptimal Energy Intake ( Severe),Weight Loss (Severe), Physical Changes (Severe) Clinical Problem Chronic Disease or Condition Related Malnutrition Etiology Severe protein-calorie malnutrition in the context of chronic disease/debility related to inadequate oral/ energy intake likely due to dementia/weakness Signs/Symptoms as evidenced by ~13% unintentional weight loss x past 8-10 months , ~7% unintentional weight loss x past 1 month, overall poor PO meeting less than 50% estimated nutrition needs, physical signs of muscle wasting and fat depletion in the clavicle, orbitals, temporal region, arms and legs and BMI 16.6/Underweight. Status Active Problem Recommendation Dietitian Recommendations/Changes Continue liberalized regular diet. Continue 120mL ensure plus HP 3 times per day w/ medpass. Will add 240 mL ensure clear w / breakfast for tolerance. Will add magic cup BID w/ lunch and dinner tray. May need to consider enteral nutrition support to prevent further energy/protein depletion. Weight / BMI Weight Weight: 46.6 kg Body Mass Index (BMI) 16.5 ABG / Lab / Microbiology Data 01/23/24 10:38 01/23/24 10:38 Microbiology: Microbiology 01/24/24 15:00 Urine, Clean Catch Urine Culture - Preliminary Culture exhibits no growth. 01/23/24 09:54 Stool Stool Occult Blood (CHRISTINA) - Final Occult Blood Positive D/C Instructions Discharge Diet: No restrictions DC O2, CPAP, BIPAP Needs Additional Home O2 Discharge instructions: No DC home with Oxygen: No Meaningful Use Info Meaningful Use Meaningful Use Diagnoses (Choose all that apply): None applicable Ischemic Stroke Statin Dosing Therapy Reference: STATIN DOSE THERAPY REFERENCE: * Patients > 75 years receive moderate or high dose statin therapy. * Patients 75 years or YOUNGER should receive HIGH intensity statin dose unless contraindicated. You will be required to document reason for non-treatment if statin daily dose does not meet guidelines. HIGH DOSE STATIN THERAPY DAILY Atorvastatin > than or = to 40 mg Rosuvastatin > than or = to 20 mg Amlodipine + Atorvastatin > than or = to 2.5/40 mg Ezetimibe + Simvastatin 10/80 mg Simvastatin 80mg Discharge Plan Admission Admit Date/Time: 01/23/24 17:14 Primary Reason for Your Visit: debility Attending Provider: Tristian Burks Primary Care Provider: Care PhysicianChristine Primary Discharge Orders/Prescriptions Prescriptions: New ergocalciferol (vitamin D2) [Vitamin D2] 1,250 mcg (50,000 unit) Capsule 1,250 mcg PO Q7D Qty: 0 0RF Ensure Plus High Protein 0.08 gram-1.5 kcal/mL Liquid 120 ml PO TIDCM Qty: 0 0RF amoxicillin-pot clavulanate 875-125 mg tablet 1 tab PO Q12H Qty: 10 0RF Continued cholecalciferol (vitamin D3) 50 mcg (2,000 unit) capsule 50 mcg PO DAILY Patient Comments: give one time a day every tuesday for abnormal vitd levels for 16 weeks. End 04/23/2024 levothyroxine 25 mcg capsule 25 mcg PO DAILY melatonin 3 mg capsule 3 mg PO QHS buspirone 5 mg tablet 5 mg PO BID Patient Comments: for 14 days, end 01/05/2024 folic acid 1 mg tablet 1 mg PO DAILY magnesium 200 mg tablet 400 mg PO BID thiamine HCl (vitamin B1) 100 mg tablet 100 mg PO DAILY acetaminophen 500 mg capsule 1,000 mg PO TID pantoprazole 40 mg Tablet,Delayed Release (Dr/Ec) 40 mg PO DAILY Qty: 30 2RF Discontinued doxycycline hyclate 100 mg capsule 100 mg PO BID Qty: 14 0RF cephalexin 500 mg capsule 500 mg PO TID Qty: 20 0RF Referrals / Follow Up: Zarina Schwab MD [Med Staff - Lubricating Machine Tender] - Care Physician,No Primary [Primary Care Provider] - Disposition Disposition (needs filled in before D/C Order can be placed): [facility] Charges/Coding Visit Charges Inpatient E&M: 63348 Disch Hosp >30min
--- NOTE | 2024-01-26 11:30 | CASEMGMT ---
Social Work- Physician updated and pt is ready for discharge today.? SW met with pt and they are agreeable to discharge plan as stated above.? Pt spouse and bedside nurse notified of discharge. Disposition:[facility]
[2024-01-26 14:46] VITALS: BP 132/79; PULSE 90; RESP 16; TEMP 36.6; O2SAT 93
== END 2024-01-26 16:01 | disposition home or self-care (01) | DRG 640 ==
LOC: ED 11:53 → MS3 12:33
PROVIDERS: Emergency Provider Emergency Medicine
DX: E86.0 Dehydration (principal); G93.41 Metabolic encephalopathy; E43 Unspecified severe protein-calorie malnutrition; Z68.1 Body mass index [BMI] 19.9 or less, adult; S42.322K Displaced transverse fracture of shaft of humerus, left arm, subsequent encounter for fracture with nonunion; L03.114 Cellulitis of left upper limb; F03.90 Unspecified dementia, unspecified severity, without behavioral disturbance, psychotic disturbance, mood disturbance, and anxiety; F10.11 Alcohol abuse, in remission; F17.211 Nicotine dependence, cigarettes, in remission; E78.5 Hyperlipidemia, unspecified; I25.10 Atherosclerotic heart disease of native coronary artery without angina pectoris; R11.2 Nausea with vomiting, unspecified; W19.XXXD Unspecified fall, subsequent encounter; R19.5 Other fecal abnormalities; E55.9 Vitamin D deficiency, unspecified; R29.6 Repeated falls; R53.81 Other malaise; Z79.890 Hormone replacement therapy; Z79.899 Other long term (current) drug therapy; Z96.612 Presence of left artificial shoulder joint
CPT/HCPCS: 70450; 71045; 72125; 73060; 73200; 80053; 81001; 82077; 82274; 82306; 84484; 85025; 85610; 86850; 86900; 86901; 87086; 93005; 97110; 97162; 97166; 97530; 97802; 99285; J7030; A4216; J0295; J2405

== ENCOUNTER → 2024-02-03 05:00 | Outpatient (REF) | payer MEDICARE, SELFPAY ==
[2024-02-03 08:41] LABS: Vitamin D,25 Hydroxy 30.7 ng/mL
[2024-02-03 08:53] LABS: Hematocrit 28.6 % (37-47); Mean Corp Hgb Conc 31.5 g/dL (32-36); Mean Corpuscular Hgb 31.8 pg (27.0-32.0); Mean Corpuscular Volume 101.1 fL (81-99); Mean Platelet Vol. 9.3 fl (6.2-12.0); Platelet Count 650 K/mm3 (150-450); RBC Distribution Width CV 16.7 % (11.6-14.6); RBC Distribution Width SD 62.4 fl (35.1-43.9); Red Blood Count 2.83 M/mm3 (4.2-5.4); White Blood Count 8.5 K/mm3 (4.4-11.0)
[2024-02-03 09:32] LABS: ALB/GLOB Ratio 0.6 RATIO (0.9-2.4); AST(SGOT) 18 U/L (15-37); Alanine Aminotransfer ALT/SGPT 14 U/L (13-56); Albumin, Serum 2.5 g/dL (3.2-5.0); Alkaline Phosphatase 160 U/L (45-117); Anion Gap 6 (5-15); BUN 7 mg/dL (7-18); BUN/Creat Ratio 10.4 RATIO (10-20); Calcium,Total 9.1 mg/dL (8.5-10.1); Chloride 106 mmol/L (98-107); Cholesterol 148 mg/dL (200); Creatinine, Serum 0.67 mg/dL (0.55-1.02); EST Glomerular Filtration Rate 91 mL/min (>60); Est Glom Filt Rate - Afr Amer 110 mL/min (>60); Globulin 3.9 g/dL (2.2-4.2); Glucose 82 mg/dL (74-106); High Density Lipoprotein 59 mg/dL; Potassium 3.9 mmol/L (3.5-5.1); Protein, Total 6.4 g/dL (6.4-8.2); Sodium Level 140 mmol/L (136-145); Triglycerides 141 mg/dL; Very Low Density Lipoprotein 28 mg/dL (5-40)
[2024-02-03 09:42] LABS: Hemoglobin A1c 4.8 % (3.8-5.6)
== END ==
LOC: OLS.BROOKB 05:00
DX: Z79.899 Other long term (current) drug therapy (principal)
CPT/HCPCS: 36415; 80053; 80061; 82306; 82746; 83036; 84439; 84443; 85027

== ENCOUNTER → 2024-02-14 | Outpatient (CLI) | payer MEDICARE, SELFPAY ==
[2024-02-14 17:25] LABS: Absolute Lymphocyte Count 2.08 X10^3/uL (0.83-4.51); Absolute Neutrophil Count 4.4 X10^3/uL (2.0-7.7); Basophil# 0.04 X10^3/uL; Basophil% 0.5 % (0-1); Eosinophil# 0.19 X10^3/uL; Eosinophils% 2.5 % (0-5); Hematocrit 27.4 % (37-47); Hemoglobin 8.8 g/dL (12.0-15.0); Lymphocyte # 2.08 X10^3/ul (0.83-4.51); Lymphocyte % 27.7 % (19-41); Mean Corp Hgb Conc 32.1 g/dL (32-36); Mean Corpuscular Hgb 31.9 pg (27.0-32.0); Mean Corpuscular Volume 99.3 fL (81-99); Mean Platelet Vol. 9.4 fl (6.2-12.0); Monocyte# 0.81 X10^3/uL; Monocyte% 10.8 % (0-10); NRBC Flagged by Analyzer 0 % (0-5); Neutrophil # 4.36 X10^3/uL (2.7-7.7); Neutrophil % 58.2 % (47-70); Platelet Count 553 K/mm3 (150-450); RBC Distribution Width CV 16.2 % (11.6-14.6); RBC Distribution Width SD 58.5 fl (35.1-43.9); Red Blood Count 2.76 M/mm3 (4.2-5.4); White Blood Count 7.5 K/mm3 (4.4-11.0)
[2024-02-14 18:35] LABS: ALB/GLOB Ratio 0.6 RATIO (0.9-2.4); AST(SGOT) 20 U/L (15-37); Alanine Aminotransfer ALT/SGPT 15 U/L (13-56); Albumin, Serum 2.7 g/dL (3.2-5.0); Alkaline Phosphatase 160 U/L (45-117); Anion Gap 7 (5-15); BUN 14 mg/dL (7-18); BUN/Creat Ratio 15.5 RATIO (10-20); Calcium,Total 8.9 mg/dL (8.5-10.1); Chloride 105 mmol/L (98-107); EST Glomerular Filtration Rate 65 mL/min (>60); Est Glom Filt Rate - Afr Amer 78 mL/min (>60); Globulin 4.2 g/dL (2.2-4.2); Glucose 103 mg/dL (74-106); Hepatitis C Antibody Non-Reactive (Nonreactive); Potassium 3.4 mmol/L (3.5-5.1); Protein, Total 6.9 g/dL (6.4-8.2); Sodium Level 141 mmol/L (136-145); Syphilis Antibodies Non-reactive; Vitamin B12 398 pg/mL (211-911)
== END | disposition home or self-care (01) ==
LOC: POLAB3 16:25
PROVIDERS: Visit Provider Family Medicine Geriatric Medicine
DX: E03.9 Hypothyroidism, unspecified (principal); G30.9 Alzheimer's disease, unspecified; R53.83 Other fatigue; Z13.89 Encounter for screening for other disorder; E55.9 Vitamin D deficiency, unspecified
CPT/HCPCS: 36415; 80053; 82306; 82607; 82746; 84443; 85025; 86780; 86803

== ENCOUNTER → 2024-02-16 | Outpatient (CLI) | payer MEDICARE, SELFPAY ==
[2024-02-16 13:06] LABS: Ferritin 445 ng/mL (8-252); Iron 34 ug/dL (50-170); Iron Binding Capacity,Total 181 ug/dL (250-450); PERCENT IRON SATURATION 18.8 % (15.0-55.0)
== END | disposition home or self-care (01) ==
LOC: POLAB3 11:59
PROVIDERS: PCP Family Medicine Geriatric Medicine; Visit Provider Family Medicine Geriatric Medicine
DX: D64.9 Anemia, unspecified (principal)
CPT/HCPCS: 36415; 82728; 83540; 83550

== ENCOUNTER → 2024-02-20 | Outpatient (CLI) | payer MEDICARE, SELFPAY | END | disposition home or self-care (01) | LOC: LABSPEC 09:22 | PROVIDERS: PCP Family Medicine Geriatric Medicine; Referring Provider Family Medicine Geriatric Medicine; Visit Provider Family Medicine Geriatric Medicine | DX: D64.9 Anemia, unspecified (principal) | CPT/HCPCS: 82274 ==

== ENCOUNTER → 2024-03-12 | Outpatient (CLI) | payer MEDICARE, SELFPAY ==
--- NOTE | 2024-03-12 08:00 | MRI_ITS ---
EXAM: MR HEAD WITHOUT INTRAVENOUS CONTRAST CLINICAL INDICATION: ALZHEIMER DISEASE TECHNIQUE: Multiplanar and multisequence MR images of the brain were obtained without intravenous contrast. COMPARISON: CT brain 01/23/2024, MR Head dated 06/22/2017 FINDINGS: BRAIN AND EXTRA-AXIAL SPACES: No restricted diffusion to indicate acute ischemia. Increasing T2 signal intensity along the periventricular and subcortical white matter bilaterally related to chronic microvascular change. Prominence of the cortical sulci and ventricles related to volume loss change. No hemorrhage or mass effect. SELLA: Normal. Normal sella turcica, pituitary gland, infundibular stalk, optic chiasm and hypothalamus. AUDITORY SYSTEM: Normal. The internal auditory canals are patent. BONES/JOINTS: Intact calvarium. SINUSES: Unremarkable as visualized. Clear. MASTOID AIR CELLS: Clear. ORBITS: Unremarkable as visualized. Both globes, extraocular muscles, optic nerves and retrobulbar fat appear unremarkable. VASCULATURE: Unremarkable as visualized. Normal flow voids in the major intracranial circulation. MRI/Brain without Contrast IMPRESSION: 1. No acute intracranial abnormality. 2. Senescent changes. Electronically Signed: Jerzy Alejandra MD at 16:46 EST ,
--- NOTE | 2024-03-12 08:03 | CT_ITS ---
EXAM: CT CHEST, LUNG CANCER SCREENING WITHOUT INTRAVENOUS CONTRAST CLINICAL INDICATION: NICOTINE DEPENDENCE, 30+ years smoking hx x 1ppd TECHNIQUE: Helically acquired images were obtained of the chest without intravenous contrast using low dose (LDCT) lung cancer screening protocol. This CT exam was performed using one or more of the following dose reduction techniques: automated exposure control, adjustment of the mA and/or kV according to patient size, and/or use of iterative reconstruction technique. COMPARISON: CT Lung Cancer Screening dated 11/28/2018 and 02/04/2017 FINDINGS: LUNGS AND PLEURAL SPACES: The diffuse centrilobular pulmonary emphysema again noted. Small calcified nodule within the left lower lobe is unchanged. No evidence of a lung mass or suspicious pulmonary nodule. No pleural effusion or thickening. No pneumothorax. HEART: Normal. Heart size is normal. No pericardial effusion. No significant coronary artery calcifications. MEDIASTINUM: Normal. No mediastinal or hilar adenopathy. Esophagus is unremarkable. No hiatal hernia. THYROID: Normal. No thyroid nodules or calcification. BONES/JOINTS: Prominent degenerative changes are noted within the spine. SOFT TISSUES: Bilateral fat-containing posterior diaphragmatic hernias again seen. VASCULATURE: Normal. Thoracic aorta is non-dilated. LYMPH NODES: Normal. No enlarged lymph nodes. CT/Low Dose CT Lung Screening IMPRESSION: 1. No evidence of lung mass or suspicious pulmonary nodule. 2. Pulmonary emphysema. 3. Lung-RADS score: 1S - Additional clinically significant or potentially clinically significant findings are described. Recommend continued annual screening with a low-dose CT (LDCT) in 12 months. Electronically Signed: Jerzy Alejandra MD at 10:20 [facility] ,
== END | disposition home or self-care (01) ==
LOC: CT 08:02
PROVIDERS: PCP Family Medicine Geriatric Medicine; Referring Provider Family Medicine Geriatric Medicine; Visit Provider Family Medicine Geriatric Medicine
DX: G30.9 Alzheimer's disease, unspecified (principal); F17.210 Nicotine dependence, cigarettes, uncomplicated
CPT/HCPCS: 70551; 71271

== ENCOUNTER → 2024-03-16 | Outpatient (CLI) | payer MEDICARE, SELFPAY | END | disposition home or self-care (01) | PROVIDERS: PCP Family Medicine Geriatric Medicine; Visit Provider Family Medicine Geriatric Medicine | DX: G30.9 Alzheimer's disease, unspecified (principal) | CPT/HCPCS: 36415 ==

== ENCOUNTER → 2024-03-20 | Outpatient (CLI) | payer MEDICARE, SELFPAY ==
--- NOTE | 2024-03-20 09:17 | BI_ITS ---
PROCEDURE: SCRN MAMM (CAD)W/DARINEL BILAT REASON FOR EXAM: F, Age 73 y/o, presents for annual screening mammogram. TECHNIQUE: Bilateral screening digital breast tomosynthesis with 2D and 3D images. Computer aided detection. COMPARISON: 01/21/2022. FINDINGS: There are scattered areas of fibroglandular density. No suspicious masses, areas of developing architectural distortion, or suspicious calcifications. BI/SCRN MAMM (CAD)W/DARINEL BILAT IMPRESSION: There is no mammographic evidence of malignancy. BI-RADS 1: NEGATIVE. RECOMMEND ANNUAL MAMMOGRAPHIC SCREENING. Follow-up code: Routine Follow-up The patient will be notified of the results by letter. Reading Location: [id number]
--- NOTE | 2024-03-20 09:22 | BD_ITS ---
PROCEDURE: DEXA BONE DENSITY STUDY REASON FOR EXAM: F, age 73 y/o . Patient is postmenopausal.. TECHNIQUE: DEXA scan of the lumbar spine and both hips. COMPARISON: Comparison is made with prior study dated December 17, 2020. FINDINGS: Lumbar Spine (L1-L4): g/cm2 (0.994)/T-score (-0.5)/Z-score (1.8) findings are suggestive of normal with a low fracture risk. Left Femur Total: g/cm2 (0.650)/T-score (-2.4)/Z-score (-0.7) Left Femoral Neck: g/cm2 (0.584)/T-score (-2.4)/Z-score (-0.4) Right Femur Total: g/cm2 (0.604)/T-score (-2.8)/Z-score (-1.1) Right Femoral Neck: g/cm2 (0.481)/T-score (-3.3)/Z-score (-1.3) The T-Scores on the most recent prior examination were: Lumbar Spine (L1-L4): There has been worsening of bone density since the previous examination. Left Femur Total: Worsening of 7.4%. Right Femur Total: Worsening of 13.6%. BD/Dexa Bone Density Study IMPRESSION: OSTEOPOROSIS. Reading Location: [place] [id number]
== END | disposition home or self-care (01) ==
PROVIDERS: PCP Family Medicine Geriatric Medicine; Referring Provider Family Medicine Geriatric Medicine; Visit Provider Family Medicine Geriatric Medicine
DX: Z12.31 Encounter for screening mammogram for malignant neoplasm of breast (principal); Z78.0 Asymptomatic menopausal state
CPT/HCPCS: 77063; 77067; 77080

== ENCOUNTER → 2024-05-03 | Outpatient (CLI) | payer MEDICARE, SELFPAY ==
--- NOTE | 2024-05-03 07:53 | RAD_ITS ---
PROCEDURE: DX LUMBAR PUNCTURE W/IMG GUIDE 05/03/2024 REASON FOR EXAM: ALZHEIMERS DISEASE Rule out amyloid deposition. TECHNIQUE: The procedure as well as the benefits and possible complications including infection and bleeding as well as headaches were explained to the patient. Informed consent was obtained. The patient was in the prone position. The overlying skin was prepped and draped in the usual sterile fashion. Following local anesthetic application and under direct fluoroscopic guidance, a 22 gauge spinal needle was placed to the spinal canal at the L3-L4 level. Spontaneous CSF fluid was noted. Following this, 6 cc of CSF was placed into the special container for amyloid and sent to the laboratory. The patient tolerated the procedure well. COMPARISON: None FINDINGS: Successful lumbar puncture with collection of CSF fluid for amyloid analysis. RAD/Dx Lumbar Puncture w/IMG Guide IMPRESSION: Successful lumbar puncture with collection of CSF fluid foraminal with the anal ysis. The patient tolerated the procedure well. No immediate complication noted. Reading Location: [facility]
[2024-05-03 08:14] VITALS: BP 142/80; PULSE 86; RESP 16; TEMP 36.6; O2SAT 98; BMI 19.3
[2024-05-03 08:55] LABS: Prothrombin Time (Protime)PT. 13.7 SECONDS (11.7-14.9)
[2024-05-03 08:56] LABS: Partial Thromboplast Time 30.6 Seconds (24.1-36.2)
[2024-05-03] MEDS: Lidocaine 2% (5ml sdv) 5 ML VIAL.MPF INFILT (09:30)
[2024-05-03 09:50] VITALS: BP 151/82; PULSE 85; RESP 16; O2SAT 95
[2024-05-03 10:53] VITALS: BP 159/95; PULSE 84; RESP 16; O2SAT 94
== END | disposition home or self-care (01) ==
PROVIDERS: Radiology Diagnostic Radiology; PCP Family Medicine Geriatric Medicine; Referring Provider Family Medicine Geriatric Medicine; Visit Provider Family Medicine Geriatric Medicine
DX: Z01.818 Encounter for other preprocedural examination (principal); G30.9 Alzheimer's disease, unspecified
CPT/HCPCS: 36415; 62328; 85610; 85730

== ENCOUNTER → 2024-05-11 | Outpatient (CLI) | payer MEDICARE, SELFPAY ==
[2024-05-11 09:42] LABS: Absolute Lymphocyte Count 1.91 X10^3/uL (0.83-4.51); Basophil# 0.04 X10^3/uL; Basophil% 0.6 % (0-1); Eosinophil# 0.17 X10^3/uL; Eosinophils% 2.5 % (0-5); Hematocrit 34.7 % (37-47); Hemoglobin 11.4 g/dL (12.0-15.0); Lymphocyte # 1.91 X10^3/ul (0.83-4.51); Lymphocyte % 28.3 % (19-41); Mean Corp Hgb Conc 32.9 g/dL (32-36); Mean Corpuscular Hgb 29.7 pg (27.0-32.0); Mean Corpuscular Volume 90.4 fL (81-99); Monocyte# 0.62 X10^3/uL; Monocyte% 9.2 % (0-10); NRBC Flagged by Analyzer 0 % (0-5); Neutrophil # 3.99 X10^3/uL (2.7-7.7); Neutrophil % 59.1 % (47-70); Platelet Count 485 K/mm3 (150-450); RBC Distribution Width SD 46.6 fl (35.1-43.9); RET-HE 32.9 pg (30-35); Red Blood Count 3.84 M/mm3 (4.2-5.4); Reticulocyte Count 1.17 % (0.5-1.5); White Blood Count 6.8 K/mm3 (4.4-11.0)
[2024-05-11 09:44] LABS: Erythrocyte Sedimentation Rate 17 mm/hr (0-30)
[2024-05-11 09:49] LABS: Prothrombin Time (Protime)PT. 13.5 SECONDS (11.7-14.9)
[2024-05-11 09:50] LABS: Ammonia < 10.0 umol/L (11-51)
[2024-05-11 12:03] LABS: ALB/GLOB Ratio 1.2 RATIO (0.9-2.4); AST(SGOT) 24 U/L (<=31); Alanine Aminotransfer ALT/SGPT 16 U/L (<=34); Albumin, Serum 4.1 g/dL (3.4-4.8); Alkaline Phosphatase 131 U/L (35-104); Anion Gap 15 (5-15); BUN 17 mg/dL (4-19); BUN/Creat Ratio 17.3 RATIO (10-20); Calcium,Total 9.8 mg/dL (7.6-11.0); Carbon Dioxide 23.7 mmol/L (21.0-32.0); Chloride 101 mmol/L (98-108); Creatinine, Serum 0.97 mg/dL (0.70-1.20); EST Glomerular Filtration Rate 62 (>60); Ferritin 235 ng/mL (22-378); Globulin 3.6 g/dL (2.2-4.2); Glucose 93 mg/dL (70-99); HIV Nonreactive (Nonreactive); Potassium 4.1 mmol/L (3.3-5.1); Protein, Total 7.7 g/dL (5.9-8.4); Sodium Level 139 mmol/L (133-145); Vitamin B12 3240 pg/mL (180-914)
[2024-05-11 12:54] LABS: Iron 56 ug/dL (50-170); LDH 200 U/L (84-246)
[2024-05-14 13:07] LABS: Anti-Centromere B Ab <0.2 AI (0.0-0.9); Anti-Chromatin <0.2 AI (0.0-0.9); Anti-Jo <0.2 AI (0.0-0.9); Anti-Mitochondrial AB 99.4 Units (0.0-20.0); Anti-Scleroderma-70 AB <0.2 AI (0.0-0.9); Anti-dsDNA Ab 1 IU/mL (0-9); RNP Ab <0.2 AI (0.0-0.9); SJOGREN'S Anti-SS-A test < 0.2 AI (0.0-0.9); SJOGREN'S Anti-SS-B test < 0.2 AI (0.0-0.9); Smith Ab <0.2 AI (0.0-0.9)
== END | disposition home or self-care (01) ==
LOC: LAB 09:02
PROVIDERS: PCP Family Medicine Geriatric Medicine; Referring Provider Internal Medicine Gastroenterology; Visit Provider Internal Medicine Gastroenterology
DX: K85.90 Acute pancreatitis without necrosis or infection, unspecified (principal); Z87.898 Personal history of other specified conditions; D64.9 Anemia, unspecified; E03.9 Hypothyroidism, unspecified; R58 Hemorrhage, not elsewhere classified; R63.4 Abnormal weight loss
CPT/HCPCS: 36415; 80053; 82140; 82164; 82390; 82525; 82607; 82728; 82784; 82785; 83010; 83516; 83540; 83615; 84165; 84443; 85025; 85045; 85610; 85652; 86037; 86140; 86225; 86235; 86255; 86334; 86703

== ENCOUNTER → 2024-05-14 | Outpatient (CLI) | payer MEDICARE, SELFPAY ==
[2024-05-14 11:33] LABS: Absolute Lymphocyte Count 1.85 X10^3/uL (0.83-4.51); Basophil# 0.04 X10^3/uL; Basophil% 0.5 % (0-1); Eosinophil# 0.11 X10^3/uL; Eosinophils% 1.4 % (0-5); Hematocrit 34.5 % (37-47); Hemoglobin 11.5 g/dL (12.0-15.0); Lymphocyte # 1.85 X10^3/ul (0.83-4.51); Lymphocyte % 23.6 % (19-41); Mean Corp Hgb Conc 33.3 g/dL (32-36); Mean Corpuscular Hgb 29.7 pg (27.0-32.0); Mean Corpuscular Volume 89.1 fL (81-99); Mean Platelet Vol. 9.1 fl (6.2-12.0); Monocyte# 0.77 X10^3/uL; Monocyte% 9.8 % (0-10); NRBC Flagged by Analyzer 0 % (0-5); Neutrophil % 63.8 % (47-70); Platelet Count 498 K/mm3 (150-450); RBC Distribution Width CV 14.1 % (11.6-14.6); RBC Distribution Width SD 45.4 fl (35.1-43.9); Red Blood Count 3.87 M/mm3 (4.2-5.4); White Blood Count 7.8 K/mm3 (4.4-11.0)
[2024-05-14 12:48] LABS: ALB/GLOB Ratio 1.2 RATIO (0.9-2.4); AST(SGOT) 23 U/L (<=31); Alanine Aminotransfer ALT/SGPT 14 U/L (<=34); Albumin, Serum 3.9 g/dL (3.4-4.8); Alkaline Phosphatase 135 U/L (35-104); Anion Gap 14 (5-15); BUN 19 mg/dL (4-19); BUN/Creat Ratio 20.9 RATIO (10-20); Calcium,Total 9.7 mg/dL (7.6-11.0); Carbon Dioxide 21.9 mmol/L (21.0-32.0); Chloride 103 mmol/L (98-108); EST Glomerular Filtration Rate 68 (>60); Globulin 3.2 g/dL (2.2-4.2); Glucose 94 mg/dL (70-99); Potassium 4.2 mmol/L (3.3-5.1); Protein, Total 7.1 g/dL (5.9-8.4); Sodium Level 139 mmol/L (133-145); Total Bilirubin 0.15 mg/dL (0.00-1.30); Vitamin D,25 Hydroxy 39.2 ng/mL (30-100)
== END | disposition home or self-care (01) ==
LOC: LAB 11:07
PROVIDERS: PCP Family Medicine Geriatric Medicine; Referring Provider Family Medicine Geriatric Medicine; Visit Provider Family Medicine Geriatric Medicine
DX: R53.83 Other fatigue (principal); E55.9 Vitamin D deficiency, unspecified
CPT/HCPCS: 36415; 80053; 82306; 84443; 85025

== ENCOUNTER 2024-06-02 07:21 | Observation (INO) | payer MEDICARE, SELFPAY ==
[2024-06-02] VITALS (11 sets, daily range): BP systolic 128–156; BP diastolic 72–98; PULSE 87–107; RESP 15–21; TEMP 36.9–37.7; O2SAT 93–97; BMI 19.5
--- NOTE | 2024-06-02 07:27 | ED.VIS.CHEST ---
HPI History of Present Illness Chief Complaint: Chest Pain Informant: patient Onset/Context/Timing Onset: Yesterday Activity at onset: gradual Timing: Continuous Quality: Positive for Aching Location: Right Chest Worsened By: Nothing Relieved By: Nothing Associated Symptoms: Positive for Diaphoresis, Cough and Lightheadedness; Negative for Nausea, Vomiting, Dyspnea, Fever, Acid Reflux or Palpitations Narrative Narrative: Patient presents with chest pain that began yesterday. Patient states it is gradually gotten worse. Patient describes it as aching. Patient states it is on the right side of her chest. Patient states nothing makes it better nothing makes it worse. Patient does admit to some diaphoresis with the pain. Patient also admits to a cough. Patient also admits to some lightheadedness. Patient denies any nausea or vomiting. Patient denies any palpitations. Patient denies any fevers or chills. CVD Risk Factors: Positive for Hypercholesterolemia and Smoking; Negative for Hypertension, Diabetes or Family History 1' </=55 PE Risk Factors: Negative for Recent Travel/Surgery, Recent Immobilization, Prior DVT or PE, Cancer or OCP + Smoking + >/=35 PFSH PFSH Medical History GERD (gastroesophageal reflux disease) Anxiety Depression Hypothyroidism History of alcohol abuse Bursitis Tobacco abuse Leukocytosis, unspecified Hypoglycemia Adverse drug reaction Melena History of CAD (coronary artery disease) Anemia BPPV (benign paroxysmal positional vertigo) Smoker CPAP (continuous positive airway pressure) dependence Abscess of left thigh Alcohol abuse with alcohol-induced disorder Hyperlipidemia Atherosclerotic heart disease of [place] coronary artery without angina pectoris Endocarditis Obstructive sleep apnea Nicotine dependence in remission Medical History no medical history Home Medications ?Medication ?Instructions ?Recorded ?Last Taken ?Type buspirone 5 mg tablet 5 mg PO BID anxiety 01/03/24 01/23/24 History folic acid 1 mg tablet 1 mg PO DAILY 01/03/24 01/23/24 History pantoprazole 40 mg tablet,delayed 40 mg PO DAILY #30 tabs 01/09/24 01/22/24 Rx release levothyroxine 25 mcg capsule 25 mcg PO DAILY 01/23/24 01/23/24 History Allergy/AdvReac Type Severity Reaction Status Date / Time No Known Allergies Allergy Verified 06/02/24 07:23 Family History Father , 83 CAD (coronary artery disease) Dementia Mother , 78 Liver cancer Surgical History Status post shoulder replacement History of shoulder surgery Hx of tonsillectomy History of hysterectomy Surgical History no surgical history Social History household members: spouse Smoking Status: Heavy Smoker (>10/day) Tobacco: How many years used: 41 Smokeless tobacco user: other second hand exposure: No alcohol intake: never details: Drinks 1/2 of 5th 90% proof vodka daily. substance use type: does not use caffeine: Yes (4+ drinks/day) Type: carbonated beverages Number of servings: 6 do you feel safe at home: Yes ROS ROS ED Constitutional Constitutional ED: Denies chills or fever(s) Eyes Eyes: Denies blurry vision or change in vision ENT ENT ED: Denies rhinorrhea or sore throat Cardiovascular Cardiovascular: Reports as per HPI and chest pain; Denies palpitations Respiratory/Chest Respiratory/Chest: Reports cough; Denies dyspnea Gastrointestinal Gastrointestinal: Denies nausea or vomiting Genitourinary Genitourinary ED: Denies dysuria or hematuria Musculoskeletal Musculoskeletal: Denies back pain or neck pain Integumentary Denies abscess or rash Neurologic Neurologic: Denies headache(s) or weakness Allergic/Immunologic Allergic/Immunologic ED: Denies mouth swelling or urticaria EXAM Physical Exam Const Vital Signs: 06/02/24 07:21 06/02/24 07:35 06/02/24 07:37 Temperature 98.4 F Temperature Source Oral Pulse Rate 102 H Respiratory Rate 18 Respiratory Effort Normal Blood Pressure 149/88 H Blood Pressure Mean 108 Pulse Ox 94 97 Oxygen Delivery Method Room Air Room Air 06/02/24 07:53 06/02/24 08:21 06/02/24 09:00 Temperature Temperature Source Pulse Rate 97 93 87 Respiratory Rate 19 H 20 H Respiratory Effort Blood Pressure 156/87 H 147/86 H 146/85 H Blood Pressure Mean 106 105 Pulse Ox 94 94 Oxygen Delivery Method Room Air Room Air 06/02/24 10:00 Temperature Temperature Source Pulse Rate 90 Respiratory Rate Respiratory Effort Blood Pressure 155/77 H Blood Pressure Mean 103 Pulse Ox 93 Oxygen Delivery Method Room Air Positive well nourished and well developed Constitutional Narrative: BMI is 19.5 General Appearance ED: well developed and NAD HEENT Reports moist mucous membranes normocephalic and atraumatic Neck supple and no JVD Resp normal respiratory effort and clear to auscultation bilaterally Cardio regular rhythm Rate: tachycardic GI soft to palpation, non-tender and non-distended Extremity normal to inspection General Extremety ED: Negative for edema or tenderness General Extremity: Negative for edema Neuro oriented x3, CN's II-XII intact bilaterally and no sensory deficits noted Sensorium / Orientation: awake and alert Motor Exam: strength 5/5 throughout Psych mental status grossly normal Heart Score History: Slightly/Non-Suspicious ECG: Nonspecific Repolarization Age: >/= 65 years Risk Factors: 1 or 2 Risk Factors Troponin: >1 - <3 Normal Limit Score: 5 MDM MDM MDM Narrative Medical decision making narrative: Differential diagnosis includes cardiac dysrhythmia, cardiac ischemia, pneumonia, bronchitis, pulmonary embolism, pneumothorax, gastroesophageal reflux disease, and musculoskeletal pain. EKG will be obtained to assess for cardiac dysrhythmia cardiac ischemia. Chest x-ray will be obtained to assess for pneumonia, pneumothorax, and bronchitis. CBC will be obtained to assess for leukocytosis and anemia. Basic metabolic profile will be obtained to assess for cardiac and renal function. High-sensitivity troponin will be obtained to assess for cardiac ischemia. 2-hour repeat high-sensitivity troponin will be obtained to assess for ongoing cardiac ischemia. D-dimer will be obtained to assess for pulmonary embolism. History & Record Review Additional record(s) reviewed:: Prior inpatient record, Prior outpatient record and Prior labs Lab Data Attestation: I reviewed the patient's lab results. Lab results narrative: CBC was reviewed. There is a mild anemia with a hemoglobin of 10.7 and hematocrit of 31.3. Basic metabolic profile was reviewed and was essentially within normal limits. D-dimer was reviewed and was elevated at 2.94. Initial high-sensitivity troponin was reviewed and was 38. 2-hour repeat high-sensitivity troponin was reviewed and was 42. Labs: Laboratory Results - last 24 hr 06/02/24 06/02/24 07:44 09:32 WBC 10.9 RBC 3.60 L Hgb 10.7 L Hct 31.3 L MCV 86.9 MCH 29.7 MCHC 34.2 RDW Std Deviation 46.6 H RDW Coeff of Marc 14.7 H Plt Count MPV 10.3 Immature Gran % (Auto) 0.500 Neut % (Auto) 69.9 Lymph % (Auto) 14.2 L Crisp % (Auto) 14.9 H Eos % (Auto) 0.2 Baso % (Auto) 0.3 Absolute Neuts (auto) 7.6 Absolute Lymphs (auto) 1.55 Nucleated RBC % 0 Platelet Estimate ADEQUATE D-Dimer Quant (PE/DVT) 2.94 H* Sodium 134 Potassium 4.1 Chloride 97 L Carbon Dioxide 25.3 Anion Gap 12 BUN 18 Creatinine 0.93 Estim Creat Clear Calc 46.69 L Est GFR (MDRD) Non-Af 65 BUN/Creatinine Ratio 18.9 Glucose 107 H Calcium 8.8 Troponin T High Sens 38 H Troponin T Hi Sens 2 Hr 42 H Radiography Chest X-Ray - ED: 1 View, 2 View, Read by ED Physician, Read by Radiologist and No Acute Disease CTA PE Study: No Evidence of PE and No Evidence of Dissection Diagnostic Testing: Clinical Impression(s) from Imaging Studies Chest X-Ray 06/02/24 07:45 IMPRESSION: No evidence of acute disease. Reading Location: [facility] Chest CTA 06/02/24 08:47 IMPRESSION: 1. No evidence of acute pulmonary embolism. 2. Mild emphysema with scattered areas of scarring. 3. Right lower lobe pulmonary nodules. Low-dose CT screening examination already ordered by Dr. Alvarado. Reading Location: [facility] Portable 1 view chest x-ray was obtained. On my independent interpretation, lung cortes are clear. There is normal cardiac silhouette. Bony thorax is normal. There is no acute process noted. Radiologist also interpreted the x-ray and agrees. CT of the chest was obtained. There is no evidence of pulmonary embolism or aortic dissection. There is mild emphysema. There is no acute infiltrate. This was interpreted by the radiologist as also independently reviewed by myself. EKG Initial EKG: Attestation: I personally reviewed and interpreted this EKG as follows: Interpretation: Sinus Tachycardia (101) and Non-Specific ST Changes Comments: EKG was obtained. On my independent interpretation, it showed a sinus tachycardia with a rate of 101. FL interval, QRS interval, and QTc intervals were all normal. There is left axis deviation at -59. There are nonspecific ST-T wave changes. Prior EKG tracings: available for review Prior: Unchanged (01/23/2024) Management Discussion w/another healthcare provider: Hospitalist Treatment and Re-Evaluation :: Smoking cessation was discussed. Patient was given aspirin and nitroglycerin. Patient was advised of her findings. Patient has a HEART score of 5. Because of this, I recommended admission to the hospital. Patient is agreeable with this. Case was discussed with the hospitalist. He will admit the patient to his service. Patient and family understood and were agreeable with the plan. All questions were answered. talk to me in the hallway. He stated that he recently went away for couple days. Patient found the car keys and bought a bottle of vodka. states that she did drink this while he was gone. Because of this, I will add on a lipase. Discharge Plan Triage Chief Complaint: Chest Pain ED Provider: Tristian Bah Dx/Rx/DC Orders Clinical Impression: Chest pain, History of alcohol abuse, Hyperlipidemia, Tobacco use Prescriptions: No Action levothyroxine 25 mcg capsule 25 mcg PO DAILY buspirone 5 mg tablet 5 mg PO BID Patient Comments: for 14 days, end 01/05/2024 folic acid 1 mg tablet 1 mg PO DAILY pantoprazole 40 mg Tablet,Delayed Release (Dr/Ec) 40 mg PO DAILY Qty: 30 2RF Primary Care Provider: Charan Alvarado Chi Referrals: Charan Alvarado Chi, MD [Primary Care Provider] - Print Language: Sudanese Disposition Disposition: Acute Care Hospital [facility] [place] [facility]
--- NOTE | 2024-06-02 07:35 | EKG12_ITS ---
Test Reason : CP Blood Pressure : */* mmHG Vent. Rate : 101 BPM Atrial Rate : 101 BPM P-R Int : 128 ms QRS Dur : 70 ms QT Int : 346 ms P-R-T Axes : 64 -59 46 degrees QTcB Int : 448 ms Sinus tachycardia Left axis deviation Nonspecific ST abnormality Abnormal ECG Confirmed by SHIRLEY CHIN, JERRY ([id number]), newspaper or periodical editor DARVIN GOLDSTEIN ([id number]) on 06/04/2024 8:33:37 AM Referred By: Confirmed By: JERRY WATSON MD
--- NOTE | 2024-06-02 07:45 | RAD_ITS ---
PROCEDURE: CHEST 1 VIEW (PORTABLE) 06/02/2024 REASON FOR EXAM: CHEST PAIN TECHNIQUE: Frontal view of the chest. COMPARISON: 01/23/2024 FINDINGS: The lungs appear clear. Cardiac silhouette is within limits for size. Ectatic thoracic aorta again noted. Pulmonary vascularity appears within limits. No pleural effusion. Left shoulder replacement now with partially imaged heterotopic appearing bone and lower cervical disc fusion hardware again noted. RAD/Chest 1 View (Portable) IMPRESSION: No evidence of acute disease. Reading Location: [id number]
[2024-06-02] MEDS: Nitroglycerin SL (ED/IMG/CATH) 0.4 MG TABLET SL (07:53)
[2024-06-02] MEDS: Aspirin 81 MG TAB.CHEW 324 MG PO (07:54)
[2024-06-02 07:58] LABS: Absolute Lymphocyte Count 1.55 X10^3/uL (0.83-4.51); Absolute Neutrophil Count 7.6 X10^3/uL (2.0-7.7); Basophil# 0.03 X10^3/uL; Basophil% 0.3 % (0-1); Eosinophil# 0.02 X10^3/uL; Eosinophils% 0.2 % (0-5); Hematocrit 31.3 % (37-47); Hemoglobin 10.7 g/dL (12.0-15.0); Lymphocyte # 1.55 X10^3/ul (0.83-4.51); Lymphocyte % 14.2 % (19-41); Mean Corp Hgb Conc 34.2 g/dL (32-36); Mean Corpuscular Hgb 29.7 pg (27.0-32.0); Mean Corpuscular Volume 86.9 fL (81-99); Mean Platelet Vol. 10.3 fl (6.2-12.0); Monocyte# 1.63 X10^3/uL; Monocyte% 14.9 % (0-10); NRBC Flagged by Analyzer 0 % (0-5); Neutrophil # 7.62 X10^3/uL (2.7-7.7); Neutrophil % 69.9 % (47-70); POSITIVE COUNT YES; POSITIVE DIFFERENTIAL YES; RBC Distribution Width CV 14.7 % (11.6-14.6); RBC Distribution Width SD 46.6 fl (35.1-43.9); White Blood Count 10.9 K/mm3 (4.4-11.0)
[2024-06-02 08:21] LABS: Anion Gap 12 (5-15); BUN 18 mg/dL (4-19); BUN/Creat Ratio 18.9 RATIO (10-20); Calcium,Total 8.8 mg/dL (7.6-11.0); Carbon Dioxide 25.3 mmol/L (21.0-32.0); Chloride 97 mmol/L (98-108); Creatinine, Serum 0.93 mg/dL (0.70-1.20); EST Glomerular Filtration Rate 65 (>60); Estimated Creatinine Clearance 46.69 ml/min (50-250); Glucose 107 mg/dL (70-99); Potassium 4.1 mmol/L (3.3-5.1); Sodium Level 134 mmol/L (133-145); Troponin T High Sensitivity 38 ng/L (<=14)
[2024-06-02 08:42] LABS: D-Dimer Quantitative (DVT/PE) 2.94 FEU/ug/m (0.27-0.49)
--- NOTE | 2024-06-02 08:47 | CT_ITS ---
PROCEDURE: CTA CHEST W/WO CONTRAST 06/02/2024 REASON FOR EXAM: ELEVATED D-DIMER TECHNIQUE: CTA axial imaging of the chest with intravenous contrast. Coronal and Sagittal reconstruction series were provided. 3D, 3D post processing, 3D reconstructions, Maximum intensity projection (MIPs) Volume rendering and Shaded surface rendering was provided. PATIENT PREPARATION: Per protocol CONTRAST: Isovue 370 VOLUME: 100 mL One or more dose reduction techniques were used (e.g., Automated exposure control, adjustment of the mA and/or kV according to patient size, use of iterative reconstruction technique). RADIATION DOSE SUMMARY: CTDlvol: 15 mGy DLP: 262 mGycm COMPARISON: Same day chest radiograph. FINDINGS: Hardware: Prior reverse left shoulder arthroplasty, with streak artifact which obscures visualization. ACDF hardware. Lymph nodes: No right axillary lymphadenopathy or obvious left axillary lymphadenopathy. No mediastinal or hilar lymphadenopathy. Heart: The heart is normal in size without pericardial effusion. Moderate coronary artery and thoracic aortic calcifications. The great vessels are normal in caliber. Pulmonary Vessels: No filling defect within the segmental or subsegmental pulmonary arteries. Lungs and Airways: Retained secretions within the central airways. Mild emphysema and scattered areas of scarring. Small pulmonary nodules within the right lower lobe (series 2, images 105 and 127). No focal consolidation, pleural effusion or pneumothorax. Upper Abdomen: Hiatal hernia. Calcified plaque of the abdominal aorta. Left parapelvic cyst. Bones: Prior left reverse shoulder arthroplasty with chronic left humeral fracture deformity. Prior ACDF hardware placement. Degenerative changes throughout the cervical and thoracic spine. Chronic bilateral rib fracture deformities. CT/CTA Chest W/WO Contrast IMPRESSION: 1. No evidence of acute pulmonary embolism. 2. Mild emphysema with scattered areas of scarring. 3. Right lower lobe pulmonary nodules. Low-dose CT screening examination alrea dy ordered by Dr. Alvarado. Reading Location: [facility]
[2024-06-02 08:48] LABS: Differential Indicated SCAN CRITERIA MET; Platelet Estimate ADEQUATE (ADEQ)
[2024-06-02 09:54] LABS: Troponin T High Sens 2 HR 42 ng/L (<=14)
--- NOTE | 2024-06-02 10:50 | CASEMGMT ---
Care Management Face to Face with patient for initial transition planning/care coordination assessment in the ED.? This credit underwriter introduced self and role at [facility]. Patient alert and oriented. Patient willing to participate in assessment and was able to answer most questions appropriately.?Patient did present with some loss of memory ?with some questions. ?Care providers, pharmacy, and demographics verified. Patient?s was at patient?s bedside and assisted with assessment when needed. Admitting Diagnosis: Chest pain Other diagnosis history: Including but may not be limited to: Hyperlipidemia, history of alcohol abuse, tobacco use, CAD, Hypothyroidism, Bursitis, KELSEY, Anemia, CPAP dependence, and BPPV (benign paroxysmal positional vertigo). PCP: Dr. Alvarado Specialists: Machine Staker: Dr. Hicks, and Medical Billing Clerk: Dr. Call Preferred Pharmacy: [facility] Insurance: [employer]/Medicare Prescription Benefit: Yes, with co-pay Living Will/HPOA: ?Yes and verified to be in patient?s electronic health record. LNOK: Patient?s , David, daughter Fozia of [place], and sons Dario (MD) and Bruno of [place]. Living Arrangements: Patient and her live together in a two-story home.? There are 4 steps leading in/out of the front door of the home and 7 steps from the first floor to the to the second floor of the home.? Patient?s stated patient is able to navigate the steps without difficulty as there are handrails to hold on to, however stated patient has to be careful due to a recent fall in 2023 at which point patient broke her shoulder. Patient and patient?s denied any environmental barriers. Transportation: Patient?s reported patient has been told by her doctor that she should not drive, therefore, patient?s provides all transportation needs for patient at this time. DME: Quad cane, standard walker, standard walker, shower bench, grab bar in shower, RTS, and HHS. Patient denied having a CPAP machine however patient?s medical history indicates patient is CPAP dependent. HHC: Patient received PT while in [place] as well as through [place] following a fall in 2023 after patient broke her shoulder. SNF/Rehab: Yes; [facility] in 2023 after patient fell and broke her shoulder and then patient was transferred to [facility] where patient remained through February of 2024. Community Resources: None at this time. Behavioral Health History: Anxiety and Depression.? Patient?s also reported a diagnosis of Dementia. Patient goals: Patient wishes to discharge home when medically ready, and denies need for home health care at this time. Patient denies any further needs or concerns at this time. Disposition Plan: admission to acute; RN CM/SW to follow for discharge planning needs that may arise. Erika Martinez, VICE PRESIDENT MEDIA RELATIONS, PROPERTY PORTFOLIO OFFICER
[2024-06-02 11:32] LABS: Lipase 25 U/L (13-75)
[2024-06-02 12:18] LABS: Troponin T High Sens 4 HR 43 ng/L (<=14)
--- NOTE | 2024-06-02 14:35 | PCM.HP.STD ---
HPI - General General Date of Admission: 06/02/24 HPI Narrative IRINA ROSE, is a 73 F who presents to the hospital with chest pain that started yesterday. She says it is midsternal with no radiation and she has no send in the makes it better or worse. It is intermittent in intensity but it never goes away, 5 out of just around a 1 out of 10. No lightheadedness or dizziness, no shortness of breath. She does smoke about a pack a day for the last 20 years but has never had a cardiac history. She takes no cholesterol medications or blood pressure medications. In the ER she was found to have a slightly elevated troponin from 38-43 and her EKG was nonischemic. She did have a D-dimer of 2.94 so CTA was obtained which was negative for PE. [facility] Medical History GERD (gastroesophageal reflux disease) Anxiety Depression Hypothyroidism History of alcohol abuse Bursitis Tobacco abuse Leukocytosis, unspecified Hypoglycemia Adverse drug reaction Melena History of CAD (coronary artery disease) Anemia BPPV (benign paroxysmal positional vertigo) Smoker CPAP (continuous positive airway pressure) dependence Abscess of left thigh Alcohol abuse with alcohol-induced disorder Hyperlipidemia Atherosclerotic heart disease of [place] coronary artery without angina pectoris Endocarditis Obstructive sleep apnea Nicotine dependence in remission Medical History no medical history Home Medications ?Medication ?Instructions ?Recorded ?Last Taken ?Type folic acid 1 mg tablet 1 mg PO DAILY 01/03/24 01/23/24 History pantoprazole 40 mg tablet,delayed 40 mg PO DAILY #30 tabs 01/09/24 01/22/24 Rx release levothyroxine 25 mcg capsule 25 mcg PO DAILY 01/23/24 01/23/24 History ascorbic acid (vitamin C) 500 mg 500 mg PO QODAY 06/02/24 Unknown History tablet buspirone 10 mg tablet 10 mg PO BID 06/02/24 Unknown History Allergy/AdvReac Type Severity Reaction Status Date / Time No Known Allergies Allergy Verified 06/02/24 07:23 Family History Father , 83 CAD (coronary artery disease) Dementia Mother , 78 Liver cancer Surgical History Status post shoulder replacement History of shoulder surgery Hx of tonsillectomy History of hysterectomy Surgical History no surgical history Social History household members: spouse Smoking Status: Heavy Smoker (>10/day) Tobacco: How many years used: 41 Smokeless tobacco user: other second hand exposure: No alcohol intake: never details: Drinks 1/2 of 5th 90% proof vodka daily. substance use type: does not use caffeine: Yes (4+ drinks/day) Type: carbonated beverages Number of servings: 6 do you feel safe at home: Yes ROS Constitutional Constitutional: Denies chills, fatigue, fever(s) or malaise Eyes Eyes: Denies blurry vision ENT HEENT: Denies headache(s) or nasal discharge Cardiovascular Cardiovascular: Reports chest pain; Denies dyspnea on exertion or syncope Respiratory/Chest Respiratory/Chest: Denies cough, shortness of breath at rest or shortness of breath with exertion Gastrointestinal Gastrointestinal: Denies constipation, diarrhea, nausea or vomiting Genitourinary Genitourinary: Denies dysuria Neurologic Neurologic: Denies focal weakness, numbness or tremor(s) Psychiatric Psychiatric: Denies anxiety or depression Vital Signs Vital Signs Vital Signs: 06/02/24 07:21 06/02/24 07:35 06/02/24 07:37 Temperature 98.4 F Temperature Source Oral Pulse Rate 102 H Respiratory Rate 18 Respiratory Effort Normal Blood Pressure 149/88 H Blood Pressure Mean 108 Pulse Ox 94 97 Oxygen Delivery Method Room Air Room Air 06/02/24 07:53 06/02/24 08:21 06/02/24 09:00 Temperature Temperature Source Pulse Rate 97 93 87 Respiratory Rate 19 H 20 H Respiratory Effort Blood Pressure 156/87 H 147/86 H 146/85 H Blood Pressure Mean 106 105 Pulse Ox 94 94 Oxygen Delivery Method Room Air Room Air 06/02/24 10:00 06/02/24 11:00 06/02/24 11:53 Temperature 98.4 F Temperature Source Pulse Rate 90 107 H 107 H Respiratory Rate 20 H Respiratory Effort Blood Pressure 155/77 H 138/89 H 138/89 H Blood Pressure Mean 103 105 105 Pulse Ox 93 93 Oxygen Delivery Method Room Air 06/02/24 13:00 06/02/24 14:00 Temperature Temperature Source Pulse Rate 94 94 Respiratory Rate 21 H 15 Respiratory Effort Blood Pressure 140/85 H 150/98 H Blood Pressure Mean 103 109 Pulse Ox 97 95 Oxygen Delivery Method Room Air Weight Weight: 121 lb 0.54 oz Body Mass Index (BMI) 19.5 Physical Exam Narrative General: Alert, Oriented x3, Cooperative, No apparent distress HEENT: Atraumatic, PERRLA, EOMI, Normocephalic Oral: Moist Mucosa Neck: Supple, No JVD Lungs: Diminished, Normal air movement, No rhonchi, No wheeze, No rales Cardiovascular: Regular rate, Regular Rhythm, Normal S1, Normal S2, No murmurs Abdomen: Soft, Non Tender, Non-Distended, No Hepato-splenomegaly Extremities: No edema, Capillary Refill Less than 3 Seconds Skin: No rashes, No breakdown Musculoskeletal: No Tenderness to Palpation of Joints or Extremities Neurological: No focal neurological deficits, Motor Exam 5/5 strength throughout, Sensory exam intact to light touch and pain Psych/Mental Status: Normal Affect, Appropriate Results Lab / Micro Data 06/02/24 07:44 06/02/24 07:44 Labs: Laboratory Results - last 24 hr 06/02/24 07:44: WBC 10.9, RBC 3.60 L, Hgb 10.7 L, Hct 31.3 L, MCV 86.9, MCH 29.7, MCHC 34.2, RDW Std Deviation 46.6 H, RDW Coeff of Marc 14.7 H, Plt Count , MPV 10.3, Immature Gran % (Auto) 0.500, Neut % (Auto) 69.9, Lymph % (Auto) 14.2 L, [place] % (Auto) 14.9 H, Eos % (Auto) 0.2, Baso % (Auto) 0.3, Absolute Neuts (auto) 7.6, Absolute Lymphs (auto) 1.55, Nucleated RBC % 0, Platelet Estimate ADEQUATE, D-Dimer Quant (PE/DVT) 2.94 H*, Sodium 134, Potassium 4.1, Chloride 97 L, Carbon Dioxide 25.3, Anion Gap 12, BUN 18, Creatinine 0.93, Estim Creat Clear Calc 46.69 L, Est GFR (MDRD) Non-Af 65, BUN/Creatinine Ratio 18.9, Glucose 107 H, Calcium 8.8, Troponin T High Sens 38 H 06/02/24 09:32: Troponin T Hi Sens 2 Hr 42 H, Lipase 25 06/02/24 11:45: Troponin T Hi Sens 4Hr 43 H Imaging Radiology Impression Chest X-Ray 06/02/24 07:45 IMPRESSION: No evidence of acute disease. Reading Location: [id number] Chest CTA 06/02/24 08:47 IMPRESSION: 1. No evidence of acute pulmonary embolism. 2. Mild emphysema with scattered areas of scarring. 3. Right lower lobe pulmonary nodules. Low-dose CT screening examination already ordered by Dr. Alvarado. Reading Location: [facility] Assessment & Plan Assessment/Plan (1) Chest pain: PLAN: Plan 1. Chest pain ? Troponins are very mildly elevated will obtain a stress test on Tuesday ? Continue with aspirin ? Will check lipid panel 2. Hypothyroidism ? Stable ? Continue with Synthroid ? Most recent TSH was on 05/14/2024 at 2.34 3. Anxiety/depression/history of alcohol abuse ? She has been seeing neurology for mental status changes which have improved since she discontinued alcohol use ? Continue with her home BuSpar 4. GERD ? Stable ? Continue PPI DVT: Ambulation 57 minutes was spent on direct patient care, including documentation as well as chart review and collaboration with colleagues Charges/Coding Visit Charges Inpatient E&M: 79588 Init Hosp L2
[2024-06-02 15:29] LABS: Cholesterol 149 mg/dL (<=200); High Density Lipoprotein 59 mg/dL; Low Density Lipoprotein Calc. 77 mg/dL; Triglycerides 64 mg/dL; Very Low Density Lipoprotein 13 mg/dL (5-40); cholesterol:hdl ratio screen 2.53
[2024-06-02] MEDS: Acetaminophen 325 MG Tablet 650 MG PO (21:23)
[2024-06-02] MEDS: busPIRone 5 MG Tablet 10 MG PO (23:52)
[2024-06-03] MEDS: Levothyroxine 25 MCG TABLET PO (03:10)
[2024-06-03 03:30] VITALS: BP 105/58; PULSE 85; RESP 18; TEMP 37.2; O2SAT 94
[2024-06-03 05:27] LABS: Absolute Lymphocyte Count 2.31 X10^3/uL (0.83-4.51); Absolute Neutrophil Count 5.1 X10^3/uL (2.0-7.7); Basophil# 0.03 X10^3/uL; Basophil% 0.3 % (0-1); Eosinophils% 1.1 % (0-5); Hematocrit 29.3 % (37-47); Hemoglobin 9.8 g/dL (12.0-15.0); Lymphocyte # 2.31 X10^3/ul (0.83-4.51); Mean Corp Hgb Conc 33.4 g/dL (32-36); Mean Corpuscular Hgb 29.7 pg (27.0-32.0); Mean Corpuscular Volume 88.8 fL (81-99); Mean Platelet Vol. 9.5 fl (6.2-12.0); Monocyte# 1.67 X10^3/uL; Monocyte% 18.1 % (0-10); NRBC Flagged by Analyzer 0 % (0-5); Neutrophil % 55.2 % (47-70); POSITIVE DIFFERENTIAL YES; Platelet Count 439 K/mm3 (150-450); RBC Distribution Width CV 14.9 % (11.6-14.6); RBC Distribution Width SD 48.3 fl (35.1-43.9); White Blood Count 9.2 K/mm3 (4.4-11.0)
[2024-06-03 05:35] LABS: Differential Indicated SCAN CRITERIA MET
[2024-06-03 06:47] LABS: Differential Comment SCANNED
[2024-06-03 07:11] LABS: Anion Gap 13 (5-15); BUN 22 mg/dL (4-19); BUN/Creat Ratio 22.9 RATIO (10-20); Calcium,Total 8.9 mg/dL (7.6-11.0); Carbon Dioxide 24.1 mmol/L (21.0-32.0); Chloride 100 mmol/L (98-108); Creatinine, Serum 0.95 mg/dL (0.70-1.20); EST Glomerular Filtration Rate 63 (>60); Estimated Creatinine Clearance 45.71 ml/min (50-250); Glucose 75 mg/dL (70-99); Potassium 3.4 mmol/L (3.3-5.1); Sodium Level 137 mmol/L (133-145)
[2024-06-03 08:56] VITALS: BP 150/80; PULSE 88; RESP 16; TEMP 36.8; O2SAT 93
[2024-06-03] MEDS: Pantoprazole Sodium 40 MG Tablet PO (08:59)
[2024-06-03] MEDS: Aspirin 81 MG TAB.CHEW PO (08:59)
[2024-06-03] MEDS: busPIRone 5 MG Tablet 10 MG PO ×2 (08:59→21:49)
[2024-06-03] MEDS: Folic Acid 1 MG Tablet PO (08:59)
[2024-06-03] MEDS: Acetaminophen 325 MG Tablet 650 MG PO (09:00)
--- NOTE | 2024-06-03 11:17 | PCM.PN.HOSP ---
Subjective Subjective Still has a little bit of chest pain but it is better than what it was. Objective Data Objective Data Vital Signs: Vital Signs Temp Pulse Resp BP Pulse Ox O2 Del Method 98.3 F 88 16 150/80 H 93 Room Air 06/03/24 08:56 06/03/24 08:56 06/03/24 08:56 06/03/24 08:56 06/03/24 08:56 06/03/24 08:56 Oxygen Delivery Method Room Air Weight: 121 lb 0.54 oz Body Mass Index (BMI) 19.5 Lab / Micro Data 06/03/24 04:30 06/03/24 04:30 Labs: Laboratory Results - last 24 hr 06/02/24 09:32: Lipase 25 06/02/24 11:45: Troponin T Hi Sens 4Hr 43 H, Triglycerides 64, Cholesterol 149, LDL Cholesterol, Calc 77, VLDL Cholesterol 13, HDL Cholesterol 59, Cholesterol/HDL Ratio 2.53 06/03/24 04:30: WBC 9.2, RBC 3.30 L, Hgb 9.8 L, Hct 29.3 L, MCV 88.8, MCH 29.7, MCHC 33.4, RDW Std Deviation 48.3 H, RDW Coeff of Marc 14.9 H, Plt Count 439, MPV 9.5, Immature Gran % (Auto) 0.300, Neut % (Auto) 55.2, Lymph % (Auto) 25.0, [place] % (Auto) 18.1 H, Eos % (Auto) 1.1, Baso % (Auto) 0.3, Absolute Neuts (auto) 5.1, Absolute Lymphs (auto) 2.31, Nucleated RBC % 0, Differential Comment SCANNED, Sodium 137, Potassium 3.4, Chloride 100, Carbon Dioxide 24.1, Anion Gap 13, BUN 22 H, Creatinine 0.95, Estim Creat Clear Calc 45.71 L, Est GFR (MDRD) Non-Af 63, BUN/Creatinine Ratio 22.9 H, Glucose 75, Calcium 8.9 Physical Exam Narrative General: Alert, Oriented x3, Cooperative, No apparent distress HEENT: Atraumatic, PERRLA, EOMI, Normocephalic Oral: Moist Mucosa Neck: Supple, No JVD Lungs: Diminished, Normal air movement, No rhonchi, No wheeze, No rales Cardiovascular: Regular rate, Regular Rhythm, Normal S1, Normal S2, No murmurs Abdomen: Soft, Non Tender, Non-Distended, No Hepato-splenomegaly Extremities: No edema, Capillary Refill Less than 3 Seconds Skin: No rashes, No breakdown Musculoskeletal: No Tenderness to Palpation of Joints or Extremities Neurological: No focal neurological deficits, Motor Exam 5/5 strength throughout, Sensory exam intact to light touch and pain Psych/Mental Status: Normal Affect, Appropriate Assessment & Plan Assessment/Plan (1) Chest pain: PLAN: Plan 1. Chest pain ? Troponins are very mildly elevated will obtain a stress test on Tuesday ? Continue with aspirin ?Lipid panel was okay 2. Hypothyroidism ? Stable ? Continue with Synthroid ? Most recent TSH was on 05/14/2024 at 2.34 3. Anxiety/depression/history of alcohol abuse ? She has been seeing neurology for mental status changes which have improved since she discontinued alcohol use ? Continue with her home BuSpar ?As she is already on folic acid, will add thiamine today 4. GERD ? Stable ? Continue PPI DVT: Ambulation Charges/Coding Visit Charges Inpatient E&M: 41115 Subs Hosp L2
[2024-06-03 12:38] LABS: Ferritin 503 ng/mL (22-378); Iron 14 ug/dL (50-170); Iron Binding Capacity,Unsat 160 ug/dL (228-428)
[2024-06-03] MEDS: Thiamine Hydrochloride 100 MG Tablet PO (13:27)
[2024-06-03 15:00] VITALS: BP 97/70; PULSE 82; RESP 16; TEMP 36.6; O2SAT 93
[2024-06-03 21:47] VITALS: BP 115/85; PULSE 87; RESP 16; TEMP 37.1; O2SAT 94
[2024-06-04 03:15] VITALS: BP 121/68; PULSE 98; RESP 16; TEMP 36.9; O2SAT 94
[2024-06-04] MEDS: Levothyroxine 25 MCG TABLET PO (05:46)
[2024-06-04] MEDS: Aspirin 81 MG TAB.CHEW PO (05:46)
[2024-06-04] MEDS: 0.9% Saline Lock 10 ML Syringe IV (05:46)
[2024-06-04 05:49] VITALS: BP 150/75; PULSE 87; RESP 16; TEMP 36.9; O2SAT 94
[2024-06-04 05:52] LABS: Absolute Neutrophil Count 4.7 X10^3/uL (2.0-7.7); Basophil# 0.04 X10^3/uL; Basophil% 0.5 % (0-1); Eosinophil# 0.18 X10^3/uL; Eosinophils% 2.2 % (0-5); Hematocrit 30.4 % (37-47); Hemoglobin 10.1 g/dL (12.0-15.0); Lymphocyte % 26.9 % (19-41); Mean Corp Hgb Conc 33.2 g/dL (32-36); Mean Corpuscular Hgb 29.6 pg (27.0-32.0); Mean Corpuscular Volume 89.1 fL (81-99); Mean Platelet Vol. 9.3 fl (6.2-12.0); Monocyte# 1.06 X10^3/uL; NRBC Flagged by Analyzer 0 % (0-5); Neutrophil # 4.67 X10^3/uL (2.7-7.7); Platelet Count 536 K/mm3 (150-450); RBC Distribution Width CV 14.7 % (11.6-14.6); Red Blood Count 3.41 M/mm3 (4.2-5.4); White Blood Count 8.2 K/mm3 (4.4-11.0)
[2024-06-04 06:19] LABS: Anion Gap 12 (5-15); BUN 20 mg/dL (4-19); BUN/Creat Ratio 23.2 RATIO (10-20); Calcium,Total 8.9 mg/dL (7.6-11.0); Carbon Dioxide 24.7 mmol/L (21.0-32.0); Chloride 103 mmol/L (98-108); Creatinine, Serum 0.88 mg/dL (0.70-1.20); EST Glomerular Filtration Rate 70 (>60); Estimated Creatinine Clearance 49.35 ml/min (50-250); Glucose 97 mg/dL (70-99); Potassium 3.4 mmol/L (3.3-5.1); Sodium Level 140 mmol/L (133-145)
[2024-06-04 07:23] VITALS: BP 145/93; PULSE 84; RESP 18; TEMP 36.8; O2SAT 92
[2024-06-04 11:42] VITALS: BP 142/76; PULSE 89; RESP 16; TEMP 37.3; O2SAT 95
[2024-06-04] MEDS: Thiamine Hydrochloride 100 MG Tablet PO (11:44)
[2024-06-04] MEDS: Pantoprazole Sodium 40 MG Tablet PO (11:44)
[2024-06-04] MEDS: Folic Acid 1 MG Tablet PO (11:44)
[2024-06-04] MEDS: busPIRone 5 MG Tablet 10 MG PO (11:44)
--- NOTE | 2024-06-04 13:59 | CHAPLAIN ---
Type of Pastoral Visit _x__ Initial Visit ___ Follow-up Visit ___ On-call Visit ___ General Patient Visit ___ Spiritual Assessment ___ Family Conference ___ Bereavement ___ Rapid Response ___ Code Blue ___ Other (describe below) Pastoral Care Referral From _x__ Patient ___ Family ___ Nurse ___ Physician ___ Slurry Blender ___ Day Porter ___ Other (describe below) Sacrament/Intervention _x__ Active listening ___ Anointing ___ Shinto ___ Bereavement ___ Communion ___ Aileen exploration ___ ___ Life review _x__ Prayer ___ Reconciliation ___ Sacrament of Sick ___ Supportive presence ___ Wedding ___ Other (describe below) Pastoral Comments patient is reclining in bed and says that she is just waiting for release; however there does not seem to be discharge paperwork for her yet; pt says that she is just waiting for her daughter to show up; pt says that she is fine but that everyone should take a prayer, we need it; pt is pleasant and says that she has no goals for the day;
[2024-06-04 14:00] VITALS: BP 135/73; PULSE 91; RESP 18; O2SAT 97
--- NOTE | 2024-06-04 14:28 | STRESSREP ---
Stress Test Report Pharmacologic myocardial perfusion stress test. 73-year-old lady with a history of chest pain Resting EKG demonstrates sinus rhythm with a rate of 83 bpm. Resting blood pressure is 136/80 mmHg. 0.4 mg of regadenoson was infused per usual protocol followed by rapid intravenous saline flush injection. Continuous EKG monitoring was performed. The maximum heart rate was 106 bpm which was 72% of max impacted heart rate the maximum workload was 1 metabolic equivalent. At rest there were no ST or T wave changes noted to suggest ischemia and at peak infusion nonspecific ST changes were noted which did not meet the criteria for ischemia. No clinical angina is noted. The final blood pressure was 122/75 mmHg. Myocardial perfusion protocol. 12.0 mCi of technetium 99m sestamibi was injected at rest. 0.4 mg of regadenoson was infused per usual protocol. At peak infusion 35.4 mCi of technetium 99m sestamibi was injected stress images were obtained stress and rest images were reconstructed and compared in the short axis vertical long and horizontal long axis. Gated images were also obtained. Perfusion SPECT analysis: Review of the stress images demonstrate normal uptake of tracer noted in all areas of the myocardium. The resting images similar demonstrated normal uptake of tracer noted in all areas of the myocardium. No areas of reversibility are noted to suggest ischemia and no previous infarct is noted. Gated SPECT analysis: The gated ejection fraction is 72%. Conclusion: Normal pharmacologic myocardial perfusion stress test. Preserved ejection fraction.
--- NOTE | 2024-06-04 14:55 | CASEMGMT ---
Met with patient to complete LISA form. LISA form explained to patient who voiced understanding and signed form. Original form placed in pt?s chart and copy provided to patient. Zara Arreola, Discharge Planning Asst
--- NOTE | 2024-06-04 15:04 | DCINST_ITS ---
Discharge Instructions Diet Discharge Diet: No restrictions DC O2, CPAP, BIPAP needs Home O2 Discharge instructions: No Dressing / Incision Discharge Activity: Return to Normal Activity Weight Bearing Status: Full weight bearing Follow Up Care Test Results: Test results from this visit will be discussed in further detail at your follow- up appointment, if applicable. Discharge Plan Admission Admit Date/Time: 06/02/24 10:43 Primary Reason for Your Visit: Noncardiac chest pain Attending Provider: Albino Conner Primary Care Provider: Charan Alvarado [employer] Providers: Lewis Cheney Instructions Additional Instructions / Restrictions: I recommend that you take an [id number] vitamin B complex once a day Discharge Orders/Prescriptions Prescriptions: Continued levothyroxine 25 mcg capsule 25 mcg PO DAILY folic acid 1 mg tablet 1 mg PO DAILY pantoprazole 40 mg Tablet,Delayed Release (Dr/Ec) 40 mg PO DAILY Qty: 30 2RF ascorbic acid (vitamin C) 500 mg tablet 500 mg PO QODAY buspirone 10 mg tablet 10 mg PO BID Referrals / Follow Up: Charan Alvarado Chi, MD [Primary Care Provider] - Within 2 Weeks Disposition Disposition (needs filled in before D/C Order can be placed): Home, Self Care
--- NOTE | 2024-06-04 15:08 | PCM.DC.SUM ---
Providers Date of Admission: 06/02/24 Date of Discharge: 06/04/24 Primary Care Physician: Dr. Charan Alvarado MD Reason For Visit: CHEST PAIN Diagnosis Discharge Diagnosis (1) Chest pain: Status: Inactive Code(s): R07.9 - Chest pain, unspecified Plan 1. Musculoskeletal chest pain #2 hypothyroidism Medications at Discharge Home Medications folic acid 1 mg tablet 1 mg PO DAILY 01/03/24 pantoprazole 40 mg tablet,delayed release 40 mg PO DAILY #30 tabs 01/09/24 levothyroxine 25 mcg capsule 25 mcg PO DAILY 01/23/24 ascorbic acid (vitamin C) 500 mg tablet 500 mg PO QODAY 06/02/24 buspirone 10 mg tablet 10 mg PO BID 06/02/24 Hospital Course Operations None Procedures Nuclear stress test Summary of Care Provided Minutes Spent on Discharge: 30 Hospital Course: This 73-year-old white female was seen in the emergency room at [facility] with complaints of chest pain x 24 hours. Patient described the chest pain is midsternal in location with no radiation. Workup in the emergency room revealed her troponin to be slightly elevated, EKG did not show any evidence of ischemic changes, D-dimer was elevated and CTA of the chest was obtained which was unremarkable. Patient was placed in observation status on PCU and serial cardiac enzymes were obtained, she underwent a nuclear stress test which was negative for reversible ischemia. On 06/04/2024, patient was seen and examined: On examination she appeared in good health and spirits, she does not appear to be in any distress. Vital signs as documented. Skin warm and dry and without overt rashes. Neck without JVD, thyroid appears normal, trachea is midline, neck is supple. Lungs clear, normal air movement was noted. Heart exam notable for regular rhythm, normal sounds and absence of murmurs, rubs or gallops. Abdomen unremarkable and without evidence of organomegaly, masses, or abdominal aortic enlargement, bowel sounds are present in all 4 quadrants, no abdominal tenderness was noted. Extremities nonedematous, no cyanosis was noted, no clubbing was noted. Neuro: Cranial nerves II through XII are grossly intact, no focal motor deficits were noted, sensation to light touch and pinprick is intact, motor exam 5/5 throughout. Psych: Patient is alert and oriented x3, she does not appear anxious or depressed, she does not appear agitated. Patient was discharged home in stable condition on 06/04/2024 Weight / BMI Weight Weight: 54.9 kg Body Mass Index (BMI) 19.5 ABG / Lab / Microbiology Data 06/04/24 05:00 06/04/24 05:00 Laboratory: Laboratory Results - last 24 hr 06/04/24 05:00: WBC 8.2, RBC 3.41 L, Hgb 10.1 L, Hct 30.4 L, MCV 89.1, MCH 29.6, MCHC 33.2, RDW Std Deviation 47.0 H, RDW Coeff of Marc 14.7 H, Plt Count 536 H, MPV 9.3, Immature Gran % (Auto) 0.400, Neut % (Auto) 57.0, Lymph % (Auto) 26.9, [place] % (Auto) 13.0 H, Eos % (Auto) 2.2, Baso % (Auto) 0.5, Absolute Neuts (auto) 4.7, Absolute Lymphs (auto) 2.20, Nucleated RBC % 0, Sodium 140, Potassium 3.4, Chloride 103, Carbon Dioxide 24.7, Anion Gap 12, BUN 20 H, Creatinine 0.88, Estim Creat Clear Calc 49.35 L, Est GFR (MDRD) Non-Af 70, BUN/Creatinine Ratio 23.2 H, Glucose 97, Calcium 8.9 D/C Instructions Discharge Diet: No restrictions Weight Bearing Status: Full weight bearing DC O2, CPAP, BIPAP Needs Home O2 Discharge instructions: No Meaningful Use Info Meaningful Use Meaningful Use Diagnoses (Choose all that apply): None applicable Ischemic Stroke Statin Dosing Therapy Reference: STATIN DOSE THERAPY REFERENCE: * Patients > 75 years receive moderate or high dose statin therapy. * Patients 75 years or YOUNGER should receive HIGH intensity statin dose unless contraindicated. You will be required to document reason for non-treatment if statin daily dose does not meet guidelines. HIGH DOSE STATIN THERAPY DAILY Atorvastatin > than or = to 40 mg Rosuvastatin > than or = to 20 mg Amlodipine + Atorvastatin > than or = to 2.5/40 mg Ezetimibe + Simvastatin 10/80 mg Simvastatin 80mg Discharge Plan Admission Admit Date/Time: 06/02/24 10:43 Primary Reason for Your Visit: Noncardiac chest pain Attending Provider: Albino Conner Primary Care Provider: Charan Alvarado [employer] Providers: Lewis Cheney Instructions Additional Instructions / Restrictions: I recommend that you take an axgu-tmp-gceyxwl vitamin B complex once a day Discharge Orders/Prescriptions Prescriptions: Continued levothyroxine 25 mcg capsule 25 mcg PO DAILY folic acid 1 mg tablet 1 mg PO DAILY pantoprazole 40 mg Tablet,Delayed Release (Dr/Ec) 40 mg PO DAILY Qty: 30 2RF ascorbic acid (vitamin C) 500 mg tablet 500 mg PO QODAY buspirone 10 mg tablet 10 mg PO BID Referrals / Follow Up: Charan Alvarado Chi, MD [Primary Care Provider] - 06/06/24 11:40 am Disposition Disposition (needs filled in before D/C Order can be placed): Home, Self Care Charges/Coding Visit Charges Inpatient E&M: 41996 Disch Hosp
--- NOTE | 2024-06-04 15:15 | PHA.DC.MR.R ---
Pharmacy [place] Med Reconciliation Pharmacy Service has performed discharge medication reconciliation for this patient. The patient's discharge medication list was reviewed for discrepancies and discrepancies were resolved. Medications at Discharge Home Medications folic acid 1 mg tablet 1 mg PO DAILY 01/03/24 pantoprazole 40 mg tablet,delayed release 40 mg PO DAILY #30 tabs 01/09/24 levothyroxine 25 mcg capsule 25 mcg PO DAILY 01/23/24 ascorbic acid (vitamin C) 500 mg tablet 500 mg PO QODAY 06/02/24 buspirone 10 mg tablet 10 mg PO BID 06/02/24
== END 2024-06-04 15:08 | disposition home or self-care (01) ==
LOC: ED 10:48 → PCU 13:55
PROVIDERS: Admitting Provider Family Medicine; Emergency Provider Emergency Medicine; PCP Family Medicine Geriatric Medicine; Visit Provider Internal Medicine
DX: R07.89 Other chest pain (principal); I25.10 Atherosclerotic heart disease of native coronary artery without angina pectoris; R79.89 Other specified abnormal findings of blood chemistry; E03.9 Hypothyroidism, unspecified; E78.00 Pure hypercholesterolemia, unspecified; F10.11 Alcohol abuse, in remission; R05.9 Cough, unspecified; R42 Dizziness and giddiness; K21.9 Gastro-esophageal reflux disease without esophagitis; G47.33 Obstructive sleep apnea (adult) (pediatric); F32.A Depression, unspecified; F41.9 Anxiety disorder, unspecified; F17.200 Nicotine dependence, unspecified, uncomplicated; Z79.890 Hormone replacement therapy; Z79.899 Other long term (current) drug therapy
CPT/HCPCS: 36415; 71045; 71275; 78452; 80048; 80061; 82728; 83540; 83550; 83690; 84484; 85025; 85379; 93005; 93017; 99221; 99284; A9500; Q9967; A4216; G0378

== ENCOUNTER → 2024-06-05 | Outpatient (CLI) | payer MEDICARE, SELFPAY ==
--- NOTE | 2024-06-05 08:37 | CT_ITS ---
EXAM: CT Abdomen and Pelvis With Intravenous Contrast CLINICAL INDICATION: POSSIBLE CIRRHOSIS TECHNIQUE: Axial computed tomography images of the abdomen and pelvis with intravenous contrast. This CT exam was performed using one or more of the following dose reduction techniques: automated exposure control, adjustment of the mA and/or kV according to patient size, and/or use of iterative reconstruction technique. COMPARISON: No relevant prior studies available. FINDINGS: LUNG BASES: Unremarkable. No mass. No consolidation. ABDOMEN: LIVER: Hepatomegaly with fatty infiltration. GALLBLADDER AND BILE DUCTS: Unremarkable. No calcified stones. No ductal dilation. PANCREAS: Unremarkable. No mass. No ductal dilation. SPLEEN: Unremarkable. No splenomegaly. ADRENALS: Unremarkable. No mass. KIDNEYS AND URETERS: 7 mm nonobstructing left renal pelvic calculus. Bilateral renal cysts. STOMACH AND BOWEL: Unremarkable. No obstruction. No mucosal thickening. PELVIS: APPENDIX: No findings to suggest acute appendicitis. BLADDER: Unremarkable. No mass. REPRODUCTIVE: Unremarkable as visualized. ABDOMEN and PELVIS: INTRAPERITONEAL SPACE: Unremarkable. No free air. No ascites. BONES/JOINTS: Degenerative disc disease throughout the lumbar spine. Degenerative facet arthropathy throughout the lumbar spine, most prominent in the lower lumbar spine. No acute fracture. No dislocation. SOFT TISSUES: Unremarkable. VASCULATURE: Scattered calcified atherosclerotic disease of aorta. No abdominal aortic aneurysm. No esophageal varices. LYMPH NODES: Unremarkable. No enlarged lymph nodes. CT/Abdomen/Pelvis WITH Contrast IMPRESSION: 1. Hepatomegaly with fatty infiltration. No CT evidence of cirrhosis. 2. Left nephrolithiasis without hydronephrosis. 3. Degenerative changes lumbar spine as described. Reading Location: [facility]
== END | disposition home or self-care (01) ==
LOC: CT 08:36
PROVIDERS: PCP Family Medicine Geriatric Medicine; Referring Provider Internal Medicine Gastroenterology; Visit Provider Internal Medicine Gastroenterology
DX: K85.90 Acute pancreatitis without necrosis or infection, unspecified (principal); Z87.898 Personal history of other specified conditions
CPT/HCPCS: 74177; Q9967; A4216; J2785

== ENCOUNTER 2024-08-07 16:52 | Emergency (ER) | payer MEDICARE, SELFPAY ==
[2024-08-07] VITALS (16 sets, daily range): BP systolic 114–174; BP diastolic 65–110; PULSE 72–87; RESP 14–83; TEMP 36.5–36.6; O2SAT 94–99; BMI 20.5
--- NOTE | 2024-08-07 16:55 | CT_ITS ---
PROCEDURE: STROKE CTA HEAD AND NECK W/CON 08/07/2024 REASON FOR EXAM: NEURO DEFICIT, ACUTE, STROKE SUSPECTED TECHNIQUE: STROKE CTA HEAD AND NECK W/CON Multiplanar Sagittal and Coronal images were obtained. 3D post processing was performed CONTRAST: Isovue 370 VOLUME: 75 mL One or more dose reduction techniques were used (e.g., Automated exposure control, adjustment of the mA and/or kV according to patient size, use of iterative reconstruction technique). RADIATION DOSE SUMMARY: CTDlvol: 20.8 mGy DLP: 601 mGycm COMPARISON: Same date CT head FINDINGS: Aortic Arch: Normal size. Mild atherosclerotic plaque. Brachiocephalic and Subclavians: Mild atherosclerotic plaque without significant stenosis. RIGHT Carotid: Right CCA: Unremarkable. Right ICA: Mild calcified and soft plaque. Maximum stenosis (NASCET): <50% Right ECA: Unremarkable. LEFT Carotid: Left CCA: Unremarkable. Left ICA: Mild calcified and soft plaque. Maximum stenosis (NASCET): <50% Left ECA: Unremarkable. Vertebrals: Codominant. Arise from the subclavians. Both vertebrals form the basilar. RIGHT Vertebral: Unremarkable. LEFT Vertebral: Unremarkable. Anatomy: [place] anatomy is normal. Aneurysm or AVM: No intracranial aneurysms or large vascular malformations are identified. Anterior cerebral arteries: Unremarkable: Middle cerebral arteries: Unremarkable. Basilar artery: Unremarkable. Posterior cerebral arteries: Unremarkable. Other major branches of the posterior circulation: Unremarkable. Major venous structures: Unremarkable. Other findings: Neck: No lymphadenopathy. Lungs: Centrilobular emphysema. Bones: Postoperative changes of the lower cervical spine. CT/STROKE CTA Head AND Neck W/Con IMPRESSION: No large vessel occlusion or hemodynamically significant narrowing of the head or neck vasculature. Reading Location: [id number]
--- NOTE | 2024-08-07 16:55 | EKG12_ITS ---
Test Reason : STROKE TEAM Blood Pressure : */* mmHG Vent. Rate : 83 BPM Atrial Rate : 83 BPM P-R Int : 164 ms QRS Dur : 86 ms QT Int : 402 ms P-R-T Axes : 70 -70 73 degrees QTcB Int : 472 ms Normal sinus rhythm Left anterior fascicular block Abnormal ECG Confirmed by SHIRLEY CHIN, JERRY ([id number]), book or script editor MARLIN JOHNSON ([id number]) on 08/08/2024 11:10:32 AM Referred By: Naomi Argueta Confirmed By: JERRY WATSON MD
--- NOTE | 2024-08-07 16:55 | CT_ITS ---
PROCEDURE: STROKE BRAIN/HEAD WITHOUT CONT 08/07/2024 REASON FOR EXAM: NEURO DEFICIT, ACUTE, STROKE SUSPECTED TECHNIQUE: STROKE BRAIN/HEAD WITHOUT CONT Coronal and Sagittal reconstruction series were provided. One or more dose reduction techniques were used (e.g., Automated exposure control, adjustment of the mA and/or kV according to patient size, use of iterative reconstruction technique. RADIATION DOSE SUMMARY: CTDlvol: 45.0 mGy DLP: 813 mGycm COMPARISON: CT head dated 01/23/2024, MRI brain on 03/12/2024 FINDINGS: Brain: Low density in the periventricular white matter, most pronounced in the left parietal lobe, unchanged and suggestive of chronic small vessel ischemic changes. CSF Spaces: Mild generalized cerebral atrophy Sinuses/Mastoids: Frothy secretions in the sphenoid sinus Bones: Unremarkable Status post bilateral cataract extraction. Atherosclerotic calcification of the intracranial arteries. CT/STROKE Brain/Head without Cont IMPRESSION: 1. No acute intracranial abnormality. Senescent changes, similar to prior. C onsider MRI if there is persistent concern for acute ischemia. 2. Aerosolized secretions in the sphenoid sinus, correlate for clinical eviden ce of acute sinusitis. The critical information above was relayed directly by me by telephone to Mary Roberts on 08/07/2024 at 5:09 pm with readback verification. Reading Location: [facility]
--- NOTE | 2024-08-07 16:59 | EDS_ITS ---
HPI History of Present Illness Chief Complaint: Stroke Alert Informant: patient, spouse/S.O. and EMS Narrative Narrative: Patient is a 74-year-old female with history of hypothyroidism, GERD, history of alcohol abuse, gait disturbance, endocarditis, hyperlipidemia, obstructive sleep apnea on CPAP, primary sclerosing cholangitis, pancreatitis and questionable dementia presenting as a stroke alert. Patient's reportedly went to the bathroom and then her friend who was at the house working on the TV heard her fall in the bathroom. He checked on her and she was noted to be very weak on the left side, have slurred speech and 911 was called. Reportedly she was normal before walking to the bathroom. I spoke to the who states that she was normal when they had a doctor's appointment at 11 AM today with her PCP. She did have some routine blood work. States over the past few days sometimes she seems to be in a daze but is otherwise been normal. Patient currently denies any complaints. She denies any pain from her fall. She is not on any blood thinners. No other complaints or concerns reported at this time. [facility] Medical History Primary sclerosing cholangitis Flowers esophagus with dysplasia Pancreatitis Cognitive and behavioral changes Abnormal gait Cellulitis of left upper arm Encephalopathy Arm pain, left Occult GI bleeding Debility Former consumption of alcohol Tachycardia Long-term use of high-risk medication Dyspnea Tobacco use Chest pain GERD (gastroesophageal reflux disease) Anxiety Depression Hypothyroidism History of alcohol abuse Bursitis Tobacco abuse Leukocytosis, unspecified Hypoglycemia Adverse drug reaction Melena History of CAD (coronary artery disease) Anemia BPPV (benign paroxysmal positional vertigo) Smoker CPAP (continuous positive airway pressure) dependence Abscess of left thigh Alcohol abuse with alcohol-induced disorder Hyperlipidemia Atherosclerotic heart disease of [place] coronary artery without angina pectoris Endocarditis Obstructive sleep apnea Nicotine dependence in remission Home Medications ?Medication ?Instructions ?Recorded ?Last Taken ?Type folic acid 1 mg tablet 1 mg PO DAILY 01/03/2401/22 History pantoprazole 40 mg tablet,delayed 40 mg PO DAILY #30 t abs 01/09/24 01/22/24 Rx release levothyroxine 25 mcg capsule 25 mcg PO DAILY 01/23/24 01/23/24 History ascorbic acid (vitamin C) 500 mg 500 mg PO QODAY 04/19 /25 Unknown History tablet buspirone 10 mg tablet 10 mg PO BID 06/02/24 Unknow n History Allergy/AdvReac Type Severity Reaction Status Date / Time No Known Allergies Allergy Verified 06/02/24 07:23 Family History Father , 83 CAD (coronary artery disease) Dementia Mother , 78 Liver cancer Surgical History Status post shoulder replacement History of shoulder surgery Hx of tonsillectomy History of hysterectomy Social History household members: spouse Smoking Status: Heavy Smoker (>10/day) Tobacco: How many years used: 41 Smokeless tobacco user: other second hand exposure: No alcohol intake: never details: Drinks 1/2 of 5th 90% proof vodka daily. substance use type: does not use caffeine: Yes (4+ drinks/day) Type: carbonated beverages Number of servings: 6 do you feel safe at home: Yes ROS ROS ED Constitutional Constitutional ED: Denies chills or fever(s) Eyes Eyes: Denies blurry vision or change in vision Respiratory/Chest Respiratory/Chest: Denies cough or dyspnea Gastrointestinal Gastrointestinal: Denies abdominal pain, melena, nausea or vomiting Musculoskeletal Musculoskeletal: Reports back pain; Denies arthralgias Neurologic Neurologic: Reports paresthesias and weakness; Denies headache(s) Hematologic/Lymphatic Hematologic/Lymphatic: Denies easy bleeding or easy bruising EXAM Physical Exam Const Vital Signs: 08/07/24 16:53 08/07/24 17:04 08/07/24 17:05 Temperature 97.9 F Temperature Source Temporal Pulse Rate 80 85 Respiratory Rate 20 H 19 H Blood Pressure 130/65 H 156/85 H Blood Pressure Mean 86 108 Blood Pressure Source Blood Pressure Position Pulse Ox 99 94 Oxygen Delivery Method Room Air Room Air Nasal Cannula Oxygen Flow Rate (L/min) 2 08/07/24 17:25 08/07/24 17:30 08/07/24 18:00 Temperature Temperature Source Pulse Rate 82 82 81 Respiratory Rate 16 14 20 H Blood Pressure 150/82 H 150/79 H 159/89 H Blood Pressure Mean 104 102 112 Blood Pressure Source Blood Pressure Position Pulse Ox 96 98 98 Oxygen Delivery Method Oxygen Flow Rate (L/min) 08/07/24 18:16 08/07/24 18:17 08/07/24 18:31 Temperature 97.7 F L Temperature Source Temporal Pulse Rate 84 84 Respiratory Rate 83 H 17 Blood Pressure 173/85 H 171/85 H 164/103 H Blood Pressure Mean 114 123 Blood Pressure Source Monitor Monitor Blood Pressure Position Semi-Fowlers Pulse Ox 98 98 Oxygen Delivery Method Room Air Room Air Oxygen Flow Rate (L/min) 08/07/24 18:46 08/07/24 19:01 08/07/24 19:16 Temperature 97.9 F Temperature Source Temporal Pulse Rate 86 87 72 Respiratory Rate 17 22 H Blood Pressure 173/105 H 171/110 H 174/90 H Blood Pressure Mean 127 130 118 Blood Pressure Source Monitor Blood Pressure Position Pulse Ox 97 98 99 Oxygen Delivery Method Nasal Cannula Oxygen Flow Rate (L/min) 3 08/07/24 19:28 08/07/24 20:04 08/07/24 20:10 Temperature Temperature Source Pulse Rate Respiratory Rate Blood Pressure 174/99 H 160/95 H Blood Pressure Mean 124 116 Blood Pressure Source Blood Pressure Position Pulse Ox 97 Oxygen Delivery Method Nasal Cannula Oxygen Flow Rate (L/min) 2 08/07/24 20:13 08/07/24 20:16 Temperature 97.8 F Temperature Source Pulse Rate 79 Respiratory Rate 16 Blood Pressure 142/84 H 114/82 H Blood Pressure Mean 103 92 Blood Pressure Source Monitor Blood Pressure Position Supine Pulse Ox 98 Oxygen Delivery Method Oxygen Flow Rate (L/min) Positive well nourished and well developed General Appearance ED: well developed and NAD HEENT Reports moist mucous membranes Eyes PERRL Eyes Narrative: Patient has a gaze preference of looking to the right but is able to overcome midline to look to the left when coached. Visual field cut noted of the bilateral left cortes consistent with a left homonymous hemianopsia. Neck supple and no JVD Chest Wall inspection of chest normal Resp normal respiratory effort and clear to auscultation bilaterally Cardio no murmurs Rate: regular rate Rhythm: regular rhythm GI normal to inspection, nondistended, normoactive bowel sounds, soft to palpation and non-tender GI Narrative: Black stool noted on her underwear however on rectal exam she has dark brown stool Extremity normal to inspection General Extremety ED: Negative for deformity or edema General Extremity: Negative for deformity or edema Neuro oriented x3 Neuro Narrative: Left facial droop present. Slurred speech present. Neglect with palpation to the left side. See NIH below. Sensorium / Orientation: alert Psych mental status grossly normal Skin no wounds Lesions: no lesions MDM MDM MDM Narrative Medical decision making narrative: Patient evaluated for fall and strokelike symptoms. Patient is obvious neurol ogic deficits on exam. Stroke alert was called. CT of the brain reviewed by myself as well as radiology does not show any acute intracranial process/hemorrhage. Patient evaluated by teleneurology, Dr. Murguia and both of us agree that she would be a good candidate for TNK. Well nurses replacing Yoon catheter per protocol in preparation for administering TNK she was found to have what looks like melena on her pad/depends. Rectal exam then performed and Hemoccult sent to the lab as active GI bleeding would be a contraindication 14K patient is have a history of GI bleeding. Otherwise further delay in the TN K as I misinterpreted her Hemoccult as positive (I suspect I was looking at her prior Hemoccult which was positive) and when in fact it was negative. Once this was recognized patient was then administered TN K and reevaluated. Family still agreeable. She still within the window for TN K and she continues to have these neurologic deficits. Workup otherwise largely normal/unremarkable. Patient be admitted for further stroke evaluation. Patient and family agreeable with plan of care. Case discussed with hospitalist for admission. Patient had an episode of vomiting. She was noted by nursing staff to have increased slurred speech and more exaggerated left facial droop. Decision made to repeat the CT of her brain to look for signs of hemorrhagic conversion. Unfortunately her CT does show signs of hemorrhagic conversion. Discussed emergently with neurology at [facility]. He recommends TXA, fibrinogen, coags and cryoprecipitate. This is ordered. Blood pressure control under 140 systolic. Patient accepted to the neuro ICU with Dr. Brar. Patient is becoming more sleepy. She has midline shift. Discussed with family and patient preemptive airway control with intubation especially in light of transfer. They are agreeable. Will intubate for airway protection given severity of her intracranial hemorrhage and need for emergent transportation. Intubation performed without complication. X-ray reviewed by myself shows appropriate position of ET tube. OG tube in the stomach. Lab Data Attestation: I reviewed the patient's lab results. Labs: Laboratory Results - last 24 hr 08/07/24 08/07/24 08/07/24 17:25 17:48 20:31 WBC 10.7 RBC 3.53 L Hgb 10.3 L Hct 31.6 L MCV 89.5 MCH 29.2 MCHC 32.6 RDW Std Deviation 51.3 H RDW Coeff of Marc 15.8 H Plt Count 247 MPV 9.4 Immature Gran % (Auto) 1.000 H Neut % (Auto) 69.4 Lymph % (Auto) 18.0 L Bond % (Auto) 9.7 Eos % (Auto) 1.4 Baso % (Auto) 0.5 Absolute Neuts (auto) 7.4 Absolute Lymphs (auto) 1.92 Nucleated RBC % 0 PT 13.3 INR 1.0 APTT 23.0 L Sodium 133 Potassium 4.1 Chloride 100 Carbon Dioxide 21.9 Anion Gap 11 BUN 20 H Creatinine 1.06 Estim Creat Clear Calc 42.49 L Est GFR (MDRD) Non-Af 55 L BUN/Creatinine Ratio 19.2 Glucose 101 H Calcium 8.8 Total Bilirubin 0.31 Direct Bilirubin 0.12 AST 25 ALT 14 Alkaline Phosphatase 109 H Ammonia 18.5 Troponin T High Sens 41 H D Total Protein 6.4 Albumin 3.4 Globulin 3.0 Urine Color Yellow Urine Clarity Clear Urine pH 6.0 Ur Specific [place] 1.020 Urine Protein 30 H Urine Glucose (UA) Normal Urine Ketones Negative Urine Occult Blood Negative Urine Nitrite Negative Urine Bilirubin Negative Urine Urobilinogen Normal Ur Leukocyte Esterase Negative Urine RBC 0-5 SEEN Urine WBC 0-5 SEEN Ur Squamous Epith Cells 0-5 SEEN Urine Bacteria 0 SEEN Urine Mucus 0 SEEN Ethyl Alcohol < 10.1 Blood Type A POSITIVE Radiography Diagnostic Testing: Clinical Impression(s) from Imaging Studies Brain CT 08/07/24 16:55 IMPRESSION: 1. No acute intracranial abnormality. Senescent changes, similar to prior. Consider MRI if there is persistent concern for acute ischemia. 2. Aerosolized secretions in the sphenoid sinus, correlate for clinical evidence of acute sinusitis. The critical information above was relayed directly by me by telephone to Mary Johnson on 08/07/2024 at 5:09 pm with readback verification. Reading Location: [id number] Head/Neck CTA 08/07/24 16:55 IMPRESSION: No large vessel occlusion or hemodynamically significant narrowing of the head or neck vasculature. Reading Location: [facility] Chest X-Ray 08/07/24 19:25 IMPRESSION: No evidence of an acute cardiopulmonary abnormality. Reading Location: [facility] Brain CT 08/07/24 19:40 IMPRESSION: Multiple new areas of intracranial hemorrhage, to include intraparenchymal, subdural, and subarachnoid hemorrhages as detailed above. These findings result in 4 millimeters of rightward midline shift. Recommend Neurosurgical consultation. Red Alert: New intracranial hemorrhages with slight midline shift The critical information above was relayed directly by me by telephone to Mary Johnson on 08/07/2024 at 8:13 pm with readback verification. Reading Location: [id number] Rhythm Strip Rhythm Strip: Sinus Rhythm Rate: 83 Ectopy: None EKG Initial EKG: Attestation: I personally reviewed and interpreted this EKG as follows: Interpretation: Sinus Rhythm Comments: Normal sinus rhythm rate of 83 bpm Normal axis Left anterior fascicular block Normal ST segments Management Discussion w/another healthcare provider: Hospitalist, Radiologist and Other (Neurology-Dr. Harp) Procedures Intubations Intubation Method: orotracheal (3-0 GlideScope using 7-0 ET tube 23 cm at the lip. ) Intubation Verification: Positive color change and Bilateral breath sounds confirmed Intubation Complications: no complications Critical Care Time Critical Care Time: Yes Critical care time (excluding procedures): 30-74 minutes (55), Discussing w/Patient &/or Family/Transformer Shop Supervisor, Discussing w/Consultants, Arranging Admission or Transfer and Performing Direct Patient Care at Bedside Discharge Plan Triage Chief Complaint: Stroke Alert ED Provider: Mary Johnson Dx/Rx/DC Orders Clinical Impression: Acute ischemic stroke, Adverse effect of tenecteplase, Intracranial hemorrhage, Slurring of speech, Raymond-neglect of left side, Hemianopia, homonymous, left Prescriptions: No Action levothyroxine 25 mcg capsule 25 mcg PO DAILY folic acid 1 mg tablet 1 mg PO DAILY pantoprazole 40 mg Tablet,Delayed Release (Dr/Ec) 40 mg PO DAILY Qty: 30 2RF ascorbic acid (vitamin C) 500 mg tablet 500 mg PO QODAY buspirone 10 mg tablet 10 mg PO BID Primary Care Provider: Charan Alvarado Chi Referrals: Charan Alvarado Chi, MD [Primary Care Provider] - Print Language: Malaysian NIHSS NIHSS 1a. Level of Consciousness: 0 - Alert; keenly responsive 1b. LOC Questions: 0 - Answers BOTH questions correctly 1c. LOC Commands: 0 - Performs BOTH tasks correctly 2. Best Gaze: 1 - Partial gaze palsy; 3. Visual: 2 - Complete hemianopia 4. Facial Palsy: 2 - Partial paralysis (total or near-total paralysis of lower face) 5a. Left Arm: 0 - No drift; arm holds 90 (or 45) degrees for full 10 seconds 5b. Right Arm: 0 - No drift; arm holds 90 (or 45) degrees for full 10 seconds 6a. Left Le - No drift; leg holds 30-degree position for full 5 seconds 6b. Right Le - No drift; leg holds 30-degree position for full 5 seconds 7. Limb Ataxia: 0 - Absent 8. Sensory: 0 - Normal; no sensory loss 9. Best Language: 0 - No aphasia; normal 10. Dysarthria: 1 = [id number] dysarthria; 11. Extinction and Inattention: 1 - Visual, tactile, auditory, spatial, or personal inattention; Total: 7 Stroke Questions Stroke Team Activated: Yes Reviewed Inclusion/Exclusion criteria: Yes Was Patient considered for Endovascular Intervention?: Yes (CTA did not show any LVO requiring endovascular therapy) IV Thrombolytic Administered: Yes Informed the patient and/or family of all associated risks, benefits, & alternatives to IV Thrombolytic Therapy. Patient and/or family voluntarily consent to the administration of IV Thrombolytic Therapy: Yes (TNK was delayed for concern of possible GI bleed with what appeared to be melanotic stool. Hemoccult ultimately was negative and TNK then administered) Reasons for Thrombolytic Delay Care team unable to determine eligibility: Yes (Concern for melena with patient having a history of GI bleeding on physical exam. Hemoccult ultimately was negative however initially I misinterpreted the result as positive (suspect I looked at her prior Hemoccults). Once this was recognized she was administered TNKase she still within the window)
--- NOTE | 2024-08-07 17:09 | ED.RN ---
states pt. fell at home at about 1600
--- NOTE | 2024-08-07 17:28 | ED.RN ---
at approx 1723 Pepper and myself removed pt. pants to insert hendricks. Pt. had dark black stool in a liner on her underwear. Dr. auguste notified for fear of GI bleed. Dr Auguste at bedside to assess and do rectal exam. IFOB sent to lab and lab stated they would run top priority. TNK on hold until confirmation of IFOB results.
--- NOTE | 2024-08-07 17:31 | ED.RN ---
dr auguste at bedside and stated stool is positive for blood
--- NOTE | 2024-08-07 17:35 | ED.RN ---
dr auguste gave verbal order no TNK
[2024-08-07 17:43] LABS: Absolute Lymphocyte Count 1.92 X10^3/uL (0.83-4.51); Absolute Neutrophil Count 7.4 X10^3/uL (2.0-7.7); Basophil# 0.05 X10^3/uL; Basophil% 0.5 % (0-1); Eosinophil# 0.15 X10^3/uL; Eosinophils% 1.4 % (0-5); Hematocrit 31.6 % (37-47); Hemoglobin 10.3 g/dL (12.0-15.0); Lymphocyte # 1.92 X10^3/ul (0.83-4.51); Mean Corp Hgb Conc 32.6 g/dL (32-36); Mean Corpuscular Hgb 29.2 pg (27.0-32.0); Mean Corpuscular Volume 89.5 fL (81-99); Mean Platelet Vol. 9.4 fl (6.2-12.0); Monocyte# 1.03 X10^3/uL; Monocyte% 9.7 % (0-10); NRBC Flagged by Analyzer 0 % (0-5); Neutrophil % 69.4 % (47-70); Platelet Count 247 K/mm3 (150-450); RBC Distribution Width CV 15.8 % (11.6-14.6); RBC Distribution Width SD 51.3 fl (35.1-43.9); Red Blood Count 3.53 M/mm3 (4.2-5.4); White Blood Count 10.7 K/mm3 (4.4-11.0)
[2024-08-07 17:55] LABS: Bacteria 0 SEEN /hpf (None Seen); Mucous, Urine 0 SEEN /hpf (<or=2+)
[2024-08-07 18:01] LABS: Color, Urine Yellow (Yellow); Glucose, Dipstick Normal (Normal); Ketone-Dipstick Negative (Negative); Leukocyte Esterase-Dipstick Negative /ul (Negative); Nitrite-Dipstick Negative (Negative); Occult Blood-Urine Negative /ul (Negative); Protein-Dipstick 30 mg/dl (Negative); Urine Bilirubin Dipstick Negative (Negative); Urine Clarity Clear (Clear); Urine Urobilinogen Normal (Normal)
[2024-08-07 18:08] LABS: AST(SGOT) 25 U/L (<=31); Alanine Aminotransfer ALT/SGPT 14 U/L (<=34); Albumin, Serum 3.4 g/dL (3.4-4.8); Alkaline Phosphatase 109 U/L (35-104); Anion Gap 11 (5-15); BUN 20 mg/dL (4-19); BUN/Creat Ratio 19.2 RATIO (10-20); Bilirubin, Direct 0.12 mg/dL (0.00-0.30); Calcium,Total 8.8 mg/dL (7.6-11.0); Carbon Dioxide 21.9 mmol/L (21.0-32.0); Chloride 100 mmol/L (98-108); Creatinine, Serum 1.06 mg/dL (0.70-1.20); EST Glomerular Filtration Rate 55 (>60); Estimated Creatinine Clearance 42.49 ml/min (50-250); Glucose 101 mg/dL (70-99); Potassium 4.1 mmol/L (3.3-5.1); Protein, Total 6.4 g/dL (5.9-8.4); Sodium Level 133 mmol/L (133-145); Total Bilirubin 0.31 mg/dL (0.00-1.30)
[2024-08-07 18:09] LABS: Alcohol, Blood (Medical)-Serum < 10.1 mg/dL (<=10.0); Ammonia 18.5 umol/L (11-51)
[2024-08-07] MEDS: 0.9% Saline Lock 10 ML Syringe IV ×2 (18:17→18:18)
[2024-08-07] MEDS: TENECTEPLASE 2088 MG IV (18:17)
[2024-08-07 18:25] LABS: Troponin T High Sensitivity 41 ng/L (<=14)
[2024-08-07 18:34] LABS: Prothrombin Time (Protime)PT. 13.3 SECONDS (11.7-14.9)
[2024-08-07 18:37] LABS: Red Blood Cells-Urine 0-5 SEEN /hpf (0-5); Squamous Epithelial Cells - UA 0-5 SEEN /hpf (5-10); White Blood Cells 0-5 SEEN /hpf (0-5)
[2024-08-07] MEDS: 0.9% Normal Saline (1000mL) 1,000 ML 100 ML IV (18:50)
[2024-08-07] MEDS: Labetalol 20 MG/4 ML Vial IV (19:01)
--- NOTE | 2024-08-07 19:17 | HP.PCM.HOS_ITS ---
HPI - General General Date of Service: 08/07/24 Chief Complaint: L sided neglect, R sided gaze deviation, L sided facial droop, slurred speech. HPI Narrative The patient is a 74 y/o F w/ PMHx: Tobacco use, GERD w/ Flowers's esophagus, History of EtOH abuse noted to be sober x 3 months, Nonobstructive CAD, HLD, KELSEY on CPAP, Chronic normocytic anemia, Anxiety who presents to the [facility] ED on 08/03/2024 with history of reportedly going to the bathroom with a friend who was at the home suddenly hearing a loud sound checking on her noting that she had fallen with significant left-sided weakness, facial droop, slurred speech with immediate 911 call noted to be normal just prior to using the bathroom with PCP evaluation on day of presentation with no concerns at that time with planned routine blood work prompting immediate EMS evaluation and transition to the hospital for stroke care. In the ED upon arrival teleneurology was involved and felt patient was appropriate candidate for tenecteplase administration. Patient in the ED did have episode of nausea and emesis following initiation of tenecteplase. NIH stroke scale assessment in the ED per neurology evaluation noted to be 9 with 1 for question answered incorrectly, to forced deviation, 2 for complete hemianopsia at that time, 2 for partial facial paralysis, 1 for mild to moderate dysarthria, 1 for inattention/extinction. In the ED workup included T97.9, heart rate 85, BP 156/85, respiratory rate 19, 94% on 2 L nasal cannula, CBC with WC 10.7, hemoglobin 10.3, MCV 89.5, platelet 247 with increased immature granulocytes, coags not marked appearing aside PTT 23, CMP with BUN/creatinine 20/1.06, GFR 55, glucose 101, alk phos 109, troponin 41 otherwise not marked appearing hepatic profile, urinalysis with no evidence of UTI, ethyl alcohol less than 10.1, CT of the brain with no acute intracranial findings, CTA head and neck with no large vessel occlusion or hemodynamically significant narrowing of the head or neck vasculature, chest x-ray with no acute cardiopulmonary findings, EKG with sinus rhythm with left anterior fascicular block with no acute evidence of ischemia. [facility] Medical History Primary sclerosing cholangitis Flowers esophagus with dysplasia Pancreatitis Cognitive and behavioral changes Abnormal gait Cellulitis of left upper arm Encephalopathy Arm pain, left Occult GI bleeding Debility Former consumption of alcohol Tachycardia Long-term use of high-risk medication Dyspnea Tobacco use Chest pain GERD (gastroesophageal reflux disease) Anxiety Depression Hypothyroidism History of alcohol abuse Bursitis Tobacco abuse Leukocytosis, unspecified Hypoglycemia Adverse drug reaction Melena History of CAD (coronary artery disease) Anemia BPPV (benign paroxysmal positional vertigo) Smoker CPAP (continuous positive airway pressure) dependence Abscess of left thigh Alcohol abuse with alcohol-induced disorder Hyperlipidemia Atherosclerotic heart disease of [place] coronary artery without angina pectoris Endocarditis Obstructive sleep apnea Nicotine dependence in remission Home Medications ?Medication ?Instructions ?Recorded ?Last Taken ?Type folic acid 1 mg tablet 1 mg PO DAILY 01/03/2401/22 History pantoprazole 40 mg tablet,delayed 40 mg PO DAILY #30 t abs 01/09/24 01/22/24 Rx release levothyroxine 25 mcg capsule 25 mcg PO DAILY 01/23/24 01/23/24 History ascorbic acid (vitamin C) 500 mg 500 mg PO QODAY 06/02 Unknown History tablet buspirone 10 mg tablet 10 mg PO BID 06/02/24 Unknow n History Allergy/AdvReac Type Severity Reaction Status Date / Time No Known Allergies Allergy Verified 06/02/24 07:23 Family History Father , 83 CAD (coronary artery disease) Dementia Mother , 78 Liver cancer Surgical History Status post shoulder replacement History of shoulder surgery Hx of tonsillectomy History of hysterectomy Social History (Updated 08/08/24 @ 00:[address] Mariann Chacko MD) household members: spouse Smoking Status: Heavy Smoker (>10/day) Tobacco: How many years used: 41 Smokeless tobacco user: other second hand exposure: No alcohol intake: former details: Sober x months, prior 1/5h vodka daily. substance use type: does not use caffeine: Yes (4+ drinks/day) Type: carbonated beverages Number of servings: 6 do you feel safe at home: Yes ROS ROS Narrative Admission Review of Systems: CONSTITUTIONAL: No weight loss, fever, chills, + weakness or fatigue. HEENT: + Left facial droop, slurred speech, gaze deviation. Eyes: No visual loss, blurred vision, double vision or yellow sclerae. Ears, Nose, Throat: No hearing loss, sneezing, congestion, runny nose or sore throat. SKIN: No rash or itching, lesions, wounds. CARDIOVASCULAR: No chest pain, chest pressure or chest discomfort, palpitations, edema, orthopnea, syncopal events. RESPIRATORY: No shortness of breath, cough or sputum, wheezing, hemoptysis. GASTROINTESTINAL: No anorexia, nausea, vomiting or diarrhea, abdominal pain, melena, BRBPR. GENITOURINARY: No dysuria, frequency, urgency or retention. NEUROLOGICAL: + Mild confusion, left sided facial droop, slurred speech, gaze deviation, left upper extremity joint cutter weakness. No headache, dizziness, syncope, paralysis, change in bowel or bladder control, seizure. MUSCULOSKELETAL: + muscle, back pain, joint pain or stiffness. HEMATOLOGIC: + chronic anemia, easy bleeding/bruising.+ LYMPHATICS: No enlarged nodes. No history of splenectomy. PSYCHIATRIC: + History of anxiety. ENDOCRINOLOGIC: No reports of sweating, cold or heat intolerance. No polyuria or polydipsia. ALLERGIES: No history of asthma, hives, eczema or rhinitis. Vital Signs Vital Signs Vital Signs: 08/07/24 16:53 08/07/24 17:04 08/07/24 17:05 Temperature 97.9 F Temperature Source Temporal Pulse Rate 80 85 Respiratory Rate 20 H 19 H Blood Pressure 130/65 H 156/85 H Blood Pressure Mean 86 108 Blood Pressure Source Blood Pressure Position Pulse Ox 99 94 Oxygen Delivery Method Room Air Room Air Nasal Cannula Oxygen Flow Rate (L/min) 2 08/07/24 17:25 08/07/24 17:30 08/07/24 18:00 Temperature Temperature Source Pulse Rate 82 82 81 Respiratory Rate 16 14 20 H Blood Pressure 150/82 H 150/79 H 159/89 H Blood Pressure Mean 104 102 112 Blood Pressure Source Blood Pressure Position Pulse Ox 96 98 98 Oxygen Delivery Method Oxygen Flow Rate (L/min) 08/07/24 18:16 08/07/24 18:17 08/07/24 18:31 Temperature 97.7 F L Temperature Source Temporal Pulse Rate 84 84 Respiratory Rate 83 H 17 Blood Pressure 173/85 H 171/85 H 164/103 H Blood Pressure Mean 114 123 Blood Pressure Source Monitor Monitor Blood Pressure Position Semi-Fowlers Pulse Ox 98 98 Oxygen Delivery Method Room Air Room Air Oxygen Flow Rate (L/min) 08/07/24 18:46 08/07/24 19:01 Temperature 97.9 F Temperature Source Temporal Pulse Rate 86 87 Respiratory Rate 17 Blood Pressure 173/105 H 171/110 H Blood Pressure Mean 127 130 Blood Pressure Source Blood Pressure Position Pulse Ox 97 98 Oxygen Delivery Method Oxygen Flow Rate (L/min) Weight Weight: 127 lb 6.835 oz Body Mass Index (BMI) 20.5 Physical Exam Narrative Physical Examination: General: Awake, alert, oriented to self, place and recent events, does have mildly slurred speech, remains cooperative, seated upright in the ED bed, fatigued appearing. Skin: Normal color, normal turgor, no icterus, no cyanosis except occasional stage ecchymoses, abrasion. HEENT: AT/NC, EOMI, PERRLA, mildly dry MM, evident persistent left-sided facial droop without marked correction with smiling, left lateral lower quadrantanopia present, no discerned carotid bruits or JVD noted. Lungs: Mildly diminished, greater bases, appropriate effort, no rales, ronchi or wheezing. Heart: Regular rate and rhythm; no gallop, rub audible. Abdomen: Soft, NTTP, ND, mildly hyperactive BS, positive HM. Extremities: No cyanosis, no clubbing, no marked peripheral edema. Neurological: Patient awake, alert, oriented as noted, cognitive function currently seems improved, suspect near baseline intact, pupils equally reactive to light and accommodation, cranial nerves grossly normal except patient does have underlying left-sided facial droop without marked correction, left lateral lower quadrantanopia present, able to forced gaze thus no evidence gaze deviation currently, left upper extremity with no drift but significant weakness with joint cutter strength, [id number] and [id number] able to be performed without marked deficit, sensation currently intact, equivocal Babinski. Psychiatric: Affect appears fatigued, no acute evidence of depressive or anxiety feelings but does have underlying history. Results Lab / Micro Data 08/07/24 17:25 08/07/24 17:25 Labs: Laboratory Results - last 24 hr 08/07/24 17:25: WBC 10.7, RBC 3.53 L, Hgb 10.3 L, Hct 31.6 L, MCV 89.5, MCH 29.2, MCHC 32.6, RDW Std Deviation 51.3 H, RDW Coeff of Marc 15.8 H, Plt Count 247, MPV 9.4, Immature Gran % (Auto) 1.000 H, Neut % (Auto) 69.4, Lymph % (Auto) 18.0 L, [place] % (Auto) 9.7, Eos % (Auto) 1.4, Baso % (Auto) 0.5, Absolute Neuts (auto) 7.4, Absolute Lymphs (auto) 1.92, Nucleated RBC % 0, PT 13.3, INR 1.0, A PTT 23.0 L, Sodium 133, Potassium 4.1, Chloride 100, Carbon Dioxide 21.9, Anion Gap 11, BUN 20 H, Creatinine 1.06, Estim Creat Clear Calc 42.49 L, Est GFR (MDRD) Non-Af 55 L, BUN/Creatinine Ratio 19.2, Glucose 101 H, Calcium 8.8, Total Bilirubin 0.31, Direct Bilirubin 0.12, AST 25, ALT 14, Alkaline Phosphatase 109 H, Ammonia 18.5, Troponin T High Sens 41 H D, Total Protein 6.4, Albumin 3.4, Globulin 3.0, Ethyl Alcohol < 10.1 08/07/24 17:48: Urine Color Yellow, Urine Clarity Clear, Urine pH 6.0, Ur Specific [place] 1.020, Urine Protein 30 H, Urine Glucose (UA) Normal, Urine Ketones Negative, Urine Occult Blood Negative, Urine Nitrite Negative, Urine Bilirubin Negative, Urine Urobilinogen Normal, Ur Leukocyte Esterase Negative, Urine RBC 0-5 SEEN, Urine WBC 0-5 SEEN, Ur Squamous Epith Cells 0-5 SEEN, Urine Bacteria 0 SEEN, Urine Mucus 0 SEEN Micro: Microbiology 08/07/24 17:18 Stool Stool Occult Blood (CHRISTINA) - Final Rhythm Strip Rhythm Strip: Sinus Rhythm Rate: 83 Ectopy: None Imaging Radiology Impression Brain CT 08/07/24 16:55 IMPRESSION: 1. No acute intracranial abnormality. Senescent changes, similar to prior. Consider MRI if there is persistent concern for acute ischemia. 2. Aerosolized secretions in the sphenoid sinus, correlate for clinical evidence of acute sinusitis. The critical information above was relayed directly by me by telephone to Mary Johnson on 08/07/2024 at 5:09 pm with readback verification. Reading Location: [facility] Head/Neck CTA 08/07/24 16:55 IMPRESSION: No large vessel occlusion or hemodynamically significant narrowing of the head or neck vasculature. Reading Location: [facility] Assessment & Plan Assessment/Plan (1) Acute ischemic stroke: PLAN: Plan The patient is a 74 y/o F w/ PMHx: Tobacco use, GERD w/ Flowers's esophagus, History of EtOH abuse noted to be sober x 3 months, Nonobstructive CAD, HLD, KELSEY on CPAP, Chronic normocytic anemia, Anxiety who presents to the [facility] ED on 08/03/2024 with history of reportedly going to the bathroom with a friend who was at the home suddenly hearing a loud sound checking on her noting that she had fallen with significant left-sided weakness, facial droop, slurred speech with immediate 911 call noted to be normal just prior to using the bathroom with PCP evaluation on day of presentation with no concerns at that time with planned routine blood work prompting immediate EMS evaluation and transition to the hospital for stroke care. #1. Left-sided facial droop, left upper extremity weakness, left-sided neglect, mildly slurred speech, right-sided mild gaze deviation with left lower quadrant quadrantanopia concerning for CVA status post tenecteplase administration: Patient status post tenecteplase administration the ED. in the ED evaluation with mild change from her previous NIH stroke scale assessments as they had started to improve following tenecteplase administration however now at this time she is having left upper extremity joint cutter weakness therefore CT scan of the head is pending however if no acute findings i.e. acute bleed then would plan to continue with admission to the ICU with printed circuit boards inspector consultation with continue neurology consultation per protocol, will plan to obtain repeat CT head versus MRI of the brain in 24 hours, echocardiogram, allow permissive HTN with as needed agents per tenecteplase administration protocol, once CT head versus MRI of the brain obtained and no evidence of any bleeding then will initiate antiplatelet therapy, will initiate on high-dose statin w/ AM FLP, fall precautions. Mag, TSH, FLP, HgbA1c requested. Maintain on fall and aspiration precautions. #2. Indeterminate cardiac enzyme of unclear significance: Admission troponin 41, EKG with no acute evidence of ischemia, given presentation as noted will maintain on telemetry, will plan to continue to cycle cardiac enzyme, magnesium level requested, FLP in AM, echocardiogram pending, status post tenecteplase administration as noted above thus defer any antiplatelet therapy considerations at this time. #3. Chronic normocytic anemia: Admission hemoglobin 10.3, MCV 89.5, baseline hemoglobin primarily 10-11, stable, continue to trend. #4. Chronic Kidney Disease Stage II per GFR trending: Admission BUN/Cr 20/1.06, GFR 55, normally within range for type II stage, baseline renal function primarily 0.8-0.9, repeat BMP in AM. #5. Tobacco Abuse: Encouraged cessation, inpatient consultation per RT, NR if desired. #6. Hypothyroidism: Will continue patient on levothyroxine regimen, TSH requested. #7. Anxiety: Will temporally hold BuSpar regimen to avoid any sedation. #8. GERD: Continue patient on PPI. #9. KELSEY: Normally using CPAP nightly, will temporarily hold given nausea with 1 bout of emesis in the ED. #10. DVT prophylaxis: Given recent tenecteplase administration will defer any chemoprophylaxis or antiplatelet therapy x 24 hours as noted. #11. CODE status: Patient's who is present would be her medical decision-maker if necessary. Discussed CODE status at length including difference between FULL code, DNR-CCA and DNR-CC status. Following discussions about the differences in these status, requested Full Code status. Advanced Care Planning Face to Face Time: 16 minutes.
[2024-08-07] MEDS: Ondansetron 4 MG/2 ML Vial IV (19:21)
--- NOTE | 2024-08-07 19:25 | RAD_ITS ---
PROCEDURE: CHEST 1 VIEW (PORTABLE) 08/07/2024 REASON FOR EXAM: COUGH, ? ASPIRATION TECHNIQUE: Frontal views of the chest. COMPARISON: Chest radiograph on 06/02/2024, CT chest 06/02/2024 FINDINGS: Hardware: Left shoulder arthroplasty. Cervical spine hardware. Heart: Cardiac and mediastinal contours are stable. Lungs: No focal consolidation or significant pleural effusion. Bones: Degenerative changes are identified within the thoracic spine and shoulders. RAD/Chest 1 View (Portable) IMPRESSION: No evidence of an acute cardiopulmonary abnormality. Reading Location: [id number]
--- NOTE | 2024-08-07 19:40 | CT_ITS ---
PROCEDURE: BRAIN/HEAD WITHOUT CONTRAST 08/07/2024 REASON FOR EXAM: WORSENING STROKE SYMPTOMS, S/P TNK TECHNIQUE: BRAIN/HEAD WITHOUT CONTRAST Coronal and Sagittal reconstruction series were provided. One or more dose reduction techniques were used (e.g., Automated exposure control, adjustment of the mA and/or kV according to patient size, use of iterative reconstruction technique. RADIATION DOSE SUMMARY: CTDlvol: 45.0 mGy DLP: 847 mGycm COMPARISON: CT head on 08/07/2024 FINDINGS: Brain: There are several areas of intracranial hemorrhage which are new from CT performed yesterday, including: -hyperdense intraparenchymal hemorrhage in the left temporo-occipital lobe measuring 3.7 x 2.4 x 1.8 cm -hyperdense intraparenchymal hemorrhage in the anterior left temporal lobe measuring 2.0 x 1.5 x 1.3 cm in aggregate -subdural hemorrhage along the left tentorial leaflet measuring up to 5 mm in thickness, and along the right tentorial leaflet measuring up to 3 mm in thickness -subdural hemorrhage along the left cerebral convexity measuring up to 5 mm in thickness -subarachnoid hemorrhage overlying the left temporal lobe These findings result in a proximally 4 mm of rightward midline shift. Hypodensity throughout the white matter in keeping with chronic small vessel ischemic disease. CSF Spaces: Mild generalized cerebral atrophy Sinuses/Mastoids: Clear at visualized levels Bones: No displaced fracture CT/Brain/Head without Contrast IMPRESSION: Multiple new areas of intracranial hemorrhage, to include intraparenchymal, sub dural, and subarachnoid hemorrhages as detailed above. These findings result in 4 millimeters of rightward midline shift. Rec ommend Neurosurgical consultation. Red Alert: New intracranial hemorrhages with slight midline shift The critical information above was relayed directly by me by telephone to Mary Roberts on 08/07/2024 at 8:13 pm with readback verification. Reading Location: [facility]
[2024-08-07] MEDS: Nicardipine HCl-0.9% Sod Chlor 20 MG/200 ML IV.SOLN 50 MG CONT INF (20:04)
[2024-08-07] MEDS: TRANEXAMIC ACID 1,000 MG in 0.9% Normal Saline (100mL Bag) 100 ML 440 MG IV (20:19)
[2024-08-07] MEDS: Etomidate 20 MG/10 ML Vial 17 MG IV (20:53)
[2024-08-07] MEDS: Rocuronium Bromide 50 MG/5 ML Vial 59 MG IV (20:54)
--- NOTE | 2024-08-07 20:59 | ED.RN ---
intubated for airway safety for helicopter transport. 2054 intubation time, 7.0 tube, 23@ lip
--- NOTE | 2024-08-07 21:05 | RAD_ITS ---
PROCEDURE: CHEST 1 VIEW (PORTABLE) 08/07/2024 REASON FOR EXAM: INTUBATION TECHNIQUE: Frontal view of the chest. COMPARISON: Earlier same day chest radiograph FINDINGS: See below. RAD/Chest 1 View (Portable) IMPRESSION: Interval placement of an endotracheal tube with tip 5.8 cm proximal of the cristopher na. Additionally, there is an enteric tube which courses in the midline with side port projecting over the upper abdomen and tip below the field of view. This exam is otherwise unchanged from the earlier same-day radiograph. Reading Location: [id number]
[2024-08-07] MEDS: fentaNYL drip 100 ML 2.5 MCG CONT INF (21:22)
[2024-08-07 21:44] LABS: Bedside Glucose 129 mg/dL (74-106)
--- NOTE | 2024-08-07 22:13 | ED.RN ---
Cryo units sent with flight crew
== END 2024-08-07 22:12 | disposition short-term general hospital (02) ==
PROVIDERS: Emergency Provider Emergency Medicine; PCP Family Medicine Geriatric Medicine; Referring Provider Internal Medicine; Visit Provider Emergency Medicine
DX: I63.9 Cerebral infarction, unspecified (principal); K83.01 Primary sclerosing cholangitis; G83.24 Monoplegia of upper limb affecting left nondominant side; I60.9 Nontraumatic subarachnoid hemorrhage, unspecified; I62.00 Nontraumatic subdural hemorrhage, unspecified; Y92.239 Unspecified place in hospital as the place of occurrence of the external cause; D68.32 Hemorrhagic disorder due to extrinsic circulating anticoagulants; T45.615A Adverse effect of thrombolytic drugs, initial encounter; R29.707 NIHSS score 7; R29.810 Facial weakness; N18.2 Chronic kidney disease, stage 2 (mild); D64.9 Anemia, unspecified; R11.2 Nausea with vomiting, unspecified; I25.10 Atherosclerotic heart disease of native coronary artery without angina pectoris; H53.462 Homonymous bilateral field defects, left side; R47.81 Slurred speech; E78.5 Hyperlipidemia, unspecified; E03.9 Hypothyroidism, unspecified; K21.9 Gastro-esophageal reflux disease without esophagitis; F10.11 Alcohol abuse, in remission; G47.33 Obstructive sleep apnea (adult) (pediatric); F17.200 Nicotine dependence, unspecified, uncomplicated; Z79.890 Hormone replacement therapy; Z79.899 Other long term (current) drug therapy
CPT/HCPCS: 31500; 36430; 51702; 70450; 70496; 70498; 71045; 80048; 80076; 81001; 82077; 82140; 82274; 82962; 84484; 85025; 85610; 85730; 86850; 86900; 86901; 86965; 93005; 96361; 96365; 96366; 96367; 96375; 99252; 99285; J3101; P9012; Q9967; A4216; G0463; J2405

== ENCOUNTER → 2024-08-07 | Outpatient (CLI) | payer MEDICARE, SELFPAY ==
[2024-08-07 12:03] LABS: Absolute Lymphocyte Count 1.68 X10^3/uL (0.83-4.51); Absolute Neutrophil Count 6.5 X10^3/uL (2.0-7.7); Basophil# 0.05 X10^3/uL; Basophil% 0.5 % (0-1); Eosinophil# 0.13 X10^3/uL; Eosinophils% 1.4 % (0-5); Hemoglobin 11.3 g/dL (12.0-15.0); Lymphocyte # 1.68 X10^3/ul (0.83-4.51); Lymphocyte % 18.2 % (19-41); Mean Corp Hgb Conc 32.3 g/dL (32-36); Mean Corpuscular Hgb 29.4 pg (27.0-32.0); Mean Corpuscular Volume 90.9 fL (81-99); Mean Platelet Vol. 9.7 fl (6.2-12.0); Monocyte# 0.81 X10^3/uL; Monocyte% 8.8 % (0-10); NRBC Flagged by Analyzer 0 % (0-5); Neutrophil # 6.51 X10^3/uL (2.7-7.7); Neutrophil % 70.8 % (47-70); Platelet Count 308 K/mm3 (150-450); RBC Distribution Width CV 15.9 % (11.6-14.6); RBC Distribution Width SD 51.9 fl (35.1-43.9); Red Blood Count 3.85 M/mm3 (4.2-5.4); White Blood Count 9.2 K/mm3 (4.4-11.0)
[2024-08-07 13:07] LABS: ALB/GLOB Ratio 1.1 RATIO (0.9-2.4); AST(SGOT) 25 U/L (<=31); Alanine Aminotransfer ALT/SGPT 18 U/L (<=34); Alkaline Phosphatase 126 U/L (35-104); Anion Gap 11 (5-15); BUN 21 mg/dL (4-19); BUN/Creat Ratio 18.8 RATIO (10-20); Calcium,Total 9.2 mg/dL (7.6-11.0); Carbon Dioxide 27.1 mmol/L (21.0-32.0); Chloride 101 mmol/L (98-108); Creatinine, Serum 1.12 mg/dL (0.70-1.20); EST Glomerular Filtration Rate 52 (>60); Globulin 3.6 g/dL (2.2-4.2); Glucose 85 mg/dL (70-99); Potassium 4.6 mmol/L (3.3-5.1); Protein, Total 7.6 g/dL (5.9-8.4); Sodium Level 139 mmol/L (133-145); Total Bilirubin 0.27 mg/dL (0.00-1.30); Vitamin D,25 Hydroxy 53.2 ng/mL (30-100)
== END | disposition home or self-care (01) ==
LOC: LAB 11:20
PROVIDERS: PCP Family Medicine Geriatric Medicine; Referring Provider Family Medicine Geriatric Medicine; Visit Provider Family Medicine Geriatric Medicine
DX: E55.9 Vitamin D deficiency, unspecified (principal); R53.83 Other fatigue
CPT/HCPCS: 36415; 80053; 82306; 84443; 85025

== ENCOUNTER 2024-08-15 17:52 | Inpatient (IN) | payer MEDICARE, SELFPAY ==
[2024-08-15 17:55] VITALS: BP 158/79; PULSE 89; RESP 16; TEMP 36.7; O2SAT 93; BMI 19.1
--- NOTE | 2024-08-15 19:38 | HP.PCM_ITS ---
HPI - General General Date of Admission: 08/15/24 Date of Service: 08/15/24 Chief Complaint: Here for rehabilitation. HPI Narrative IRINA ROSE, is a 74 Female who presents with followin08/07/2024 [facility] ED stroke alert. Went to bathroom, friend heard her fall. Left sided weakness, slurred speech, [address] head negative, TNK given. Vomiting, increasing slurred speech, increasing left facial droop. CT head positive for hemorrhagic conversion. [facility] recommended TXA, Fibrinogens, coags, cryoprecipitate. Patient intubated. Transfer to [facility] by helicopter. 08/07/2024 Admit [facility]. Left temporal, left temporo-occipital IPH, Left SDH, SAH. Sober from alcohol for [address] head showed new bilateral IVH, Neurosurgery recommended no immediate surgical intervention. TTE, LDL, A1c, defer antiplatelet, defer anticoagulation, consider urine toxicology. Consider hypercoagulable panel. Start DVT prophylaxis after bleeding stable. Keppra for seizure prophylaxis. Neurosurgery recommended EVD watch 2/2 new IVH. Hold Wellbutrin 2/2 lowering seizure threshold. PT/OT/CM. C-collar in place. 08/08/2024 EVD watch, image stable, exam stable, [address] head. MRI brain with and without contrast. 08/09/2024 Extubated, start DVT prophylaxis. 08/10/2024 Passed FEES, plan CT head tomorrow for stability. 08/11/2024 Start Lisinopril, CT head largely stable, delirium workup, precautions. 08/12/2024 Rocephin started for UTI, replete magnesium. 08/13/2024 Magnesiun repletion. SCD, Lovenox DVT prophylaxis. No antiplatelet therapy 2/2 ICH. Atorvastatin 40mg for LDL 104. PT/OT/ST. 08/15/2024 Blood pressure high over night requiring IV blood pressure medications. 08/15/2024 Admit to TCU with debility, here for rehabilitation, strengthening, prior to discharge home with David. ON LICENSE OF [facility] Medical History (Updated 08/15/24 @ 19:[address] Charan Alvaraod MD) Debility Hyperlipidemia Primary sclerosing cholangitis Flowers esophagus with dysplasia Pancreatitis Cognitive and behavioral changes Abnormal gait Cellulitis of left upper arm Encephalopathy Arm pain, left Occult GI bleeding Former consumption of alcohol Tachycardia Long-term use of high-risk medication Dyspnea Tobacco use Chest pain GERD (gastroesophageal reflux disease) Anxiety Depression Hypothyroidism History of alcohol abuse Bursitis Tobacco abuse Leukocytosis, unspecified Hypoglycemia Adverse drug reaction Melena History of CAD (coronary artery disease) Anemia BPPV (benign paroxysmal positional vertigo) Smoker CPAP (continuous positive airway pressure) dependence Abscess of left thigh Alcohol abuse with alcohol-induced disorder Atherosclerotic heart disease of elem coronary artery without angina pectoris Endocarditis Obstructive sleep apnea Nicotine dependence in remission Home Medications ?Medication ?Instructions ?Recorded ?Last Taken ?Type folic acid 1 mg tablet 1 mg PO DAILY supplement 01/23/24 History pantoprazole 40 mg tablet,delayed 40 mg PO DAILY #30 t abs 01/09/24 01/22/24 Rx release levothyroxine 25 mcg capsule 25 mcg PO DAILY thyroid 1 03/25/23 01/23/24 History ascorbic acid (vitamin C) 500 mg 500 mg PO QODAY 06/02 Unknown History tablet buspirone 10 mg tablet 10 mg PO BID 06/02/24 Unknow n History ascorbate calcium (vitamin C) 500 250 mg PO DAILY supp lement 08/15/24 Unknown History mg tablet aspirin 81 mg chewable tablet 1 tab PO DAILY heart hea lth 08/15/24 Unknown History atorvastatin 40 mg tablet (Lipitor) 40 mg PO QHS darlene sterol 08/15/24 Unknown History bupropion HCl 150 mg tablet,12 hr 75 mg PO DAILY mood 08/15/24 Unknown History sustained-release (Wellbutrin SR) buspirone 5 mg tablet 5 mg PO BID mood 08/15/24 Un known History cephalexin 500 mg capsule 500 mg PO TID antibiotic 04/10 Unknown History citalopram 10 mg tablet 10 mg PO DAILY mood 08/15/24 Unknown History galantamine 8 mg 24 hr 8 mg PO DAILY Alzheimer's Unknown History capsule,extended release lisinopril 40 mg tablet 40 mg PO DAILY blood pressur e 08/15/24 Unknown History multivitamin 1 tab PO DAILY supplement Unknown History nicotine 14 mg/24 hr daily 1 patch transdermal Q24H sm oker 08/15/24 Unknown History transdermal patch nifedipine 30 mg tablet,extended 30 mg PO DAILY blood pressure 08/15/24 Unknown History release pantoprazole 40 mg tablet,delayed 40 mg PO DAILY acid reflux 08/15/24 Unknown History release (Protonix) thiamine HCl (vitamin B1) 100 mg 100 mg PO DAILY suppl ement 08/15/24 Unknown History tablet Allergy/AdvReac Type Severity Reaction Status Date / Time No Known Allergies Allergy Verified 06/02/24 07:23 Family History Father , 83 CAD (coronary artery disease) Dementia Mother , 78 Liver cancer Surgical History Status post shoulder replacement History of shoulder surgery Hx of tonsillectomy History of hysterectomy Social History household members: spouse Smoking Status: Heavy Smoker (>10/day) Tobacco: How many years used: 41 Smokeless tobacco user: other second hand exposure: No alcohol intake: former details: Sober x months, prior 1/5h vodka daily. substance use type: does not use caffeine: Yes (4+ drinks/day) Type: carbonated beverages Number of servings: 6 do you feel safe at home: Yes ROS Constitutional Constitutional: Denies chills, fever(s) or weight gain ENT HEENT: Denies headache(s), nasal congestion or nasal discharge Cardiovascular Cardiovascular: Denies chest pain or palpitations Respiratory/Chest Respiratory/Chest: Denies cough, excessive phlegm production or shortness of breath with exertion Gastrointestinal Gastrointestinal: Denies abdominal pain, nausea or vomiting Genitourinary Genitourinary: Denies dysuria Musculoskeletal Musculoskeletal: Denies joint pain or joint swelling Integumentary Integumentary: Denies rash or wounds Neurologic Neurologic: Denies focal weakness, numbness or tingling Psychiatric Psychiatric: Denies anxiety, auditory hallucinations, depression, homicidal ideation or suicidal ideation Vital Signs Vital Signs Vital Signs: 08/15/24 17:55 08/15/24 17:55 Temperature 98.1 F Temperature Source Temporal Pulse Rate 89 Pulse Rhythm Regular Pulse Strength Normal (2+) Respiratory Rate 16 Respiratory Effort Normal Non-Labored Respiratory Depth Normal Respiratory Pattern Normal Blood Pressure 158/79 H Blood Pressure Mean 105 Blood Pressure Source Monitor Blood Pressure Position Semi-Fowlers Blood Pressure Location Right Arm Pulse Ox 93 Oxygen Delivery Method Room Air Room Air Weight Weight: 53.779 kg Body Mass Index (BMI) 19.1 Physical Exam Const alert General Appearance: cooperative HEENT normocephalic Eyes PERRL and EOMs intact bilaterally Neck supple, no JVD and no carotid bruits Resp normal respiratory effort, normal air movement and clear to auscultation bilaterally Cardio regular rate and regular rhythm GI normal to inspection, nondistended, normoactive bowel sounds, non-tender and non-distended Extremity normal capillary refill General Extremity: Negative for edema Skin no rashes or lesions noted General Skin Exam: no breakdown Neuro moves all extremities Psych affect normal Appearance: appropriate Assessment & Plan Assessment/Plan (1) Debility: (2) Ischemic stroke: (3) Left hemiparesis: (4) Hemorrhagic stroke: (5) Essential (primary) hypertension: (6) Hyperlipidemia: (7) Hypothyroidism: (8) Depression: (9) Anxiety: (10) Nicotine dependence, cigarettes, uncomplicated: (11) Barretts esophagus: (12) Alzheimer disease: PLAN: Plan 74 year old female with below past medical history hospitalized for right ischemic stroke, left hemiparesis, 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 * Debility - PT/OT. * Pain - Tylenol 1000mg q6 prn pain (1-10). * Bowel - senna/colace 1 tablet bid, Magnesium citrate 300mL daily prn. * Adult immunization - Administer pneumonia vaccine, covid vaccine, flu vaccine as appropriate. * DVT prophylaxis - Hold, brain bleed. * Stroke - Aspirin 81mg daily. * Hyperlipidemia - Atorvastatin 40mg qhs. * Alzheimer Disease - Galantamine 8mg daily, because of brain bleed, no longer candidate for amyloid directed therapy. * Hypothyroidism - Levothyroxine 25mcg daily. * Hypertension - Losartan 100mg daily, Nifedipine 30mg daily. * Tobacco abuse - Nicotine 14mg td q24, patient encouraged to quit smoking. * Flowers's esophagus - Pantoprazole 40mg daily. The following psychotropic medication was present on admission: Bupropion 75mg daily. Psychotropic medication therapy is indicated for a diagnosis of: Major Depression. Based on my clinical evaluation, continuation of the medication is necessary at this time. Gradual dose reduction plan (select one): ____ GDR will be attempted. Will monitor patient symptoms and behaviors in response to GDR. __x__ GRD contraindicated. Reason contraindicated: stable chronic jail use. The following psychotropic medication was present on admission: Buspar 5mg bid. Psychotropic medication therapy is indicated for a diagnosis of: Anxiety. Based on my clinical evaluation, continuation of the medication is necessary at this time. Gradual dose reduction plan (select one): ____ GDR will be attempted. Will monitor patient symptoms and behaviors in response to GDR. __x__ GRD contraindicated. 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 The following psychotropic medication was present on admission: Citalopram 10mg daily. Psychotropic medication therapy is indicated for a diagnosis of: Major Depression. Based on my clinical evaluation, continuation of the medication is necessary at this time. Gradual dose reduction plan (select one): ____ GDR will be attempted. Will monitor patient symptoms and behaviors in response to GDR. __x__ GRD contraindicated. 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
[2024-08-15] MEDS: Senna/Docusate Sodium 1 Tablet PO (20:38)
[2024-08-16 04:47] VITALS: PULSE 83; RESP 16; O2SAT 92
[2024-08-16 06:05] LABS: Hematocrit 30.1 % (37-47); Hemoglobin 10.2 g/dL (12.0-15.0); Immature Granulocytes Count 0.050 X10^3/uL (0.0-0.0); Mean Corp Hgb Conc 33.9 g/dL (32-36); Mean Corpuscular Volume 85.3 fL (81-99); Mean Platelet Vol. 9.1 fl (6.2-12.0); NRBC Flagged by Analyzer 0 % (0-5); Platelet Count 583 K/mm3 (150-450); RBC Distribution Width CV 15.1 % (11.6-14.6); RBC Distribution Width SD 47.6 fl (35.1-43.9); Red Blood Count 3.53 M/mm3 (4.2-5.4); White Blood Count 9.0 K/mm3 (4.4-11.0)
[2024-08-16 06:30] LABS: Anion Gap 10 (5-15); BUN 11 mg/dL (4-19); BUN/Creat Ratio 15.2 RATIO (10-20); Calcium,Total 8.7 mg/dL (7.6-11.0); Carbon Dioxide 28.1 mmol/L (21.0-32.0); Chloride 97 mmol/L (98-108); Estimated Creatinine Clearance 52.38 ml/min (50-250); Glucose 103 mg/dL (70-99); Potassium 3.2 mmol/L (3.3-5.1)
[2024-08-16 09:02] VITALS: BP 114/63; PULSE 74; RESP 16; TEMP 36.3; O2SAT 94
[2024-08-16] MEDS: Potassium Chloride Oral Tablet 20 MEQ 40 MEQ PO (09:09)
[2024-08-16] MEDS: Senna/Docusate Sodium 1 Tablet PO ×2 (09:13→20:40)
[2024-08-16] MEDS: Tuberculin,Purif.prot.deriv. 50 TU/ML Vial 0.1 ML ID (10:21)
[2024-08-16] MEDS: NIFEdipine 30 MG Tablet PO (10:21)
--- NOTE | 2024-08-16 10:54 | NURSING ---
dr lindquist aware of low potassium, new order for BMP rechecks, kdur and melatonin for sleep. alarms placed at night d/t pt not calling for assist d/t confusion.
--- NOTE | 2024-08-16 15:17 | CHAPLAIN ---
Type of Pastoral Visit _x__ Initial Visit ___ Follow-up Visit ___ On-call Visit ___ General Patient Visit ___ Spiritual Assessment ___ Family Conference ___ Bereavement ___ Rapid Response ___ Code Blue ___ Other (describe below) Pastoral Care Referral From _x__ Patient ___ Family ___ Nurse ___ Physician ___ Potato Pancake Frier ___ Radio Script Writer ___ Other (describe below) Sacrament/Intervention _x__ Active listening ___ Anointing ___ Yazidism ___ Bereavement ___ Communion ___ Aileen exploration ___ ___ Life review _x__ Prayer ___ Reconciliation ___ Sacrament of Sick _x__ Supportive presence ___ Wedding ___ Other (describe below) Pastoral Comments patient is offered presence and support; pt states that she is fine right now and has goal to get home soon; pt did request a prayer and that was given
[2024-08-16] MEDS: MELATONIN 3 MG TABLET PO (20:40)
[2024-08-17 06:39] LABS: Anion Gap 10 (5-15); BUN 13 mg/dL (4-19); BUN/Creat Ratio 17.0 RATIO (10-20); Calcium,Total 8.9 mg/dL (7.6-11.0); Carbon Dioxide 26.8 mmol/L (21.0-32.0); Chloride 98 mmol/L (98-108); Estimated Creatinine Clearance 52.38 ml/min (50-250); Glucose 115 mg/dL (70-99); Potassium 3.5 mmol/L (3.3-5.1)
--- NOTE | 2024-08-17 08:54 | PHA.CONS_ITS ---
Documented by User: Stewart Harding 08/17/24 09:17 TCU RX Drug Regimen Review Subjective/Objective Subjective/Objective Subjective: 74 year old female with below past medical history hospitalized for right ischemic stroke, left hemiparesis, 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 Objective: Allergies No Known Allergies Allergy (Verified 06/02/24 07:23) Current Medications Generic Name Dose Route Start Last Admin Trade Name Freq PRN Reason Stop Dose Admin Acetaminophen 1,000 mg 08/15/24 19:01 08/16/24 20:46 Acetaminophen 500 Mg Tablet PO 1,000 mg Q6H PRN PRN Administration Pain Score 1-10 Aspirin 81 mg 08/16/24 08:00 08/16/24 09:09 Aspirin 81 Mg Tab.Chew PO 81 mg BREAKFAST YULISA Administration Atorvastatin Calcium 40 mg 08/15/24 22:00 08/16/24 20:39 Atorvastatin Calcium 40 Mg Tablet PO 40 mg QHS YULISA Administration Bupropion HCl 75 mg 08/16/24 10:00 08/16/24 09:14 Bupropion 75 Mg Tablet PO 75 mg DAILY YULISA Administration Buspirone HCl 5 mg 08/15/24 22:00 08/16/24 20:38 Buspirone 5 Mg Tablet PO 5 mg BID YULISA Administration Citalopram Hydrobromide 10 mg 08/16/24 10:00 08/16/24 09:10 Citalopram 10 Mg Tablet PO 10 mg DAILY YULISA Administration Galantamine Hydrobromide 8 mg 08/16/24 10:00 08/16/24 09:11 Galantamine Hydrobromide 4 Mg Tablet PO 8 mg DAILY YULISA Administration Levothyroxine Sodium 25 mcg 08/16/24 06:00 08/17/24 05:01 Levothyroxine 25 Mcg Tablet PO 25 mcg DAILY@0600 YULISA Administration Losartan Potassium 100 mg 08/15/24 19:45 08/16/24 09:10 Losartan Potassium 100 Mg Tablet PO 100 mg DAILY YULISA Administration Protocol Magnesium Citrate 300 ml 08/15/24 19:33 Magnesium Citrate 300 Ml PO DAILY PRN Constipation Melatonin 3 mg 08/16/24 22:00 08/16/24 20:40 Melatonin 3 Mg Tablet PO 3 mg QHS YULISA Administration Nicotine 14 mg 08/16/24 10:00 08/16/24 09:10 Nicotine 14 Mg Patch TD 08/30/24 10:01 14 mg Q24H YULISA Administration Nifedipine 30 mg 08/16/24 10:00 08/16/24 10:21 Nifedipine 30 Mg Tablet PO 30 mg DAILY YULISA Administration Pantoprazole Sodium 40 mg 08/16/24 10:00 08/16/24 09:29 Pantoprazole Sodium 40 Mg Tablet PO Not Given DAILY YULISA Pneumococcal 20-Valent Conj Vacc 0.5 ml 08/17/24 10:00 Pneumococcal Vaccine 20 Valent 0.5 Ml Syringe IM 08/17/24 10:01 .ONCE ONE Potassium Chloride 20 meq 08/17/24 08:00 Potassium Chloride Oral Tablet 20 Meq PO DAILYCM YULISA Senna/Docusate Sodium 1 tablet 08/15/24 22:00 08/16/24 20:40 Senna/Docusate Sodium 1 Tablet PO 1 tablet BID YULISA Administration Sodium Chloride 10 - 40 ml 08/15/24 17:56 0.9% Saline Lock 10 Ml Syringe IV UD PRN SALINE FLUSH Tuberculin PPD 0.1 ml 08/23/24 10:00 Tuberculin,Purif.Prot.Deriv. 50 Tu/Ml Vial ID 08/23/24 10:01 X1 ONE Problem List Alzheimer disease (Acute) Barretts esophagus (Acute) Nicotine dependence, cigarettes, uncomplicated (Acute) Anxiety (Acute) Depression (Acute) Hypothyroidism (Acute) Hyperlipidemia (Acute) Essential (primary) hypertension (Acute) Hemorrhagic stroke (Acute) Left hemiparesis (Acute) Ischemic stroke (Acute) Debility (Acute) Vital Signs Temp Pulse Resp BP Pulse Ox O2 Del Method 97.3 F L 74 16 114/63 94 Room Air 08/16/24 09:02 08/16/24 09:02 08/16/24 09:02 08/16/24 09:02 08/16/24 09:02 08/16/24 09:02 Oxygen Delivery Method Room Air Weight: 53.779 kg Body Mass Index (BMI) 19.1 Sodium 135 mmol/L (133-145) 08/17/24 05:28 Potassium 3.5 mmol/L (3.3-5.1) 08/17/24 05:28 Chloride 98 mmol/L (98-108) 08/17/24 05:28 Carbon Dioxide 26.8 mmol/L (21.0-32.0) 08/17/24 05:28 Anion Gap 10 (5-15) 08/17/24 05:28 BUN 13 mg/dL (4-19) 08/17/24 05:28 Creatinine 0.74 mg/dL (0.70-1.20) 08/17/24 05:28 Est GFR (MDRD) Non-Af 85 (>60) 08/17/24 05:28 BUN/Creatinine Ratio 17.0 RATIO (10-20) 08/17/24 05:28 Glucose 115 mg/dL (70-99) H 08/17/24 05:28 Assessment/Plan: 1. Pain: acetaminophen 1000 mg PO Q6H PRN pain. The patient has required 3 doses of PRN acetaminophen so far this admission. Please continue to monitor pain levels, PRN medication usage, and LFTs (AST/ALT = 25/14 on 08/07/24). 2. Bowel: senna/docusate 1 tablet PO BID, magnesium citrate 300 mL PO daily PRN constipation. The patient has not required any PRN doses of magnesium citrate so far this admission and the patient's last documented bowel movement was on 08/17/24. Please continue to monitor for PRN medication usage, bowel movements, constipation and diarrhea. 3. Stroke: aspirin 81 mg PO daily. Please continue to monitor for s/s of stroke, for s/s of bleeding/excessive bruising, GI distress with aspirin administration, hemoglobin levels (Hgb = 10.2 g/dL on 08/16/24), and platelet counts (Plt = 583 K/mm3 on 08/16/24). 4. Hyperlipidemia: atorvastatin 40 mg PO QHS. Please continue to monitor lipid levels (cholesterol = 149 mg/dL on 06/02/24), LFTs (AST/ALT = 25/14 on 08/07/24), and for myalgias. 5. Alzheimer disease: galantamine 8 mg PO daily. Please continue to monitor for memory loss, agitation, for bradycardia, palpitations, nausea, vomiting, and diarrhea. 6. Hypothyroidism: levothyroxine 25 mcg PO daily. Please continue to monitor thyroid hormone levels (TSH = 2.4 uIU/mL on 08/07/24), and for s/s of hypo/hyperthyroidism. 7. Hypertension: losartan 100 mg PO daily, nifedipine 30 mg PO daily. Please continue to monitor blood pressures (recent range = 114-158/63-79 mmHg), renal function (serum creatinine = 0.74 mg/dL with creatinine clearance ~ 52 mL/min on 08/17/24), potassium levels (K = 3.5 mmol/L on 08/17/24), and for lower extremity edema. 8. Tobacco use: nicotine 14 mg patch daily. Please continue to monitor for nicotine cravings and for nightmares. 9. Flowers's esophagus: pantoprazole 40 mg PO daily. Please continue to monitor for GI distress, for diarrhea that could indicate clostridium difficile infect ion, and for s/s of bone resorption such as fractures, and magnesium levels (Mg = 1.8 mg/dL on 01/05/24). 10. Hypokalemia: potassium chloride 20 mEq PO daily. Please continue to monitor potassium levels (K = 3.5 mmol/L on 08/17/24), and for GI distress with potassium administration. 11. Insomnia: melatonin 3 mg PO QHS. Please continue to monitor for insomnia and for sedation. Assessment/Plan for indications treated with psychotropic medications: 1. Major depression: bupropion 75 mg PO daily, citalopram 10 mg PO daily. Please see provider note regarding stable chronic long-term therapy GDR not recommended. Monitor for anxiety, agitation and insomnia, seizure activity, nausea, appetite and body weight, headache, suicidal thoughts or behaviors (Boxed Warning). Monitor blood pressure and HR. BP range since admission = 114-158/63-79 mmHg; HR range since admission = 74-89 beats/min. Medication is renally eliminated, monitor renal function periodically. Scr = ser um creatinine = 0.74 mg/dL with creatinine clearance ~ 52 mL/min on 08/17/24 Monitor for diarrhea, nausea, headache, anxiety or drowsiness, suicidal thoughts or behaviors (Boxed Warning), symptoms of bleeding, symptoms of serotonin syndrome (including agitation, confusion, hyperreflexia, rigidity/myoclonus, tremor, tachycardia, tachypnea), sodium levels (last Na = 135 mmol/mL on 08/17/24). Monitor for efficacy including resident symptoms, behaviors and indications of distress. Monitor for s/s of depression. Monitor for tolerability including mental status, cognition, excessive sleepiness, withdrawal or decreased participation in activities and decline in physical functioning. Maximize use of nonpharmacologic/behavioral interventions to facilitate dose reduction or discontinuation as appropriate. Please evaluate the appropriateness of GDR unless contraindicated. If appropriate, GDR should be attempted in 2 separate quarters within the first year of use or admission to TCU. If GDR attempted, monitor resident symptoms/behaviors. 2. Anxiety: buspirone 5 mg PO BID. Please see provider not regarding stable chronic long-term therapy GDR not recommended. Please continue to monitor for dizziness, drowsiness, lightheadedness, and nervousness. Monitor for efficacy including resident symptoms, behaviors and indications of distress. Monitor for anxiety. Monitor for tolerability including mental status, cognition, excessive sleepiness, withdrawal or decreased participation in activities and decline in physical functioning. Maximize use of nonpharmacologic/behavioral interventions to facilitate dose reduction or discontinuation as appropriate. Please evaluate the appropriateness of GDR unless contraindicated. If appropriate, GDR should be attempted in 2 separate quarters within the first year of use or admission to TCU. If GDR attempted, monitor resident symptoms/behaviors. Medical chart and medication regimen reviewed. The following medication irregularities or issues were identified: NA Date Date of Note: 08/17/24 Documented by User: Dr. Charan Alvarado MD 08/17/24 16:24 TCU RX Drug Regimen Review Provider Comments Provider responsibility Provider Comments to Recommendations by Pharmacy Agree
[2024-08-17 10:39] VITALS: BP 155/82; PULSE 86; RESP 17; TEMP 36.8; O2SAT 95
[2024-08-17] MEDS: Potassium Chloride Oral Tablet 20 MEQ PO (10:43)
[2024-08-17] MEDS: NIFEdipine 30 MG Tablet PO (10:45)
[2024-08-17] MEDS: Senna/Docusate Sodium 1 Tablet PO ×2 (10:46→22:17)
[2024-08-17] MEDS: Pneumococcal Vaccine 20 Valent 0.5 ML Syringe IM (12:14)
[2024-08-17] MEDS: MELATONIN 3 MG TABLET PO (22:17)
[2024-08-18 08:12] VITALS: BP 152/85; PULSE 83; RESP 18; TEMP 37.1; O2SAT 94
[2024-08-18] MEDS: Potassium Chloride Oral Tablet 20 MEQ PO (08:15)
[2024-08-18] MEDS: NIFEdipine 30 MG Tablet PO (08:16)
[2024-08-18] MEDS: Senna/Docusate Sodium 1 Tablet PO ×2 (08:17→20:05)
[2024-08-18 09:00] LABS: Anion Gap 11 (5-15); BUN 14 mg/dL (4-19); BUN/Creat Ratio 17.1 RATIO (10-20); Calcium,Total 8.9 mg/dL (7.6-11.0); Carbon Dioxide 24.9 mmol/L (21.0-32.0); Chloride 98 mmol/L (98-108); Estimated Creatinine Clearance 51.73 ml/min (50-250); Glucose 84 mg/dL (70-99); Potassium 3.7 mmol/L (3.3-5.1)
[2024-08-18 20:00] VITALS: PULSE 84; O2SAT 95
[2024-08-18] MEDS: MELATONIN 3 MG TABLET PO (20:05)
[2024-08-19 05:49] LABS: Anion Gap 11 (5-15); BUN 14 mg/dL (4-19); BUN/Creat Ratio 18.6 RATIO (10-20); Calcium,Total 8.7 mg/dL (7.6-11.0); Carbon Dioxide 24.9 mmol/L (21.0-32.0); Chloride 100 mmol/L (98-108); Estimated Creatinine Clearance 52.38 ml/min (50-250); Glucose 88 mg/dL (70-99); Potassium 3.6 mmol/L (3.3-5.1)
[2024-08-19 06:26] VITALS: PULSE 80; O2SAT 93
[2024-08-19 09:47] VITALS: BP 144/92; PULSE 83; RESP 16; TEMP 37.1; O2SAT 94
[2024-08-19] MEDS: Potassium Chloride Oral Tablet 20 MEQ PO (09:51)
[2024-08-19] MEDS: NIFEdipine 30 MG Tablet PO (09:52)
[2024-08-19] MEDS: Senna/Docusate Sodium 1 Tablet PO ×2 (09:53→20:21)
[2024-08-19] MEDS: MELATONIN 3 MG TABLET PO (20:20)
[2024-08-20 08:41] VITALS: BP 134/78; PULSE 90; RESP 16; TEMP 36.7; O2SAT 94
[2024-08-20] MEDS: Potassium Chloride Oral Tablet 20 MEQ PO (08:44)
[2024-08-20] MEDS: Senna/Docusate Sodium 1 Tablet PO ×2 (08:45→22:15)
[2024-08-20] MEDS: NIFEdipine 30 MG Tablet PO (08:45)
--- NOTE | 2024-08-20 09:32 | NURSING ---
Offered covid vaccine, VIS provided. Resident declines.
--- NOTE | 2024-08-20 11:09 | NURSING ---
Furnace Setter Note; Activity Asset: Zen Cui is independent in her choice of activities how ever w/stroke she needs reminded. She stated she prefers in room over group at this time due to her memory. Basilia did ask for word puzzles and has her smart phone. He family will visits, she welcomes the [place] and therapy dog. Staff will remind her of weekly activities and respect her right to say no.
[2024-08-20] MEDS: MELATONIN 3 MG TABLET PO (22:15)
[2024-08-20 22:26] VITALS: RESP 16
[2024-08-21 09:45] VITALS: BP 109/69; PULSE 85; RESP 16; TEMP 36; O2SAT 96
[2024-08-21] MEDS: Potassium Chloride Oral Tablet 20 MEQ PO (09:47)
[2024-08-21] MEDS: Senna/Docusate Sodium 1 Tablet PO (09:48)
[2024-08-21] MEDS: NIFEdipine 30 MG Tablet PO (09:49)
--- NOTE | 2024-08-21 10:06 | NURSING ---
crushed meds and put in chocolate pudding d/t pt not swallowing whole pills yesterday morning, seems to be pocketing them and holds them. pt noted to have a mouth full and then wants to add water but will not swallow, she spits it right out. pt refusing to take meds will try again later.
--- NOTE | 2024-08-21 12:09 | NURSING ---
attempted to administer x3 of pts antidepressants whole with water and pt was able to swallow each one, one at a time with water. no problems. will notify next shift to administer meds this way.
[2024-08-21 14:47] VITALS: RESP 17; O2SAT 95
[2024-08-21 15:32] VITALS: BMI 17.9
--- NOTE | 2024-08-21 18:34 | CASEMGMT ---
Social Work SW phoned to complete initial assessment as pt is confused and poor historian. Introduced self and role. Verified contacts. Inquired about code status and states pt's wishes are to be DNR-CCA, no intubation. SW notified nursing. SW educated to [facility] insurance with [facility] 08/23 and continued stay is not guaranteed with each review; providing a 3-day notice for DC. states he knows currently he cannot care for pt at home, especially since he is still working, but is optimistic for pt's progress and ability to return home with ongoing therapy. SW to assist with DC planning and will receive recommendations from therapy at POC meeting tomorrow. See SW assessment for PLOF and additional history. Debbie Ruiz FAMILY DAY CARE PROVIDER MARINE FUEL DOCK ATTENDANT
--- NOTE | 2024-08-21 20:17 | NURSING ---
Upon HS medication administration, pt unable to take pills one at a time whole with water. Attempted to administer with pudding. Pt spit medication out, and stated I'm good. This nurse asked pt if she would like them crushed, pt replied, no, I'm good. Medications marked as refused per pt's request. Pt able to swallow thin liquids and pudding when meds not being administered. Will leave note with speech therapy. Call light in reach. Pt denies further assistance.
[2024-08-22 07:49] VITALS: BP 141/85; PULSE 87; RESP 17; TEMP 37.2; O2SAT 94
--- NOTE | 2024-08-22 09:07 | NURSING ---
Carpenter Helper Note; MDS for 08/22/2024 Complete
--- NOTE | 2024-08-22 10:23 | CASEMGMT ---
Social Work IDT met with patient, and son for care plan meeting. Discussed patient's process in PT/OT/ST/SN/RDN. PLUM PACKER explained pt's severe cognitive impairment, difference between long-term and short-memory, issues with stored memory and recall. voiced awareness and other examples of pt's cognitive impairment. PT/OT explained pt's significant lack of initiation and motivation. agreed and stated staff have to encourage. reported he kindly had to tell pt what to do, ie. eating, getting out of bed, etc, but noted pt is worse since stroke. Pt has very poor intake and dietitian recommended Remeron. Son/ are reporting pt appears to be getting her appetite back the last couple days and will start bringing food in from home. stated he and son attempt to sit with her for most meals during visiting, as pt needs cues and encouragement to attend to eating and intake. All in agreement that next week at weight day, if pt lost more weight, dietitian to request supplement and Remeron, but if weight is stable, will wait on new orders. SW educated to [facility] NRD 08/23 and continued stay is not guaranteed with each review. Provided pt/family with written communication of insurance process and copay coverage during stay. SW inquired about DC plans and stressed the uncertainty of knowing when the insurance will issue a DC date. Noted the pt will have the right to appeal at the time of DC. However, this worker encourages family to begin thinking of DC plans. Provided resources for nonskilled HHC, [place], and AL, all at an OOP cost. Insurance will cover skilled HHC or OP therapy. Family aware pt needs 24/ care and cannot be left alone. Family unsure of the plan at this time, but agreed to research options and notify this worker with questions or plan. SW provided family with contact information. Family appreciative. SW will continue to follow for DC planning and support. Debbie Ruiz SEED CORN MANAGER PRODUCTION TURNER MACHINE OPERATOR
--- NOTE | 2024-08-22 16:50 | CASEMGMT ---
Social Work SW completed BIMS (10/29) and PHQ-9 (12/10) for MDS assessment. Pt is limited with expression of feelings and conversation. Per CR, pt is prescribed Buspar, Celexa, Wellbutrin. Debbie Ruiz SKEIN BLEACHER CONSUMER ANALYST
[2024-08-22] MEDS: MELATONIN 3 MG TABLET PO (19:37)
[2024-08-22] MEDS: Senna/Docusate Sodium 1 Tablet PO (19:37)
[2024-08-22 20:00] VITALS: PULSE 94; O2SAT 94
[2024-08-23 06:22] LABS: Hematocrit 29.0 % (37-47); Hemoglobin 9.7 g/dL (12.0-15.0); Immature Granulocytes Count 0.060 X10^3/uL (0.0-0.0); Mean Corp Hgb Conc 33.4 g/dL (32-36); Mean Corpuscular Volume 87.9 fL (81-99); Mean Platelet Vol. 8.8 fl (6.2-12.0); NRBC Flagged by Analyzer 0 % (0-5); Platelet Count 738 K/mm3 (150-450); RBC Distribution Width CV 15.5 % (11.6-14.6); RBC Distribution Width SD 50.2 fl (35.1-43.9); Red Blood Count 3.30 M/mm3 (4.2-5.4); White Blood Count 9.4 K/mm3 (4.4-11.0)
[2024-08-23 06:34] VITALS: PULSE 90; O2SAT 92
[2024-08-23 06:49] LABS: Anion Gap 10 (5-15); BUN 19 mg/dL (4-19); BUN/Creat Ratio 25.4 RATIO (10-20); Calcium,Total 9.1 mg/dL (7.6-11.0); Carbon Dioxide 24.9 mmol/L (21.0-32.0); Chloride 101 mmol/L (98-108); Estimated Creatinine Clearance 49.21 ml/min (50-250); Glucose 88 mg/dL (70-99); Potassium 4.3 mmol/L (3.3-5.1)
[2024-08-23 08:12] VITALS: BP 136/79; PULSE 85; RESP 18; TEMP 36.7; O2SAT 95
[2024-08-23] MEDS: Senna/Docusate Sodium 1 Tablet PO ×2 (08:13→20:03)
[2024-08-23] MEDS: NIFEdipine 30 MG Tablet PO (08:14)
[2024-08-23] MEDS: Potassium Chloride Oral Tablet 20 MEQ PO (08:14)
--- NOTE | 2024-08-23 11:44 | CASEMGMT ---
Addendum entered by Debbie Ruiz 08/24/24 14:49: [facility] are reviewing. [facility] do not have beds. Original Note: Social Work SW received call from requesting for him and son to meet with this worker. SW agreed and met on unit. SW met with with patient's and son. Answered questions for family in regards to DC planning and recommendations. Family in agreement pt cannot return home. Inquired about AL vs SNF. SW educated to differences and also noted AL will make the final decision if they can meet the pt's needs. IDT agrees AL is appropriate and does not need memory care. Discussed options and family requesting referrals to [facility], [facility] and [facility]. SW agreed and will keep family updated. _ Referrals sent to [facility] via [facility], and [facility] via secure email. JEANNIE will continue to follow. Debbie Ruiz DIAMOND SAW OPERATOR OBSERVATORY DIRECTOR
[2024-08-23] MEDS: Tuberculin,Purif.prot.deriv. 50 TU/ML Vial 0.1 ML ID (12:30)
[2024-08-23] MEDS: MELATONIN 3 MG TABLET PO (20:03)
[2024-08-24 10:44] VITALS: BP 119/65; PULSE 91; RESP 16; TEMP 36.6; O2SAT 96
[2024-08-24] MEDS: Potassium Chloride Oral Tablet 20 MEQ PO (10:47)
[2024-08-24] MEDS: NIFEdipine 30 MG Tablet PO (10:48)
[2024-08-24] MEDS: Senna/Docusate Sodium 1 Tablet PO ×2 (10:48→20:49)
[2024-08-24 15:10] VITALS: PULSE 89; RESP 16; O2SAT 91
--- NOTE | 2024-08-24 20:29 | NURSING ---
Assisted to toilet x1 LA, gait unsteady at times. Assisted to bed per request, offered patient HS care, patient declines, declines new gown. No I just want to sleep in this. Educated on importance of proper hygiene, patient continues to decline at this time. Positioned for comfort in bed, warm blanket provided upon request. Bed in lowest position. Personal items within reach. Personal alarm in place and functioning properly. Call light within reach. Denies further requests at this time.
[2024-08-24] MEDS: MELATONIN 3 MG TABLET PO (20:49)
[2024-08-25 09:31] VITALS: BP 135/79; PULSE 89; RESP 17; TEMP 36.6; O2SAT 94
[2024-08-25] MEDS: Potassium Chloride Oral Tablet 20 MEQ PO (09:34)
[2024-08-25] MEDS: NIFEdipine 30 MG Tablet PO (09:36)
[2024-08-25] MEDS: Senna/Docusate Sodium 1 Tablet PO (09:37)
[2024-08-25 10:00] VITALS: PULSE 87; RESP 17; O2SAT 95
[2024-08-25] MEDS: MELATONIN 3 MG TABLET PO (20:16)
[2024-08-26 09:25] VITALS: BP 108/72; PULSE 92; RESP 17; TEMP 36.6; O2SAT 93
[2024-08-26] MEDS: Potassium Chloride Oral Tablet 20 MEQ PO (09:28)
[2024-08-26] MEDS: NIFEdipine 30 MG Tablet PO (09:30)
[2024-08-26] MEDS: Senna/Docusate Sodium 1 Tablet PO ×2 (09:31→21:23)
[2024-08-26] MEDS: MELATONIN 3 MG TABLET PO (21:23)
[2024-08-27] MEDS: Potassium Chloride Oral Tablet 20 MEQ PO (08:57)
[2024-08-27] MEDS: Senna/Docusate Sodium 1 Tablet PO (08:57)
[2024-08-27] MEDS: NIFEdipine 30 MG Tablet PO (08:58)
[2024-08-27 09:09] VITALS: BP 122/78; PULSE 89; RESP 16; TEMP 36.6; O2SAT 93
[2024-08-27 10:00] VITALS: PULSE 82; RESP 16; O2SAT 96
[2024-08-27] MEDS: MELATONIN 3 MG TABLET PO (20:55)
[2024-08-28 09:21] VITALS: BP 111/71; PULSE 88; RESP 16; TEMP 37; O2SAT 94
[2024-08-28] MEDS: Potassium Chloride Oral Tablet 20 MEQ PO (09:26)
[2024-08-28] MEDS: Senna/Docusate Sodium 1 Tablet PO ×2 (09:27→20:23)
[2024-08-28] MEDS: NIFEdipine 30 MG Tablet PO (09:27)
--- NOTE | 2024-08-28 10:22 | MDS.RN ---
Information for the MDS was obtained from review of the clinical record, interview of resident, staff, and direct observation of resident?s care.
--- NOTE | 2024-08-28 14:27 | CASEMGMT ---
Addendum entered by Debbie Ruiz 08/28/24 14:51: [facility] cannot accept pt as pt is not planning on being a permanent resident. Original Note: Social Work SW followed up with [facility] on the outcome of the referrals. Debbie Ruiz SNACK BAR CASHIER DEPLOYMENT ENGINEER
[2024-08-28 15:59] VITALS: BMI 17.6
[2024-08-28] MEDS: MELATONIN 3 MG TABLET PO (20:22)
[2024-08-29] MEDS: Potassium Chloride Oral Tablet 20 MEQ PO (10:16)
[2024-08-29] MEDS: NIFEdipine 30 MG Tablet PO (10:17)
[2024-08-29] MEDS: Senna/Docusate Sodium 1 Tablet PO ×2 (10:17→20:52)
[2024-08-29 10:26] VITALS: BP 116/64; PULSE 96; RESP 15; TEMP 36.8; O2SAT 96
--- NOTE | 2024-08-29 16:12 | CASEMGMT ---
Addendum entered by Debbie Ruiz 08/30/24 07:57: Mil responded and stated [facility] team recommends memory care for pt and there are no beds. Mil sent to [facility] team and also recommends memory care, and there are beds. SW to follow up with . Original Note: Social Work SW setn two follow up messages to Mil at [facility] to inquire about acceptance and availability. - SW phoned to update on outcomes of referrals and [facility] still pending. stated pt is progressing and doing well here and would like pt to remain. SW explained NRD 08/30 and may issue NOMNC. Inquired if had other facilities to sent referrals. stated we will cross that bridge when we come to it. I am keeping my fingers crossed. SW reminded that pt can pay privately to remain to allow more time for DC planning as well. appreciative of update and options. SW will continue to follow. Debbie Ruiz STEEL PLACER SONOGRAM TECHNICIAN
[2024-08-29] MEDS: MELATONIN 3 MG TABLET PO (20:52)
[2024-08-30 05:10] VITALS: PULSE 73; RESP 16; O2SAT 95
[2024-08-30 05:59] LABS: Hematocrit 29.9 % (37-47); Hemoglobin 9.9 g/dL (12.0-15.0); Immature Granulocytes Count 0.010 X10^3/uL (0.0-0.0); Mean Corp Hgb Conc 33.1 g/dL (32-36); Mean Corpuscular Volume 87.4 fL (81-99); Mean Platelet Vol. 8.8 fl (6.2-12.0); NRBC Flagged by Analyzer 0 % (0-5); Platelet Count 566 K/mm3 (150-450); RBC Distribution Width CV 15.2 % (11.6-14.6); RBC Distribution Width SD 48.7 fl (35.1-43.9); Red Blood Count 3.42 M/mm3 (4.2-5.4); White Blood Count 7.0 K/mm3 (4.4-11.0)
[2024-08-30 06:30] LABS: Anion Gap 11 (5-15); BUN 29 mg/dL (4-19); BUN/Creat Ratio 29.8 RATIO (10-20); Calcium,Total 9.4 mg/dL (7.6-11.0); Carbon Dioxide 23.1 mmol/L (21.0-32.0); Chloride 101 mmol/L (98-108); Estimated Creatinine Clearance 40.04 ml/min (50-250); Glucose 87 mg/dL (70-99); Potassium 4.9 mmol/L (3.3-5.1)
--- NOTE | 2024-08-30 06:40 | NURSING ---
Attempted to administer PRN magnesium citrate as ordered due to no BM x3 days. Last BM was 08/27/24. Pt refused medication despite education. Written communication left for Dr. Alvarado regarding this issue.
[2024-08-30 08:35] VITALS: BP 112/70; PULSE 80; RESP 17; TEMP 36.8; O2SAT 93
[2024-08-30] MEDS: Potassium Chloride Oral Tablet 20 MEQ PO (09:07)
[2024-08-30] MEDS: Senna/Docusate Sodium 1 Tablet PO ×2 (09:09→20:25)
[2024-08-30] MEDS: NIFEdipine 30 MG Tablet PO (09:09)
--- NOTE | 2024-08-30 09:29 | NURSING ---
patient had a bowel movement this AM
--- NOTE | 2024-08-30 11:29 | CASEMGMT ---
Social Work SW phoned to update on [facility] outcome. is not pleased with pt needing memory care and will discuss with son the outcome. would like pt to remain in TCU for 1-2 more weeks, and will hire help at home for about 10 hours day, he said. JEANNIE explained that is an option, however, pt needs max encouragement participating in therapy and care. acknowledges. or son will follow up with this worker. Debbie Ruiz FLASK CARRIER AIR DEFENSE ARTILLERY SENIOR SERGEANT
--- NOTE | 2024-08-30 11:53 | CASEMGMT ---
Addendum entered by Debbie Ruiz 08/30/24 14:41: Son filed the appeal. Medical records request sent to HIM to process. - [facility] will assess pt next week. Original Note: Social Work Insurance issued LCD 09/01, DC 09/02 SW phoned to notify of DC date. stated he is on his way in to visit pt and to speak with worker in the room. - SW spoke with and son in pt's room. Provided NOMNC and explained appeal rights. /son electing to appeal. Discussed DC plans if appeal is lost. Discussed benefits/risks to remaining private pay vs transferring home vs transferring to AL. i.e. moving environments, rehab potential, etc. SW educated to TCU daily rate of $660, all included, 21 days up front and can be reimbursed for days not used. Reiterated pt needs max encouragement for participating in therapy and care. wants to have pt home and pt wants to be home, but cannot be home at this LOC. wants to pay privately if appeal is lost, to allow time to DC plan. Family does not want pt in memory care in AL, if it can be avoided. Family requested referral to [facility] for traditional AL, where pt resided last year and a relative works there. JEANNIE agreed. Family appreciative. - JEANNIE sent referral via secure email to Davis at [facility]. Will continue to follow. Debbie Ruiz PHARMACEUTICAL SALES REPRESENTATIVE MEDICAL BILLING SPECIALIST
[2024-08-30] MEDS: MELATONIN 3 MG TABLET PO (20:25)
[2024-08-31 10:00] VITALS: PULSE 85; RESP 17; O2SAT 96
[2024-08-31 10:18] VITALS: BP 103/66; PULSE 85; RESP 18; TEMP 36.8; O2SAT 98
[2024-08-31] MEDS: Potassium Chloride Oral Tablet 20 MEQ PO (10:19)
[2024-08-31] MEDS: NIFEdipine 30 MG Tablet PO (10:20)
[2024-08-31] MEDS: Senna/Docusate Sodium 1 Tablet PO ×2 (10:20→20:06)
--- NOTE | 2024-08-31 13:11 | CASEMGMT ---
Social Work Received fax from [facility] that pt lost her appeal. SW phoned and notified him. confirmed he will provide payment for 21 days to the casino cage cashier's office. [facility] will assess pt next week. JEANNIE will continue to follow. Debbie Ruiz MSW BAND SAWING MACHINE OPERATOR
[2024-08-31] MEDS: MELATONIN 3 MG TABLET PO (20:06)
--- NOTE | 2024-09-01 03:27 | NURSING ---
some of patients HS meds found sitting on bedside table, patient appeared to have taken all meds at HS, meds disposed of, will educate patient on risk of not taking meds and benifits of taking meds,
[2024-09-01 04:43] VITALS: PULSE 90; O2SAT 94
[2024-09-01 10:04] VITALS: BP 101/68; PULSE 99; RESP 16; TEMP 37.3; O2SAT 94
[2024-09-01] MEDS: Potassium Chloride Oral Tablet 20 MEQ PO (10:08)
[2024-09-01] MEDS: Senna/Docusate Sodium 1 Tablet PO ×2 (10:09→20:16)
[2024-09-01] MEDS: NIFEdipine 30 MG Tablet PO (10:09)
[2024-09-01] MEDS: Magnesium Citrate 300 ML PO (17:02)
[2024-09-01] MEDS: MELATONIN 3 MG TABLET PO (20:16)
[2024-09-02 09:36] VITALS: BP 105/68; PULSE 84; RESP 16; TEMP 36.6; O2SAT 96
[2024-09-02] MEDS: Potassium Chloride Oral Tablet 20 MEQ PO (09:39)
[2024-09-02] MEDS: Senna/Docusate Sodium 1 Tablet PO ×2 (09:40→20:01)
[2024-09-02] MEDS: NIFEdipine 30 MG Tablet PO (09:41)
[2024-09-02] MEDS: MELATONIN 3 MG TABLET PO (20:01)
[2024-09-03 01:40] VITALS: PULSE 86; RESP 18
[2024-09-03] MEDS: Potassium Chloride Oral Tablet 20 MEQ PO (09:19)
[2024-09-03] MEDS: NIFEdipine 30 MG Tablet PO (09:19)
[2024-09-03] MEDS: Senna/Docusate Sodium 1 Tablet PO ×2 (09:19→19:57)
[2024-09-03 09:28] VITALS: BP 106/67; PULSE 83; RESP 15; TEMP 36.7; O2SAT 95
[2024-09-03] MEDS: MELATONIN 3 MG TABLET PO (19:57)
[2024-09-04 10:17] VITALS: BP 103/64; PULSE 89; RESP 16; TEMP 37.2; O2SAT 94
[2024-09-04] MEDS: Potassium Chloride Oral Tablet 20 MEQ PO (10:20)
[2024-09-04] MEDS: NIFEdipine 30 MG Tablet PO (10:21)
[2024-09-04 14:13] VITALS: BMI 17.9
[2024-09-04] MEDS: Senna/Docusate Sodium 1 Tablet PO (20:16)
[2024-09-04] MEDS: MELATONIN 3 MG TABLET PO (20:16)
--- NOTE | 2024-09-05 01:10 | NURSING ---
Staff offered multiple times to assist patient to bed, patient declined, patient states is fine in recliner chair, chair alarm in place for safety, call light left within reach.
[2024-09-05 06:24] VITALS: PULSE 84
[2024-09-05 08:09] VITALS: BP 82/52; PULSE 81; RESP 18; TEMP 36.9; O2SAT 94
[2024-09-05] MEDS: Potassium Chloride Oral Tablet 20 MEQ PO (08:17)
[2024-09-05] MEDS: Senna/Docusate Sodium 1 Tablet PO (08:19)
--- NOTE | 2024-09-05 08:32 | CASEMGMT ---
Social Work Kyung from [facility] assessed pt yesterday and confirmed pt's needs would best be met in their memory care. They can accept as long as family is agreeable. SW to follow up with . Debbie Ruiz BORING MACHINE OPERATOR HORIZONTAL SALES REPRESENTATIVE WOMENS HEALTH
[2024-09-05] MEDS: MELATONIN 3 MG TABLET PO (22:01)
[2024-09-06 06:15] LABS: Hematocrit 29.8 % (37-47); Hemoglobin 10.2 g/dL (12.0-15.0); Immature Granulocytes Count 0.030 X10^3/uL (0.0-0.0); Mean Corp Hgb Conc 34.2 g/dL (32-36); Mean Corpuscular Volume 85.9 fL (81-99); Mean Platelet Vol. 8.9 fl (6.2-12.0); NRBC Flagged by Analyzer 0 % (0-5); Platelet Count 500 K/mm3 (150-450); RBC Distribution Width CV 14.8 % (11.6-14.6); RBC Distribution Width SD 46.5 fl (35.1-43.9); Red Blood Count 3.47 M/mm3 (4.2-5.4); White Blood Count 7.5 K/mm3 (4.4-11.0)
[2024-09-06 06:24] LABS: Anion Gap 11 (5-15); BUN 25 mg/dL (4-19); BUN/Creat Ratio 28.9 RATIO (10-20); Calcium,Total 9.2 mg/dL (7.6-11.0); Carbon Dioxide 22.6 mmol/L (21.0-32.0); Chloride 99 mmol/L (98-108); Estimated Creatinine Clearance 46.15 ml/min (50-250); Glucose 94 mg/dL (70-99); Potassium 4.8 mmol/L (3.3-5.1)
[2024-09-06 09:23] VITALS: BP 107/60; PULSE 86; RESP 16; TEMP 36.4; O2SAT 94
[2024-09-06] MEDS: Potassium Chloride Oral Tablet 20 MEQ PO (09:27)
[2024-09-06] MEDS: NIFEdipine 30 MG Tablet PO (09:28)
--- NOTE | 2024-09-06 14:44 | CASEMGMT ---
Social Work SW spoke with and confirmed DC to [facility]. stated he is going out of town and would like pt DC'd on 09/11. SW agreed and will coordinate with [facility]. - JEANNIE updated Kyung at [facility] to confirm DC 09/11. Kyung confirmed and to update Kyung if/what [facility] will be coordinated. Plan: DC 09/11, [facility] Debbie Ruiz SENIOR UI WEB DEVELOPER ENGINEER RF DEPLOYMENT
--- NOTE | 2024-09-06 19:39 | DS.PCM_ITS ---
Providers Date of Admission: 08/15/24 Primary Care Physician: Dr. Charan Alvarado MD Reason For Visit: STROKE WITH BRAIN HEMORRHAGE Diagnosis Discharge Diagnosis (1) Debility: Status: Acute Code(s): R53.81 - Other malaise (2) Ischemic stroke: Status: Acute Code(s): I63.9 - Cerebral infarction, unspecified (3) Left hemiparesis: Status: Acute Code(s): G81.94 - Hemiplegia, unspecified affecting left nondominant side (4) Hemorrhagic stroke: Status: Acute Code(s): I61.9 - Nontraumatic intracerebral hemorrhage, unspecified (5) Essential (primary) hypertension: Status: Acute Code(s): I10 - Essential (primary) hypertension (6) Hyperlipidemia: Status: Acute Code(s): E78.5 - Hyperlipidemia, unspecified (7) Hypothyroidism: Status: Acute Code(s): E03.9 - Hypothyroidism, unspecified (8) Depression: Status: Acute Code(s): F32.A - Depression, unspecified (9) Anxiety: Status: Acute Code(s): F41.9 - Anxiety disorder, unspecified (10) Nicotine dependence, cigarettes, uncomplicated: Status: Acute Code(s): F17.210 - Nicotine dependence, cigarettes, uncomplicated (11) Barretts esophagus: Status: Acute Code(s): K22.70 - Flowers's esophagus without dysplasia (12) Alzheimer disease: Status: Acute Code(s): G30.9 - Alzheimer's disease, unspecified; F02.80 - Dementia in other diseases classified elsewhere, unspecified severity, without behavioral disturbance, psychotic disturbance, mood disturbance, and anxiety Plan 74 year old female with below past medical history hospitalized for right ischemic stroke, left hemiparesis, 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 * Debility - PT/OT. * Pain - Tylenol 1000mg q6 prn pain (1-10). * Bowel - senna/colace 1 tablet bid, Magnesium citrate 300mL daily prn. * Adult immunization - Administer pneumonia vaccine, covid vaccine, flu vaccine as appropriate. * DVT prophylaxis - Hold, brain bleed. * Stroke - Aspirin 81mg daily. * Hyperlipidemia - Atorvastatin 40mg qhs. * Alzheimer Disease - Galantamine 8mg daily, because of brain bleed, no longer candidate for amyloid directed therapy. * Hypothyroidism - Levothyroxine 25mcg daily. * Hypertension - Losartan 100mg daily, Nifedipine 30mg daily. * Tobacco abuse - Nicotine 14mg td q24, patient encouraged to quit smoking. * Flowers's esophagus - Pantoprazole 40mg daily. The following psychotropic medication was present on admission: Bupropion 75mg daily. Psychotropic medication therapy is indicated for a diagnosis of: Major Depression. Based on my clinical evaluation, continuation of the medication is necessary at this time. Gradual dose reduction plan (select one): ____ GDR will be attempted. Will monitor patient symptoms and behaviors in response to GDR. __x__ GRD contraindicated. Reason contraindicated: stable chronic fci use. The following psychotropic medication was present on admission: Buspar 5mg bid. Psychotropic medication therapy is indicated for a diagnosis of: Anxiety. Based on my clinical evaluation, continuation of the medication is necessary at this time. Gradual dose reduction plan (select one): ____ GDR will be attempted. Will monitor patient symptoms and behaviors in response to GDR. __x__ GRD contraindicated. 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 The following psychotropic medication was present on admission: Citalopram 10mg daily. Psychotropic medication therapy is indicated for a diagnosis of: Major Depression. Based on my clinical evaluation, continuation of the medication is necessary at this time. Gradual dose reduction plan (select one): ____ GDR will be attempted. Will monitor patient symptoms and behaviors in response to GDR. __x__ GRD contraindicated. Reason contraindicated: stable chronic fci use. Medications at Discharge Home Medications levothyroxine 25 mcg capsule 25 mcg PO DAILY thyroid 01/23/24 aspirin 81 mg chewable tablet 1 tab PO DAILY heart health 08/15/24 acetaminophen 500 mg tablet 1,000 mg (2 x 500 mg) PO Q6H PRN PRN Pain Score 1-10 #0 tabs 09/06/24 atorvastatin 40 mg tablet 40 mg PO QHS 30 days #30 tabs 09/06/24 bupropion HCl 75 mg tablet 75 mg PO DAILY 30 days #30 tabs 09/06/24 buspirone 5 mg tablet 5 mg PO BID 30 days #60 tabs 09/06/24 citalopram 10 mg tablet 10 mg PO DAILY 30 days #30 tabs 09/06/24 galantamine 4 mg tablet 8 mg (2 x 4 mg) PO DAILY 30 days #60 tabs 09/06/24 losartan 100 mg tablet 100 mg PO DAILY 30 days #30 tabs 09/06/24 nifedipine 30 mg tablet,extended release 24 hr 30 mg PO DAILY 30 days #30 tabs 09/06/24 pantoprazole 40 mg tablet,delayed release 40 mg PO DAILY 30 days #30 tabs 09/06/24 potassium chloride 20 mEq tablet,extended release(part/cryst) 20 meq PO DAILYCM 30 days #30 tabs 09/06/24 sennosides 8.6 mg-docusate sodium 50 mg tablet (Stimulant Laxative Plus) 1 tab PO BID 30 days #60 tabs 09/06/24 Hospital Course Operations None Procedures None Summary of Care Provided Minutes Spent on Discharge: 35 Hospital Course: 74 year old female with below past medical history hospitalized for right ischemic stroke, left hemiparesis, 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 Discharge to [facility] Memory unit 09/11/2024. Physical Exam Const alert General Appearance: cooperative HEENT normocephalic Eyes PERRL and EOMs intact bilaterally Neck supple, no JVD and no carotid bruits Resp normal respiratory effort, normal air movement and clear to auscultation bilaterally Cardio regular rate and regular rhythm GI normal to inspection, nondistended, normoactive bowel sounds, non-tender and non-distended Extremity normal capillary refill General Extremity: Negative for edema Skin no rashes or lesions noted General Skin Exam: no breakdown Neuro moves all extremities Psych affect normal Appearance: appropriate Medical Records Data Medical Nutrition Assessment Dietitian: Malnutrition Criteria Met Start: 08/29/24 12:37 Freq: Status: Active Protocol: Document 09/05/24 15:33 EMILIANO (Rec: 09/05/24 15:33 SLA [id number]) Nutrition Malnutrition Evidence of Yes Malnutrition Exists Malnutrition ( Acute Illness/Injury moderate): Evidenced By Suboptimal Energy Intake (Moderate),Weight Loss ( Moderate) Intake Problem Inadequate Oral Intake Status Inactive Problem Clinical Problem Acute Disease or Injury Related Malnutrition Etiology related to inadequate energy intake Signs/Symptoms as evidenced by PO intake meeting <50% of estimated nutrition needs and 8.7% unintended wt loss x <1 mo PO intake improving since adm Status Active Problem Recommendation Dietitian Continue regular diet due to signs and symptoms of Recommendations/ malnutrition. Changes Continue chocolate magic cup with lunch and dinner. Encouraged family to bring food from home if desired Consider appetite stimulant/ ONS if wt loss continues. Will monitor weight trends. Weight / BMI Weight Weight: 50.349 kg Body Mass Index (BMI) 17.9 ABG / Lab / Microbiology Data 09/06/24 05:32 09/06/24 05:32 Laboratory: Laboratory Results - last 24 hr 09/06/24 05:32: WBC 7.5, RBC 3.47 L, Hgb 10.2 L, Hct 29.8 L, MCV 85.9, MCH 29.4, MCHC 34.2, RDW Std Deviation 46.5 H, RDW Coeff of Marc 14.8 H, Plt Count 500 H, MPV 8.9, Immature Gran % (Auto) 0.400, Neut % (Auto) 65.5, Lymph % (Auto) 14.6 L , [place] % (Auto) 9.4, Eos % (Auto) 9.0 H, Baso % (Auto) 1.1 H, Absolute Neuts (auto) 4.9, Absolute Lymphs (auto) 1.10, Nucleated RBC % 0, Sodium 132 L, Potassium 4.8, Chloride 99, Carbon Dioxide 22.6, Anion Gap 11, BUN 25 H, Creatinine 0.85, Estim Creat Clear Calc 46.15 L, Est GFR (MDRD) Non-Af 72, B UN/Creatinine Ratio 28.9 H, Glucose 94, Calcium 9.2 D/C Instructions Discharge Activity: Return to Normal Activity, May Shower and Use Walker Weight Bearing Status: Weight bearing as tolerated Call your doctor if you observe: Fever of 101 or Higher, Inability to urinate, Inability to have a bowel movement, Shortness of breath, Dizziness, Fainting spells, Swelling in the ankles, Chest pain and Uncontrolled pain DC O2, CPAP, BIPAP Needs Home O2 Discharge instructions: No Additional Instructions: Discharge to [facility] 09/11/2024. Please Follow Up With: Dr. Vanegas When: As scheduled. Meaningful Use Info Meaningful Use Meaningful Use Diagnoses (Choose all that apply): Ischemic CVA CVA Therapy Assessed for PT,OT and/or ST?: Yes Ischemic Stroke Antithrombotic order at d/c?: Yes Dx of Atrial fib/flutter?: No Statins at discharge?: Yes If patient is 75 or younger, pt will be discharged on HIGH intensity statin.: Y es Primary Dx Acute Ischemic CVA?: Yes IV thrombolytic ordered during stay?: Yes Discharge Plan Admission Admit Date/Time: 08/15/24 17:52 Primary Reason for Your Visit: Debility. Attending Provider: Charan Alvarado Chi Primary Care Provider: Charan Alvarado Chi Instructions Additional Instructions / Restrictions: Discharge to [facility] 09/11/2024. Discharge Orders/Prescriptions Prescriptions: New nifedipine 30 mg Tablet Extended Release 24hr 30 mg PO DAILY 30 Days Qty: 30 0RF atorvastatin 40 mg Tablet 40 mg PO QHS 30 Days Qty: 30 0RF buspirone 5 mg Tablet 5 mg PO BID 30 Days Qty: 60 0RF citalopram 10 mg Tablet 10 mg PO DAILY 30 Days Qty: 30 0RF sennosides-docusate sodium [Stimulant Laxative Plus] 8.6-50 mg Tablet 1 tab PO BID 30 Days Qty: 60 0RF galantamine 4 mg Tablet 8 mg PO DAILY 30 Days Qty: 60 0RF acetaminophen 500 mg Tablet 1,000 mg PO Q6H PRN PRN (Reason: Pain Score 1-10) Qty: 0 0RF potassium chloride 20 mEq Tablet,Er Particles/Crystals 20 meq PO DAILYCM 30 Days Qty: 30 0RF pantoprazole 40 mg Tablet,Delayed Release (Dr/Ec) 40 mg PO DAILY 30 Days Qty: 30 0RF bupropion HCl 75 mg Tablet 75 mg PO DAILY 30 Days Qty: 30 0RF losartan 100 mg Tablet 100 mg PO DAILY 30 Days Qty: 30 0RF Continued levothyroxine 25 mcg capsule 25 mcg PO DAILY aspirin 81 mg tablet,chewable 1 tab PO DAILY Discontinued atorvastatin [Lipitor] 40 mg tablet 40 mg PO QHS lisinopril 40 mg tablet 40 mg PO DAILY multivitamin Tablet 1 tab PO DAILY nicotine 14 mg/24 hr patch 24 hour 1 patch transdermal Q24H nifedipine 30 mg tablet extended release 30 mg PO DAILY thiamine HCl (vitamin B1) 100 mg tablet 100 mg PO DAILY ascorbate calcium (vitamin C) 500 mg tablet 250 mg PO DAILY bupropion HCl [Wellbutrin SR] 150 mg tablet sustained-release 12 hr 75 mg PO DAILY cephalexin 500 mg capsule 500 mg PO TID buspirone 5 mg tablet 5 mg PO BID citalopram 10 mg tablet 10 mg PO DAILY galantamine 8 mg capsule,ext rel. pellets 24 hr 8 mg PO DAILY pantoprazole [Protonix] 40 mg tablet,delayed release (DR/EC) 40 mg PO DAILY folic acid 1 mg tablet 1 mg PO DAILY pantoprazole 40 mg Tablet,Delayed Release (Dr/Ec) 40 mg PO DAILY Qty: 30 2RF ascorbic acid (vitamin C) 500 mg tablet 500 mg PO QODAY buspirone 10 mg tablet 10 mg PO BID Referrals / Follow Up: Charan Alvarado Chi, MD [Primary Care Provider] - Disposition Disposition (needs filled in before D/C Order can be placed): Assisted Living
[2024-09-06 20:10] VITALS: PULSE 76; RESP 18; O2SAT 99
[2024-09-06] MEDS: Senna/Docusate Sodium 1 Tablet PO (22:01)
[2024-09-06] MEDS: MELATONIN 3 MG TABLET PO (22:01)
[2024-09-07] MEDS: Potassium Chloride Oral Tablet 20 MEQ PO (08:42)
[2024-09-07] MEDS: Senna/Docusate Sodium 1 Tablet PO ×2 (08:43→21:04)
[2024-09-07] MEDS: NIFEdipine 30 MG Tablet PO (08:43)
[2024-09-07 10:00] VITALS: BP 99/63; PULSE 79; RESP 18; TEMP 37; O2SAT 95
[2024-09-07] MEDS: MELATONIN 3 MG TABLET PO (21:03)
[2024-09-08] MEDS: Potassium Chloride Oral Tablet 20 MEQ PO (09:12)
[2024-09-08] MEDS: Senna/Docusate Sodium 1 Tablet PO ×2 (09:12→20:13)
[2024-09-08] MEDS: NIFEdipine 30 MG Tablet PO (09:13)
[2024-09-08 12:47] VITALS: BP 107/55; PULSE 83; RESP 14; TEMP 36.6; O2SAT 96
[2024-09-08] MEDS: MELATONIN 3 MG TABLET PO (20:13)
[2024-09-09 04:56] VITALS: PULSE 88
[2024-09-09] MEDS: NIFEdipine 30 MG Tablet PO (09:21)
[2024-09-09] MEDS: Potassium Chloride Oral Tablet 20 MEQ PO (09:21)
[2024-09-09] MEDS: Senna/Docusate Sodium 1 Tablet PO ×2 (09:22→20:13)
[2024-09-09 09:27] VITALS: BP 112/52; PULSE 85; RESP 15; TEMP 36.9; O2SAT 95
[2024-09-09] MEDS: MELATONIN 3 MG TABLET PO (20:13)
[2024-09-10] MEDS: Potassium Chloride Oral Tablet 20 MEQ PO (08:48)
[2024-09-10] MEDS: NIFEdipine 30 MG Tablet PO (08:49)
[2024-09-10] MEDS: Senna/Docusate Sodium 1 Tablet PO (08:50)
[2024-09-10 11:24] VITALS: BP 98/54; PULSE 84; RESP 16; TEMP 36.8; O2SAT 95
--- NOTE | 2024-09-10 14:47 | CASEMGMT ---
Social Work SW phoned to inquire if he wants skilled HHC at [place], as pt has not be interested and refused recently. to confer with son and notify this worker. Debbie Ruiz DENTAL INTERN ROUTE CARRIER
[2024-09-10] MEDS: MELATONIN 3 MG TABLET PO (20:45)
--- NOTE | 2024-09-11 08:47 | CASEMGMT ---
Addendum entered by Debbie Ruiz 09/11/24 09:37: [facility] can accept with SOC 09/13 or 09/14 Original Note: Social Work SW phoned to follow up on HHC choice. agreed to coordinate skilled HHC. SW offered list of skilled HHC agencies within geographical area, INN with insurance, that include quality and resource data via CarePort guide. denied and requested [facility]. SW to place referral. to transport pt about 1200 this date. - SW phoned referral to [facility] for PT/OT. SW updated Kyung at [place]. Debbie Ruiz MARINE SAFETY OFFICER TRAFFIC WORKFORCE REPRESENTATIVE
[2024-09-11 09:04] VITALS: BP 88/50; PULSE 83; TEMP 36.6; O2SAT 93
[2024-09-11 09:05] VITALS: BP 94/43; PULSE 83
[2024-09-11] MEDS: Potassium Chloride Oral Tablet 20 MEQ PO (09:07)
[2024-09-11] MEDS: Senna/Docusate Sodium 1 Tablet PO (09:08)
--- NOTE | 2024-09-11 11:18 | CASEMGMT ---
Social Work SW completed BIMS (07/29) and PHQ-9 () for MDS assessment. Debbie Ruiz RUBBER WORKER WARDROBE ATTENDANT
[2024-09-11 12:14] VITALS: BP 106/68; PULSE 82
--- NOTE | 2024-09-11 12:27 | NURSING ---
report called to Kena, nurse [facility]
== END 2024-09-11 12:44 | disposition home health service (06) | DRG 57 ==
PROVIDERS: Admitting Provider Family Medicine Geriatric Medicine; PCP Family Medicine Geriatric Medicine; Referring Provider Family Medicine Geriatric Medicine; Visit Provider Family Medicine Geriatric Medicine
DX: I69.354 Hemiplegia and hemiparesis following cerebral infarction affecting left non-dominant side (principal); E44.1 Mild protein-calorie malnutrition; Z68.1 Body mass index [BMI] 19.9 or less, adult; F02.80 Dementia in other diseases classified elsewhere, unspecified severity, without behavioral disturbance, psychotic disturbance, mood disturbance, and anxiety; I69.392 Facial weakness following cerebral infarction; F32.9 Major depressive disorder, single episode, unspecified; E03.9 Hypothyroidism, unspecified; I10 Essential (primary) hypertension; G30.9 Alzheimer's disease, unspecified; E87.6 Hypokalemia; E78.5 Hyperlipidemia, unspecified; K22.70 Barrett's esophagus without dysplasia; I25.10 Atherosclerotic heart disease of native coronary artery without angina pectoris; F41.9 Anxiety disorder, unspecified; F17.290 Nicotine dependence, other tobacco product, uncomplicated; Z79.899 Other long term (current) drug therapy; Z79.890 Hormone replacement therapy; Z79.82 Long term (current) use of aspirin; G47.00 Insomnia, unspecified
CPT/HCPCS: 36415; 80048; 85025; 90677; 92507; 92523; 92610; 97110; 97116; 97162; 97166; 97530; 97535; 97802; 99406; G0009

== ENCOUNTER → 2024-11-07 | Outpatient (CLI) | payer MEDICARE, SELFPAY ==
[2024-11-07 10:45] LABS: Hematocrit 35.1 % (37-47); Hemoglobin 11.6 g/dL (12.0-15.0); Immature Granulocytes Count 0.020 X10^3/uL (0.0-0.0); Mean Corp Hgb Conc 33.0 g/dL (32-36); Mean Corpuscular Volume 92.4 fL (81-99); Mean Platelet Vol. 9.1 fl (6.2-12.0); NRBC Flagged by Analyzer 0 % (0-5); Platelet Count 486 K/mm3 (150-450); RBC Distribution Width CV 14.9 % (11.6-14.6); RBC Distribution Width SD 50.9 fl (35.1-43.9); Red Blood Count 3.80 M/mm3 (4.2-5.4); White Blood Count 8.4 K/mm3 (4.4-11.0)
[2024-11-07 12:37] LABS: AST(SGOT) 39 U/L (<=31); Alanine Aminotransfer ALT/SGPT 40 U/L (<=34); Albumin, Serum 4.1 g/dL (3.4-4.8); Alkaline Phosphatase 114 U/L (35-104); Anion Gap 12 (5-15); BUN 16 mg/dL (4-19); BUN/Creat Ratio 14.1 RATIO (10-20); Calcium,Total 9.2 mg/dL (7.6-11.0); Carbon Dioxide 23.7 mmol/L (21.0-32.0); Chloride 103 mmol/L (98-108); Globulin 2.9 g/dL (2.2-4.2); Glucose 98 mg/dL (70-99); Potassium 4.6 mmol/L (3.3-5.1); Vitamin D,25 Hydroxy 82.5 ng/mL (30-100)
[2024-11-07 18:28] LABS: Xtra Tube Kwok EXTRA TUBE
== END | disposition home or self-care (01) ==
LOC: POLAB3 10:28
PROVIDERS: PCP Family Medicine Geriatric Medicine; Visit Provider Family Medicine Geriatric Medicine
DX: I10 Essential (primary) hypertension (principal); E03.9 Hypothyroidism, unspecified; E55.9 Vitamin D deficiency, unspecified
CPT/HCPCS: 36415; 80053; 82306; 84443; 85025